=== PATIENT | female | born 1945 | race African-American/Black ===

== ENCOUNTER 2019-12-03 09:19 | Outpatient (REF) | payer MEDICARE, MEDICAID, SELFPAY ==
--- NOTE | 2019-12-03 | US_ITS ---
EXAMINATION: US THYROID CLINICAL INFORMATION: Goiter. COMPARISON: Ultrasound soft tissue head/neck thyroid dated 11/28/2018 and 11/20/2017. TECHNIQUE: Linear transducer cummings-scale and color Doppler examination with attention to the region of the thyroid. FINDINGS: SIZE: Measurements of the thyroid lobes and nodules are given in sagittal, anteroposterior and transverse dimensions respectively. Right Thyroid Lobe: 4.3 x 1.6 x 1.1 cm, volume 3.9 mL. Previously 4.2 x 1.6 x 1.3 cm, volume 4.4 mL. Parenchyma: The gland echotexture is heterogeneous. Thyroid vascularity is normal. Left Thyroid Lobe: 3.9 x 1.1 x 0.8 cm, volume 1.7 mL. Previously 4.2 x 1.7 x 0.9 cm, volume 3.3 mL. Parenchyma: The gland echotexture is heterogeneous. Thyroid vascularity is normal. Isthmus: 0.3 cm in maximum AP dimension. Previously 0.4 cm. RIGHT THYROID LOBE: There are 3 nodules seen. 1. Location: Superior. Size: 1.6 x 0.8 x 0.9 cm. Previous: 1.7 x 0.8 x 1.0 cm. Nodule characteristics: Hypoechoic and heterogeneous, smooth margin, calcification and no intranodular flow. 2. Location: Middle. Size: 0.3 x 0.3 x 0.3 cm. Previous: Not seen on the previous study. Nodule characteristics: Hypoechoic and cystic, smooth margin, no calcification and no intranodular flow. 3. Location: Inferior. Size: 0.2 x 0.2 x 0.2 cm. Previous: Not seen on the previous study. Nodule characteristics: Hypoechoic and cystic, smooth margin, no calcification and no intranodular flow. ISTHMUS: No nodules. LEFT THYROID LOBE: There are 3 nodules seen. 1. Location: Middle. Size: 0.6 x 0.3 x 0.6 cm. Previous: 0.6 x 0.3 x 0.5 cm. Nodule characteristics: Hypoechoic, smooth margin, no calcification and positive intranodular flow. 2. Location: Superior. Size: 0.2 x 0.2 x 0.2 cm. Previous: Not seen on the previous study. Nodule characteristics: Hypoechoic and cystic, smooth margin, no calcification and no intranodular flow. 3. Location: Superior. Size: 0.9 x 0.4 x 0.6 cm. Previous: 1.1 x 0.6 x 0.9 cm. Nodule characteristics: Hypoechoic, smooth margin, no calcification and positive intranodular flow. NODES: No lymphadenopathy is seen in the tissue surrounding the thyroid gland. IMPRESSION: Slightly small heterogeneous thyroid gland. Several newly appreciated small cystic nodules. Otherwise bilateral thyroid nodules are stable.
== END 2019-12-03 09:20 | disposition home or self-care (01) ==
LOC: HO.HMGCX 09:19
PROVIDERS: PCP Internal Medicine; Visit Provider Internal Medicine Endocrinology, Diabetes & Metabolism
DX: E04.2 Nontoxic multinodular goiter (principal)
CPT/HCPCS: 76536

== ENCOUNTER 2019-12-06 07:49 | Outpatient (REF) | payer MEDICARE, MEDICAID, SELFPAY ==
[2019-12-06 13:02] LABS: Free T4 (Free Thyroxine) 1.09 ng/dL (0.71-1.85); Thyroid Stimulating Hormone 0.72 mIU/mL (0.32-4.0)
== END 2019-12-06 07:50 | disposition home or self-care (01) ==
LOC: HO.LAB 07:49
PROVIDERS: PCP Internal Medicine; Referring Provider Internal Medicine; Visit Provider Internal Medicine Endocrinology, Diabetes & Metabolism
DX: E03.9 Hypothyroidism, unspecified (principal); E04.2 Nontoxic multinodular goiter; E66.9 Obesity, unspecified; Z68.34 Body mass index [BMI] 34.0-34.9, adult
CPT/HCPCS: 84439; 84443; 99214

== ENCOUNTER 2020-02-24 06:07 | Outpatient (REF) | payer MEDICARE, MEDICAID, SELFPAY ==
[2020-02-24 07:21] LABS: MANUAL DIFF FLAG NO
[2020-02-24 07:25] LABS: Basophils Absolute Auto 0.1 X10*3/uL (0.0-0.2); Basophils Percent Auto 0.8 % (0-2); Eosinophils Absolute Auto 0.1 X10*3/uL (0.0-0.4); Eosinophils Percent Auto 1.5 % (0-4); Hemoglobin 15.1 g/dl (12.0-16.0); Imm Gran Abs Auto 0.02 X10*3/uL (0.00-0.03); Imm Gran Pct Auto 0.2 % (0.0-0.4); Lymphocytes Absolute Auto 4.3 X10*3/uL (1.2-4.9); Lymphocytes Percent Auto 49.9 % (20-40); Mean Corpuscular HGB Conc 32.8 g/dl (31.0-35.0); Mean Corpuscular Hemoglobin 28.8 pg (27.0-33.0); Mean Corpuscular Volume 87.6 fL (80-98); Mean Platelet Volume 10.8 fL (9.4-12.3); Monocytes Absolute Auto 0.7 X10*3/uL (0.1-1.2); Monocytes Percent Auto 7.9 % (2-11); Neutrophils Absolute Auto 3.5 X10*3/uL (2.0-8.3); Neutrophils Percent Auto 39.7 % (45-73); Platelet Count 285 X10*3/uL (160-400); Red Blood Count 5.25 X10*6/uL (4.20-5.50); Red Cell Distribution Width 12.9 % (11.0-16.0); White Blood Count 8.7 X10*3/uL (4.8-10.8)
[2020-02-24 07:45] LABS: Anion Gap 15 (12-20); Blood Urea Nitrogen 20 mg/dL (9-16); Calcium 9.3 mg/dL (8.4-10.2); Carbon Dioxide 27 mmol/L (22-29); Chloride 103 mmol/L (96-108); Cholesterol 134 mg/dL; Estimated Glomerular Filt Rate 41; HDL Cholesterol 42 mg/dL; Iron 120 mcg/dL (30-160); LDL Cholesterol Calculated 68 mg/dl; Percent Iron Saturation 38 % (15-50); Potassium 3.6 mmol/l (3.3-5.1); Sodium 141 mmol/L (135-145); Total Iron Binding Capacity 318 mcg/dL (228-428); Triglycerides 124 mg/dL; Unsaturated Iron Binding 198 ug/dL; Uric Acid 5.5 mg/dL (2.4-5.7)
[2020-02-24 07:49] LABS: Creatinine Urine 193.13 mg/dL; Protein/Creatinine Ratio, Ur 0.16 (<0.2); Total Protein Urine Random 31 mg/dL (<12)
[2020-02-24 07:53] LABS: Estimated Average Glucose 105 mg/dL; Hemoglobin A1c % 5.3 %
[2020-02-24 08:05] LABS: Free T4 (Free Thyroxine) 1.05 ng/dL (0.71-1.85); Thyroid Stimulating Hormone 1.73 uIU/mL (0.32-4.0)
[2020-02-24 08:07] LABS: Ferritin 84 ng/mL (10-250); Vitamin D 25-OH Total 44.1 ng/mL (>30)
[2020-02-25 20:22] LABS: Calcium (PTHI) 9.6 mg/dL (8.6-10.4); PTHI 38 pg/mL (14-64)
== END 2020-02-24 06:08 | disposition home or self-care (01) ==
LOC: HO.LAB 06:07
PROVIDERS: Internal Medicine Endocrinology, Diabetes & Metabolism; PCP Internal Medicine; Visit Provider Physician Assistant
DX: N18.31 Chronic kidney disease, stage 3a (principal)
CPT/HCPCS: 36415; 80051; 80061; 82306; 82310; 82565; 82728; 83036; 83540; 83970; 84156; 84439; 84443; 84520; 84550; 85025

== ENCOUNTER 2020-05-14 18:12 | Emergency (ER) | payer MEDICARE, MEDICAID, SELFPAY ==
--- NOTE | ~2020-05-14 | XR_ITS ---
EXAMINATION: XR CHEST CLINICAL INFORMATION: Chest pain COMPARISON: None TECHNIQUE: Frontal view of the chest was obtained. FINDINGS: The heart and pulmonary vessels appear normal. No infiltrates, effusions or lung masses seen. Marked degenerative changes present in the left shoulder. Degenerative changes noted in the spine as well. XR/XR chest 1V IMPRESSION: No acute intrathoracic disease
[2020-05-14 18:25] VITALS: BP 158/77; BP 170/86; PULSE 105; PULSE 90; RESP 16; TEMP 37; O2SAT 100; O2SAT 99; BMI 32.0
--- NOTE | 2020-05-14 19:02 | ECG_ITS ---
Test Reason : HTN Blood Pressure : / mmHG Vent. Rate : 103 BPM Atrial Rate : 103 BPM P-R Int : 176 ms QRS Dur : 080 ms QT Int : 380 ms P-R-T Axes : 055 021 031 degrees QTc Int : 497 ms Sinus tachycardia with Premature supraventricular complexes Nonspecific ST abnormality Abnormal ECG No previous ECGs available Referred By: Amy Danielle Electronically Signed By:YONI ALCANTARA MD
--- NOTE | 2020-05-14 19:02 | ED.CHESTPAIN ---
HPI - Chest Pain General Chief Complaint: Anxiety Stated Complaint: anxiety Source: patient Mode of arrival: ambulatory Limitations: language barrier History of Present Illness HPI narrative: 74-year-old [place]an-speaking female with past medical history of hypertension, hypothyroidism, osteoarthritis, GERD, and anxiety presents with anxiety over an elevated blood pressure. She reports having an episode of right-sided chest pain prior to the episode of elevated blood pressure and anxiety. She takes blood pressure medication every morning, take blood pressure readings several times a day. She does not report any chest pain or pressure at this time, denies palpitations, headache, dizziness, changes in vision, abdominal pain, abdominal distention, dysuria, hematuria, nausea, vomiting, diarrhea, constipation, melena, hematochezia, edema, loss of balance or changes in vision. Timing of current episode: episodic Prior episodes: Yes Onset: during rest Pain location: right chest Pain radiation: none Severity: mild Pain scale (0-10): 2 Quality: dull Relieving factors: rest Exacerbating factors: nothing Treatment prior to arrival: none Risk Factors Coronary artery disease risk factors: hyperlipidemia and hypertension Thoracic aortic dissection risk factors: none Related Data Home Medications Medication Instructions Recorded Confirmed amlodipine 5 mg tablet 5 mg PO DAILY 12/06/19 12/06/19 ibandronate 150 mg tablet 150 mg PO .monthly tab 12/06/19 12/06/19 metoprolol succinate 100 mg 100 mg PO DAILY 12/06/19 12/06/19 tablet,extended release 24 hr oxazepam 10 mg capsule 10 mg PO BID 12/06/19 12/06/19 ranitidine HCl 150 mg tablet 150 mg PO BID tab 12/06/19 12/06/19 simvastatin 20 mg tablet 20 mg PO DAILY 12/06/19 12/06/19 sucralfate 100 mg/mL oral 10 ml PO QID 12/06/19 12/06/19 suspension Previous Rx's Medication Instructions Recorded levothyroxine 50 mcg tablet 50 mcg PO DAILY 90 Days #90 tab 12/06/19 Allergies Allergy/AdvReac Type Severity Reaction Status Date / Time No Known Allergies Allergy Verified 05/14/20 19:02 Review of Systems Review of Systems: Constitutional: No Fever, No Chills ENT/Mouth: No Ear Pain, No Nasal Congestion, No sore throat Eyes: No Eye Pain, No Swelling, No Redness Cardiovascular: Resolved Chest Pain, No SOB Respiratory: No Cough, No Sputum, No Dyspnea Gastrointestinal: No Nausea, No Vomiting, No Diarrhea, No Hematochezia, No Melena Genitourinary: No Dysuria, No Urinary Frequency, No Hematuria Musculoskeletal: No Myalgias Skin: No Skin Lesions, No rash Neuro: No Weakness, No Numbness, No Paresthesias, No Dizziness, No Headache Psych: positive Anxiety, no Depression, no SI/HI Heme/Lymph: No Lymphadenopathy Endocrine: No Polyuria, No Polydipsia Yes all other systems are reviewed and are negative [facility] Past Medical History Attestation statement: The following information was validated with the patient. Source: old records reviewed Medical History GERD (gastroesophageal reflux disease) Hypertension Hypothyroidism Non-toxic multinodular goiter Obesity (BMI 30-39.9) Osteoarthritis Osteoporosis Surgical History Hx laparoscopic cholecystectomy Hx of eye surgery Hx of hysterectomy Social History Social History Advance Directives: No Advance Directives Information Provided: Yes Physical Exam Vital Signs: Vital Signs: Last Vital Signs Temp 98.6 F 05/14/20 18:25 Pulse 92 05/14/20 22:20 Resp 18 05/14/20 22:20 BP 137/73 05/14/20 22:20 Pulse Ox 98 05/14/20 22:20 Body Mass Index 32.0 Appearance: Alert. Oriented X3. No acute distress. Eyes: Pupils equal, round and reactive to light. ENT: Pharynx normal. Neck: Normal inspection. Neck supple. CVS: Normal heart rate and rhythm. Pulses normal. Respiratory: No respiratory distress. Breath sounds normal. Abdomen: Soft and nontender. Skin: Skin warm and dry. Normal skin color. Normal skin turgor. Extremities: No lower extremity edema. Neuro: No motor deficit. No sensory deficit. Course Course Course Narrative: 74-year-old [place]an-speaking female with past medical history of hypertension, hypothyroidism, osteoarthritis, GERD, and anxiety presents with anxiety over an elevated blood pressure. She reports having an episode of right-sided chest pain prior to the episode of elevated blood pressure and anxiety. Based on patient's symptoms we will rule out ACS, order CBC, Chem 7 and urinalysis. White count 13.7, H&H 15.0/44.5, BUN 24, Sodium 133, urinalysis is negative, chest x-ray negative, EKG sinus tachycardia no ST elevation or depression no indication of ischemia. lab values highly suspicious for dehydration. Highly unlikely that this is ACS. Will resuscitate with 1 L of fluid. No indication of infection at this time Discussion with family regarding lab values, and negative workup. Plan of care is to discharge home. marketing and outreach coordinator utilized for all correspondence. Google translate utilized for discharge instructions. MDM - Chest Pain Differential Diagnosis Differential diagnosis: Likely atypical chest pain, st elevation myocardial infarction and chest pain Differential diagnosis: Anxiety Medical Records Data Attestation: I reviewed the patient's medical records. Lab Data Attestation: I reviewed the patient's lab results. Result diagrams: 05/14/20 19:27 05/14/20 19:27 Labs: Lab Results 05/14/20 05/14/20 05/14/20 Range/Units 19:20 19:27 19:27 WBC 13.7 H (4.8-10.8) X10*3/uL RBC 5.11 (4.20-5.50) X10*6/uL Hgb 15.0 (12.0-16.0) g/dl Hct 44.5 (37-47) % MCV 87.1 (80-98) fL MCH 29.4 (27.0-33.0) pg MCHC 33.7 (31.0-35.0) g/dl RDW 12.8 (11.0-16.0) % Plt Count 290 (160-400) X10*3/uL MPV 10.0 (9.4-12.3) fL Immature Gran % (Auto) 0.3 (0.0-0.4) % Neut % (Auto) 63.9 (45-73) % Lymph % (Auto) 25.0 (20-40) % Galax % (Auto) 9.5 (2-11) % Eos % (Auto) 0.9 (0-4) % Baso % (Auto) 0.4 (0-2) % Lymph # (Auto) 3.4 (1.2-4.9) X10*3/uL [place]ax # (Auto) 1.3 H (0.1-1.2) X10*3/uL Eos # (Auto) 0.1 (0.0-0.4) X10*3/uL Baso # (Auto) 0.1 (0.0-0.2) X10*3/uL Abs Immat Gran (auto) 0.04 H (0.00-0.03) X10*3/uL Absolute Neuts (auto) 8.8 H (2.0-8.3) X10*3/uL Absolute Nucleated RBC 0.000 (0.0-0.012) X10*3/uL Nucleated RBC % (auto) 0.0 (0.0-0.2) /100WBC PT 12.3 (10.8-13.0) SEC INR 1.0 (0.9-1.1) APTT 32.7 (24.1-38.0) SEC Sodium (135-145) mmol/L Potassium (3.3-5.1) mmol/L Chloride (96-108) mmol/L Carbon Dioxide (22-29) mmol/L Anion Gap (12-20) BUN (9-16) mg/dL Creatinine (0.5-1.4) mg/dL Estim Creat Clear Calc Estimated GFR POC Glucose 126 H (60-115) mg/dL Random Glucose (60-115) mg/dL Calcium (8.4-10.2) mg/dL Magnesium (1.6-2.6) mg/dL Total Bilirubin (0.0-1.0) mg/dL Direct Bilirubin (0.0-0.5) mg/dL AST (5-31) U/L ALT (0-31) U/L Alkaline Phosphatase (39-117) U/L Troponin I High Sens (<3.5-17.0) ng/L Total Protein (6.5-8.0) g/dL Albumin (3.5-5.0) g/dL Lipase (8-78) U/L Urine Color Urine Appearance Urine pH (5.0-8.0) Ur Specific Hamilton (1.005-1.025) Urine Protein (NEG-TRACE) MG/DL Urine Glucose (UA) (NEG) MG/DL Urine Ketones (NEG) MG/DL Urine Blood (NEG) Urine Nitrite (NEG) Ur Leukocyte Esterase (NEG) Urine RBC (0) /HPF Urine WBC (0-4) /HPF Ur Squamous Epith Cells /LPF Urine Bacteria /LPF 05/14/20 05/14/20 05/14/20 Range/Units 19:27 19:27 19:27 WBC (4.8-10.8) X10*3/uL RBC (4.20-5.50) X10*6/uL Hgb (12.0-16.0) g/dl Hct (37-47) % MCV (80-98) fL MCH (27.0-33.0) pg MCHC (31.0-35.0) g/dl RDW (11.0-16.0) % Plt Count (160-400) X10*3/uL MPV (9.4-12.3) fL Immature Gran % (Auto) (0.0-0.4) % Neut % (Auto) (45-73) % Lymph % (Auto) (20-40) % Galax % (Auto) (2-11) % Eos % (Auto) (0-4) % Baso % (Auto) (0-2) % Lymph # (Auto) (1.2-4.9) X10*3/uL [place]ax # (Auto) (0.1-1.2) X10*3/uL Eos # (Auto) (0.0-0.4) X10*3/uL Baso # (Auto) (0.0-0.2) X10*3/uL Abs Immat Gran (auto) (0.00-0.03) X10*3/uL Absolute Neuts (auto) (2.0-8.3) X10*3/uL Absolute Nucleated RBC (0.0-0.012) X10*3/uL Nucleated RBC % (auto) (0.0-0.2) /100WBC PT (10.8-13.0) SEC INR (0.9-1.1) APTT (24.1-38.0) SEC Sodium 133 L (135-145) mmol/L Potassium 3.6 (3.3-5.1) mmol/L Chloride 96 (96-108) mmol/L Carbon Dioxide 26 (22-29) mmol/L Anion Gap 15 (12-20) BUN 24 H (9-16) mg/dL Creatinine 1.17 (0.5-1.4) mg/dL Estim Creat Clear Calc 37.0 Estimated GFR 45 POC Glucose (60-115) mg/dL Random Glucose 131 H (60-115) mg/dL Calcium 9.5 (8.4-10.2) mg/dL Magnesium 2.1 (1.6-2.6) mg/dL Total Bilirubin 0.5 (0.0-1.0) mg/dL Direct Bilirubin 0.2 (0.0-0.5) mg/dL AST 30 (5-31) U/L ALT 47 H (0-31) U/L Alkaline Phosphatase 72 (39-117) U/L Troponin I High Sens < 3.5 (<3.5-17.0) ng/L Total Protein 7.9 (6.5-8.0) g/dL Albumin 4.7 (3.5-5.0) g/dL Lipase 61 (8-78) U/L Urine Color STRAW Urine Appearance CLEAR Urine pH 7.0 (5.0-8.0) Ur Specific Hamilton 1.015 (1.005-1.025) Urine Protein NEG (NEG-TRACE) MG/DL Urine Glucose (UA) NEG (NEG) MG/DL Urine Ketones NEG (NEG) MG/DL Urine Blood TRACE (NEG) Urine Nitrite NEG (NEG) Ur Leukocyte Esterase NEG (NEG) Urine RBC 1-4 (0) /HPF Urine WBC 1-4 (0-4) /HPF Ur Squamous Epith Cells 1+ /LPF Urine Bacteria NONE /LPF Imaging Data Chest x-ray: Attestation: I personally reviewed and interpreted this imaging study as follows: Radiologist's impression: EXAMINATION: XR CHEST CLINICAL INFORMATION: Chest pain COMPARISON: None TECHNIQUE: Frontal view of the chest was obtained. FINDINGS: The heart and pulmonary vessels appear normal. No infiltrates, effusions or lung masses seen. Marked degenerative changes present in the left shoulder. Degenerative changes noted in the spine as well. XR/XR chest 1V IMPRESSION: No acute intrathoracic disease ECG Data ECG #1: Attestation: I personally reviewed and interpreted this ECG as follows: ECG interpretation date: 05/14/20 ECG interpretation time: 19:21 Interpretation: Vent. rate 103 BPM MD interval 176 ms QRS duration 80 ms QT/QTc 380/497 ms P-R-T axes 55 21 31 Sinus tachycardia with Premature supraventricular complexes Nonspecific ST abnormality Abnormal ECG No previous ECGs available Discharge Plan Discharge Clinical Impression: Acute anxiety, Acute dehydration Patient Disposition: Home, Self-Care Instructions: Dehydration (ED), Anxiety (ED) Additional Instructions: You were evaluated for anxiety. We did a full cardiac workup, your exam was negative. Your lab values indicated dehydration. We gave you 1 L of fluid. Please drink plenty of fluids when you get home. Continue follow-up with primary care physician this week. Thank you for choosing this emergency department for evaluation. Please follow-up with primary care physician as needed. Return to the emergency department for any new, concerning, or worsening symptoms. Prescriptions: No Action oxazepam 10 mg capsule 10 mg PO BID RF: 0 ranitidine HCl 150 mg tablet 150 mg PO BID RF: 0 ibandronate 150 mg tablet 150 mg PO .monthly RF: 0 metoprolol succinate 100 mg tablet extended release 24 hr 100 mg PO DAILY RF: 0 sucralfate [Carafate] 100 mg/mL suspension 10 ml PO QID RF: 0 simvastatin 20 mg tablet 20 mg PO DAILY RF: 0 amlodipine 5 mg tablet 5 mg PO DAILY RF: 0 levothyroxine 50 mcg tablet 50 mcg PO DAILY 90 Days Qty: 90 RF: 2 Interventions: ED Discharge Assessment Last Done: 05/14/20 22:41 Discharge Date/Time: 05/14/20 22:42
[2020-05-14 19:32] LABS: Glucose, Whole Blood 126 mg/dL (60-115)
--- NOTE | 2020-05-14 19:32 | PC.NURSE ---
EKG, POC, labs and urine obtained and sent. Pt resting comfortably in bed, denies pain/discomfort, awaiting test results.
[2020-05-14 19:33] LABS: MANUAL DIFF FLAG NO
[2020-05-14 19:34] LABS: Basophils Absolute Auto 0.1 X10*3/uL (0.0-0.2); Basophils Percent Auto 0.4 % (0-2); Eosinophils Absolute Auto 0.1 X10*3/uL (0.0-0.4); Eosinophils Percent Auto 0.9 % (0-4); Hematocrit 44.5 % (37-47); Imm Gran Abs Auto 0.04 X10*3/uL (0.00-0.03); Imm Gran Pct Auto 0.3 % (0.0-0.4); Lymphocytes Absolute Auto 3.4 X10*3/uL (1.2-4.9); Mean Corpuscular HGB Conc 33.7 g/dl (31.0-35.0); Mean Corpuscular Hemoglobin 29.4 pg (27.0-33.0); Mean Corpuscular Volume 87.1 fL (80-98); Monocytes Absolute Auto 1.3 X10*3/uL (0.1-1.2); Monocytes Percent Auto 9.5 % (2-11); Neutrophils Absolute Auto 8.8 X10*3/uL (2.0-8.3); Neutrophils Percent Auto 63.9 % (45-73); Platelet Count 290 X10*3/uL (160-400); Red Blood Count 5.11 X10*6/uL (4.20-5.50); Red Cell Distribution Width 12.8 % (11.0-16.0); White Blood Count 13.7 X10*3/uL (4.8-10.8)
[2020-05-14 19:48] LABS: Prothrombin Time 12.3 SEC (10.8-13.0)
[2020-05-14 19:51] LABS: Glucose Urine UA NEG (NEG); Leukocyte Esterase Urine NEG (NEG); Nitrite Urine NEG (NEG); Partial Thromboplastin Time 32.7 SEC (24.1-38.0); Specific Gravity - Urine 1.015 (1.005-1.025); Urine Blood TRACE (NEG); Urine Ketones NEG (NEG); Urine Protein NEG (NEG-TRACE)
[2020-05-14 19:54] LABS: Appearance Urine CLEAR; Color Urine STRAW
[2020-05-14 19:57] LABS: Alanine Aminotransferase 47 U/L (0-31); Albumin Level 4.7 g/dL (3.5-5.0); Alkaline Phosphatase 72 U/L (39-117); Anion Gap 15 (12-20); Aspartate Amino Transferase 30 U/L (5-31); Bilirubin Direct 0.2 mg/dL (0.0-0.5); Bilirubin Total 0.5 mg/dL (0.0-1.0); Blood Urea Nitrogen 24 mg/dL (9-16); Calcium 9.5 mg/dL (8.4-10.2); Carbon Dioxide 26 mmol/L (22-29); Chloride 96 mmol/L (96-108); Estimated Glomerular Filt Rate 45; Glucose Random 131 mg/dL (60-115); Lipase 61 U/L (8-78); Magnesium 2.1 mg/dL (1.6-2.6); Potassium 3.6 mmol/L (3.3-5.1); Sodium 133 mmol/L (135-145); Total Protein 7.9 g/dL (6.5-8.0)
[2020-05-14 20:01] LABS: Squamous Epithelial Cell Urine 1+ /LPF
[2020-05-14 20:04] LABS: Troponin-I High Sensitivity < 3.5 ng/L (<3.5-17.0)
[2020-05-14] MEDS: 0.9 % Sodium Chloride 1,000 ML 999 ML IVCONT (20:39)
--- NOTE | 2020-05-14 20:39 | PC.NURSE ---
IV established, IVF infusing. Pt on the phone with family, continues denying pain/discomfort. Continue to monitor.
[2020-05-14 22:20] VITALS: BP 137/73; PULSE 92; RESP 18; O2SAT 98
== END 2020-05-14 22:42 | disposition home or self-care (01) ==
PROVIDERS: Nurse Practitioner Family; Emergency Provider Internal Medicine
DX: F41.9 Anxiety disorder, unspecified (principal); E86.0 Dehydration; I10 Essential (primary) hypertension
CPT/HCPCS: 36415; 71045; 80048; 80076; 81001; 82947; 83690; 83735; 84484; 85025; 85610; 85730; 93005; 96360; 99283; 99284

== ENCOUNTER 2020-05-18 10:48 | Outpatient (REF) | payer MEDICARE, MEDICAID, SELFPAY | END 2020-05-18 10:49 | disposition home or self-care (01) | LOC: HO.HOSX 10:48 | PROVIDERS: Visit Provider Orthopaedic Surgery | DX: Z13.89 Encounter for screening for other disorder (principal) ==

== ENCOUNTER 2020-05-19 11:38 | Outpatient (REF) | payer MEDICARE, MEDICAID, SELFPAY ==
--- NOTE | ~2020-05-19 | XR_ITS ---
EXAMINATION: XR SHOULDER, RIGHT CLINICAL INFORMATION: Pain right shoulder. COMPARISON: None TECHNIQUE: AP external rotation, Grashey, scapular Y, and axillary views of the right shoulder. FINDINGS: There is reduction of glenohumeral and AC joint space. No fracture, dislocation or subluxation seen. The soft tissues are normal. XR/XR shoulder RT min 2V IMPRESSION: Mild early degenerative changes of the right shoulder joint. No acute fracture or dislocation seen.
== END 2020-05-19 11:39 | disposition home or self-care (01) ==
LOC: HO.HMGCX 11:38
PROVIDERS: PCP Internal Medicine; Visit Provider Orthopaedic Surgery
DX: Z13.89 Encounter for screening for other disorder (principal)
CPT/HCPCS: 20610; 73030; 99202

== ENCOUNTER 2020-05-19 13:35 | Outpatient (REF) | payer MEDICARE, MEDICAID, SELFPAY ==
--- NOTE | ~2020-05-19 | XR_ITS ---
EXAMINATION: XR SHOULDER, RIGHT CLINICAL INFORMATION: M25.519 - Pain in unspecified shoulder COMPARISON: None TECHNIQUE: Three views of the right shoulder. FINDINGS: Mild acromioclavicular and glenohumeral osteoarthritis. No fractures or malalignment. Bone mineralization is normal. Small anterior subacromial spur. Imaged portion of the hemithorax is unremarkable. There is a small 4 mm calcification at the right coracoid process, likely calcific tendinitis. XR/XR shoulder RT min 2V IMPRESSION: Mild glenohumeral and acromioclavicular osteoarthritis. Small 4 mm focus of calcific tendinitis at the coracoid process, likely at the origin of the coracobrachialis or short head of the biceps.
== END 2020-05-19 13:36 | disposition home or self-care (01) ==
LOC: HO.HOSX 13:35
PROVIDERS: Visit Provider Orthopaedic Surgery
DX: M25.511 Pain in right shoulder (principal)
CPT/HCPCS: 20610; 73030; 99202; J1040

== ENCOUNTER 2020-08-14 06:17 | Outpatient (REF) | payer MEDICARE, MEDICAID, SELFPAY ==
[2020-08-14 07:47] LABS: MANUAL DIFF FLAG NO
[2020-08-14 07:53] LABS: Basophils Absolute Auto 0.1 X10*3/uL (0.0-0.2); Basophils Percent Auto 0.6 % (0-2); Eosinophils Absolute Auto 0.2 X10*3/uL (0.0-0.4); Eosinophils Percent Auto 1.9 % (0-4); Hematocrit 44.1 % (37-47); Hemoglobin 14.7 g/dl (12.0-16.0); Imm Gran Abs Auto 0.02 X10*3/uL (0.00-0.03); Imm Gran Pct Auto 0.2 % (0.0-0.4); Lymphocytes Absolute Auto 3.9 X10*3/uL (1.2-4.9); Lymphocytes Percent Auto 43.2 % (20-40); Mean Corpuscular HGB Conc 33.3 g/dl (31.0-35.0); Mean Corpuscular Hemoglobin 28.9 pg (27.0-33.0); Mean Corpuscular Volume 86.8 fL (80-98); Mean Platelet Volume 10.7 fL (9.4-12.3); Monocytes Absolute Auto 0.8 X10*3/uL (0.1-1.2); Monocytes Percent Auto 9.4 % (2-11); Neutrophils Percent Auto 44.7 % (45-73); Platelet Count 270 X10*3/uL (160-400); Red Blood Count 5.08 X10*6/uL (4.20-5.50); Red Cell Distribution Width 13.3 % (11.0-16.0)
[2020-08-14 08:04] LABS: Estimated Average Glucose 108 mg/dL; Hemoglobin A1c % 5.4 %
[2020-08-14 08:20] LABS: Alanine Aminotransferase 28 U/L (0-31); Albumin Level 4.6 g/dL (3.5-5.0); Alkaline Phosphatase 66 U/L (39-117); Anion Gap 15 (12-20); Aspartate Amino Transferase 22 U/L (5-31); Bilirubin Total 0.4 mg/dL (0.0-1.0); Blood Urea Nitrogen 16 mg/dL (9-16); Calcium 9.4 mg/dL (8.4-10.2); Carbon Dioxide 28 mmol/L (22-29); Chloride 102 mmol/L (96-108); Cholesterol 129 mg/dL; Estimated Glomerular Filt Rate 44; Glucose Random 102 mg/dL (60-115); HDL Cholesterol 43 mg/dL; LDL Cholesterol Calculated 70 mg/dl; Potassium 4.1 mmol/L (3.3-5.1); Sodium 141 mmol/L (135-145); Total Protein 7.6 g/dL (6.5-8.0); Triglycerides 84 mg/dL
[2020-08-14 08:29] LABS: Thyroid Stimulating Hormone 1.08 uIU/mL (0.32-4.0)
== END 2020-08-14 06:18 | disposition home or self-care (01) ==
LOC: HO.LAB 06:17
PROVIDERS: PCP Internal Medicine; Visit Provider Internal Medicine
DX: I10 Essential (primary) hypertension (principal)
CPT/HCPCS: 36415; 80053; 80061; 83036; 84443; 85025

== ENCOUNTER 2021-05-24 09:38 | Outpatient (REF) | payer MEDICARE, MEDICAID, SELFPAY ==
[2021-05-24 12:17] LABS: Free T4 (Free Thyroxine) 1.15 ng/dL (0.71-1.85); Thyroid Stimulating Hormone 0.54 uIU/mL (0.32-4.0)
== END 2021-05-24 09:39 | disposition home or self-care (01) ==
LOC: HO.LAB 09:38
PROVIDERS: PCP Internal Medicine; Visit Provider Internal Medicine Endocrinology, Diabetes & Metabolism
DX: E04.2 Nontoxic multinodular goiter (principal); E03.9 Hypothyroidism, unspecified
CPT/HCPCS: 36415; 84439; 84443; 99212

== ENCOUNTER 2021-07-13 11:15 | Outpatient (REF) | payer MEDICARE, MEDICAID, SELFPAY ==
--- NOTE | ~2021-07-13 | US_ITS ---
EXAMINATION: US THYROID CLINICAL INFORMATION: Nontoxic multinodular goiter. COMPARISON: Ultrasound soft tissue head/neck thyroid dated 12/03/2019 and 11/28/2018. TECHNIQUE: Linear transducer grayscale and color Doppler examination with attention to the region of the thyroid. FINDINGS: SIZE: Measurements of the thyroid lobes and nodules are given in sagittal, anteroposterior and transverse dimensions respectively. Right Thyroid Lobe: 3.9 x 1.3 x 1.3 cm, volume 3.5 mL. Previously 4.3 x 1.6 x 1.1 cm, volume 3.9 mL. Parenchyma: The gland echotexture is heterogeneous. Thyroid vascularity is normal. Left Thyroid Lobe: 3.3 x 0.9 x 1.1 cm, volume 1.7 mL. Previously 3.9 x 1.1 x 0.8 cm, volume 1.7 mL. Parenchyma: The gland echotexture is heterogeneous. Thyroid vascularity is normal. Isthmus: 0.4 cm in maximum AP dimension. Previously 0.3 cm. Estimated total number of nodules greater than or equal to 1 cm: 1. [employer] nodules are described as follows: 1. Location: Right superior. Size: 1.7 x 0.7 x 0.9 cm, volume 0.53 mL. Previously: 1.6 x 0.8 x 0.9 cm, volume 0.60 mL. Nodule characteristics: Composition: Solid (2). Echogenicity: Isoechoic (1). Shape: Not taller than wide (0). Margins: Ill-defined (0). Echogenic Foci: Macrocalcifications (1). ACR TI-RADS total points: 4 ACR TI-RADS category: 4 Significant change in size (>/= 20% in 2 dimensions and minimal increase of 2 mm or 50% or greater increase in volume): Change in features: Change in ACR TI-RADS risk category: 2. Location: Left superior. Size: 0.9 x 0.4 x 0.5 cm, volume 0.09 mL. Previously: 0.8 x 0.4 x 0.6 cm, volume 0.1 mL. Nodule characteristics: Composition: Solid (2). Echogenicity: Hypoechoic (2). Shape: Not taller than wide (0). Margins: Smooth (0). Echogenic Foci: None (0). ACR TI-RADS total points: 4 ACR TI-RADS category: 4 Significant change in size (>/= 20% in 2 dimensions and minimal increase of 2 mm or 50% or greater increase in volume): Change in features: Change in ACR TI-RADS risk category: 3. Location: Left inferior. Size: 0.8 x 0.4 x 0.6 cm, volume 0.1 mL. Previously: 0.6 x 0.3 x 0.6 cm, volume 0.06 mL. Nodule characteristics: Composition: Mixed cystic and solid (1). Echogenicity: Very hypoechoic (3). Shape: Not taller than wide (0). Margins: Smooth (0). Echogenic Foci: None (0). ACR TI-RADS total points: 4 ACR TI-RADS category: 4 Significant change in size (>/= 20% in 2 dimensions and minimal increase of 2 mm or 50% or greater increase in volume): Change in features: Change in ACR TI-RADS risk category: 4. Location: Left inferior. Size: 0.4 x 0.3 x 0.3 cm, volume 0.02 mL. Previously: 0.2 x 0.2 x 0.2 cm, volume 0.004 mL. Nodule characteristics: Composition: Cystic(0). ACR TI-RADS total points: 0 ACR TI-RADS category: 1 Significant change in size (>/= 20% in 2 dimensions and minimal increase of 2 mm or 50% or greater increase in volume): Change in features: Change in ACR TI-RADS risk category: NODES: There is a right level 3 lymph node. This is normal in size in ultrasound morphology and demonstrates normal hilar flow.. This measures 1 x 0.6 x 0.9 cm.. US/US thyroid IMPRESSION: Small heterogeneous thyroid gland. Stable bilateral thyroid nodules. ACR TI-RADS RECOMMENDATION REFERENCE: Ultrasound-guided fine-needle aspiration, followup ultrasound, no further follow up. * TR1 (0 point) and TR 2 (2 points): No FNA or follow up * TR3 (3 points): FNA if more than or equal to 2.5 cm in maximum dimension, followup ultrasound in 1, 3 and 5 years if 1.5 to 2.4 cm in maximum dimension. * TR4 (4-6 points): FNA if more than or equal to 1.5 cm in maximum dimension, followup ultrasound in 1, 2, 3 and 5 years if 1 to 1.4 cm in maximum dimension. * TR5 (more than or equal to 7 points): FNA if more than or equal to 1 cm in maximum dimension, followup ultrasound every year for 5 years if 0.5 to 0.9 cm in maximum dimension. * TR3, TR4 or TR5 nodules that are below the size threshold for follow up receive no follow up.
== END 2021-07-13 11:16 | disposition home or self-care (01) ==
LOC: HO.HMGCX 11:15
PROVIDERS: PCP Internal Medicine; Visit Provider Internal Medicine Endocrinology, Diabetes & Metabolism
DX: E04.2 Nontoxic multinodular goiter (principal); E03.9 Hypothyroidism, unspecified
CPT/HCPCS: 76536

== ENCOUNTER 2021-08-18 11:00 | Outpatient (RCR) | payer MEDICARE, MEDICAID, SELFPAY | END 2021-09-30 08:18 | disposition home or self-care (01) | LOC: HO.PT 11:00 | PROVIDERS: PCP Internal Medicine; Visit Provider Internal Medicine | DX: H81.12 Benign paroxysmal vertigo, left ear (principal) | CPT/HCPCS: 95992; 97161 ==

== ENCOUNTER 2021-11-08 06:00 | Outpatient (REF) | payer MEDICARE, MEDICAID, SELFPAY ==
[2021-11-08 06:16] LABS: MANUAL DIFF FLAG NO
[2021-11-08 07:07] LABS: Basophils Absolute Auto 0.1 X10*3/uL (0.0-0.2); Basophils Percent Auto 0.9 % (0-2); Eosinophils Absolute Auto 0.2 X10*3/uL (0.0-0.4); Eosinophils Percent Auto 2.3 % (0-4); Hematocrit 43.6 % (37.0-47.0); Hemoglobin 14.5 g/dl (12.0-16.0); Imm Gran Abs Auto 0.03 X10*3/uL (0.00-0.03); Imm Gran Pct Auto 0.4 % (0.0-0.4); Lymphocytes Absolute Auto 3.6 X10*3/uL (1.2-4.9); Lymphocytes Percent Auto 46.8 % (20-40); Mean Corpuscular HGB Conc 33.3 g/dl (31.0-35.0); Mean Corpuscular Volume 87.2 fL (80.0-98.0); Mean Platelet Volume 10.2 fL (9.4-12.3); Monocytes Absolute Auto 0.7 X10*3/uL (0.1-1.2); Monocytes Percent Auto 9.5 % (2-11); Neutrophils Absolute Auto 3.1 x10*3/uL (2.0-8.3); Neutrophils Percent Auto 40.1 % (45-73); Platelet Count 246 X10*3/uL (160-400); Red Cell Distribution Width 13.4 % (11.0-16.0); White Blood Count 7.8 X10*3/uL (4.8-10.8)
[2021-11-08 07:19] LABS: Iron 133 mcg/dL (30-160); Percent Iron Saturation 40 % (15-50); Total Iron Binding Capacity 333 mcg/dL (228-428); Unsaturated Iron Binding 200 ug/dL; Uric Acid 4.5 mg/dL (2.4-5.7)
[2021-11-08 07:42] LABS: Ferritin 30 ng/mL (10-250); Vitamin D 25-OH Total 84.9 ng/mL (>30)
[2021-11-08 08:12] LABS: Creatinine Urine 98.26 mg/dL; Protein/Creatinine Ratio, Ur 0.08 (<0.2); Total Protein Urine Random 8 mg/dL (<12)
[2021-11-08 09:40] LABS: Anion Gap 17 (12-20); Blood Urea Nitrogen 13 mg/dL (9-16); Calcium 9.2 mg/dL (8.4-10.2); Carbon Dioxide 28 mmol/L (22-29); Chloride 101 mmol/L (96-108); Estimated Glomerular Filt Rate 49; Potassium 3.6 mmol/L (3.3-5.1); Sodium 142 mmol/L (135-145)
[2021-11-10 13:33] LABS: Calcium (PTHI) 9.3 mg/dL (8.6-10.4); PTHI 43 pg/mL (16-77)
== END 2021-11-08 06:01 | disposition home or self-care (01) ==
LOC: HO.LAB 06:00
PROVIDERS: PCP Internal Medicine; Visit Provider Physician Assistant
DX: N18.31 Chronic kidney disease, stage 3a (principal)
CPT/HCPCS: 36415; 80051; 82306; 82310; 82565; 82728; 83540; 83970; 84156; 84520; 84550; 85025

== ENCOUNTER 2022-10-25 09:16 | Outpatient (REF) | payer MEDICARE, MEDICAID, SELFPAY ==
[2022-10-25 15:01] LABS: Estimated Average Glucose 103 mg/dL; Hemoglobin A1c % 5.2 % (<6.0)
[2022-10-25 16:08] LABS: Alanine Aminotransferase 28 U/L (0-31); Albumin Level 4.6 g/dL (3.5-5.0); Alkaline Phosphatase 55 U/L (39-117); Anion Gap 13 (12-20); Aspartate Amino Transferase 26 U/L (5-31); Bilirubin Direct 0.2 mg/dL (0.0-0.5); Bilirubin Total 0.6 mg/dL (0.0-1.0); Blood Urea Nitrogen 12 mg/dL (9-16); Calcium 10.1 mg/dL (8.4-10.2); Carbon Dioxide 27 mmol/L (22-29); Chloride 102 mmol/L (96-108); Cholesterol 119 mg/dL (<200); Estimated Glomerular Filt Rate 53; Glucose Fasting 90 mg/dL (60-99); HDL Cholesterol 41 mg/dL (>40); LDL Cholesterol Calculated 61 mg/dL (<100); Potassium 3.4 mmol/L (3.3-5.1); Sodium 139 mmol/L (135-145); Total Protein 7.7 g/dL (6.5-8.0); Triglycerides 86 mg/dL (<150)
[2022-10-26 08:07] LABS: ~HepC Num1 0.08 S/CO (0.00-0.79); ~Hepatitis C Antibody Nonreactive (Nonreactive)
== END 2022-10-25 09:17 | disposition home or self-care (01) ==
LOC: HO.CHCLDS 09:16
PROVIDERS: Visit Provider Internal Medicine
DX: E03.8 Other specified hypothyroidism (principal); M85.851 Other specified disorders of bone density and structure, right thigh; M85.852 Other specified disorders of bone density and structure, left thigh; I10 Essential (primary) hypertension
CPT/HCPCS: 36415; 80048; 80061; 80076; 82306; 83036; 86803

== ENCOUNTER 2022-11-24 10:36 | Outpatient (REF) | payer MEDICARE, MEDICAID, SELFPAY ==
--- NOTE | ~2022-11-24 | MM_ITS ---
EXAMINATION: MM SCREENING DIGITAL BREAST TOMOSYNTHESIS, BILATERAL CLINICAL INFORMATION: Screening. Asymptomatic. COMPARISON: Mammography: There are no prior mammograms available for comparison. TECHNIQUE: Digital breast tomosynthesis is performed in both the craniocaudal and mediolateral oblique views along with computer-aided detection (CAD). Synthesized 2D images are generated from the tomosynthesis. FINDINGS: There are scattered areas of fibroglandular density (ACR BI-RADS breast composition Category b). There are no significant masses, abnormal calcifications, or other abnormalities. MM/MM tomosynthesis screening BI IMPRESSION: No mammographic evidence of malignancy. ASSESSMENT: BI-RADS BI-RADS 1 - Negative RECOMMENDATION: Routine annual mammography screening. 1 year F/U This examination should not preclude the clinical evaluation of a suspicious palpable abnormality. This patient's information was entered into a reminder system with a target due date for their next mammogram.
== END 2022-11-24 10:37 | disposition home or self-care (01) ==
LOC: HO.MAMMO 10:36
PROVIDERS: Visit Provider Internal Medicine
DX: Z12.31 Encounter for screening mammogram for malignant neoplasm of breast (principal)
CPT/HCPCS: 77063; 77067

== ENCOUNTER → 2022-11-24 10:45 | Outpatient (BNV) | payer MEDICARE, MEDICAID, SELFPAY | PROVIDERS: Visit Provider Radiology Diagnostic Radiology | DX: Z12.31 Encounter for screening mammogram for malignant neoplasm of breast (principal) | CPT/HCPCS: 77063; 77067 ==

== ENCOUNTER 2023-02-03 08:35 | Outpatient (REF) | payer MEDICARE, MEDICAID, SELFPAY ==
--- NOTE | ~2023-02-03 | MM_ITS ---
EXAMINATION: BONE DENSITOMETRY CLINICAL INDICATION: Osteopenia. COMPARISON: Baseline BD dated 08/02/2018. TECHNIQUE: Using a [employer] DXA System (software version: 13.1) manufactured by [employer], dual-energy x-ray absorptiometry was performed of the lumbar spine and left hip. The images are of good technical quality. Summary results are attached. FINDINGS: LEFT FEMUR, NECK: Current: BMD 0.739 g/cm2, Z-score -0.1, T-score -2.1, osteopenia. Baseline: BMD 0.700 g/cm2. LEFT FEMUR, TOTAL: Current: BMD 0.903 g/cm2, Z-score 1.0, T-score -0.8, normal, 4.3% increase from baseline (<5% change is not significant). Baseline: BMD 0.866 g/cm2. AP SPINE L1-L2 (excluding L3 and L4): The data of L1-L4 has been changed to exclude the L3 and L4 vertebral bodies, because degenerative sclerosis at these levels may cause overestimation of lumbar spine density. Current: BMD 0.911 g/cm2, Z-score -0.3, T-score -2.1, osteopenia, 5.4% increase from baseline (<5% change is not significant). Baseline: BMD 0.864 g/cm2. IDENTIFIED RISK FACTORS: Menopause, renal, hysterectomy, bilateral oophorectomy. HISTORY OF FRACTURE: None listed. MEDICATIONS: Multivitamin, bisphosphonate. MM/XR DEXA axial skeleton IMPRESSION: 1. DIAGNOSIS: Osteopenia based on the lowest T-score value of -2.1 in the femur neck and lumbar spine applying World Health Organization criteria. 2. 10-YEAR FRACTURE RISK PREDICTION, FRAX: Not performed in this patient on estrogen or bone building treatments. 3. Treatment Recommendations: NOF guidelines recommend consideration for treatment in postmenopausal women and men age 50 and older presenting with the following: -A hip or vertebral (clinical or morphometric) fracture. -T-score less than or equal to -2.5 at the femoral neck or spine after appropriate evaluation to exclude secondary causes. -Low bone mass at the hip or spine and a 10-year fracture probability by FRAX of greater than or equal to 3% for hip fracture or greater than or equal to 20% for major osteoporotic fracture based on the [place] adapted WHO algorithm. 4. Other Recommendations: All treatment decisions require clinical judgment and consideration of individual patient factors, including patient preferences, comorbidities, previous drug use, risk factors not captured in the FRAX model (e.g. frailty, falls, vitamin D deficiency, increased bone turnover, interval significant decline in bone density) and possible under or overestimation of fracture risk by FRAX. Additional medical evaluation for secondary cause of low bone mineral density may be appropriate. FUTURE SCAN RECOMMENDATION: People with diagnosed cases of osteoporosis or at high risk for fracture should have regular bone mineral density tests. For patients eligible for Medicare, routine testing is allowed once every 2 years. The testing frequency can be increased to one year for patients who have rapidly progressing disease, those who are receiving or discontinuing medical therapy to restore bone mass, or have additional risk factors.
== END 2023-02-03 08:36 | disposition home or self-care (01) ==
LOC: HO.MAMMO 08:35
PROVIDERS: PCP Internal Medicine; Visit Provider Internal Medicine
DX: Z13.820 Encounter for screening for osteoporosis (principal); Z78.0 Asymptomatic menopausal state; M85.851 Other specified disorders of bone density and structure, right thigh; M85.852 Other specified disorders of bone density and structure, left thigh
CPT/HCPCS: 77080

== ENCOUNTER 2023-02-10 08:10 | Outpatient (REF) | payer MEDICARE, MEDICAID, SELFPAY ==
[2023-02-10 15:23] LABS: TSH reflex Free T4 0.77 uIU/mL (0.32-4.0)
== END 2023-02-10 08:11 | disposition home or self-care (01) ==
LOC: HO.CHCLDS 08:10
PROVIDERS: Visit Provider Internal Medicine
DX: E03.8 Other specified hypothyroidism (principal)
CPT/HCPCS: 36415; 84443

== ENCOUNTER 2023-03-07 07:41 | Outpatient (AMB) | payer MEDICARE, MEDICAID, SELFPAY ==
--- NOTE | 2023-03-07 08:16 | A.OFFVIS_ITS ---
Intake Vital Signs 3 03/07/23 08:20 Height 4 ft 11 in Weight 137 lb BMI 27.7 BP 167/79 H Blood Pressure Location Lt brachial Position Sitting Pulse 75 Intake Visit Reasons: gastritis Intake Note: Patient new consult for Gastritis. Patient cc: Gastritis with burning sensation, and denies any other GI issues. Traffic Signal Repairer Required: No Accompanied by: Daughter Allergies No Known Allergies Allergy (Verified 03/07/23 08:15) HPI gastritis 2 HPI0 Details 77-year-old female here for initial eval uation of ?gastritis. ? she is referred by Bell Barboza of [facility]. PMX Hypertension Hypothyroid High cholesterol Chronic kidney disease stage 3 Osteoporosis Anxiety disorder History of gastritis Chronic right shoulder pain GERD * SURGICAL HISTORY Cholecystectomy Hysterectomy * ALLERGIES: NKDA * [employer] LABS: Laboratory Tests 10/25/22 10/25/22 02/10/23 09:23 09:23 08:09 Estimated GFR 53 Total Bilirubin 0.6 Direct Bilirubin 0.2 AST 26 ALT 28 Alkaline Phosphata se 55 TSH 0.77 2019 visit when patient was seen by [facility] last note is as follows: 72 y/o female here for a follow up, last seen by MYSELF, last note: ?1. Erosive gastritis ?Start Carafate Tablet, 1 GM, 2 tablets, qhs okay to grind and dissolve, Orally, once a day, 30 day(s), 60 Tablet, Refills 3 ?Notes: We may be facing bile salt reflux and diarrhea, will make this dx if she responds well to the carafate. May also need to consider Creon depending on response. ?2. Chronic gastritis with bleeding, unspecified gastritis type ?Notes: May be an element of bile acid irritation. ?3. GERD with esophagitis ?Notes: Continue omeprazole qam and ranitidine qpm, if she has breakthrough HB at night take extra ranitidine rather than omeprazole r/t the long onset of action of PPI and likelihood of faster relief with H2. ?Her [place] language is Palauan and we are utilizing a telephone interpretation service #[phone]. ?She is doing VERY well, her diarrhea and burning as well as GERD and nocturnal brash have resolved. She is extremely happy with this ?Erosive gastritis ? Notes: Continue carafate and omep razole as she has had an excellent response EGD 03/12/18 Findings: Larynx: Normal Esophagus: GE junction at 35 cms. Minimal focal esophagitis at GE junction and no Rivera s. Stomach: Moderate diffuse gastric erythema with scattered erosions. Biopsies were obtained. Grade 2 flap valve on retroflexed examination of the cardia. Duodenum: Normal bulb and descending duodenum with normal villous pattern Intervention: Biopsies as noted above Impression and Post Procedure Diagnosis: Endoscopy Findings: LARYNX: Normal ESOPHAGUS: Minimal focal esophagitis at GE junction STOMACH: Diffuse gastritis with scattered erosions DUODENUM: Normal Plan: Await pathology results Continue present medications (Esomeprazole at 20 mg PO once daily) Patient has an appointment on 03/26/18 in the GI [facility] with Maggie Sumner NP SIG: JARAD MARROQUIN MD Electronically Signed 03/12/18 190 Biopsy showed mild chronic inactive gastritis and no H pylori. TODAY'S VISIT Palauan #dtr translates per pt request They tell me she is still taking the carafate 4 times a day. She also continues on the generic nexium. She has been having acid brash that wakes her up in the middle of the night, this is worse when she eats acidic foods. This is not every night but occurs about 2 times a week. She was recently discontinued from her Boniva osteoporosis medication be cause her bone density had improved. I am uncertain whether this medication drives reflux the same way alendronate does. I have concerned that she is taking the Carafate 4 times a day as it tends to block the absorption of other medications including her cardiac medications and her sleep medication. Were going to change this to 20 mL twice a day just before lunch and just before supper to try to prevent this. It may also be blocking the effectiveness of her Nexium. She has pain for the Nexium [id number] because it worked better than omeprazole. However I do not believe she has ever tried any of the other medications in this class that may be covered by her insurance and may be stronger. Will try moving her to pantoprazole and see if we can find something that works better and does not cost her so much money. We discussed diet changes for GERD and she says she knows what to avoid. I did encourage her to put risers under the head of the bed to prevent aspiration. She denies any other changes in her health status or new medical conditions, there are no new medications, there is no weight loss or gain, there is no nausea vomiting dysphagia or trouble with her bowels at this time. She just did a Cologuard test with her primary care provider 3 weeks ago. They have not yet heard whether this was positive her negative and I asked them to let me know when they know. I do not believe she has ever had a colonoscopy that I know of on record. Return office visit in 3 weeks to evaluate her response. [facility] Medical History GERD (gastroesophageal reflux disease) Hypertension Hypothyroidism Non-toxic multinodular goiter Obesity (BMI 30-39.9) Osteoarthritis Osteoporosis Surgical History Hx of hysterectomy Hx laparoscopic cholecystectomy Hx of eye surgery Family History Family/Other Hypothyroidism Father Prostate cancer Mother Diabetes History of kidney problems Heart disease Social History Alcohol intake: current Alcohol intake frequency: does not drink Patient Tobacco Use Status: Never used Tobacco Review of Systems Const Denies fatigue, Denies fever(s), Denies night sweats, Denies poor appetite and Denies weight loss ENT Reports Normal hearing present, Denies dental pain, Denies dysphagia, Denies hearing loss, Denies mouth pain, Denies odynophagia, Denies throat swelling, Denies tongue swelling and Reports other (Dentition adequate) Card Reports no additional complaints Resp Reports no additional complaints GI Details: Acid brash with aspiration and choking twice a week at night Denies abdominal pain, Denies melena, Denies bloating, Denies hematochezia, Denies constipation, Denies GI cramping, Denies dysphagia, Denies excessive flatus, Denies early satiety, Reports heartburn, Reports diarrhea, Denies nausea, Denies odynophagia, Denies vomiting and Denies hematemesis Skin/Breast Denies pruritus, Denies lesions, Denies rash and Denies jaundice Neuro Reports Normal hearing present and Denies Abnormal speech present Endo Denies fatigue Aller/Immun Denies throat swelling and Denies tongue swelling Physical Exam Vital Signs: Last Vital Signs Pulse 75 03/07/23 08:20 BP 167/79 H 03/07/23 08:20 BMI result Body Mass Index 27.7 Const General: cooperative, no acute distress, well developed and well groomed Nutritional Appearance: average body habitus and well nourished Orientation/consciousness: oriented to person, oriented to place and oriented to time Limitations: language barrier HEENT Head: Yes normocephalic and Yes atraumatic Eyes General: appearance normal, both eyes and all related structures Pupils: Equal, round and reactive pupils present Neck Neck: Yes normal visual inspection and Yes no lymphadenopathy Thyroid: Thyroid normal Resp Effort & Inspection: normal respiratory effort and able to speak in complete sentences Auscultation: clear to auscultation bilaterally Cardio Rate: regular rate Rhythm: regular rhythm Heart sounds: Normal, physiologic split S2 sound present Peripheral pulses: radial pulses present and posterior tibial pulses present GI Inspection: No distended and No Abdominal panniculus present Palpation (GI): Soft to palpation, nontender, no guarding, not rigid and No hepatosplenomegaly present Percussion: Yes normal to percussion Auscultation: normal bowel sounds Rectal Exam - Female: deferred Abdomen image: 2 1. surgical scar Skin General skin exam: no rashes or lesions noted, turgor normal, skin not dry, no jaundice, No spider nevi and no striae Rashes: no rashes Nails: normal Neuro General: oriented to person, oriented to place and oriented to time Cranial nerves: Yes Equal, round and reactive pupils present and Yes Normal hearing present Speech: No Abnormal speech present Extrem General: Yes normal to inspection, No clubbing, No cyanosis and No edema Psych Appearance: grossly normal and well kempt Mental Status: mental status grossly normal Speech and movement: Normal speech and movement present Affect: normal affect Attitude: cooperative Thought process: Normal thought process present and not confabulating Thought content: Normal thought content present Insight: Limited insight present (Psych) Judgement: Limited judgement present (Psych) Assessment & Plan Assessment & Plan (1) Post-cholecystectomy syndrome: Code(s): K91.5 - Postcholecystectomy syndrome (2) Erosive gastritis: Comment: Remote history, 2018 EGD showed in active focal gastritis only. Code(s): K29.60 - Other gastritis without bleeding Plan Palauan #dtr translates per pt request They tell me she is still taking the carafate 4 times a day. She also continues on the generic nexium. She has been having acid brash that wakes her up in the middle of the night, this is worse when she eats acidic foods. This is not every night but occurs about 2 times a week. She was recently discontinued from her Boniva osteoporosis medication be cause her bone density had improved. I am uncertain whether this medication drives reflux the same way alendronate does. I have concerned that she is taking the Carafate 4 times a day as it tends to block the absorption of other medications including her cardiac medications and her sleep medication. Were going to change this to 20 mL twice a day just before lunch and just before supper to try to prevent this. It may also be blocking the effectiveness of her Nexium. She has pain for the Nexium [id number] because it worked better than omeprazole. However I do not believe she has ever tried any of the other medications in this class that may be covered by her insurance and may be stronger. Will try moving her to pantoprazole and see if we can find something that works better and does not cost her so much money. We discussed diet changes for GERD and she says she knows what to avoid. I did encourage her to put risers under the head of the bed to prevent aspiration. She denies any other changes in her health status or new medical conditions, there are no new medications, there is no weight loss or gain, there is no nausea vomiting dysphagia or trouble with her bowels at this time. She just did a Cologuard test with her primary care provider 3 weeks ago. They have not yet heard whether this was positive her negative and I asked them to let me know when they know. I do not believe she has ever had a colonoscopy that I know of on record. Return office visit in 3 weeks to evaluate her response. Medications: New 2 pantoprazole (Protonix) 40 mg PO DAILY 30 days 30 tabs 6RF K91.5 - Postcholecystectomy syndrome Changed 2 From sucralfate (Carafate) swish in mouth and swallow; use after food/drink 10 mL PO QID To sucralfate (Carafate) swish in mouth and swallow; use after food/drink 20 mL PO .qnoon and qac supper 1,000 mL 6RF Patient Instructions: Kelsey Villareal Realice los siguientes cambios en courtney medicamentos: 1. Receto pantoprazol en lugar de nexium porque es m?s mariam y est? cubierto por graham seguro. 2. Cambie la dosis de carafato a 20 ml antes del almuerzo y jatinder antes de la publications distribution clerk para evitar interferir con courtney otros medicamentos (bloquea otros medicamentos que pueda introducir en el est?chaka al mismo tiempo). Considere colocar elevadores debajo de la cabecera de graham cama para evitar la aspiraci?n de la regurgitaci?n estomacal. Quiero verte en 3 semanas para kayla c?mo te va. Coding Level of Care Code New Pt Level 3 (34000) Diagnoses Post-cholecystectomy syndrome K91.5 Erosive gastritis K29.60
[2023-03-07 08:20] VITALS: BP 167/79; PULSE 75; BMI 27.7
== END 2023-03-07 08:52 | disposition home or self-care (01) ==
PROVIDERS: PCP Internal Medicine; Visit Provider Nurse Practitioner
DX: K91.5 Postcholecystectomy syndrome (principal); K29.60 Other gastritis without bleeding
CPT/HCPCS: 99203

== ENCOUNTER → 2023-03-07 07:41 | Outpatient (BNVA) | payer MEDICARE, MEDICAID, SELFPAY | PROVIDERS: Visit Provider Nurse Practitioner | DX: K91.5 Postcholecystectomy syndrome (principal); K29.60 Other gastritis without bleeding | CPT/HCPCS: 99202 ==

== ENCOUNTER 2023-04-18 08:54 | Outpatient (AMB) | payer MEDICARE, MEDICAID, SELFPAY ==
--- NOTE | 2023-04-18 08:56 | A.OFFVIS_ITS ---
Intake Vital Signs 04/18/23 09:05 Height 4 ft 11 in Weight 145 lb 15.136 oz BMI 29.5 BP 181/86 H Blood Pressure Location Rt brachial Position Sitting Pulse 77 Intake Visit Reasons: 3 week follow up Intake Note: Kelsey returns to in office 3 weeks follow up of GERD. CC: Patient started on Pantoprazole and Sucralfate to decreased to 10 ml BID on 03/07/23. Patient states that she was not able to pickling grader medications because pharmacy stated they were having some trouble . Fare Register Repairer Required: Yes Fare Register Repairer Name: daughter Accompanied by: Daughter Allergies No Known Allergies Allergy (Verified 04/18/23 09:08) HPI 3 week follow up HPI Details Assessment & Plan (1) Post-cholecystectomy syndrome: Code(s): K91.5 - Postcholecystectomy syndrome (2) Erosive gastritis: Comment: Remote history, 2017 EGD showed in active focal gastritis only. Code(s): K29.60 - Other gastritis without bleeding Plan Ethiopian #dtr translates per pt request They tell me she is still taking the carafate 4 times a day. She also continues on the generic nexium. She has been having acid brash that wakes her up in the middle of the night, this is worse when she eats acidic foods. This is not every night but occurs about 2 times a week. She was recently discontinued from her Boniva osteoporosis medication be cause her bone density had improved. I am uncertain whether this medication drives reflux the same way alendronate does. I have concerned that she is taking the Carafate 4 times a day as it tends to block the absorption of other medications including her cardiac medications and her sleep medication. Were going to change this to 20 mL twice a day just before lunch and just before supper to try to prevent this. It may also be blocking the effectiveness of her Nexium. She has pain for the Nexium [id number] because it worked better than omeprazole. However I do not believe she has ever tried any of the other medications in this class that may be covered by her insurance and may be stronger. Will try moving her to pantoprazole and see if we can find something that works better and does not cost her so much money. We discussed diet changes for GERD and she says she knows what to avoid. I did encourage her to put risers under the head of the bed to prevent aspiration. She denies any other changes in her health status or new medical conditions, there are no new medications, there is no weight loss or gain, there is no nausea vomiting dysphagia or trouble with her bowels at this time. She just did a Cologuard test with her primary care provider 3 weeks ago. They have not yet heard whether this was positive her negative and I asked them to let me know when they know. I do not believe she has ever had a colonoscopy that I know of on record. Return office visit in 3 weeks to evaluate her response. Medications: New pantoprazole (Prot lenny) 40 mg PO DAILY 30 days 30 tabs 6RF K91.5 - Postcholec ystectomy syndrome Changed From sucralfate (Carafa te) swish in mo uth and swallow; u se after food/drin k 10 mL PO QID To sucralfate (Carafa te) swish in mo uth and swallow; u se after food/drin k 20 mL PO .qnoon a nd qac supper 1,00 0 mL 6RF Patient Instructions: Kelsey Villareal Realice los siguientes cambios en courtney medicamentos: 1. Receto pantoprazol en lugar de nexium porque es m?s mariam y est? cubierto por graham seguro. 2. Cambie la dosis de carafato a 20 ml antes del almuerzo y jatinder antes de la varun para evitar interferir con courtney otros medicamentos (bloquea otros medicamentos que pueda introducir en el est?chaka al mismo tiempo). Considere colocar elevadores debajo de la cabecera de graham cama para evitar la aspiraci?n de la regurgitaci?n estomacal. Quiero verte en 3 semanas para kayla c?mo te va. TODAY'S VISIT Ethiopian #dtr translates per pt request Changing the timing of the Carafate to keep it isolated from her other medications has greatly improved her GERD in her acid brash. She also is happy because she received the pantoprazole which is covered by her insurance so she does not have to buy [id number] Nexium. She feels that it is working quite well for her. She also has post cholecystectomy syndrome her diarrhea is well controlled by the Carafate which also addresses her chronic erosive gastritis. They discovered that the Cologuard test was negative which is good. Return office visit in 3 months or sooner if the symptoms return. [facility] Medical History Osteoarthritis Hypertension GERD (gastroesophageal reflux disease) Osteoporosis Obesity (BMI 30-39.9) Non-toxic multinodular goiter Hypothyroidism Surgical History Hx of hysterectomy Hx laparoscopic cholecystectomy Hx of eye surgery Family History Family/Other Hypothyroidism Father Prostate cancer Mother Diabetes History of kidney problems Heart disease Social History Alcohol intake: current Alcohol intake frequency: does not drink Patient Tobacco Use Status: Never used Tobacco Review of Systems Const Denies fatigue, Denies fever(s), Denies night sweats, Denies poor appetite and Denies weight loss ENT Reports Normal hearing present, Denies dental pain, Denies dysphagia, Denies hearing loss, Denies mouth pain, Denies odynophagia, Denies throat swelling, Denies tongue swelling and Reports other (Dentition adequate) Card Reports no additional complaints Resp Reports no additional complaints GI Details: Denies abdominal pain, Denies melena, Denies bloating, Denies hematochezia, Denies constipation, Denies GI cramping, Denies dysphagia, Denies excessive flatus, Denies early satiety, Reports dyspepsia, Reports heartburn, Reports diarrhea, Denies nausea, Denies odynophagia, Denies vomiting and Denies hematemesis Skin/Breast Denies pruritus, Denies lesions, Denies rash and Denies jaundice Neuro Reports Normal hearing present and Denies Abnormal speech present Endo Denies fatigue Aller/Immun Denies throat swelling and Denies tongue swelling Physical Exam Vital Signs: Last Vital Signs Pulse 77 04/18/23 09:05 BP 181/86 H 04/18/23 09:05 BMI result Body Mass Index 29.5 Const General: cooperative, no acute distress, well developed and well groomed Nutritional Appearance: well nourished and overweight Orientation/consciousness: oriented to person, oriented to place and oriented to time Limitations: language barrier HEENT Head: Yes normocephalic and Yes atraumatic Eyes General: appearance normal, both eyes and all related structures Pupils: Equal, round and reactive pupils present Neck Neck: Yes normal visual inspection and Yes no lymphadenopathy Thyroid: Thyroid normal Resp Effort & Inspection: normal respiratory effort and able to speak in complete sentences Auscultation: clear to auscultation bilaterally Cardio Rate: regular rate Rhythm: regular rhythm Heart sounds: Normal, physiologic split S2 sound present Peripheral pulses: radial pulses present and posterior tibial pulses present GI Inspection: No distended, No Abdominal panniculus present and Yes obesity Palpation (GI): Soft to palpation, nontender, no guarding, not rigid and No hepatosplenomegaly present Percussion: Yes normal to percussion Auscultation: normal bowel sounds Rectal Exam - Female: deferred Skin General skin exam: no rashes or lesions noted, turgor normal, skin not dry, no jaundice, No spider nevi and no striae Rashes: no rashes Nails: normal Neuro General: oriented to person, oriented to place and oriented to time Cranial nerves: Yes Equal, round and reactive pupils present and Yes Normal hearing present Speech: No Abnormal speech present Extrem General: Yes normal to inspection, No clubbing, No cyanosis and No edema Psych Appearance: grossly normal and well kempt Mental Status: mental status grossly normal Speech and movement: Normal speech and movement present Affect: normal affect Attitude: cooperative Thought process: Normal thought process present and not confabulating Thought content: Normal thought content present Insight: Limited insight present (Psych) Judgement: Limited judgement present (Psych) Assessment & Plan Assessment & Plan (1) Post-cholecystectomy syndrome: Code(s): K91.5 - Postcholecystectomy syndrome (2) Erosive gastritis: Comment: Remote history, 2018 EGD showed in active focal gastritis only. Code(s): K29.60 - Other gastritis without bleeding (3) GERD (gastroesophageal reflux disease): Code(s): K21.9 - Gastro-esophageal reflux disease without esophagitis (4) Colon cancer screening: Comment: 2022 had a negative Cologuard through the PCP Code(s): Z12.11 - Encounter for screening for malignant neoplasm of colon Plan Ethiopian #dtr translates per pt request Changing the timing of the Carafate to keep it isolated from her other medications has greatly improved her GERD in her acid brash. She also is happy because she received the pantoprazole which is covered by her insurance so she does not have to buy [id number] Nexium. She feels that it is working quite well for her. She also has post cholecystectomy syndrome her diarrhea is well controlled by the Carafate which also addresses her chronic erosive gastritis. They discovered that the Cologuard test was negative which is good. Return office visit in 3 months or sooner if the symptoms return. Coding Level of Care Code Est Pt Level 3 (60768) Diagnoses Post-cholecystectomy syndrome K91.5 Erosive gastritis K29.60 GERD (gastroesophageal reflux disease) K21.9 Colon cancer screening Z12.11
[2023-04-18 09:05] VITALS: BP 181/86; PULSE 77; BMI 29.5
== END 2023-04-18 09:31 | disposition home or self-care (01) ==
PROVIDERS: PCP Internal Medicine; Visit Provider Nurse Practitioner
DX: K91.5 Postcholecystectomy syndrome (principal); K29.60 Other gastritis without bleeding; K21.9 Gastro-esophageal reflux disease without esophagitis; Z12.11 Encounter for screening for malignant neoplasm of colon
CPT/HCPCS: 99213

== ENCOUNTER → 2023-04-18 08:54 | Outpatient (BNVA) | payer MEDICARE, MEDICAID, SELFPAY | PROVIDERS: PCP Internal Medicine; Visit Provider Nurse Practitioner | DX: Z12.11 Encounter for screening for malignant neoplasm of colon (principal); K91.5 Postcholecystectomy syndrome; K21.9 Gastro-esophageal reflux disease without esophagitis; K29.60 Other gastritis without bleeding | CPT/HCPCS: 99212 ==

== ENCOUNTER 2023-07-18 07:37 | Outpatient (AMB) | payer MEDICARE, MEDICAID, SELFPAY ==
--- NOTE | 2023-07-18 08:19 | A.OFFVIS_ITS ---
Vital Signs 07/18/23 08:30 Height 4 ft 11 in Weight 142 lb 13.753 oz BMI 28.9 BP 154/81 H Blood Pressure Location Rt brachial Position Sitting Pulse 74 Intake Visit Reasons: Follow up 3 months Intake Note: Patient in office today in 3 months follow up of GERD. CC: Patient reports doing well today and denies having any new GI concerns. Internal Audit Director Required: No Internal Audit Director Name: daughter Accompanied by: Daughter Allergies No Known Allergies Allergy (Verified 04/18/23 09:08) HPI HPI Follow up 3 months: Details: Assessment & Plan (1) Post-cholecystectomy syndrome: Code(s): K91.5 - Postcholecystectomy syndrome (2) Erosive gastritis: Comment: Remote history, 2017 EGD showed in active focal gastritis only. Code(s): K29.60 - Other gastritis without bleeding (3) GERD (gastroesophageal reflux disease): Code(s): K21.9 - Gastro-esophageal reflux disease without esophagitis (4) Colon cancer screening: Comment: 2022 had a negative Cologuard through the PCP Code(s): Z12.11 - Encounter for screening for malignant neoplasm of colon Plan [place] #dtr translates per pt request Changing the timing of the Carafate to keep it isolated from her other medications has greatly improved her GERD in her acid brash. She also is happy because she received the pantoprazole which is covered by her insurance so she does not have to buy [id number] Nexium. She feels that it is working quite well for her. She also has post cholecystectomy syndrome her diarrhea is well controlled by the Carafate which also addresses her chronic erosive gastritis. They discovered that the Cologuard test was negative which is good. Return office visit in 3 months or sooner if the symptoms return. TODAY'S VISIT [place] #dtr interprets per pt request sHE CONTINUES TO do well dariana since we changed the carafate dosing to qac lunch and qac supper. No noc acid brash. She also continues on her pantoprazole 40 mg once a day with good control. ROV 6 mos. PFS Medical History Osteoarthritis Hypertension GERD (gastroesophageal reflux disease) Osteoporosis Obesity (BMI 30-39.9) Non-toxic multinodular goiter Hypothyroidism Surgical History Hx of hysterectomy Hx laparoscopic cholecystectomy Hx of eye surgery Family History Family/Other Hypothyroidism Father Prostate cancer Mother Diabetes History of kidney problems Heart disease Social History Alcohol intake: current Alcohol intake frequency: does not drink Patient Tobacco Use Status: Never used Tobacco Review of Systems Const Denies fatigue, Denies fever(s), Denies night sweats, Denies poor appetite and Denies weight loss ENT Reports Normal hearing present, Denies dental pain, Denies dysphagia, Denies hearing loss, Denies mouth pain, Denies odynophagia, Denies throat swelling, Denies tongue swelling and Reports other (Dentition adequate) Card Reports no additional complaints Resp Reports no additional complaints GI Details: Denies abdominal pain, Denies melena, Denies bloating, Denies hematochezia, Denies constipation, Denies GI cramping, Denies dysphagia, Denies excessive flatus, Denies early satiety, Reports heartburn, Reports diarrhea, Denies nausea, Denies odynophagia, Denies vomiting and Denies hematemesis Skin/Breast Denies pruritus, Denies lesions, Denies rash and Denies jaundice Neuro Reports Normal hearing present and Denies Abnormal speech present Endo Denies fatigue Aller/Immun Denies throat swelling and Denies tongue swelling Physical Exam Vital Signs: Last Vital Signs Pulse 74 07/18/23 08:30 BP 154/81 H 07/18/23 08:30 BMI result Body Mass Index 28.9 Const General: cooperative, no acute distress, well developed and well groomed Nutritional Appearance: well nourished and overweight Orientation/consciousness: oriented to person, oriented to place and oriented to time Limitations: language barrier HEENT Head: Yes normocephalic and Yes atraumatic Eyes General: appearance normal, both eyes and all related structures Pupils: Equal, round and reactive pupils present Neck Neck: Yes normal visual inspection and Yes no lymphadenopathy Thyroid: Thyroid normal Resp Effort & Inspection: normal respiratory effort and able to speak in complete sentences Auscultation: clear to auscultation bilaterally Cardio Rate: regular rate Rhythm: regular rhythm Heart sounds: Normal, physiologic split S2 sound present Peripheral pulses: radial pulses present and posterior tibial pulses present GI Inspection: No distended and No Abdominal panniculus present Palpation (GI): Soft to palpation, nontender, no guarding, not rigid and No hepatosplenomegaly present Percussion: Yes normal to percussion Auscultation: normal bowel sounds Rectal Exam - Female: deferred Skin General skin exam: no rashes or lesions noted, turgor normal, skin not dry, no jaundice, No spider nevi and no striae Rashes: no rashes Nails: normal Neuro General: oriented to person, oriented to place and oriented to time Cranial nerves: Yes Equal, round and reactive pupils present and Yes Normal hearing present Speech: No Abnormal speech present Extrem General: Yes normal to inspection, No clubbing, No cyanosis and No edema Psych Appearance: grossly normal and well kempt Mental Status: mental status grossly normal Speech and movement: Normal speech and movement present Affect: normal affect Attitude: cooperative Thought process: Normal thought process present and not confabulating Thought content: Normal thought content present Insight: Limited insight present (Psych) Judgement: Limited judgement present (Psych) Assessment & Plan Assessment & Plan (1) Post-cholecystectomy syndrome: Code(s): K91.5 - Postcholecystectomy syndrome Category: Medical (2) Erosive gastritis: Comment: Remote history, 2018 EGD showed in active focal gastritis only. Code(s): K29.60 - Other gastritis without bleeding Category: Medical (3) GERD (gastroesophageal reflux disease): Code(s): K21.9 - Gastro-esophageal reflux disease without esophagitis Category: Medical Plan [place] #dtr interprets per pt request sHE CONTINUES TO do well dariana since we changed the carafate dosing to qac lunch and qac supper. No noc acid brash. She also continues on her pantoprazole 40 mg once a day with good control. ROV 6 mos. Medications: New sucralfate PLEASE DO NOT CHANGE INSTRUCTIONS IN COMPUTER 1 g PO .qaclunch&qacsupper 60 tabs 6RF K29.60 - Other gastritis without bleeding, K91.5 - Postcholecystectomy syndrome Refilled pantoprazole (Protonix) 40 mg PO DAILY 30 tabs 6RF 30 days K91.5 - Postcholecystectomy syndrome Coding Level of Care Code Est Pt Level 3 (27948) Diagnoses Post-cholecystectomy syndrome K91.5 Erosive gastritis K29.60 GERD (gastroesophageal reflux disease) K21.9
[2023-07-18 08:30] VITALS: BP 154/81; PULSE 74; BMI 28.9
== END 2023-07-18 08:47 | disposition home or self-care (01) ==
PROVIDERS: PCP Internal Medicine; Visit Provider Nurse Practitioner
DX: K91.5 Postcholecystectomy syndrome (principal); K29.60 Other gastritis without bleeding; K21.9 Gastro-esophageal reflux disease without esophagitis
CPT/HCPCS: 99213

== ENCOUNTER → 2023-07-18 07:37 | Outpatient (BNVA) | payer MEDICARE, MEDICAID, SELFPAY | PROVIDERS: PCP Internal Medicine; Visit Provider Nurse Practitioner | DX: K91.5 Postcholecystectomy syndrome (principal); K29.60 Other gastritis without bleeding; K21.9 Gastro-esophageal reflux disease without esophagitis | CPT/HCPCS: 99212 ==

== ENCOUNTER 2023-09-29 06:00 | Outpatient (REF) | payer MEDICARE, MEDICAID, SELFPAY ==
[2023-09-29 07:42] LABS: Anion Gap 13 (12-20); Blood Urea Nitrogen 14 mg/dL (9-16); Carbon Dioxide 29 mmol/L (22-29); Chloride 101 mmol/L (96-108); Estimated Glomerular Filt Rate 52; Glucose Random 93 mg/dL (60-115); Potassium 3.7 mmol/L (3.3-5.1); Sodium 139 mmol/L (135-145)
== END 2023-09-29 06:01 | disposition home or self-care (01) ==
LOC: HO.LAB 06:00
PROVIDERS: PCP Internal Medicine; Visit Provider Internal Medicine Nephrology
DX: N18.31 Chronic kidney disease, stage 3a (principal)
CPT/HCPCS: 36415; 80048

== ENCOUNTER 2023-11-30 09:48 | Outpatient (REF) | payer MEDICARE, MEDICAID, SELFPAY ==
[2023-11-30 14:07] LABS: MANUAL DIFF FLAG NO
[2023-11-30 14:20] LABS: Basophils Absolute Auto 0.1 X10*3/uL (0.0-0.2); Basophils Percent Auto 0.7 % (0-2); Eosinophils Absolute Auto 0.1 X10*3/uL (0.0-0.4); Eosinophils Percent Auto 1.1 % (0-4); Hematocrit 45.6 % (37.0-47.0); Hemoglobin 15.3 g/dl (12.0-16.0); Imm Gran Abs Auto 0.02 X10*3/uL (0.00-0.03); Imm Gran Pct Auto 0.3 % (0.0-0.4); Lymphocytes Percent Auto 41.4 % (20-40); Mean Corpuscular HGB Conc 33.6 g/dl (31.0-35.0); Mean Corpuscular Hemoglobin 30.2 pg (27.0-33.0); Mean Corpuscular Volume 90.1 fL (80.0-98.0); Mean Platelet Volume 11.4 fL (9.4-12.3); Monocytes Absolute Auto 0.7 X10*3/uL (0.1-1.2); Monocytes Percent Auto 9.8 % (2-11); Neutrophils Absolute Auto 3.4 x10*3/uL (2.0-8.3); Neutrophils Percent Auto 46.7 % (45-73); Platelet Count 284 X10*3/uL (160-400); Red Blood Count 5.06 X10*6/uL (4.20-5.50); Red Cell Distribution Width 13.2 % (11.0-16.0); White Blood Count 7.2 X10*3/uL (4.8-10.8)
[2023-11-30 14:42] LABS: Alanine Aminotransferase 29 U/L (0-31); Albumin Level 4.5 g/dL (3.5-5.0); Alkaline Phosphatase 68 U/L (39-117); Anion Gap 12 (12-20); Aspartate Amino Transferase 28 U/L (5-31); Bilirubin Total 0.5 mg/dL (0.0-1.0); Blood Urea Nitrogen 10 mg/dL (9-16); Calcium 10.1 mg/dL (8.4-10.2); Carbon Dioxide 29 mmol/L (22-29); Chloride 102 mmol/L (96-108); Cholesterol 208 mg/dL (<200); Estimated Glomerular Filt Rate 57; Glucose Random 97 mg/dL (60-115); HDL Cholesterol 52 mg/dL (>40); LDL Cholesterol Calculated 133 mg/dL (<100); Potassium 4.1 mmol/L (3.3-5.1); Sodium 139 mmol/L (135-145); Total Protein 8.1 g/dL (6.5-8.0); Triglycerides 119 mg/dL (<150)
[2023-11-30 14:49] LABS: TSH reflex Free T4 1.16 uIU/mL (0.32-4.0)
== END 2023-11-30 09:49 | disposition home or self-care (01) ==
LOC: HO.CHCLDS 09:48
PROVIDERS: Visit Provider Internal Medicine
DX: I10 Essential (primary) hypertension (principal)
CPT/HCPCS: 36415; 80053; 80061; 84443; 85025

== ENCOUNTER 2023-12-04 11:23 | Outpatient (REF) | payer MEDICARE, MEDICAID, SELFPAY ==
--- NOTE | ~2023-12-04 | MM_ITS ---
EXAMINATION: MM SCREENING DIGITAL BREAST TOMOSYNTHESIS, BILATERAL CLINICAL INFORMATION: Screening. Asymptomatic. COMPARISON: Mammography: Comparison is made with available priors TECHNIQUE: Digital breast mammography with tomosynthesis is performed in both the craniocaudal and mediolateral oblique views along with computer-aided detection (CAD). FINDINGS: There are scattered areas of fibroglandular density (ACR BI-RADS breast composition Category b). Right: Prominent right axillary lymph nodes with adjacent tissue stranding. There are no significant masses, abnormal calcifications, or other abnormalities. Left: No suspicious masses calcifications or other abnormalities. MM/MM tomosynthesis screening BI IMPRESSION: Additional imaging is recommended ASSESSMENT: BI-RADS BI-RADS 0 - Incomplete: Needs additional Imaging. RECOMMENDATION: Additional views of the right axilla with ultrasound Radiology department staff will contact the patient for additional imaging. Additional Imaging required This examination should not preclude the clinical evaluation of a suspicious palpable abnormality. This patient's information was entered into a reminder system with a target due date for their next mammogram. Electronically signed by: Zoe Lew DO 12/15/2023 09:51 AM EDT
== END 2023-12-04 11:24 | disposition home or self-care (01) ==
LOC: HO.MAMMO 11:23
PROVIDERS: PCP Internal Medicine; Visit Provider Internal Medicine
DX: Z12.31 Encounter for screening mammogram for malignant neoplasm of breast (principal)
CPT/HCPCS: 77063; 77067

== ENCOUNTER → 2023-12-04 11:45 | Outpatient (BNV) | payer MEDICARE, MEDICAID, SELFPAY | PROVIDERS: PCP Internal Medicine; Visit Provider Internal Medicine | DX: Z12.31 Encounter for screening mammogram for malignant neoplasm of breast (principal) | CPT/HCPCS: 77063; 77067 ==

== ENCOUNTER 2023-12-12 14:33 | Outpatient (AMB) | payer MEDICARE, MEDICAID, SELFPAY ==
--- NOTE | 2023-12-12 14:57 | MHC.OFFVIS ---
Vital Signs 12/12/23 15:00 Height 4 ft 11 in Weight 145 lb 6 oz BMI 29.4 BP 182/89 H Blood Pressure Location Lt brachial Position Sitting Pulse 80 Intake Visit Reasons: lipoma arm Intake Note: Patient is seen in office for evaluation of a lipoma of the left arm. Pt c/o: onset couple months ago, increase in size, painful at times, denies redness, discharge or any other concerns ref [facility] Vice President Process Name: Yumi GRISSOM Accompanied by: Daughter Allergies No Known Allergies Allergy (Verified 12/12/23 14:58) Medication List - Last Reconciled 12/12/23 by Dread Taylor MD amlodipine 5 mg PO DAILY dorzolamide-timolol 22.3-6.8 mg/mL 1 drp ophthalmic (eye) BID hydrochlorothiazide 12.5 mg PO DAILY latanoprost 0.005% 1 drp ophthalmic (eye) QPM levothyroxine 50 mcg PO DAILY 90 days losartan 100 mg PO DAILY metoprolol succinate ER 50 mg PO DAILY oxazepam 10 mg PO BID pantoprazole (Protonix) 40 mg PO DAILY 30 days potassium chloride ER 20 mEq PO DAILY simvastatin 20 mg PO DAILY sucralfate 1 g PO .qaclunch&qacsupper HPI Comments Details: 77-year-old female patient presenting with a soft tissue mass of the left upper arm. This has been present for several years and has gradually increased in size. She now reports some discomfort associated with the lesion. She denies a history of trauma to the upper arm or injection in the site. She is requesting excision of this soft tissue mass. [facility] Medical History Osteoarthritis Hypertension GERD (gastroesophageal reflux disease) Osteoporosis Obesity (BMI 30-39.9) Non-toxic multinodular goiter Hypothyroidism Surgical History Hx of hysterectomy Hx laparoscopic cholecystectomy Hx of eye surgery Family History Family/Other Hypothyroidism Father Prostate cancer Mother Diabetes History of kidney problems Heart disease Social History Alcohol intake: current Alcohol intake frequency: does not drink Patient Tobacco Use Status: Never used Tobacco Review of Systems Const All systems reviewed & are unremarkable except as noted in HPI and below Denies chills, Denies fever(s), Denies headache(s), Denies poor appetite and Denies weakness ENT Denies headache(s) Card Denies chest pain, Denies irregular heart rhythm, Denies palpitations and Denies dyspnea Resp Denies cough, Denies excessive phlegm production and Denies dyspnea GI Denies abdominal pain, Denies bloating, Denies change in bowel habits, Denies constipation, Denies heartburn, Denies diarrhea, Denies nausea and Denies vomiting Denies urinary frequency Musc Denies back pain, Denies muscle weakness and Denies numbness Skin/Breast Denies changing lesions and Denies unusual bruising Neuro Denies headache(s), Denies numbness, Denies paresthesias and Denies weakness Psych Denies anxiety and Denies depression Endo Denies palpitations Joe/Lymph Denies lymphadenopathy Physical Exam Vital Signs: Last Vital Signs Pulse 80 12/12/23 15:00 BP 182/89 H 12/12/23 15:00 BMI result Body Mass Index 29.4 Const General: cooperative and no acute distress Nutritional Appearance: well nourished Orientation/consciousness: patient oriented x3 Limitations: no limitations HEENT Head: Yes normocephalic and Yes atraumatic Ears: hearing grossly normal bilaterally Resp Effort & Inspection: normal respiratory effort, no audible wheezes, no cough and no respiratory distress Cardio Jugular venous distension: no JVD GI Inspection: Yes normal to inspection Skin Other: Warm, dry, no rash Neuro General: patient oriented x3 Extrem General: Yes no clubbing, cyanosis or edema Shoulder/upper arm images: 1. 4 cm soft tissue mass mobile within the subcutaneous tissue most consistent with a lipoma. No overlying skin changes are appreciated. Assessment & Plan Assessment & Plan (1) Lipoma of arm: Code(s): D17.20 - Benign lipomatous neoplasm of skin and subcutaneous tissue of unspecified limb Category: Medical Qualifiers: Laterality: left Qualified Code(s): D17.22 - Benign lipomatous neoplasm of skin and subcutaneous tissue of left arm Plan 77-year-old female patient presenting with a palpable lipoma of the left upper arm which is increasing in size and causing discomfort. Patient has requested excision of this lipoma and after discussion of the procedure, risks and alternatives, she consents to the procedure. Coding Level of Care Code New Pt Level 4 (92664) Diagnoses Lipoma of left upper extremity D17.22 Laterality: left
[2023-12-12 15:00] VITALS: BP 182/89; PULSE 80; BMI 29.4
== END 2023-12-12 15:08 | disposition home or self-care (01) ==
PROVIDERS: PCP Internal Medicine; Visit Provider Surgery
DX: D17.22 Benign lipomatous neoplasm of skin and subcutaneous tissue of left arm (principal)
CPT/HCPCS: 99204

== ENCOUNTER → 2023-12-12 14:33 | Outpatient (BNVA) | payer MEDICARE, MEDICAID, SELFPAY | PROVIDERS: PCP Internal Medicine; Visit Provider Surgery | DX: D17.22 Benign lipomatous neoplasm of skin and subcutaneous tissue of left arm (principal) | CPT/HCPCS: 99202 ==

== ENCOUNTER 2023-12-20 09:08 | Outpatient (REF) | payer MEDICARE, MEDICAID, SELFPAY ==
--- NOTE | ~2023-12-20 | US_ITS ---
EXAMINATION: US DIAGNOSTIC ULTRASOUND BREAST, right axilla CLINICAL INFORMATION: Call back from screening for enlarged right axillary lymph node.. Patient had a recent right arm vaccination within the past month. COMPARISON: Comparison is made with relevant prior imaging. TECHNIQUE: Ultrasound of the breast is performed with real-time cummings scale imaging and color Doppler. FINDINGS: Targeted color Doppler ultrasound thickening in the right axilla demonstrates multiple normal-appearing axillary lymph nodes. There is no sonographic abnormality. Results are discussed with the patient at time of visit. US/US breast RT limited mamm only IMPRESSION: Normal right axillary lymph nodes. ASSESSMENT: BI-RADS 1: Negative RECOMMENDATION: Routine annual mammography screening. This patient's information was entered into a reminder system with a target due date for their next mammogram. Electronically signed by: Zoe Lew DO 12/20/2023 01:18 PM EDT
== END 2023-12-20 09:09 | disposition home or self-care (01) ==
LOC: HO.MAMMO 09:08
PROVIDERS: PCP Internal Medicine; Visit Provider Internal Medicine
DX: N63.31 Unspecified lump in axillary tail of the right breast (principal)
CPT/HCPCS: 76642

== ENCOUNTER → 2023-12-20 10:00 | Outpatient (BNV) | payer MEDICARE, MEDICAID, SELFPAY | PROVIDERS: PCP Internal Medicine; Visit Provider Internal Medicine | DX: N63.31 Unspecified lump in axillary tail of the right breast (principal) | CPT/HCPCS: 76642 ==

== ENCOUNTER 2024-01-02 13:45 | Outpatient (REF) | payer MEDICARE, MEDICAID, SELFPAY ==
[2024-01-02 14:08] VITALS: BP 176/86; PULSE 88; RESP 18; TEMP 35.9; BMI 28.3
--- NOTE | 2024-01-02 15:02 | P.OP_ITS ---
Operative Note Operative Note Date of Service: 01/02/24 Narrative: Preoperative diagnosis: Lipoma left upper extremity Postoperative diagnosis: Same Procedure: Excision lipoma left upper extremity Surgeon: Dread Taylor MD Leadership Program Internship: None Anesthesia: Lidocaine 1% with epinephrine Indications for procedure: 78-year-old female with a 3 cm lipoma of the left upper extremity Operative findings: 3 cm lipoma left upper extremity Specimen: Lipoma left upper extremity Estimated blood loss: 5 mL Complications: None Procedure details: Patient was brought to the minor surgery suite and placed in a supine position. The site of surgery was confirmed by the patient in the left upper extremity. After assuring informed consent, the skin was prepped with Betadine and draped in a sterile fashion. Local was infiltrated in a longitudinal fashion. Incision was then made with a 15 blade carried out through subcutaneous tissue up to the lipoma. Sharp dissection was then used to dissect the lipoma from the surrounding subcutaneous tissue. Specimen was passed off the table and sent to pathology for further examination. Light pressure was held to maintain hemostasis. Dermis was then reapproximated using interrupted 3-0 Polysorb sutures. Skin was closed using interrupted 4-0 nylon sutures. Sterile dressings consisting of 2 x 2 gauze and Tegaderm were then applied. The patient tolerated the procedure well. She was discharged to home in stable condition.
== END 2024-01-02 13:46 | disposition home or self-care (01) ==
LOC: HO.MS 13:45
PROVIDERS: PCP Internal Medicine; Visit Provider Surgery
PROC: (CPT 11403; principal; 2024-01-02 14:30)
DX: D17.22 Benign lipomatous neoplasm of skin and subcutaneous tissue of left arm (principal)
CPT/HCPCS: 11403; 88304; J0665; J2004

== ENCOUNTER → 2024-01-02 13:45 | Outpatient (BNV) | payer MEDICARE, MEDICAID, SELFPAY | PROVIDERS: PCP Internal Medicine; Visit Provider Surgery | DX: D17.22 Benign lipomatous neoplasm of skin and subcutaneous tissue of left arm (principal) | CPT/HCPCS: 24071 ==

== ENCOUNTER 2024-01-12 11:42 | Outpatient (AMB) | payer MEDICARE, MEDICAID, SELFPAY ==
--- NOTE | 2024-01-12 11:46 | A.OFFVIS_ITS ---
Vital Signs 01/12/24 11:55 Height 4 ft 11 in Weight 143 lb BMI 28.9 BP 166/90 H Blood Pressure Location Lt brachial Position Sitting Pulse 75 Intake Visit Reasons: S/P exc. lipoma Lt. upper extremity Intake Note: Patient is seen in office for post op assessment post exc lipoma of the left upper extremety. Pt c/o: no concerns, suture removed at visit Cloud Solutions Architect Required: Yes Cloud Solutions Architect Language: Undercar Specialist Services: Cloud Solutions Architect Present Cloud Solutions Architect Name: Yumi GRISSOM Information Interpreted: non-clinical & clinical Accompanied by: Family/Other Allergies No Known Allergies Allergy (Verified 01/12/24 11:55) Medication List - Last Reconciled 01/12/24 by Dread Taylor MD amlodipine 5 mg PO DAILY dorzolamide-timolol 22.3-6.8 mg/mL 1 drp ophthalmic (eye) BID hydrochlorothiazide 12.5 mg PO DAILY latanoprost 0.005% 1 drp ophthalmic (eye) QPM levothyroxine 50 mcg PO DAILY 90 days losartan 100 mg PO DAILY metoprolol succinate ER 50 mg PO DAILY oxazepam 10 mg PO BID pantoprazole (Protonix) 40 mg PO DAILY 30 days potassium chloride ER 20 mEq PO DAILY simvastatin 20 mg PO DAILY sucralfate 1 g PO .qaclunch&qacsupper HPI Comments Details: 78-year-old female patient status post excision of a large lipoma of the left upper extremity 1 week ago. She returns today for wound check and suture removal. Pathology confirmed a lipoma. [facility] Medical History Osteoarthritis Hypertension GERD (gastroesophageal reflux disease) Osteoporosis Obesity (BMI 30-39.9) Non-toxic multinodular goiter Hypothyroidism Surgical History S/P excision of lipoma (01/02/24) Hx of hysterectomy Hx laparoscopic cholecystectomy Hx of eye surgery Family History Family/Other Hypothyroidism Father Prostate cancer Mother Diabetes History of kidney problems Heart disease Social History Alcohol intake: current Alcohol intake frequency: does not drink Patient Tobacco Use Status: Never used Tobacco Physical Exam Vital Signs: Last Vital Signs Pulse 75 01/12/24 11:55 BP 166/90 H 01/12/24 11:55 BMI result Body Mass Index 28.9 Const General: no acute distress Nutritional Appearance: well nourished Orientation/consciousness: patient oriented x3 Neuro General: patient oriented x3 Extrem Other: Left upper arm incision is clean, dry, and intact without redness or discharge. Sutures remained in-situ. Sutures removed and Steri-Strips applied. Assessment & Plan Assessment & Plan (1) Lipoma of arm: Code(s): D17.20 - Benign lipomatous neoplasm of skin and subcutaneous tissue of unspecified limb Category: Medical Qualifiers: Laterality: left Qualified Code(s): D17.22 - Benign lipomatous neoplasm of skin and subcutaneous tissue of left arm Plan Patient returns 1 week following excision of a lipoma of the left upper arm. She tolerated the procedure well the wounds are healing nicely. Sutures removed and the wounds found to be well healed. She should follow up as needed. Coding Level of Care Code Global (45711) Diagnoses Lipoma of left upper extremity D17.22 Laterality: left
[2024-01-12 11:55] VITALS: BP 166/90; PULSE 75; BMI 28.9
== END 2024-01-12 11:55 | disposition home or self-care (01) ==
PROVIDERS: PCP Internal Medicine; Visit Provider Surgery
DX: D17.22 Benign lipomatous neoplasm of skin and subcutaneous tissue of left arm (principal)
CPT/HCPCS: 99024

== ENCOUNTER → 2024-01-12 11:42 | Outpatient (BNVA) | payer MEDICARE, MEDICAID, SELFPAY | PROVIDERS: PCP Internal Medicine; Visit Provider Surgery | DX: Z48.817 Encounter for surgical aftercare following surgery on the skin and subcutaneous tissue (principal); Z98.890 Other specified postprocedural states | CPT/HCPCS: 99212 ==

== ENCOUNTER 2024-05-09 09:28 | Outpatient (REF) | payer MEDICARE, MEDICAID, SELFPAY ==
--- OUTSIDE RECORDS SUMMARY | 2024-05-09 11:09 | XMS_ITS | Encounter Summary ---
Author Organization [employer] Address [address] [place] [address] Care Team Providers Care Manager Of Exhibitions And Collections Name Role Phone Liz Barboza MD Primary Care Provider [phone] Encounter Details Date Type Department Care Team ([facility] Contact Info) Description 02/04/2024 Orders Only [facility] PEDS [address], [place] [phone] Liz Barboza MD [address] [place] [address] Anxiety disorder, unspecified; Anxiety Social History Tobacco Use Types Packs/Day Years Used Date Smoking Tobacco: Never Passive Smoke Exposure: Never Smokeless Tobacco: Never Alcohol Use Standard Drinks/Week Comments Never 0 (1 standard drink = 0.6 oz pur e alcohol) Depression Answer Date Recorded Patient Health Questionnaire-9 Score 0 10/24/2022 Housing Stability Answer Date Recorded What is your housing situation today? Not on alysa e 12/12/[address] you li ve. Do you have problems with any of the following? None of the above 12/12/2022 Food Insecurity Answer Date Recorded Within the past 12 months, y ou worried that your food would run out before you got money to buy more: Never True 12/12/2022 Within the past 12 months,th e food you bought just didn't last and you didn't have enough money to get more: Never True Transportation Answer Date Recorded In the past 12 months, has l ack of transportation kept you from medical appts, meetings, work or from getting things needed for daily living? No 12/12/2022 Utilities Answer Date Recorded In the past 12 months, has t he electric, gas, oil or water company threatened to shut off services in your home? No 12/12/2022 Depression Answer Date Recorded Patient Health Questionnaire-2 Score 0 10/24/2022 Comments Unknown Sex and Gender Information Value Date Recorded Sex Assigned at Female 12/27/2021 10:34 AM EDT Legal Sex Female 10:34 AM EDT Gender Identity Female 12/27/2021 10:34 AM EDT Sexual Orientation Straight 12/27/2021 10 :34 AM EDT documented as of this encounter Plan of Treatment Upcoming Encounters Date Type Department Care Team ([facility] Contact Info) Description 07/01/2024 2:30 PM EDT Telemedicine [facility] [address] [place] [address] Leeanna Solis RN [address] [place] [address] documented as of this encounter Visit Diagnoses Diagnosis Anxiety disorder, unspecified Anxiety Anxiety state, unspecified documented in this encounter Additional Health Concerns Assessment Noted Time PHQ-9 Depression Total Score: 0 10/25/19 23 9:41 AM EDT documented as of this encounter Care Teams Manager Of Exhibitions And Collections Relationship Specialty Start Date End Date Liz Barboza MD [address] [place] [address] PCP - General Internal Medicine 10/05/17 documented as of this encounter
--- OUTSIDE RECORDS SUMMARY | 2024-05-09 11:09 | XMS_ITS | Encounter Summary ---
Author Organization [employer] Address [address] [place] [address] [address], [place] [address] Care Team Providers Care Car Repairer Helper Name Role Phone Liz Barboza MD Primary Care Provider [phone]- [phone] Encounter Details Date Type Department Care Team ([facility] Contact Info) Description 01/28/2022 Telephone [facility] PEDS [address] [place] [address] Liz Barboza MD [address] [place] [address] Social History Tobacco Use Types Packs/Day Years Used Date Smoking Tobacco: Never Assessed Comments Unknown Sex and Gender Information Value Date Recorded Sex Assigned at Female 12/27/2021 10:34 AM EDT Legal Sex Female 10:34 AM EDT Gender Identity Female 12/27/2021 10:34 AM EDT Sexual Orientation Straight 12/27/2021 10 :34 AM EDT documented as of this encounter Plan of Treatment Upcoming Encounters Date Type Department Care Team ([facility] Contact Info) Description 07/01/2024 2:30 PM EDT Telemedicine [facility] MED & PEDS [address] [place] [address] Leeanna Solis RN [address] [place] [address] documented as of this encounter Visit Diagnoses Not on filedocumented in this encounter Care Teams Car Repairer Helper Relationship Specialty Start Date End Date Liz Barboza MD [address] [place] [address] PCP - General Internal Medicine 10/05/17 documented as of this encounter
--- OUTSIDE RECORDS SUMMARY | 2024-05-09 11:09 | XMS_ITS | Encounter Summary ---
Author Organization [employer] Address [address] [facility] 7 [place] [address] Care Team Providers Care Diabetologist Name Role Phone Liz Barboza MD Primary Care Provider [phone] Reason for Visit * Reason Comments controlled substance treatment Encounter Details Date Type Department Care Team ([facility] st Contact Info) Description 04/22/2024 2:30 PM EST Telemedicine [facility] MED & PEDS [address] [place] [address] Leeanna Solis, MIRNA [address] [place] [address] Anxiety Social History Tobacco Use Types Packs/Day [...] AM EDT documented as of this encounter Progress Notes * Leeanna Solis RN - 04/22/2024 2:30 PM EST S: FOUR ROLL CALENDER OPERATOR Televisit. Spoke with Patient and patient's daughter, who was interpreting. Patient is prescribed Oxazepam 10mg bid PRN. Patient states has been taking medications as prescribed. Reports no adverse reactions. Took 1 pill this morning. Denies smoking, ETOH or illicit drugs use. Last PCP f/u was on 01/31/24. No questions/ concerns at this time. O: AMBULANCE DISPATCHER checked on 04/22/23. Pill count performed over the phone, patient's daughter states patient has 55 pills remaining, 53 expected. Medications are not being overused. A: Benzodiazepine use r/t anxiety. P: Patient to cont. with current medication regimen as needed and take medication only as directed.f/u for next FOUR ROLL CALENDER OPERATOR NV scheduled for 07/01/24 @2:30pm. F/u with PCP 05/09/24. f/u sooner PRN. Patient verbalized understanding and agreed to plan. documented in this encounter Plan of Treatment Upcoming Encounters Date Type Department Care Team (Late st Contact Info) Description 07/01/2024 2:30 PM EDT Telemedicine [facility] MED & PEDS [address] [place] [address] Leeanna Solis RN 505 [facility] [place] [place] [address] documented as of this encounter Visit Diagnoses Diagnosis Anxiety Anxiety state, unspecified documented in this encounter Additional Health Concerns Assessment Noted Time PHQ-9 Depression Total Score: 0 10/25/19 23 9:41 AM EDT documented as of this encounter Care Teams Diabetologist Relationship Specialty Start Date End Date Liz Barboza MD [address] [place] [id number] PCP - General Internal Medicine 10/05/17 documented as of this encounter
--- OUTSIDE RECORDS SUMMARY | 2024-05-09 11:09 | XMS_ITS | Encounter Summary ---
Author Organization [employer] Address 75 [facility] 7t [place] [address] Care Team Providers Care Drier Unloader Name Role Phone Liz Barboza MD Primary Care Provider [phone] Encounter Details Date Type Department Care Team (Latest Contact Info) Description 05/02/2024 Travel Social History Tobacco Use Types Packs/Day Years [...] Info) Description 07/01/2024 2:30 PM EDT Telemedicine [facility] MED & PEDS [address] [place] [address] Leeanna Solis, MIRNA [address] [place] [address] documented as of this encounter Visit Diagnoses Not on filedocumented in this encounter Additional Health Concerns Assessment Noted Time PHQ-9 Depression Total Score: 0 10/25/19 23 9:41 AM EDT documented as of this encounter Care Teams Drier Unloader Relationship Specialty Start Date End Date Liz Barboza MD [address] [place] [address] PCP - General Internal Medicine 10/05/17 documented as of this encounter
--- OUTSIDE RECORDS SUMMARY | 2024-05-09 11:09 | XMS_ITS | Encounter Summary ---
Author Organization [facility] Address [address] [place] [address] Phone Care Team Providers Care X Ray Physician Name Role Phone Liz Barboza MD Primary Care Provider [phone] Reason for Visit * Reason Onset Date Comments Med Refill 08/04/2022 Encounter Details Date Type Department Care Team (Late st Contact Info) Description 08/04/2022 Refill [facility] [address] [place] [phone] Sajan Mandel MD [address] [place] [address] [place] [address] Social History Tobacco Use Types Packs/Day Years Used Date Smoking Tobacco: Never Smokeless Tobacco: Never Comments Unknown Sex and Gender Information Value Date Recorded Sex Assigned at Female 01/06/2022 9:03 AM EST Legal Sex Female 4:33 PM EST Gender Identity Female 01/06/2022 9:03 AM EST Sexual Orientation Not on file documented as of this encounter Plan of Treatment Upcoming Encounters Date Type Department Care Team (Late Contact Info) Description 05/15/2024 9:50 AM EDT Office Visit [facility], [address] [place] [phone] Sajan Mandel MD [address] [place] [address] [place] [phone] documented as of this encounter Visit Diagnoses Not on filedocumented in this encounter Care Teams X Ray Physician Relationship Specialty Start Date End Date Liz Barboza MD PCP - General 01/01/19 documented as of this encounter
--- OUTSIDE RECORDS SUMMARY | 2024-05-09 11:09 | XMS_ITS | Encounter Summary ---
Author Organization [employer] Address 75 [facility] 7 [place] [address] Care Team Providers Care Icing Maker Name Role Phone Liz Barboza MD Primary Care Provider [phone] Reason for Visit * Reason Comments Hypertension Encounter Details Date Type Department Care Team ([facility] st Contact Info) Description 05/09/2024 9:15 AM EDT Office Visit [facility] MED & PEDS [address] [place], [place] [phone] Liz Barboza MD [address] [place] [address] Primary hypertension (Primary Dx); Other specified hypothyroidism; Generalized anxiety disorder; Dietary counseling; Exercise counseling; Overweight; Hypercholesterolemia Social History Tobacco Use Types Packs/Day Years Used Date Smoking Tobacco: Never Passive Smoke Exposure: Never Smokeless Tobacco: Never Alcohol Use Standard Drinks/Week Comments Never 0 (1 standard drink = 0.6 oz pur e alcohol) Depression Answer Date Recorded Patient Health Questionnaire-9 Score 3 05/09/2024 Patient Health Questionnaire-9 Score 3 05/09/2024 Last PHQ-9: Questionnaire Data Not on file 0 05/09/2024 Housing Stability Answer Date Recorded What is your housing situation today? I have mariama kahn 05/09/[address] you li ve. Do you have problems with any of the following? None of the above 05/09/2024 Food Insecurity Answer Date Recorded Within the past 12 months, y ou worried that your food would run out before you got money to buy more: Never True 05/09/2024 Within the past 12 months,th e food you bought just didn't last and you didn't have enough money to get more: Never True Transportation Answer Date Recorded In the past 12 months, has l ack of transportation kept you from medical appts, meetings, work or from getting things needed for daily living? No 05/09/2024 Utilities Answer Date Recorded In the past 12 months, has t he electric, gas, oil or water company threatened to shut off services in your home? No 05/09/2024 Depression Answer Date Recorded Patient Health Questionnaire-2 Score 1 05/09/2024 Internet Access Answer Date Recorded Internet Access Q1 Yes 05/09/2024 Internet Access Q2 Not on file 05/09/2024 Comments Unknown Sex and Gender Information Value Date Recorded Sex Assigned at Female 12/27/2021 10:34 AM EDT Legal Sex Female 10:34 AM EDT Gender Identity Female 12/27/2021 10:34 AM EDT Sexual Orientation Straight 12/27/2021 10 :34 AM EDT documented as of this encounter Last Filed Vital Signs Vital Sign Reading Time Taken Comments Blood Pressure 155/81 05/09/2024 8:59 AM EDT Pulse 74 05/09/2024 8:59 AM EDT Temperature 36.6 ??C (97.9 ??F) 05/09/2024 8:59 AM ED T Respiratory Rate 20 05/09/2024 8:59 AM EDT Oxygen Saturation 98% 05/09/2024 8:59 AM EDT Inhaled Oxygen Concentration - - Weight 64 kg (141 lb) 05/09/2024 8:59 AM EDT Height 149 cm (4' 10.66 ) 05/09/2024 8:59 AM EDT Body Mass Index 28.81 05/09/2024 8:59 AM EDT documented in this encounter Progress Notes * Liz Barboza MD - 05/09/2024 9:15 AM EDT Subjective Patient ID: Kelsey Lan is a 78 y.o. female who presents for Hypertension. Hypertension This is a chronic problem. The problem is controlled. Pertinent negatives include no anxiety, blurred vision, chest pain, headaches, malaise/fatigue, neck pain, orthopnea, palpitations, peripheral edema, PND, shortness of breath or sweats. Patient is here for follow-up. She denies any acute events since her last office visit. She has been checking her blood pressure at home which is at goal. No headache or blurry vision. She is compliant to her medication. Patient Active Problem List Diagnosis Anxiety disorder Chronic gastritis Hypertensive disorder Hypothyroidism Osteoporosis Stage 3 chronic kidney disease (CMS/HCC) Essential (primary) hypertension Stage 3a chronic kidney disease ([facility]/HCC) Hypercholesterolemia Current Outpatient Medications on File Prior to Visit Medication Sig Dispense Refill acetaminophen (Tylenol 8 Hour) 650 MG ER tablet TAKE ONE TABLET BY MOUTH EVERY 8 HOURS NEEDED FOR MILD PAIN. DO NOT BREAK, CRUSH, DISSOLVE OR CHEW. 120 tablet 1 amLODIPine (Norvasc) 5 MG tablet TAKE ONE TABLET BY MOUTH EVERY DAY 90 tablet 3 Blood Pressure kit To check the BP 3 times a week. 1 kit 0 famotidine (Pepcid) 20 MG tablet Take 1 tablet by mouth at bedtime. furosemide (Lasix) 20 MG tablet take 1 Tablet by oral route every other day hydroCHLOROthiazide (HYDRODiuril) 12.5 MG tablet Take 1 tablet by mouth. daily hydroCHLOROthiazide (Microzide) 12.5 MG capsule TAKE ONE CAPSULE BY MOUTH EVERY DAY 90 capsule 3 levothyroxine (Synthroid, Levoxyl) 50 MCG tablet TAKE ONE TABLET EVERY DAY 90 tablet 3 lidocaine (Lidoderm) 5 % patch Apply 1 patch topically Once per day. Remove & discard patch within 12 hours or as directed by MD. 30 patch 0 lidocaine-prilocaine (Emla) 2.5-2.5 % cream Apply topically. As needed LORazepam (Ativan) 1 MG tablet Take 1 tablet (1 mg) by mouth every 12 (twelve) hours if needed for anxiety for up to 28 days. Dose exchange from oxazepam 10mg to lorazepam 1mg done due to medciation back order 56 tablet 0 losartan (Cozaar) 100 MG tablet TAKE ONE TABLET BY MOUTH EVERY DAY 90 tablet 3 metoprolol succinate XL (Toprol XL) 100 MG 24 hr tablet Take 1 tablet (100 mg) by mouth Once per day. Do not crush or chew. 30 tablet 11 Misc. Devices (Wrist Brace) misc Medium. To wear at bedtime oxazepam (Serax) 10 MG capsule Take 1 capsule (10 mg) by mouth 2 times daily. 60 capsule 0 oxazepam (Serax) 10 MG capsule Take 1 capsule (10 mg) by mouth 2 times daily. Do not start before April 19, 2024. 60 capsule 0 simvastatin (Zocor) 20 MG tablet TAKE ONE TABLET BY MOUTH EVERY DAY 90 tablet 3 simvastatin (Zocor) 40 MG tablet Take 1 tablet (40 mg) by mouth at bedtime. 30 tablet 11 No current facility-administered medications on file prior to visit. No Known Allergies Review of Systems Constitutional: Negative for activity change, appetite change, chills, diaphoresis and malaise/fatigue. HENT: Negative for dental problem, drooling, ear discharge, ear pain and hearing loss. Eyes: Negative for blurred vision, pain, discharge and itching. Respiratory: Negative for cough, choking, chest tightness and shortness of breath. Cardiovascular: Negative for chest pain, palpitations, orthopnea, leg swelling and PND. Gastrointestinal: Negative for blood in stool and diarrhea. Genitourinary: Negative for difficulty urinating, dyspareunia, dysuria, enuresis, flank pain, frequency and genital sores. Musculoskeletal: Negative for arthralgias, gait problem, joint swelling and neck pain. Skin: Negative for pallor. Neurological: Negative for dizziness, seizures, speech difficulty, light- headedness, numbness and headaches. Psychiatric/Behavioral: Negative for behavioral problems, confusion and decreased concentration. Objective BP (!) 155/81 (BP Location: Right arm, Patient Position: Sitting, BP Cuff Size: Adult) Pulse 74 Temp 97.9 ??F (36.6 ??C) (Oral) Resp 20 Ht 4' 10.66 (1.49 m) Wt 141 lb (64 kg) SpO2 98% BMI 28.81 kg/m?? Physical Exam Constitutional: General: She is not in acute distress. Appearance: Normal appearance. She is not ill-appearing, toxic-appearing or diaphoretic. Cardiovascular: Rate and Rhythm: Normal rate. Heart sounds: No murmur heard. No friction rub. No gallop. Pulmonary: Effort: Pulmonary effort is normal. No respiratory distress. Breath sounds: No stridor. No wheezing or rhonchi. Neurological: General: No focal deficit present. Mental Status: She is alert. Psychiatric: Mood and Affect: Mood normal. Assessment/Plan Diagnoses and all orders for this visit: Primary hypertension Comments: Patient with whitecoat hypertension No change will be made to the current medication DASH diet. Continue checking the blood pressure at home Other specified hypothyroidism Comments: Last TSH was at goal Repeat TSH today. Patient will be contacted with results. Orders: - TSH W/Reflex to FT4; Future Generalized anxiety disorder Comments: Stable No change. Dietary counseling Exercise counseling Overweight Dietary Recommendations: Fruits, vegetables, whole grains, protein foods, and fat-free or low-fat dairy products are healthychoices. Eat different types of protein foods in your diet. This can include seafood, lean meats, poultry, beans, peas, lentils, nuts, seeds, soy products, and eggs. Limit foods and beverages higher in added sugars, saturated fat, and sodium. Exercise Recommendations: At least 150 minutes of moderate-intensity physical activity per week, or an equivalent combinationof moderate- and vigorous-intensity activity Hypercholesterolemia Comments: Simvastatin dose was increased to 40 mg about 3 months ago Repeat lipid panel today. Patient will be contacted with results. Orders: - Lipid Panel, Standard; Future documented in this encounter Plan of Treatment Upcoming Encounters Date Type Department Care Team (Late st Contact Info) Description 07/01/2024 2:30 PM EDT Telemedicine [facility] MED & PEDS [address] [place] [address] Leeanna Solis RN [address] [place] [address] Scheduled Orders Name Type Priority Associated Diagnoses Orde r Schedule TSH W/Reflex to FT4 Lab Routine Other specified hypothyroidism Expected: 05/09/2024 (Approximate), Expires: 05/09/2025 Lipid Panel, Standard Lab Routine Hypercholesterolemia Expected: 05/09/2024 (Approximate), Expires: 05/09/2025 documented as of this encounter Visit Diagnoses Diagnosis Primary hypertension- Primary Unspecified essential hypertension Other specified hypothyroidism Generalized anxiety disorder Dietary counseling Dietary surveillance and counseling Exercise counseling Overweight Hypercholesterolemia Pure hypercholesterolemia documented in this encounter Additional Health Concerns Assessment Noted Time PHQ-9 Depression Total Score: 3 05/10/19 25 9:59 AM EDT documented as of this encounter Care Teams Icing Maker Relationship Specialty Start Date End Date Liz Barboza MD [address] [place] [id number] PCP - General Internal Medicine 10/05/17 documented as of this encounter
--- OUTSIDE RECORDS SUMMARY | 2024-05-09 11:09 | XMS_ITS | Encounter Summary ---
Author Organization [employer] Address [address] [facility] 7 [place] [address] Care Team Providers Care Financial Institution Vice President Name Role Phone Liz Barboza MD Primary Care Provider [phone]- [phone] Reason for Visit * Reason Onset Date Comments Med Refill 04/15/2024 Encounter Details Date Type Department Care Team ([facility] st Contact Info) Description 04/15/2024 Refill [facility] MED & PEDS [address] [place] [address] Liz Barboza MD [address] [place] [address] Anxiety disorder, unspecified; Anxiety Social History Tobacco [...] Upcoming Encounters Date Type Department Care Team ([facility] st Contact Info) Description 07/01/2024 2:30 PM EDT Telemedicine [facility] MED & PEDS [address] [place] [address] Leeanna Solis RN [address] [place] [address] documented as of this encounter Visit Diagnoses Diagnosis Anxiety disorder, unspecified Anxiety Anxiety state, unspecified documented in this encounter Additional Health Concerns Assessment Noted Time PHQ-9 Depression Total Score: 0 10/25/19 23 9:41 AM EDT documented as of this encounter Care Teams Financial Institution Vice President Relationship Specialty Start Date End Date Liz Barboza MD [address] [place] [address] PCP - General Internal Medicine 10/05/17 documented as of this encounter
--- OUTSIDE RECORDS SUMMARY | 2024-05-09 11:09 | XMS_ITS | Encounter Summary ---
Author Organization [facility] Address [address] [place] [address] Phone Care Team Providers Care Cut Off Saw Operator Metal Name Role Phone Liz Babroza MD Primary Care Provider [phone] [phone] Encounter Details Date Type Department Care Team (Late st Contact Info) Description 09/29/2023 Documentation Only [facility] [address] [place] [address] Saira [facility], [place] [address] [place] [phone] Social History Tobacco Use Types Packs/Day Years [...] Care Team (Late st Contact Info) Description 05/15/2024 9:50 AM EDT Office Visit [facility] [address] [place] [address] Sajan Mandel MD [address] [facility] [place] [phone] documented as of this encounter Visit Diagnoses Not on filedocumented in this encounter Care Teams Cut Off Saw Operator Metal Relationship Specialty Start Date End Date Liz Barboza MD PCP - General 01/01/19 documented as of this encounter
--- OUTSIDE RECORDS SUMMARY | 2024-05-09 11:09 | XMS_ITS | Encounter Summary ---
Author Organization [employer] Address 75 [facility] 7 [place] [address] Care Team Providers Care Coffee Taster Name Role Phone Liz Barboza MD Primary Care Provider [phone]- [phone] Reason for Visit * Reason Comments Med Refill Encounter Details Date Type Department Care Team ([facility] st Contact Info) Description 04/23/2024 Refill [facility] MED & PEDS [address] [place], [place] [phone] Liz Barboza MD [address] [place] [address] Primary osteoarthritis of other site Social History Tobacco Use Types Packs/Day Years [...] Upcoming Encounters Date Type Department Care Team ([facility] st Contact Info) Description 07/01/2024 2:30 PM EDT Telemedicine [facility] MED & PEDS [address] [place] [address] Leeanna Solis, MIRNA [address] [place] [address] documented as of this encounter Visit Diagnoses Diagnosis Primary osteoarthritis of other site documented in this encounter Additional Health Concerns Assessment Noted Time PHQ-9 Depression Total Score: 0 10/25/19 23 9:41 AM EDT documented as of this encounter Care Teams Coffee Taster Relationship Specialty Start Date End Date Liz Barboza MD [address] [place] [address] PCP - General Internal Medicine 10/05/17 documented as of this encounter
--- OUTSIDE RECORDS SUMMARY | 2024-05-09 11:09 | XMS_ITS | Encounter Summary ---
Author Organization [employer] Address 75 [facility] 7 [place] [address] Care Team Providers Care Rail Transportation Tabeler Name Role Phone Liz Barboza MD Primary Care Provider [phone]- [phone] Reason for Visit * Reason Comments Med Refill Encounter Details Date Type Department Care Team ([facility] st Contact Info) Description 01/12/2024 Refill [facility] MED & PEDS [address] [place], [place] [phone] Liz Barboza MD [address] [place] [address] Anxiety disorder, unspecified Social History Tobacco Use Types Packs/Day Years [...] Upcoming Encounters Date Type Department Care Team ([facility] st Contact Info) Description 07/01/2024 2:30 PM EDT Telemedicine [facility] MED & PEDS [address] [place] [address] Leeanna Solis, MIRNA [address] [place] [address] documented as of this encounter Visit Diagnoses Diagnosis Anxiety disorder, unspecified documented in this encounter Additional Health Concerns Assessment Noted Time PHQ-9 Depression Total Score: 0 10/25/19 23 9:41 AM EDT documented as of this encounter Care Teams Rail Transportation Tabeler Relationship Specialty Start Date End Date Liz Barboza MD [address] [place] [address] PCP - General Internal Medicine 10/05/17 documented as of this encounter
--- OUTSIDE RECORDS SUMMARY | 2024-05-09 11:09 | XMS_ITS | Encounter Summary ---
Author Organization [employer] Address [address] [facility] [address], [place] [address] Care Team Providers Care Microeconomics Professor Name Role Phone Liz Barboza MD Primary Care Provider [phone]- [phone] Encounter Details Date Type Department Care Team (Late st Contact Info) Description 01/24/2022 Abstract [facility] MEDICINE [address] [place], [place] [phone] ProviderGene MD Social History Tobacco Use Types Packs/Day Years [...] Info) Description 07/01/2024 2:30 PM EDT Telemedicine [facility] MED & PEDS [address] [place] [address] Leeanna Solis, RN [address] [place] [address] documented as of this encounter Visit Diagnoses Not on filedocumented in this encounter Care Teams Microeconomics Professor Relationship Specialty Start Date End Date Liz Barboza MD [address] [place] [address] PCP - General Internal Medicine 10/05/17 documented as of this encounter
--- OUTSIDE RECORDS SUMMARY | 2024-05-09 11:09 | XMS_ITS | Clinical Summary ---
Author Organization [employer] Address [address] [facility] 7 [place] [address] Care Team Providers Care Broadcast Correspondent Name Role Phone Liz Barboza MD Primary Care Provider [phone] Allergies No known active allergies Medications famotidine (Pepcid) 20 MG tablet Take 1 tablet by mouth at bedtime. 019 Active furosemide (Lasix) 20 MG tablet take 1 Tablet by oral route every other day 019 Active hydroCHLOROthiazi de (HYDRODiuril) 12.5 MG tablet Take 1 tablet by mouth. daily 022 Active lidocaine-priloca ine (Emla) 2.5-2.5 % cream Apply topically. As needed 021 Active Misc. Devices (Wrist Brace) misc Medium. To wear at bedtime Active Blood Pressure kitIndications:Pr imary hypertension To check the BP 3 times a week. 1 kit 023 Active simvastatin (Zocor) 20 MG tablet TAKE ONE TABLET BY MOUTH EVERY DAY 90 tablet 3 024 Active losartan (Cozaar) 100 MG tablet TAKE ONE TABLET BY MOUTH EVERY DAY 90 tablet 3 024 Active hydroCHLOROthiazi de (Microzide) 12.5 MG capsuleIndication s:Essential (primary) hypertension TAKE ONE CAPSULE BY MOUTH EVERY DAY 90 capsule 3 024 Active levothyroxine (Synthroid, Levoxyl) 50 MCG tablet TAKE ONE TABLET EVERY DAY 90 tablet 3 024 Active amLODIPine (Norvasc) 5 MG tabletIndications :Essential (primary) hypertension TAKE ONE TABLET BY MOUTH EVERY DAY 90 tablet 3 Active metoprolol succinate XL (Toprol XL) 100 MG 24 hr tabletIndications :Primary hypertension Take 1 tablet (100 mg) by mouth Once per day. Do not crush or chew. 30 tablet 11 024 2024 Active lidocaine (Lidoderm) 5 % patchIndications: Neck pain Apply 1 patch topically Once per day. Remove & discard patch within 12 hours or as directed by MD. 30 patch Active simvastatin (Zocor) 40 MG tabletIndications :Hypercholesterol emia Take 1 tablet (40 mg) by mouth at bedtime. 30 tablet 11 024 2024 Active oxazepam (Serax) 10 MG capsuleIndication s:Anxiety disorder, unspecified Take 1 capsule (10 mg) by mouth 2 times daily. 60 capsule Active LORazepam (Ativan) 1 MG tablet Take 1 tablet (1 mg) by mouth every 12 (twelve) hours if needed for anxiety for up to 28 days. Dose exchange from oxazepam 10mg to lorazepam 1mg done due to medciation back order 56 tablet Active oxazepam (Serax) 10 MG capsuleIndication s:Anxiety disorder, unspecified,Anxie ty Take 1 capsule (10 mg) by mouth 2 times daily. Do not start before April 19, 2024. 60 capsule 025 Active acetaminophen (Tylenol 8 Hour) 650 MG ER tabletIndications :Primary osteoarthritis of other site TAKE ONE TABLET BY MOUTH EVERY 8 HOURS NEEDED FOR MILD PAIN. DO NOT BREAK, CRUSH, DISSOLVE OR CHEW. 120 tablet 1 025 Active sucralfate (Carafate) 1 g tablet Take 1 tablet (1 g) by mouth before breakfast, before lunch, before evening meal, and at bedtime. 120 tablet 11 024 2024 acetaminophen (Tylenol 8 Hour) 650 MG ER tabletIndications :Primary osteoarthritis of other site TAKE ONE TABLET BY MOUTH EVERY 8 HOURS NEEDED FOR MILD PAIN. DO NOT BREAK, CRUSH, DISSOLVE OR CHEW. 120 tablet 1 024 2024 Discontinued oxazepam (Serax) 10 MG capsuleIndication s:Anxiety disorder, unspecified,Anxie ty Take 1 capsule (10 mg) by mouth 2 times daily. 60 capsule 025 2024 Discontinued(R eorder (will not trigger notification to Pharmacy)) Active Problems Problem Noted Date Diagnosed Date Hypercholesterolemia 01/31/2024 Anxiety disorder 01/13/2022 Hypertensive disorder 01/13/2022 Hypothyroidism 01/13/2022 Osteoporosis 01/13/2022 Essential (primary) hypertension 02/05/2019 Stage 3a chronic kidney disease 02/05/2019 Overview (11/30/2023): Update for Diagnosis Load Stage 3 chronic kidney disease 10/15/2018 Chronic gastritis 10/05/2017 Encounters Date Type Department Care Team Description 05/09/2024 9:15 AM EDT Office Visit [facility] [address] [place] [address] Liz Barboza MD Primary hypertension (Primary Dx); Other specified hypothyroidism; Generalized anxiety disorder; Dietary counseling; Exercise counseling; Overweight; Hypercholesterolemia 05/09/2024 Travel 05/02/2024 Travel 04/23/2024 Refill [facility] [address] [place] [address] Liz Barboza MD Primary osteoarthritis of other site 04/22/2024 2:30 PM EST Telemedicine [facility] [address] [place] [address] Leeanna Solis RN Anxiety 04/22/2024 Travel 04/15/2024 Refill [facility] [address] [place] [address] Liz Barboza MD Anxiety disorder, unspecified; Anxiety 04/15/2024 Travel 03/17/2024 Refill [facility] [address] [place] [address] Liz Barboza MD Anxiety disorder, unspecified; Anxiety 02/12/2024 2:00 PM EST Telemedicine [facility] [address] [place] [address] Leeanna Solis, MIRNA Anxiety 02/12/2024 Travel from Last 3 Months Immunizations Name Administration Dates Next Due Influenza High-dose Quadrivalent Preservative Fr ee 12/06/2022,11/10/2021 Influenza Quadrivalent Adjuvanted 12/24/2020,07/2019 Influenza injectable quadriv alent IIV4 with preservative 01/11/2018 Influenza injectable quadrivalent preservative f ree 12/25/2018 Influenza, High Dose Seasonal, Preservative Free 11/17/2023 Pfizer Covid-19 Vaccine 12+ 11/30/2023 Pneumococcal Conjugate PCV 20 11/09/2021 Pneumococcal Polysaccharide PPSV23 01/21/2014 Tdap 01/11/2018 Zoster, Recombinant 10/05/2021,08/03/2021 Social History Tobacco Use Types Packs/Day Years Used Date Smoking Tobacco: Never Passive Smoke Exposure: Never Smokeless Tobacco: Never Tobacco Cessation:Counseling Given: Not Answered Alcohol Use Standard Drinks/Week Comments Never 0 [...] Orientation Straight 12/27/2021 10 :34 AM EDT Last Filed Vital Signs Vital Sign Reading [...] Mass Index 28.81 05/09/2024 8:59 AM EDT Plan of Treatment Upcoming Encounters Date Type Department Care Team (Late st Contact Info) Description 07/01/2024 2:30 PM EDT Telemedicine [facility] [address] [place] [address] Leeanna Solis, RN [address] [place] [address] Health Maintenance Due Date Last Done Comments Dental Prophylaxis 1945 RSV Patients and Patients Aged 60 years or older (1 - 1-dose 75+ series) 2021 Dental Oral Exam 09/21/2022 03/23/2022 Dental X-Ray: Bitewings 03/24/2023 03/23/2022 Dental X-Ray: Full Mouth 03/24/2025 03/23/2022 Alcohol/Substance Use Screening 05/09/2025 05/09/2024 Depression Screening 05/09/2025 05/09/2024, 05/10/19 SDOH Screening 05/09/2025 05/09/2024 Tobacco Screening 05/09/2025 05/09/2024 DTaP/Tdap/Td Vaccines (2 - Td or Tdap) 01/12/2028 01/11/2018 Lipid Panel 11/29/2028 11/30/2023, 09/28, 06/04/2021 Zoster Vaccines Completed 10/05/2021, 08/03/2021 Pneumococcal Vaccine: 50+ Years Completed 11/09/2021, 01/21/2014 Hepatitis C Screening Completed 10/25/2022 Colorectal Cancer Screening Discontinued FIT DNA/Cologuard Discontinued 02/17/2023 Influenza Vaccine Completed 11/17/2023, , 11/10/2021, Additional history exists COVID-19 Vaccine Completed 11/30/2023, 02/2022, 01/15/2021, Additional history exists CT Colonography Discontinued Colonoscopy Discontinued FIT Discontinued FOBT Discontinued HIB Vaccines Aged Out No longer eligi ble based on patient's age to complete this topic HPV Vaccines Aged Out No longer eligi ble based on patient's age to complete this topic Hepatitis A Vaccines Aged Out No long er eligible based on patient's age to complete this topic Hepatitis B Vaccines Aged Out No long er eligible based on patient's age to complete this topic IPV Vaccines Aged Out No longer eligi ble based on patient's age to complete this topic Meningococcal Vaccine Aged Out No stas lalo eligible based on patient's age to complete this topic RSV under 20 months Aged Out No longe r eligible based on patient's age to complete this topic Rotavirus Vaccines Aged Out No longer eligible based on patient's age to complete this topic Sigmoidoscopy Discontinued Procedures Procedure Name Priority Date/Time Associated Diagnosis Comments LIPID PANEL, STANDARD Routine 11/30/2023 9:49 AM EDT Primary hypertension LAB COLOGUARD?? COLON CANCER SCREEN Routine 02/17/2023 9:15 AM EST Other specified hypothyroidism Screening for colon cancer HEPATITIS C ANTIBODY REFLEX Routine 10/25/2022 9:23 AM EDT INTRAORAL - COMPLETE SERIES OF RADIOGRAPHIC IMAGES Routine 03/23/2022 8:05 AM EST COMPREHENSIVE ORAL EVALUATION - NEW OR ESTABLISHED PATIENT Routine 03/23/2022 8:05 AM EST from Last 3 Months or Most Recently Relevant to Health Maintenance Results * (ABNORMAL) Lipid Panel, Standard (11/30/2023 9:49 AM EDT) Triglycerides 119 <150 mg/dL [facility] Comment:Desirable Triglyceri de: less than 150 mg/dLBorderline High Triglyceride 150-199 mg/dLHigh Triglyceride: 200-499 mg/dLVery High Triglyceride: greater than or equal to 5OO mg/dL Cholesterol 208(H) <200 mg/dL [facility] Comment:Desirable Cholestero l: less than 200 mg/dLBorderline High Cholesterol: 200-239 mg/dLHigh Cholesterol: greater than 239 mg/dL LDL Cholesterol Calculated 133(H) <100 mg/dL [facility] Comment:Desirable LDL: less than 100 mg/dLNear Optimal/Above Optimal LDL: 110- 129 mg/dLBorderline High LDL: 130-159 mg/dLHigh LDL: 160-189 mg/dLVery High LDL: greater than or equal to 190 mg/dL HDL Cholesterol 52 >40 mg/dL [facility] Comment:Desirable HDL: great er than 40 mg/dL Note: This HDL assay may give artificially low results in patients with liver disease. Blood Venous blood specimen / Unknown 11/30/2023 9:49 AM EDT 11/30/2023 2:03 PM EDT Liz Barboza MD LAB BLOOD ORDERABLES Final Result [facility] [address] [place] [address] [phone] * Cologuard?? colon cancer screening (02/17/2023 9:15 AM EST) Cologuard Result Negative Negative 03/01/19 5:34 AM EST [facility] (CLIA #:[id number]) Comment: NEGATIVE TEST RESULT. A negative Cologuard result indicates a low likelihood that a colorectal cancer (CRC) or advanced adenoma (adenomatous polyps with more advanced pre-malignant features) ??is present. The chance that a person with a negative Cologuard test has a colorectal cancer is less than 1 in 1500 (negative predictive value >99.9%) or has an ??advanced adenoma is less than ??5.3% (negative predictive value 94.7%). These data are based on a prospective cross-sectional study of 10,000 individuals at average risk for colorectal cancer who were screened with both Cologuard and colonoscopy. (Ingrid Luu et al, N Engl J Med 2014;370(14):1286- 1297) The normal value (reference range) for this assay is negative. COLOGUARD RE-SCREENING RECOMMENDATION: Periodic colorectal cancer screening is an important part of preventive healthcare for asymptomatic individuals at average risk for colorectal cancer. ??Following a negative Cologuard result, the [place] [employer] and U.S. Multi-Society Task Force screening guidelines recommend a Cologuard re-screening interval of 3 years. References: [place] [employer] Guideline for Colorectal Cancer Screening: https://www.cancer.org/cancer/jqdam-aiqijm-txljkq/htbjjtlsx-qjivdbusp-kpislfs/ac s-rec ommendations.html.; Ralf DK, Kirsty CR, Princess ContrerasK, Colorectal Cancer Screening: Recommendations for Physicians and Patients from the U.S. Multi-Society Task Force on Colorectal Cancer Screening , Am J Gastroenterology 2017; 112:3240-7646. TEST DESCRIPTION: Composite algorithmic analysis of stool DNA-biomarkers with hemoglobin immunoassay. ?? Quantitative values of individual biomarkers are not reportable and are not associated with individual biomarker result reference ranges. Cologuard is intended for colorectal cancer screening of adults of either sex, 45 years or older, who are at average-risk for colorectal cancer (CRC). Cologuard has been approved for use by the U.S. FDA. The performance of Cologuard was established in a cross sectional study of average-risk adults aged 50-84. Cologuard performance in patients ages 45 to 49 years was estimated by sub-group analysis of near-age groups. Colonoscopies performed for a positive result may find as the most clinically significant lesion: colorectal cancer [4.0%], advanced adenoma (including sessile serrated polyps greater than or equal to 1cm diameter) [20%] or non- advanced adenoma [31%]; or no colorectal neoplasia [45%]. These estimates are derived from a prospective cross-sectional screening study of 10,000 individuals at average risk for colorectal cancer who were screened with both Cologuard and colonoscopy. (Ingrid Brenner al, N Engl J Med 2014;370(14):2324-2309.) Cologuard may produce a false negative or false positive result (no colorectal cancer or precancerous polyp present at colonoscopy follow up). A negative Cologuard test result does not guarantee the absence of CRC or advanced adenoma (pre-cancer). The current Cologuard screening interval is every 3 years. ([place] [employer] and U.S. Multi-Society Task Force). Cologuard performance data in a 10,000 patient pivotal study using colonoscopy as the reference method can be accessed at the following location: www.[employer]/results. Additional description of the Cologuard test process, warnings and precautions can be found at www.cologNeuroPhage Pharmaceuticalsrd.com. Stool specimen (specimen) 02/17/2023 9:15 AM EST 02/18/2023 4:15 PM EST us Liz Barboza MD LAB MOLECULAR DIAGNOSTICS O RDERABLES Final Result Performing Organization Address City/[facility]/ZIP Co de Phone Number [facility] (CLIA #:[id number]) [address] [place] [address], * Hepatitis C Antibody Reflex (10/25/2022 9:23 AM EDT) Hepatitis C Antibody Nonreactive Nonreactive [facility] Comment:Antibodies to HCV no t detected; does not exclude early acuteHCV infection. 10/25/2022 9:23 AM EDT 10/25/2022 2:32 PM EDT us Liz Barboza MD LAB BLOOD ORDERABLES Final Result Performing Organization Address City/[facility]/ZIP Co de Phone Number [facility] [address] [place] [phone] from Last 3 Months or Most Recently Relevant to Health Maintenance Insurance [place] [id number] [facility] STANDARD DENTAL-[facility] MEDICAID STAND ADULT [facility] C3 Care Teams Broadcast Correspondent Relationship Specialty Start Date End Date Liz Barboza MD [address] [place] [id number] PCP - General Internal Medicine 10/05/17
--- OUTSIDE RECORDS SUMMARY | 2024-05-09 11:09 | XMS_ITS | Clinical Summary ---
Author Organization [facility], Address [address] [place] [address] [place] [address] Phone Care Team Providers Care Freight Dispatcher Name Role Phone Liz Barboza MD Primary Care Provider [phone] Allergies No known active allergies Medications levothyroxine (SYNTHROID, LEVOTHROID) 50 MCG tablet 9 Active PROLENSA 0.07 % solution 9 Active ibandronate (BONIVA) 150 MG tablet take 1 tablet by mouth every month (same date) with a full glass of water and remain in upright positionat least 1 hour. 9 Active latanoprost (XALATAN) 0.005 % ophthalmic solution PLACE ONE DROP IN EACH EYE AT BEDTIME 9 Active losartan (COZAAR) 100 MG tablet TAKE ONE TABLET BY MOUTH EVERY DAY 9 Active hydroCHLOROthiaz toan (MICROZIDE) 12.5 MG capsule TAKE ONE CAPSULE BY MOUTH EVERY DAY 9 Active metoprolol succinate XL (TOPROL-XL) 100 MG 24 hr tablet TAKE ONE TABLET DAILY 9 Active oxazepam (SERAX) 10 MG capsule Take 10 mg by mouth twice a day 9 Active simvastatin (ZOCOR) 20 MG tablet Take 1 tablet by mouth 1 (one) time each day Active CARAFATE 1 GM/10ML suspension TAKE 10 ml's BY MOUTH FOUR TIMES DAILY ON AN EMPTY STOMACH ONE HOUR BEFORE MEALS AND AT BEDTIME 12/02/201 9 Active amLODIPine (NORVASC) 5 MG tablet Take 5 mg by mouth 1 (one) time each day 0 Active lidocaine-priloc herminia (EMLA) cream APPLY TO THE AFFECTED AREA(S) DAILY NEEDED 0 Active SM Arthritis Pain Reliever 650 MG 8 hr tablet Take 650 mg by mouth every 8 (eight) hours if needed 0 Active Dexter-3 1000 MG capsule Take 1,000 mg by mouth daily Active Elastic Bandages & Supports (Medical Compression Stockings) misc Use as directed per doctor. 1 each 0 Active dorzolamide-denis lol (COSOPT) 22.3-6.8 MG/ML ophthalmic solution PLACE ONE DROP IN THE LEFT EYE TWICE DAILY DIRECTED 3 Active potassium chloride (KLOR-CON M20) 20 MEQ CR tablet Take 1 tablet (20 mEq total) by mouth 1 (one) time each day 90 tablet 3 4 Active Active Problems Problem Noted Date Diagnosed Date Stage 3a chronic kidney disease 02/05/2019 Overview (03/02/2020): Update for Diagnosis Load Essential (primary) hypertension 02/05/2019 Hypothyroidism 02/05/2019 Immunizations Name Administration Dates Next Due Influenza Vaccine, Quadrivalent, Adjuvanted 07/2019 Family History Medical History Relation Comments Kidney disease Mother Relation Status Comments Mother Social History Tobacco Use Types Packs/Day Years Used Date Smoking Tobacco: Never Smokeless Tobacco: Never Comments Unknown Sex and Gender Information Value Date Recorded Sex Assigned at Female 01/06/2022 9:03 AM EST Legal Sex Female 4:33 PM EST Gender Identity Female 01/06/2022 9:03 AM EST Sexual Orientation Not on file Last Filed Vital Signs Vital Sign Reading Time Taken Comments Blood Pressure 136/84 11/01/2022 9:46 AM EDT Pulse 79 03/10/2022 1:09 PM EST Temperature - - Respiratory Rate - - Oxygen Saturation - - Inhaled Oxygen Concentration - - Weight 69.7 kg (153 lb 9.6 oz) 02/05/2019 8:49 A M EST Height 149.9 cm (4' 11 ) 02/05/2019 8:49 AM EST Body Mass Index 31.02 02/05/2019 8:49 AM EST Plan of Treatment Upcoming Encounters Date Type Department Care Team (Late st Contact Info) Description 05/15/2024 9:50 AM EDT [facility] [address] [place] [phone] Sajan Mandel MD [address] [facility] [place] [phone] Health Maintenance Due Date Last Done Comments Pneumococcal Vaccine: 65+ Years Completed 11/09/2021, 01/21/2014 Influenza Vaccine Completed 11/17/2023, , 12/03/2019, Additional history exists Hepatitis B Vaccine Aged Out No longe r eligible based on patient's age to complete this topic Insurance MEDICAID [place] MEDICARE Care Teams Freight Dispatcher Relationship Specialty Start Date End Date Liz Barboza MD PCP - General 01/01/19
--- OUTSIDE RECORDS SUMMARY | 2024-05-09 11:09 | XMS_ITS | Encounter Summary ---
Author Organization [employer] Address [address] [facility] 7t [place] [address] Care Team Providers Care Spanish Speaking Nanny Name Role Phone Liz Barboza MD Primary Care Provider [phone] Encounter Details Date Type Department Care Team (Latest Contact Info) Description 05/09/2024 Travel Social History Tobacco Use Types Packs/Day [...] 07/01/2024 2:30 PM EDT Telemedicine [facility] [address] [place] [address] Leeanna Solis, MIRNA [address] [place] [address] documented as of this encounter Visit Diagnoses Not on filedocumented in this encounter Additional Health Concerns Assessment Noted Time PHQ-9 Depression Total Score: 3 05/10/19 25 9:59 AM EDT documented as of this encounter Care Teams Spanish Speaking Nanny Relationship Specialty Start Date End Date Liz Barboza MD [address] [place] [address] PCP - General Internal Medicine 10/05/17 documented as of this encounter
--- OUTSIDE RECORDS SUMMARY | 2024-05-09 11:09 | XMS_ITS | Encounter Summary ---
Author Organization [employer] Address [address] [facility] 7t [place] [address] Care Team Providers Care Forming Machine Tender Name Role Phone Liz Barboza MD Primary Care Provider [phone] Encounter Details Date Type Department Care Team (Latest Contact Info) Description 04/22/2024 Travel Social History Tobacco Use Types Packs/Day [...] Info) Description 07/01/2024 2:30 PM EDT Telemedicine [facility] [address] [place] [address] Leeanna Solis, MIRNA [address] [place] [address] documented as of this encounter Visit Diagnoses Not on filedocumented in this encounter Additional Health Concerns Assessment Noted Time PHQ-9 Depression Total Score: 0 10/25/19 23 9:41 AM EDT documented as of this encounter Care Teams Forming Machine Tender Relationship Specialty Start Date End Date Liz Barboza MD [address] [place] [address] PCP - General Internal Medicine 10/05/17 documented as of this encounter
--- OUTSIDE RECORDS SUMMARY | 2024-05-09 11:10 | XMS_ITS | Encounter Summary ---
Author Organization [facility], Address [address] [place] [address] Phone Care Team Providers Care Superintendent Construction Name Role Phone Liz Barboza MD Primary Care Provider [phone] Encounter Details Date Type Department Care Team (Late Contact Info) Description 11/08/2021 Documentation Only [facility] [address] [place] [phone] Elvira Barron PA Social History Tobacco Use Types Packs/Day Years [...] Visit [facility] [address] [place] [phone] Sajan Mandel MD [address] [place] [address] [place] [phone] documented as of this encounter Visit Diagnoses Not on filedocumented in this encounter Care Teams Superintendent Construction Relationship Specialty Start Date End Date Liz Barboza MD PCP - General 01/01/19 documented as of this encounter
--- OUTSIDE RECORDS SUMMARY | 2024-05-09 11:10 | XMS_ITS | Encounter Summary ---
Author Organization [facility] Address [address] [place] [address] Phone Care Team Providers Care Press Operator Helper Name Role Phone Liz Barboza MD Primary Care Provider [phone] Reason for Visit * Reason Comments Med Refill Encounter Details Date Type Department Care Team (Late st Contact Info) Description 07/01/2021 Refill [facility] [address] [place] [phone] Sajan Mandel MD [address] [place] [address] [place] [address] Social History Tobacco Use Types [...] Office Visit [facility], [address] [place] [phone] Sajan Mandel MD [address] [place] [address] [place] [address] documented as of this encounter Visit Diagnoses Not on filedocumented in this encounter Care Teams Press Operator Helper Relationship Specialty Start Date End Date Liz Barboza MD PCP - General 01/01/19 documented as of this encounter
--- OUTSIDE RECORDS SUMMARY | 2024-05-09 11:10 | XMS_ITS | Encounter Summary ---
Author Organization [employer] Address [address] [facility] 7 [place] [address] Care Team Providers Care Director Of Automation Name Role Phone Liz Barboza MD Primary Care Provider [phone] Reason for Visit * Reason Comments Med Refill Encounter Details Date Type Department Care Team ([facility] st Contact Info) Description 01/11/2024 Refill [facility] [address] [place], [place] [phone] Liz Barboza MD [address] [place] [address] Anxiety disorder, unspecified Social History Tobacco Use [...] Upcoming Encounters Date Type Department Care Team ([facility] st Contact Info) Description 07/01/2024 2:30 PM EDT Telemedicine [facility] [address] [place] [address] Leeanna Solis, MIRNA [address] [place] [address] documented as of this encounter Visit Diagnoses Diagnosis Anxiety disorder, unspecified documented in this encounter Additional Health Concerns Assessment Noted Time PHQ-9 Depression Total Score: 0 10/25/19 23 9:41 AM EDT documented as of this encounter Care Teams Director Of Automation Relationship Specialty Start Date End Date Liz Barboza MD [address] [place] [address] PCP - General Internal Medicine 10/05/17 documented as of this encounter
--- OUTSIDE RECORDS SUMMARY | 2024-05-09 11:10 | XMS_ITS | Encounter Summary ---
Author Organization [facility], Address [address] [place] [address] Phone Care Team Providers Care Dependency Case Manager Name Role Phone Liz Barboza MD Primary Care Provider [phone] [phone] Encounter Details Date Type Department Care Team (Late Contact Info) Description 08/02/2021 Documentation Only [facility] [address] [place] [phone] Elvira Barron PA Social History Tobacco Use [...] Visit [facility] [address] [place] [phone] Sajan Mandel MD [address] [place] [address] [place] [phone] documented as of this encounter Visit Diagnoses Not on filedocumented in this encounter Care Teams Dependency Case Manager Relationship Specialty Start Date End Date Liz Barboza MD PCP - General 01/01/19 documented as of this encounter
--- OUTSIDE RECORDS SUMMARY | 2024-05-09 11:10 | XMS_ITS | Encounter Summary ---
Author Organization [facility], Address [address] [place] [address] Phone Care Team Providers Care Inspector Cold Working Name Role Phone Liz Barboza MD Primary Care Provider [phone] Encounter Details Date Type Department Care Team (Late Contact Info) Description 11/08/2021 Documentation Only [facility] [address] [place] [phone] Elvira Barron PA Social History Tobacco Use [...] Visit [facility] [address] [place] [phone] Sajan Mandel MD [address] [place] [address] Dr. [place] [phone] documented as of this encounter Visit Diagnoses Not on filedocumented in this encounter Care Teams Inspector Cold Working Relationship Specialty Start Date End Date Liz Barboza MD PCP - General 01/01/19 documented as of this encounter
--- OUTSIDE RECORDS SUMMARY | 2024-05-09 11:10 | XMS_ITS | Encounter Summary ---
Author Organization [employer] Address [address] [facility] [place] [address] Care Team Providers Care Hadoop Admin Name Role Phone Liz Barboza MD Primary Care Provider [phone]- [phone] Reason for Visit * Reason Comments Med Refill Encounter Details Date Type Department Care Team ([facility] Contact Info) Description 04/19/2022 Refill [facility] MED & PEDS [address] [place], [place] [phone] Liz Barboza MD [address] [place] [address] Anxiety disorder, unspecified Social History Tobacco Use Types Packs/Day Years Used Date Smoking Tobacco: Never Passive Smoke Exposure: Never Smokeless Tobacco: Never Alcohol Use Standard Drinks/Week Comments Never 0 (1 standard drink = 0.6 oz pur e alcohol) Comments Unknown Sex and Gender Information Value Date Recorded Sex Assigned at Female 12/27/2021 10:34 AM EDT Legal Sex Female 10:34 AM EDT Gender Identity Female 12/27/2021 10:34 AM EDT Sexual Orientation Straight 12/27/2021 10 :34 AM EDT COVID-19 Exposure Response Date Recorded In the last 10 days, have yo u been in contact with someone who was confirmed or suspected to have Coronavirus/COVID-19? No / Unsure 04/07/2022 2:01 PM EST documented as of this encounter Plan of Treatment Upcoming Encounters Date Type Department Care Team ([facility] Contact Info) Description 07/01/2024 2:30 PM EDT Telemedicine [facility] CHC MED & PEDS [address] [place] [address] Leeanna Solis, RN [address] [place], [place] [phone] documented as of this encounter Visit Diagnoses Diagnosis Anxiety disorder, unspecified documented in this encounter Care Teams Hadoop Admin Relationship Specialty Start Date End Date Liz Barboza MD [address] [place] [address] PCP - General Internal Medicine 10/05/17 documented as of this encounter
--- OUTSIDE RECORDS SUMMARY | 2024-05-09 11:10 | XMS_ITS | Encounter Summary ---
Author Organization [employer] Address 75 [facility] 7 [place] [address] Care Team Providers Care Senior Facilities Manager Name Role Phone Liz Barboza MD Primary Care Provider [phone]- [phone] Encounter Details Date Type Department Care Team ([facility] st Contact Info) Description 02/10/2023 Orders Only [facility] CHC MED & PEDS [address] [place], [place] [phone] Liz Barboza MD 505 [place] [address] Social History Tobacco Use Types Packs/Day Years [...] 07/01/2024 2:30 PM EDT Telemedicine [facility] MED & PEDS [address] [place] [address] Leeanna Solis, MIRNA 505 [place] [address] documented as of this encounter Visit Diagnoses Not on filedocumented in this encounter Additional Health Concerns Assessment Noted Time PHQ-9 Depression Total Score: 0 10/25/19 23 9:41 AM EDT documented as of this encounter Care Teams Senior Facilities Manager Relationship Specialty Start Date End Date Liz Barboza MD [address] [place] [address] PCP - General Internal Medicine 10/05/17 documented as of this encounter
--- OUTSIDE RECORDS SUMMARY | 2024-05-09 11:10 | XMS_ITS | Encounter Summary ---
Author Organization [facility] Address [address] [place] [address] Phone Care Team Providers Care Accounting Systems Analyst Name Role Phone Liz Barboza MD Primary Care Provider [phone] Reason for Visit * Reason Comments Med Refill Encounter Details Date Type Department Care Team (Late st Contact Info) Description 07/12/2021 Refill [facility] [address] [place] [phone] Sajan Mandel MD [address] [place] [address] [place] [address] Social History Tobacco Use Types [...] Office Visit [facility], [address] [place] [phone] Sajan Mandel MD [address] [place] [address] [place] [address] documented as of this encounter Visit Diagnoses Not on filedocumented in this encounter Care Teams Accounting Systems Analyst Relationship Specialty Start Date End Date Liz Barboza MD PCP - General 01/01/19 documented as of this encounter
--- OUTSIDE RECORDS SUMMARY | 2024-05-09 11:10 | XMS_ITS | Encounter Summary ---
Author Organization [employer] Address 75 [facility] 7 [place] [address] Care Team Providers Care Still Tender Name Role Phone Liz Barboza MD Primary Care Provider [phone] Reason for Visit * Reason Comments Med Refill Encounter Details Date Type Department Care Team ([facility] st Contact Info) Description 05/19/2023 Refill [facility] CHC MED & PEDS [address] [place], [place] [phone] Liz Barboza MD [address] [place] [address] Anxiety disorder, unspecified; Anxiety Social History Tobacco [...] Upcoming Encounters Date Type Department Care Team ([facility] st Contact Info) Description 07/01/2024 2:30 PM EDT Telemedicine [facility] MED & PEDS [address] [place] [address] Leeanna Solis, MIRNA 505 [place] [address] documented as of this encounter Visit Diagnoses Diagnosis Anxiety disorder, unspecified Anxiety Anxiety state, unspecified documented in this encounter Additional Health Concerns Assessment Noted Time PHQ-9 Depression Total Score: 0 10/25/19 23 9:41 AM EDT documented as of this encounter Care Teams Still Tender Relationship Specialty Start Date End Date Liz Barboza MD [address] [place] [address] PCP - General Internal Medicine 10/05/17 documented as of this encounter
--- OUTSIDE RECORDS SUMMARY | 2024-05-09 11:10 | XMS_ITS | Encounter Summary ---
Author Organization [facility] Address [address] [place] [address] Phone Care Team Providers Care Metal Furniture Polisher Name Role Phone Liz Barboza MD Primary Care Provider [phone] Reason for Visit * Reason Comments Med Refill Encounter Details Date Type Department Care Team (Late Contact Info) Description 12/19/2019 Refill [facility] [address] [place] [phone] Kai Thomas MD [address] [place] [address] [place] [address] Social History Tobacco Use Types [...] Office Visit [facility], [address] [place] [phone] Sajan Mandel MD [address] [place] [address] [place] [phone] documented as of this encounter Visit Diagnoses Not on filedocumented in this encounter Care Teams Metal Furniture Polisher Relationship Specialty Start Date End Date Liz Barboza MD PCP - General 01/01/19 documented as of this encounter
--- OUTSIDE RECORDS SUMMARY | 2024-05-09 11:10 | XMS_ITS | Encounter Summary ---
Author Organization [employer] Address 75 [facility] 7t [place] [address] Care Team Providers Care Boilers And Pressure Vessels Inspector Name Role Phone Liz Barboza MD Primary Care Provider [phone] Encounter Details Date Type Department Care Team (Latest Contact Info) Description 04/15/2024 Travel Social History Tobacco Use Types Packs/Day [...] Info) Description 07/01/2024 2:30 PM EDT Telemedicine [facility] MED & PEDS [address] [place] [address] Leeanna Solis, MIRNA 505 [place] [address] documented as of this encounter Visit Diagnoses Not on filedocumented in this encounter Additional Health Concerns Assessment Noted Time PHQ-9 Depression Total Score: 0 10/25/19 23 9:41 AM EDT documented as of this encounter Care Teams Boilers And Pressure Vessels Inspector Relationship Specialty Start Date End Date Liz Barboza MD 505 [place] [address] PCP - General Internal Medicine 10/05/17 documented as of this encounter
--- OUTSIDE RECORDS SUMMARY | 2024-05-09 11:10 | XMS_ITS | Encounter Summary ---
Author Organization [facility] Address [address] [place] [address] Phone Care Team Providers Care Senior Capital Markets Specialist Name Role Phone Liz Barboza MD Primary Care Provider [phone] Reason for Visit * Reason Comments Med Refill Encounter Details Date Type Department Care Team (Late st Contact Info) Description 07/05/2021 Refill [facility] [address] [place] [phone] Sajan Mandel MD [address] [place] [address] [place] [address] Social History Tobacco Use Types [...] And Transplant Services [facility], [address] [place] [phone] Sajan Mandel MD [address] [place] [address] [place] [address] documented as of this encounter Visit Diagnoses Not on filedocumented in this encounter Care Teams Senior Capital Markets Specialist Relationship Specialty Start Date End Date Liz Barboza MD PCP - General 01/01/19 documented as of this encounter
--- OUTSIDE RECORDS SUMMARY | 2024-05-09 11:10 | XMS_ITS | Encounter Summary ---
Author Organization [employer] Address 75 [facility] [place] [address] Care Team Providers Care Foundry Worker Name Role Phone Liz Barboza MD Primary Care Provider [phone] Reason for Visit * Reason Comments Med Refill Encounter Details Date Type Department Care Team ([facility] Contact Info) Description 08/01/2022 Refill [facility] MED & PEDS [address] [place] [address] Liz Barboza MD 505 [place] [address] Social History Tobacco Use Types Packs/Day Years [...] Upcoming Encounters Date Type Department Care Team ([facility] Contact Info) Description 07/01/2024 2:30 PM EDT Telemedicine [facility] MED & PEDS [address] [place] [address] Leeanna Solis RN 505 [place], [place] [phone] documented as of this encounter Visit Diagnoses Not on filedocumented in this encounter Care Teams Foundry Worker Relationship Specialty Start Date End Date Liz Barboza MD [address] [place] [address] PCP - General Internal Medicine 10/05/17 documented as of this encounter
--- OUTSIDE RECORDS SUMMARY | 2024-05-09 11:10 | XMS_ITS | Encounter Summary ---
Author Organization [employer] Address 75 [facility] 7 [place] [address] Care Team Providers Care Suit Maker Name Role Phone Liz Barboza MD Primary Care Provider [phone] Reason for Visit * Reason Onset Date Comments Med Refill 01/15/2023 Encounter Details Date Type Department Care Team ([facility] st Contact Info) Description 01/15/2023 Refill [facility] CHC MED & PEDS [address] [place] [address] Liz Barbzoa MD [address] [place] [address] Anxiety (Primary Dx); Primary osteoarthritis of other site; Unspecified chronic gastritis without bleeding; Anxiety disorder, unspecified Social History Tobacco Use [...] Upcoming Encounters Date Type Department Care Team ([facility] st Contact Info) Description 07/01/2024 2:30 PM EDT Telemedicine [facility] MED & PEDS [address] [place] [address] Leeanna Solis, MIRNA 505 [place] [address] documented as of this encounter Visit Diagnoses Diagnosis Anxiety- Primary Anxiety state, unspecified Primary osteoarthritis of other site Unspecified chronic gastritis without bleeding Anxiety disorder, unspecified documented in this encounter Additional Health Concerns Assessment Noted Time PHQ-9 Depression Total Score: 0 10/25/19 23 9:41 AM EDT documented as of this encounter Care Teams Suit Maker Relationship Specialty Start Date End Date Liz Barboza MD [address] [place] [address] PCP - General Internal Medicine 10/05/17 documented as of this encounter
--- OUTSIDE RECORDS SUMMARY | 2024-05-09 11:10 | XMS_ITS | Encounter Summary ---
Author Organization [employer] Address [address] [facility] 7 [place] [address] Care Team Providers Care Electronics Design Engineer Name Role Phone Liz Barboza MD Primary Care Provider [phone]- [phone] Encounter Details Date Type Department Care Team ([facility] st Contact Info) Description 04/14/2023 Orders Only [facility] CHC MED & PEDS [address] [place], [place] [phone] Liz Barboza MD [address] [place] [address] Social History Tobacco Use Types Packs/Day Years [...] 07/01/2024 2:30 PM EDT Telemedicine [facility] MED & PEDS [address] [place] [address] Leeanna Solis, MIRNA [address] [place] [address] documented as of this encounter Visit Diagnoses Not on filedocumented in this encounter Additional Health Concerns Assessment Noted Time PHQ-9 Depression Total Score: 0 10/25/19 23 9:41 AM EDT documented as of this encounter Care Teams Electronics Design Engineer Relationship Specialty Start Date End Date Liz Barboza MD [address] [place] [address] PCP - General Internal Medicine 10/05/17 documented as of this encounter
--- OUTSIDE RECORDS SUMMARY | 2024-05-09 11:10 | XMS_ITS | Encounter Summary ---
Author Organization [facility] Address [address] [place] [address] Phone Care Team Providers Care Mental Health Unit Lead Psychologist Name Role Phone Liz Barboza MD Primary Care Provider [phone] Reason for Visit * Reason Comments Med Refill Encounter Details Date Type Department Care Team (Late st Contact Info) Description 07/02/2021 Refill [facility] [address] [place] [phone] Sajan Mandel MD [address] [place] [address] [place] [address] Social History Tobacco Use Types [...] Office Visit [facility], [address] [place] [phone] Sajan Mandel MD [address] [place] [address] [place] [address] documented as of this encounter Visit Diagnoses Not on filedocumented in this encounter Care Teams Mental Health Unit Lead Psychologist Relationship Specialty Start Date End Date Liz Barboza MD PCP - General 01/01/19 documented as of this encounter
[2024-05-09 14:52] LABS: Cholesterol 132 mg/dL (<200); HDL Cholesterol 50 mg/dL (>40); LDL Cholesterol Calculated 65 mg/dL (<100); Triglycerides 89 mg/dL (<150)
[2024-05-09 15:15] LABS: TSH reflex Free T4 0.12 uIU/mL (0.32-4.0)
[2024-05-09 16:42] LABS: Free T4 (Free Thyroxine) 1.37 ng/dL (0.71-1.85)
== END 2024-05-09 09:29 | disposition home or self-care (01) ==
LOC: HO.CHCLDS 09:28
PROVIDERS: Visit Provider Internal Medicine
DX: E78.00 Pure hypercholesterolemia, unspecified (principal); E03.8 Other specified hypothyroidism
CPT/HCPCS: 36415; 80061; 84439; 84443

== ENCOUNTER 2024-06-13 10:54 | Outpatient (AMB) | payer MEDICARE, MEDICAID, SELFPAY ==
--- NOTE | 2024-06-13 10:56 | MHC.OFFVIS ---
Vital Signs 06/13/24 10:58 Height 4 ft 11 in Weight 140 lb 10.479 oz BMI 28.4 BP 182/99 H Blood Pressure Location Lt brachial Position Sitting Pulse 70 Intake Visit Reasons: Follow up GERD Intake Note: Kelsey presents in follow up of GERD. CC: Patient reports doing well and denies having any GI symptoms or concerns. Registered Nurse Required: Yes Registered Nurse Name: daughter Accompanied by: Family/Other Allergies No Known Allergies Allergy (Verified 01/12/24 11:55) HPI HPI Follow up GERD: Details: Assessment & Plan (1) Post-cholecystectomy syndrome: Code(s): K91.5 - Postcholecystectomy syndrome Category: Medical (2) Erosive gastritis: Comment: Remote history, 2018 EGD showed in active focal gastritis only. Code(s): K29.60 - Other gastritis without bleeding Category: Medical (3) GERD (gastroesophageal reflux disease): Code(s): K21.9 - Gastro-esophageal reflux disease without esophagitis Category: Medical Plan Algerian #dtr interprets per pt request sHE CONTINUES TO do well dariana since we changed the carafate dosing to qac lunch and qac supper. No noc acid brash. She also continues on her pantoprazole 40 mg once a day with good control. ROV 6 mos. Medications: New sucralfate PLEASE DO NOT CHANGE INSTRUCTIONS IN COMPUTER 1 g PO .qaclunch&qacsupper 60 tabs 6RF K29.60 - Other gastritis without bleeding, K91.5 - Postcholecystectomy syndrome Refilled pantoprazole (Protonix) 40 mg PO DAILY 30 tabs 6RF 30 . TODAY'S VISIT Algerian #dtr translates per pt request. She continues to do extremely well on her GI regimen of pantoprazole 40 mg daily and sucralfate. She is pleased with her GI regimen. She has no other new medical conditions to report. Return office visit in 6 months [facility] Medical History Osteoarthritis Hypertension GERD (gastroesophageal reflux disease) Osteoporosis Obesity (BMI 30-39.9) Non-toxic multinodular goiter Hypothyroidism Surgical History S/P excision of lipoma (01/02/24) Hx of hysterectomy Hx laparoscopic cholecystectomy Hx of eye surgery Family History Family/Other Hypothyroidism Father Prostate cancer Mother Diabetes History of kidney problems Heart disease Social History Alcohol intake: current Alcohol intake frequency: does not drink Patient Tobacco Use Status: Never used Tobacco Review of Systems Const Denies fatigue, Denies fever(s), Denies night sweats, Denies poor appetite and Denies weight loss Eyes Details: glasses Reports requires corrective lenses ENT Reports Normal hearing present, Denies dental pain, Denies dysphagia, Denies hearing loss, Denies mouth pain, Denies odynophagia, Denies throat swelling, Denies tongue swelling and Reports other (Dentition adequate) Card Reports no additional complaints Resp Reports no additional complaints GI Details: Denies abdominal pain, Denies melena, Denies bloating, Denies hematochezia, Denies constipation, Denies GI cramping, Denies dysphagia, Denies excessive flatus, Denies early satiety, Reports heartburn, Denies diarrhea, Reports loose stools, Denies nausea, Denies odynophagia, Denies vomiting and Denies hematemesis Skin/Breast Denies pruritus, Denies lesions, Denies rash and Denies jaundice Neuro Reports Normal hearing present and Denies Abnormal speech present Endo Denies fatigue Aller/Immun Denies throat swelling and Denies tongue swelling Physical Exam Vital Signs: Last Vital Signs Pulse 70 06/13/24 10:58 BP 182/99 H 06/13/24 10:58 BMI result Body Mass Index 28.4 Const General: cooperative, no acute distress, well developed and well groomed Nutritional Appearance: average body habitus and well nourished Orientation/consciousness: oriented to person, oriented to place and oriented to time Limitations: language barrier HEENT Head: Yes normocephalic and Yes atraumatic Eyes General: appearance normal, both eyes and all related structures Pupils: Equal, round and reactive pupils present Neck Neck: Yes normal visual inspection and Yes no lymphadenopathy Thyroid: Thyroid normal Resp Effort & Inspection: normal respiratory effort and able to speak in complete sentences Auscultation: clear to auscultation bilaterally Cardio Rate: regular rate Rhythm: regular rhythm Heart sounds: Normal, physiologic split S2 sound present Peripheral pulses: radial pulses present and posterior tibial pulses present GI Inspection: No distended, No Abdominal panniculus present and Yes obesity Palpation (GI): Soft to palpation, nontender, no guarding, not rigid and No hepatosplenomegaly present Percussion: Yes normal to percussion Auscultation: normal bowel sounds Rectal Exam - Female: deferred Skin General skin exam: no rashes or lesions noted, turgor normal, skin not dry, no jaundice, No spider nevi and no striae Rashes: no rashes Nails: normal Neuro General: oriented to person, oriented to place and oriented to time Cranial nerves: Yes Equal, round and reactive pupils present and Yes Normal hearing present Speech: No Abnormal speech present Extrem General: Yes normal to inspection, No clubbing, No cyanosis and No edema Psych Appearance: grossly normal and well kempt Mental Status: mental status grossly normal Speech and movement: Normal speech and movement present Affect: normal affect Attitude: cooperative Thought process: Normal thought process present and not confabulating Thought content: Normal thought content present Insight: Limited insight present (Psych) Judgement: Limited judgement present (Psych) Assessment & Plan Assessment & Plan (1) Post-cholecystectomy syndrome: Code(s): K91.5 - Postcholecystectomy syndrome Category: Medical (2) Erosive gastritis: Comment: Remote history, 2017 EGD showed in active focal gastritis only. Code(s): K29.60 - Other gastritis without bleeding Category: Medical (3) GERD (gastroesophageal reflux disease): Code(s): K21.9 - Gastro-esophageal reflux disease without esophagitis Category: Medical (4) Colon cancer screening: Comment: 2022 had a negative Cologuard through the PCP Code(s): Z12.11 - Encounter for screening for malignant neoplasm of colon Category: Medical Plan Algerian #dtr translates per pt request. She continues to do extremely well on her GI regimen of pantoprazole 40 mg daily and sucralfate. She is pleased with her GI regimen. She has no other new medical conditions to report. Return office visit in 6 months Medications: Refilled sucralfate 1 g PO BID 60 tabs 6RF K29.60 - Other gastritis without bleeding, K91.5 - Postcholecystectomy syndrome pantoprazole 40 mg PO DAILY 30 tabs 6RF K91.5 - Postcholecystectomy syndrome Coding Level of Care Code Est Pt Level 3 (39905) Diagnoses Post-cholecystectomy syndrome K91.5 Erosive gastritis K29.60 GERD (gastroesophageal reflux disease) K21.9 Colon cancer screening Z12.11
[2024-06-13 10:58] VITALS: BP 182/99; PULSE 70; BMI 28.4
--- OUTSIDE RECORDS SUMMARY | 2024-06-13 13:18 | XMS_ITS | Encounter Summary ---
Author Organization [employer] Address 75 [facility] 7 [place] [address] Care Team Providers Care Managing Supervisor Name Role Phone Liz Barboza MD Primary Care Provider +1- [phone] Reason for Visit * Reason Onset Date Comments Med Refill 01/15/2023 Encounter Details Date Type Department Care Team ([facility] st Contact Info) Description 01/15/2023 Refill [facility] MED & PEDS [address] [place] [address] Liz Barboza MD [address] [place] [address] Anxiety (Primary Dx); Primary osteoarthritis of other [...] Upcoming Encounters Date Type Department Care Team ([facility] st Contact Info) Description 07/01/2024 2:30 PM EDT Telemedicine [facility] MED & PEDS [address] [place] [address] Leeanna Solis, MIRNA 505 [place] [address] documented as of this encounter Visit Diagnoses Diagnosis Anxiety- Primary Anxiety state, unspecified Primary osteoarthritis of other site Unspecified chronic gastritis without bleeding Anxiety disorder, unspecified documented in this encounter Additional Health Concerns Assessment Noted Time PHQ-9 Depression Total Score: 0 10/25/19 23 9:41 AM EDT documented as of this encounter Care Teams Managing Supervisor Relationship Specialty Start Date End Date Liz Barboza MD [address] [place] [address] PCP - General Internal Medicine 10/05/17 documented as of this encounter
--- OUTSIDE RECORDS SUMMARY | 2024-06-13 13:18 | XMS_ITS | Encounter Summary ---
Author Organization [facility] Address [address] [place] [address] Phone Care Team Providers Care Cotton Opener Name Role Phone Liz Barboza MD Primary Care Provider +1 [phone] Encounter Details Date Type Department Care Team (Late st Contact Info) Description 09/29/2023 Documentation Only [facility] [address] [place] [address] Saira WattersSTEBBINS, [place] [address] [place] [phone] Social History Tobacco Use Types Packs/Day Years [...] Care Team (Late st Contact Info) Description 08/28/2024 10:40 AM EDT Office Visit [facility] [address] [place] [address] Sajan Mnadel MD [address] [facility] [place] [phone] documented as of this encounter Visit Diagnoses Not on filedocumented in this encounter Care Teams Cotton Opener Relationship Specialty Start Date End Date Liz Barboza MD PCP - General 01/01/19 documented as of this encounter
--- OUTSIDE RECORDS SUMMARY | 2024-06-13 13:18 | XMS_ITS | Clinical Summary ---
Author Organization [employer] Address 75 [facility] 7t [place] [address] Care Team Providers Care Painter Mirror Name Role Phone Liz Barboza MD Primary Care Provider Allergies No known active allergies Medications famotidine (Pepcid) 20 MG tablet Take 1 tablet by mouth at bedtime. 9 Active furosemide (Lasix) 20 MG tablet take 1 Tablet by oral route every other day 9 Active hydroCHLOROthiazid e (HYDRODiuril) 12.5 MG tablet Take 1 tablet by mouth. daily 2 Active lidocaine-prilocai ne (Emla) 2.5-2.5 % cream Apply topically. As needed 1 Active Misc. Devices (Wrist Brace) misc Medium. To wear at bedtime Active Blood Pressure kitIndications:Olivia akash hypertension To check the BP 3 times a week. 1 kit 3 Active simvastatin (Zocor) 20 MG tablet TAKE ONE TABLET BY MOUTH EVERY DAY 90 tablet 3 4 Active losartan (Cozaar) 100 MG tablet TAKE ONE TABLET BY MOUTH EVERY DAY 90 tablet 3 4 Active hydroCHLOROthiazid e (Microzide) 12.5 MG capsuleIndications :Essential (primary) hypertension TAKE ONE CAPSULE BY MOUTH EVERY DAY 90 capsule 3 4 Active amLODIPine (Norvasc) 5 MG tabletIndications: Essential (primary) hypertension TAKE ONE TABLET BY MOUTH EVERY DAY 90 tablet 3 4 Active metoprolol succinate XL (Toprol XL) 100 MG 24 hr tabletIndications: Primary hypertension Take 1 tablet (100 mg) by mouth Once per day. Do not crush or chew. 30 tablet 11 4 025 Active lidocaine (Lidoderm) 5 % patchIndications:N jane pain Apply 1 patch topically Once per day. Remove & discard patch within 12 hours or as directed by MD. 30 patch 4 Active simvastatin (Zocor) 40 MG tabletIndications: Hypercholesterolem ia Take 1 tablet (40 mg) by mouth at bedtime. 30 tablet 11 4 025 Active oxazepam (Serax) 10 MG capsuleIndications :Anxiety disorder, unspecified Take 1 capsule (10 mg) by mouth 2 times daily. 60 capsule 4 Active LORazepam (Ativan) 1 MG tablet Take 1 tablet (1 mg) by mouth every 12 (twelve) hours if needed for anxiety for up to 28 days. Dose exchange from oxazepam 10mg to lorazepam 1mg done due to medciation back order 56 tablet 4 Active acetaminophen (Tylenol 8 Hour) 650 MG ER tabletIndications: Primary osteoarthritis of other site TAKE ONE TABLET BY MOUTH EVERY 8 HOURS NEEDED FOR MILD PAIN. DO NOT BREAK, CRUSH, DISSOLVE OR CHEW. 120 tablet 1 5 Active levothyroxine (Synthroid) 25 MCG tabletIndications: Other specified hypothyroidism Take 1 tablet (25 mcg) by mouth before breakfast. 30 tablet 11 5 026 Active oxazepam (Serax) 10 MG capsuleIndications :Anxiety disorder, unspecified,Anxiet y Take 1 capsule (10 mg) by mouth 2 times daily. Do not start before May 21, 2024. 60 capsule 5 Active Active Problems Problem Noted Date Diagnosed Date Hypercholesterolemia 01/31/2024 Anxiety disorder 01/13/2022 Hypertensive disorder 01/13/2022 Hypothyroidism 01/13/2022 Osteoporosis 01/13/2022 Essential (primary) hypertension 02/05/2019 Stage 3a chronic kidney disease 02/05/2019 Overview (11/30/2023): Update for Diagnosis Load Stage 3 chronic kidney disease 10/15/2018 Chronic gastritis 10/05/2017 Encounters Date Type Department Care Team Description 05/13/2024 Refill [facility] CH[facility] MED & PEDS [address] [place] [address] Liz Barboza MD Anxiety disorder, unspecified; Anxiety 05/13/2024 Telephone [facility] MED & PEDS [address] [place] [address] Liz Barboza MD Results 05/10/2024 Telephone [facility] MEDICINE [address] [place] [address] Liz Barboza MD Results 05/10/2024 Orders Only [facility] [address] [place] [address] Liz Barboza MD Other specified hypothyroidism (Primary Dx) 05/10/2024 Population Health Risk Score [facility] () Department [address] [place] [phone] Provider, Population Health Generic 05/09/2024 9:15 AM EDT Office Visit [facility] MED [facility]S [address] [facility] [address] Liz Barboza MD Primary hypertension (Primary Dx); Other specified hypothyroidism; Generalized anxiety disorder; Dietary counseling; Exercise counseling; Overweight; Hypercholesterolemia 05/09/2024 Orders Only [facility] MED & PEDS [address] [facility] [place] [address] Liz Barboza MD 05/09/2024 Travel 05/02/2024 Travel 04/23/2024 Refill [facility] MED & PEDS [address] [place] [address] Liz Barboza MD Primary osteoarthritis of other site 04/22/2024 2:30 PM EST Telemedicine [facility] MED & PEDS [address] [place] [address] Leeanna Solis RN Anxiety 04/22/2024 Travel 04/15/2024 Refill [facility] MED [facility] [address] [place] [address] Liz Barboza MD Anxiety disorder, unspecified; Anxiety 04/15/2024 Travel 03/17/2024 Refill [facility] MED & PEDS [address] [place] [address] Liz Barboza MD Anxiety disorder, unspecified; Anxiety from Last 3 Months Immunizations Name Administration [...] Info) Description 07/01/2024 2:30 PM EDT Telemedicine [facility] MED & PEDS [address] [place] [address] Leeanna Solis, MIRNA [address] [place] [address] Health Maintenance Due Date Last Done Comments [...] Td or Tdap) 01/12/2028 01/11/2018 Lipid Panel 05/09/2029 05/09/2024, 10/04/2023, 10/25/2022, Additional history exists Zoster Vaccines Completed 10/05/2021, 08/03/2021 Pneumococcal Vaccine: [...] Procedure Name Priority Date/Time Associated Diagnosis Comments T4, FREE Routine 05/09/2024 9:30 AM EDT LIPID PANEL, STANDARD Routine 05/09/2024 9:30 AM EDT Hypercholesterolemia TSH W/REFLEX TO FT4 Routine 05/09/2024 9 :30 AM EDT Other specified hypothyroidism LAB COLOGUARD?? COLON CANCER SCREEN Routine 02/17/2023 [...] Relevant to Health Maintenance Results * (ABNORMAL) TSH W/Reflex to FT4 (05/09/2024 9:30 AM EDT) TSH reflex Free T4 0.12(L) 0.32 - 4.0 uIU/mL [facility] Blood Venous blood specimen / Unknown 05/09/2024 9:30 AM EDT 05/09/2024 2:13 PM EDT us Liz Barboza MD LAB BLOOD ORDERABLES Final Result Performing Organization Address [facility]/ZIP Co de Phone Number [facility] [address] [place] [phone] * T4, Free (05/09/2024 9:30 AM EDT) Free T4 (Free Thyroxine) 1.37 0.71 - 1.85 ng/dL [facility] 05/09/2024 9:30 AM EDT 05/09/2024 2:13 PM EDT us Liz Barboza MD LAB BLOOD ORDERABLES Final Result Performing Organization Address City/[facility]/ZIP Co de Phone Number [facility] [address] [place] [phone] * Lipid Panel, Standard (05/09/2024 9:30 AM EDT) Triglycerides 89 <150 mg/dL [facility] Comment:Slight Lipemia.Priscilla able Triglyceride: less than 150 mg/dLBorderline High Triglyceride 150-199 mg/dLHigh Triglyceride: 200-499 mg/dLVery High Triglyceride: greater than or equal to 5OO mg/dL Cholesterol 132 <200 mg/dL [facility] Comment:Desirable Cholestero l: less than 200 mg/dLBorderline High Cholesterol: 200-239 mg/dLHigh Cholesterol: greater than 239 mg/dL LDL Cholesterol Calculated 65 <100 mg/dL [facility] Comment:Desirable LDL: less than 100 mg/dLNear Optimal/Above Optimal LDL: 110- 129 mg/dLBorderline High LDL: 130-159 mg/dLHigh LDL: 160-189 mg/dLVery High LDL: greater than or equal to 190 mg/dL HDL Cholesterol 50 >40 mg/dL [facility] Comment:Desirable HDL: great er than 40 mg/dL Note: This HDL assay may give artificially low results in patients with liver disease. Blood Venous blood specimen / Unknown 05/09/2024 9:30 AM EDT 05/09/2024 2:13 PM EDT us Liz Barboza MD LAB BLOOD ORDERABLES Final Result [facility] [address] [place] [phone] * Cologuard?? colon cancer screening (02/17/2023 9:15 AM EST) Cologuard Result Negative Negative 03/01/19 24 5:34 AM EST [facility] (CLIA #:[id number]) Comment: NEGATIVE TEST RESULT. A negative Cologuard [...] screened with both Cologuard and colonoscopy. (Ingrid Andersen. martine al, N Engl J Med 2014;370(14):1286- 1297) The normal value (reference range) for this assay is negative. COLOGUARD RE-SCREENING RECOMMENDATION: Periodic colorectal cancer screening is an important part of preventive healthcare for asymptomatic individuals at average risk for colorectal cancer. ??Following a negative Cologuard result, the [place] [employer] Society and U.S. Multi-Society Task Force screening guidelines recommend a Cologuard re-screening interval of 3 years. References: [place] [employer] Guideline for Colorectal Cancer Screening: https://www.cancer.org/cancer/bzswc-zomnuc-zbrkis/qqmbmquim-ugfynjchl-ylwyeos/ac s-rec ommendations.html.; Ralf DK, Kirsty ARRINGTON, Princess ContrerasK, Colorectal Cancer Screening: Recommendations for Physicians and Patients from the U.S. Multi-Society Task Force on Colorectal Cancer Screening , Am J Gastroenterology 2017; 112:2582-1260. TEST DESCRIPTION: Composite algorithmic analysis of stool [...] screened with both Cologuard and colonoscopy. (Ingrid Andersen. martine al, N Engl J Med 2014;370(14):4849-3182.) Cologuard may produce a false negative or false positive result (no colorectal cancer or precancerous polyp present at colonoscopy follow up). A negative Cologuard test result does not guarantee the absence of CRC or advanced adenoma (pre-cancer). The current Cologuard screening interval is every 3 years. ([place] Cancer Society and U.S. Multi-Society Task Force). Cologuard performance data in a 10,000 patient pivotal study using colonoscopy as the reference method can be accessed at the following location: www.Quu.ImpactGames/results. Additional description of the Cologuard test process, warnings and precautions can be found at www.cologuard.com. Stool specimen (specimen) 02/17/2023 9:15 AM EST 02/18/2023 4:15 PM EST us Liz Barboza MD LAB MOLECULAR DIAGNOSTICS O RDERABLES Final Result Performing Organization Address City/[facility]/ZIP Co de Phone Number [facility] (CLIA #:[id number]) [address] [place] [address], * Hepatitis C Antibody Reflex (10/25/2022 9:23 AM EDT) Hepatitis C Antibody Nonreactive Nonreactive [facility] Comment:Antibodies to HCV no t detected; does not exclude early acuteHCV infection. 10/25/2022 9:23 AM EDT 10/25/2022 2:32 PM EDT us Liz Barboza MD LAB BLOOD ORDERABLES Final Result [facility] [address] [place] [phone] from Last 3 Months or Most Recently Relevant to Health Maintenance Insurance MEDICARE [facility] STANDARD DENTAL-[facility] MEDICAID STAND ADULT [facility] C3 Care Teams Painter Mirror Relationship Specialty Start Date End Date Liz Barboza MD [address] [place] [phone] PCP - General Internal Medicine 10/05/17
--- OUTSIDE RECORDS SUMMARY | 2024-06-13 13:18 | XMS_ITS | Encounter Summary ---
Author Organization [employer] Address [address] [facility] [address] [address] Care Team Providers Care Drop Forge Operator Name Role Phone Liz Barboza MD Primary Care Provider [phone]- [phone] Encounter Details Date Type Department Care Team (Late st Contact Info) Description 01/24/[address] [facility] MEDICINE [address] [place], [place] [phone] ProviderGene MD Social History Tobacco Use Types [...] Info) Description 07/01/2024 2:[address] [facility] MED & PEDS [address] [place] [address] Leeanna Solis, RN 505 [place] [address] documented as of this encounter Visit Diagnoses Not on filedocumented in this encounter Care Teams Drop Forge Operator Relationship Specialty Start Date End Date Liz Barboza MD 505 [place] [address] PCP - General Internal Medicine 10/05/17 documented as of this encounter
--- OUTSIDE RECORDS SUMMARY | 2024-06-13 13:18 | XMS_ITS | Encounter Summary ---
Author Organization [facility], Address [address] [place] [address] Phone Care Team Providers Care Laryngologist Name Role Phone Liz Barboza MD Primary Care Provider [phone] [phone] Encounter Details Date Type Department Care Team (Late Contact Info) Description 11/08/2021 Documentation Only [facility] [address] [place] [phone] Elvira Barron PA Social History Tobacco Use [...] Department Care Team (Late Contact Info) Description 08/28/2024 10:40 AM EDT Office Visit [facility] [address] [place] [phone] Sajan Mandel MD [address] [place] [address] [place] [phone] documented as of this encounter Visit Diagnoses Not on filedocumented in this encounter Care Teams Laryngologist Relationship Specialty Start Date End Date Liz Barboza MD PCP - General 01/01/19 documented as of this encounter
--- OUTSIDE RECORDS SUMMARY | 2024-06-13 13:18 | XMS_ITS | Encounter Summary ---
Author Organization [employer] Address 75 [facility] 7 [place] [address] Care Team Providers Care Equity Research Analyst Name Role Phone Liz Barboza MD Primary Care Provider +1- [phone] Reason for Visit * Reason Comments Med Refill Encounter Details Date Type Department Care Team ([facility] st Contact Info) Description 01/11/2024 Refill [facility] MED & PEDS [address] [place], [place] [phone] Liz Barboza MD [address] [place] [address] Anxiety disorder, unspecified Social History Tobacco Use [...] Upcoming Encounters Date Type Department Care Team ([facility] st Contact Info) Description 07/01/2024 2:30 PM EDT Telemedicine [facility] MED & PEDS [address] [place] [address] Leeanna Solis, MIRNA [address] [place] [address] documented as of this encounter Visit Diagnoses Diagnosis Anxiety disorder, unspecified documented in this encounter Additional Health Concerns Assessment Noted Time PHQ-9 Depression Total Score: 0 10/25/19 23 9:41 AM EDT documented as of this encounter Care Teams Equity Research Analyst Relationship Specialty Start Date End Date Liz Barboza MD [address] [place] [address] PCP - General Internal Medicine 10/05/17 documented as of this encounter
--- OUTSIDE RECORDS SUMMARY | 2024-06-13 13:18 | XMS_ITS | Encounter Summary ---
Author Organization [facility], Address [address] [place] [address] Phone Care Team Providers Care Marketing Strategist Name Role Phone Liz Barboza MD Primary Care Provider +1 [phone] Encounter Details Date Type Department Care Team (Late Contact Info) Description 08/02/2021 Documentation Only [facility] [address] [place] [phone] Elvira Barron PA Social History Tobacco Use [...] Visit [facility] [address] [place] [phone] Sajan Mandel MD [address] [place] [address] [place] [phone] documented as of this encounter Visit Diagnoses Not on filedocumented in this encounter Care Teams Marketing Strategist Relationship Specialty Start Date End Date Liz Barboza MD PCP - General 01/01/19 documented as of this encounter
--- OUTSIDE RECORDS SUMMARY | 2024-06-13 13:18 | XMS_ITS | Encounter Summary ---
Author Organization [employer] Address 75 [facility] 7 [place] [address] Care Team Providers Care Tailor Women'S Garment Alteration Name Role Phone Liz Barboza MD Primary Care Provider +1- [phone] Encounter Details Date Type Department Care Team ([facility] st Contact Info) Description 04/14/2023 Orders Only [facility] CH[facility] MED & PEDS [address] [place], [place] [phone] Liz Barboza MD [address] [place] [address] Social History Tobacco Use Types Packs/Day Years [...] 07/01/2024 2:30 PM EDT Telemedicine [facility] MED & PEDS [address] [place] [address] Leeanna Solis, MIRNA [address] [place] [address] documented as of this encounter Visit Diagnoses Not on filedocumented in this encounter Additional Health Concerns Assessment Noted Time PHQ-9 Depression Total Score: 0 10/25/19 23 9:41 AM EDT documented as of this encounter Care Teams Tailor Women'S Garment Alteration Relationship Specialty Start Date End Date Liz Barboza MD [address] [place] [address] PCP - General Internal Medicine 10/05/17 documented as of this encounter
--- OUTSIDE RECORDS SUMMARY | 2024-06-13 13:18 | XMS_ITS | Encounter Summary ---
Author Organization [facility] Address [address] [place] [address] Phone Care Team Providers Care Vp Marketing Services And Skin Name Role Phone Liz Barboza MD Primary Care Provider +1 [phone] Reason for Visit * Reason Comments Med Refill Encounter Details Date Type Department Care Team (Late st Contact Info) Description 07/01/2021 Refill [facility] [address] [place] [phone] Sajan Mandel MD [address] [place] [address] [place] [address] Social History Tobacco Use Types [...] Office Visit [facility], [address] [place] [phone] Sajan Mandel MD [address] [place] [address] [place] [address] documented as of this encounter Visit Diagnoses Not on filedocumented in this encounter Care Teams Vp Marketing Services And Skin Relationship Specialty Start Date End Date Liz Barboza MD PCP - General 01/01/19 documented as of this encounter
--- OUTSIDE RECORDS SUMMARY | 2024-06-13 13:18 | XMS_ITS | Encounter Summary ---
Author Organization [facility] Address [address] [place] [address] Phone Care Team Providers Care Continuous Improvement Lead Name Role Phone Liz Barboza MD Primary Care Provider [phone] [phone] Reason for Visit * Reason Comments Med Refill Encounter Details Date Type Department Care Team (Late st Contact Info) Description 07/02/2021 Refill [facility] [address] [place] [phone] Sajan Mandel MD [address] [place] [address] [place] [address] Social History Tobacco Use Types [...] Office Visit [facility], [address] [place] [phone] Sajan Mandel MD [address] [place] [address] [place] [address] documented as of this encounter Visit Diagnoses Not on filedocumented in this encounter Care Teams Continuous Improvement Lead Relationship Specialty Start Date End Date Liz Barboza MD PCP - General 01/01/19 documented as of this encounter
--- OUTSIDE RECORDS SUMMARY | 2024-06-13 13:18 | XMS_ITS | Encounter Summary ---
Author Organization [employer] Address 75 [facility] [address] [place] [address] Care Team Providers Care Frame Expander Name Role Phone Liz Barboza MD Primary Care Provider [phone]- [phone] Reason for Visit * Reason Comments Med Refill Encounter Details Date Type Department Care Team ([facility] Contact Info) Description 04/19/2022 Refill [facility] MED & PEDS [address] [place], [place] [phone] Liz Barboza MD [address] [place] [address] Anxiety disorder, unspecified Social History Tobacco Use [...] Upcoming Encounters Date Type Department Care Team ([facility] Contact Info) Description 07/01/2024 2:30 PM EDT Telemedicine [facility] MED & PEDS [address] [place] [address] Leeanna Solis, RN [address] [place], [place] [phone] documented as of this encounter Visit Diagnoses Diagnosis Anxiety disorder, unspecified documented in this encounter Care Teams Frame Expander Relationship Specialty Start Date End Date Liz Barboza MD [address] [place] [address] PCP - General Internal Medicine 10/05/17 documented as of this encounter
--- OUTSIDE RECORDS SUMMARY | 2024-06-13 13:18 | XMS_ITS | Encounter Summary ---
Author Organization [facility] Address [address] [place] [address] Phone Care Team Providers Care Emergency Vehicle Dispatcher Name Role Phone Liz Barboza MD Primary Care Provider +1 [phone] Reason for Visit * Reason Comments Med Refill Encounter Details Date Type Department Care Team (Late st Contact Info) Description 07/12/2021 Refill [facility] [address] [place] [phone] Sajan Mandel MD [address] [place] [address] [place] [address] Social History Tobacco Use Types [...] Office Visit [facility], [address] [place] [phone] Sajan Mandel MD [address] [place] [address] [place] [address] documented as of this encounter Visit Diagnoses Not on filedocumented in this encounter Care Teams Emergency Vehicle Dispatcher Relationship Specialty Start Date End Date Liz Barboza MD PCP - General 01/01/19 documented as of this encounter
--- OUTSIDE RECORDS SUMMARY | 2024-06-13 13:18 | XMS_ITS | Encounter Summary ---
Author Organization [employer] Address 75 [facility] 7 [place] [address] Care Team Providers Care Parking Station Attendant Name Role Phone Liz Barboza MD Primary Care Provider +1- [phone] Encounter Details Date Type Department Care Team ([facility] st Contact Info) Description 05/10/2024 Orders Only [facility] [address] [place] [address] Liz Barboza MD [address] [place], [place] [phone] Other specified hypothyroidism (Primary Dx) Social History Tobacco Use Types Packs/Day Years [...] your housing situation today? I have mariama sing 05/09/[address] you li [...] Upcoming Encounters Date Type Department Care Team ([facility] st Contact Info) Description 07/01/2024 2:30 PM EDT Telemedicine [facility] & [facility] [address] [place] [address] Leeanna Solis, MIRNA 505 [place] [address] documented as of this encounter Visit Diagnoses Diagnosis Other specified hypothyroidism- Primary documented in this encounter Additional Health Concerns Assessment Noted Time PHQ-9 Depression Total Score: 3 05/10/19 25 9:59 AM EDT documented as of this encounter Care Teams Parking Station Attendant Relationship Specialty Start Date End Date Liz Barboza MD [address] [place] [address] PCP - General Internal Medicine 10/05/17 documented as of this encounter
--- OUTSIDE RECORDS SUMMARY | 2024-06-13 13:18 | XMS_ITS | Encounter Summary ---
Author Organization [facility], Address [address] [place] [address] Phone Care Team Providers Care General Repairer Name Role Phone Liz Barboza MD Primary Care Provider +1 [phone] Encounter Details Date Type Department Care Team (Late Contact Info) Description 11/08/2021 Documentation Only [facility] [address] [place] [phone] Elvira Barron PA Social History Tobacco Use [...] Visit [facility] [address] [place] [phone] Sajan Mandel MD [address] [place] [address] [place] [phone] documented as of this encounter Visit Diagnoses Not on filedocumented in this encounter Care Teams General Repairer Relationship Specialty Start Date End Date Liz Barboza MD PCP - General 01/01/19 documented as of this encounter
--- OUTSIDE RECORDS SUMMARY | 2024-06-13 13:18 | XMS_ITS | Encounter Summary ---
Author Organization [employer] Address 75 [facility] [address] [place] [address] Care Team Providers Care Donor Processor Name Role Phone Liz Barboza MD Primary Care Provider +1- [phone] Reason for Visit * Reason Comments Med Refill Encounter Details Date Type Department Care Team ([facility] Contact Info) Description 08/01/2022 Refill [facility] & [facility]EDS 505 [place] [address] Liz Barboza MD 505 [place] [address] Social History Tobacco Use Types Packs/Day Years [...] Upcoming Encounters Date Type Department Care Team ([facility] Contact Info) Description 07/01/2024 2:30 PM EDT Telemedicine [facility] MED [facility] [address] [place] [address] Leeanna Solis RN 505 [place], [place] [phone] documented as of this encounter Visit Diagnoses Not on filedocumented in this encounter Care Teams Donor Processor Relationship Specialty Start Date End Date Lzi Barboza MD [address] [place] [address] PCP - General Internal Medicine 10/05/17 documented as of this encounter
--- OUTSIDE RECORDS SUMMARY | 2024-06-13 13:18 | XMS_ITS | Encounter Summary ---
Author Organization [employer] Address 75 [facility] 7 [place] [address] Care Team Providers Care Private Chef Name Role Phone Liz Barboza MD Primary Care Provider +1- [phone] Encounter Details Date Type Department Care Team ([facility] st Contact Info) Description 02/10/2023 Orders Only [facility] MED & PEDS 505 [place], [place] [phone] Liz Barboza MD 505 [place] [address] Social History Tobacco Use Types Packs/Day Years [...] 2:30 PM EDT Telemedicine [facility] MED & PEDS 505 [place] [address] Leeanna Solis, MIRNA 505 [place] [address] documented as of this encounter Visit Diagnoses Not on filedocumented in this encounter Additional Health Concerns Assessment Noted Time PHQ-9 Depression Total Score: 0 10/25/19 23 9:41 AM EDT documented as of this encounter Care Teams Private Chef Relationship Specialty Start Date End Date Liz Barboza MD 505 [place] [address] PCP - General Internal Medicine 10/05/17 documented as of this encounter
--- OUTSIDE RECORDS SUMMARY | 2024-06-13 13:18 | XMS_ITS | Encounter Summary ---
Author Organization [employer] Address [address] [place] [address] [place] [address] Care Team Providers Care Last Model Department Supervisor Name Role Phone Liz Barboza MD Primary Care Provider +1- [phone] Encounter Details Date Type Department Care Team ([facility] Contact Info) Description 01/28/2022 Telephone [facility] MED & PEDS [address] [place] [address] Liz Barboza MD [address] [place] [address] Social History Tobacco Use Types Packs/Day Years [...] Upcoming Encounters Date Type Department Care Team ([facility] Contact Info) Description 07/01/2024 2:30 PM EDT Telemedicine [facility] MED & PEDS 505 [place] [address] Leeanna Solis RN 505 [place] [address] documented as of this encounter Visit Diagnoses Not on filedocumented in this encounter Care Teams Last Model Department Supervisor Relationship Specialty Start Date End Date Liz Barboza MD [address] [place] [address] PCP - General Internal Medicine 10/05/17 documented as of this encounter
--- OUTSIDE RECORDS SUMMARY | 2024-06-13 13:18 | XMS_ITS | Encounter Summary ---
Author Organization [employer] Address 75 [facility] 7 [place] [address] Care Team Providers Care Upper Cutter Out Name Role Phone Liz Barboza MD Primary Care Provider +1- [phone] Reason for Visit * Reason Comments Med Refill Encounter Details Date Type Department Care Team ([facility] st Contact Info) Description 01/12/2024 Refill [facility] MED & PEDS [address] [place], [place] [phone] Liz Barboza MD 505 [place] [address] Anxiety disorder, unspecified Social History Tobacco Use [...] Upcoming Encounters Date Type Department Care Team ([facility] st Contact Info) Description 07/01/2024 2:30 PM EDT Telemedicine [facility] MED & PEDS [address] [place] [address] Leeanna Solis, MIRNA 505 [place] [address] documented as of this encounter Visit Diagnoses Diagnosis Anxiety disorder, unspecified documented in this encounter Additional Health Concerns Assessment Noted Time PHQ-9 Depression Total Score: 0 10/25/19 23 9:41 AM EDT documented as of this encounter Care Teams Upper Cutter Out Relationship Specialty Start Date End Date Liz Barboza MD [address] [place] [address] PCP - General Internal Medicine 10/05/17 documented as of this encounter
--- OUTSIDE RECORDS SUMMARY | 2024-06-13 13:18 | XMS_ITS | Encounter Summary ---
Author Organization [facility], Address [address] [place] [address] Phone Care Team Providers Care Clinical Faculty Name Role Phone Liz Barboza MD Primary Care Provider +1 [phone] Reason for Visit * Reason Onset Date Comments Med Refill 08/04/2022 Encounter Details Date Type Department Care Team (Late st Contact Info) Description 08/04/2022 Refill [facility] [address] [place] [phone] Sajan Mandel MD [address] [place] [address] [place] [phone] Social History Tobacco Use Types Packs/Day Years [...] Care [facility] Trans[facility], [address] [place] [address] Sajan Mandel MD [address] [place] [address] [place] [phone] documented as of this encounter Visit Diagnoses Not on filedocumented in this encounter Care Teams Clinical Faculty Relationship Specialty Start Date End Date Liz Barboza MD PCP - General 01/01/19 documented as of this encounter
--- OUTSIDE RECORDS SUMMARY | 2024-06-13 13:18 | XMS_ITS | Encounter Summary ---
Author Organization [employer] Address 75 [facility] 7 [place] [address] Care Team Providers Care Bruise Trimmer Name Role Phone Liz Barboza MD Primary Care Provider +1- [phone] Reason for Visit * Reason Comments Med Refill Encounter Details Date Type Department Care Team ([facility] st Contact Info) Description 05/19/2023 Refill [facility] MED & PEDS [address] [place], [place] [phone] Liz Barboza MD 505 [place] [address] Anxiety disorder, unspecified; Anxiety Social History Tobacco [...] Upcoming Encounters Date Type Department Care Team ([facility] st Contact Info) Description 07/01/2024 2:30 PM EDT Telemedicine [facility] MED & PEDS [address] [place] [address] Leeanna Solis, MIRNA 505 [place] [address] documented as of this encounter Visit Diagnoses Diagnosis Anxiety disorder, unspecified Anxiety Anxiety state, unspecified documented in this encounter Additional Health Concerns Assessment Noted Time PHQ-9 Depression Total Score: 0 10/25/19 23 9:41 AM EDT documented as of this encounter Care Teams Bruise Trimmer Relationship Specialty Start Date End Date Liz Barboza MD [address] [place] [address] PCP - General Internal Medicine 10/05/17 documented as of this encounter
--- OUTSIDE RECORDS SUMMARY | 2024-06-13 13:18 | XMS_ITS | Encounter Summary ---
Author Organization [facility] Address [address] [place] [address] Phone Care Team Providers Care Manual Equipment Mechanic Name Role Phone Liz Barboza MD Primary Care Provider +1 [phone] Reason for Visit * Reason Comments Med Refill Encounter Details Date Type Department Care Team (Late st Contact Info) Description 07/05/2021 Refill [facility] [address] [place] [phone] Sajan Mandel MD [address] [place] [address] [place] [address] Social History Tobacco Use Types [...] Office Visit [facility], [address] [place] [phone] Sajan Mandel MD [address] [place] [address] [place] [address] documented as of this encounter Visit Diagnoses Not on filedocumented in this encounter Care Teams Manual Equipment Mechanic Relationship Specialty Start Date End Date Liz Barboza MD PCP - General 01/01/19 documented as of this encounter
--- OUTSIDE RECORDS SUMMARY | 2024-06-13 13:18 | XMS_ITS | Clinical Summary ---
Author Organization [facility] [place], Address [address] [place] [address] [place] [address] Phone Care Team Providers Care Foreign Exchange Position Clerk Name Role Phone Liz Barboza MD Primary Care Provider +1- [phone] Allergies No known active allergies Medications levothyroxine [...] ONE HOUR BEFORE MEALS AND AT BEDTIME 9 Active amLODIPine (NORVASC) 5 MG tablet Take 5 mg by mouth 1 (one) time each day 0 Active lidocaine-priloc herminia (EMLA) cream APPLY TO THE AFFECTED AREA(S) DAILY NEEDED 0 Active SM Arthritis Pain Reliever 650 MG 8 hr tablet Take 650 mg by mouth every 8 (eight) hours if needed 0 Active [place]-3 1000 MG capsule Take 1,000 mg by [...] Load Essential (primary) hypertension 02/05/2019 Hypothyroidism 02/05/2019 Encounters Date Type Department Care Team Description 05/15/2024 9:50 AM EDT Office Visit [facility] [address] [place] [address] Sajan Mandel MD Stage 3a chronic kidney disease (HCC) (Primary Dx) from Last 3 Months Immunizations Immunization Administration Dates Next Due Influenza Vaccine, Quadrivalent, [...] Visit [facility] [place], [address] [facility] [address] [place] [phone] Sajan Mandel MD [address] [facility] [place] [phone] Health Maintenance Due Date Last Done Comments Pneumococcal Vaccine: 50+ Years Completed 11/09/2021, 01/21/2014 Pneumococcal Vaccine: Peds (0 to 5 Years) and At-Risk Patients (6 to 49 Years) Discontinued 11/09/2021, 01/21/2014 Influenza Vaccine Completed 11/17/2023, , 12/03/2019, Additional history exists Hepatitis B Vaccine Aged Out No longe r eligible based on patient's age to complete this [place] [id number] Care Teams Foreign Exchange Position Clerk Relationship Specialty Start Date End Date Liz Barboza MD PCP - General 01/01/19
--- OUTSIDE RECORDS SUMMARY | 2024-06-13 13:18 | XMS_ITS | Encounter Summary ---
Author Organization [employer] Address 75 [facility] 7 [place] [address] Care Team Providers Care Endless Track Vehicle Mechanic Name Role Phone Liz Barboza MD Primary Care Provider +1- [phone] Encounter Details Date Type Department Care Team ([facility] st Contact Info) Description 02/04/2024 Orders Only [facility] MED & PEDS 505 [place], [place] [phone] Liz Barboza MD 505 [place] [address] Anxiety disorder, unspecified; Anxiety Social History Tobacco [...] Upcoming Encounters Date Type Department Care Team ([facility] st Contact Info) Description 07/01/2024 2:30 PM EDT Telemedicine [facility] MED & PEDS 505 [place] [address] Leeanna Solis RN 505 [place] [address] documented as of this encounter Visit Diagnoses Diagnosis Anxiety disorder, unspecified Anxiety Anxiety state, unspecified documented in this encounter Additional Health Concerns Assessment Noted Time PHQ-9 Depression Total Score: 0 10/25/19 23 9:41 AM EDT documented as of this encounter Care Teams Endless Track Vehicle Mechanic Relationship Specialty Start Date End Date Liz Barboza MD [address] [place] [address] PCP - General Internal Medicine 10/05/17 documented as of this encounter
--- OUTSIDE RECORDS SUMMARY | 2024-06-13 13:18 | XMS_ITS | Encounter Summary ---
Author Organization [facility], Address [address] [place] [address] Phone Care Team Providers Care Butcher'S Assistant Name Role Phone Liz Barboza MD Primary Care Provider +1 [phone] Reason for Visit * Reason Comments Med Refill Encounter Details Date Type Department Care Team (Late Contact Info) Description 12/19/2019 Refill [facility] [address] [place] [phone] Kai Thomas MD Social History Tobacco Use Types Packs/Day [...] Visit [facility] [place], [address] [place] [phone] Sajan Mandel MD [address] [facility] [place] [phone] documented as of this encounter Visit Diagnoses Not on filedocumented in this encounter Care Teams Butcher'S Assistant Relationship Specialty Start Date End Date Liz Barboza MD PCP - General 01/01/19 documented as of this encounter
== END 2024-06-13 11:15 | disposition home or self-care (01) ==
PROVIDERS: PCP Internal Medicine; Visit Provider Nurse Practitioner
DX: K21.9 Gastro-esophageal reflux disease without esophagitis (principal); K91.5 Postcholecystectomy syndrome; K29.60 Other gastritis without bleeding
CPT/HCPCS: 99213

== ENCOUNTER → 2024-06-13 10:54 | Outpatient (BNVA) | payer MEDICARE, MEDICAID, SELFPAY | PROVIDERS: PCP Internal Medicine; Visit Provider Nurse Practitioner | DX: Z12.11 Encounter for screening for malignant neoplasm of colon (principal); K91.5 Postcholecystectomy syndrome; K29.60 Other gastritis without bleeding; K21.9 Gastro-esophageal reflux disease without esophagitis | CPT/HCPCS: 99212 ==

== ENCOUNTER 2024-10-16 09:28 | Outpatient (REF) | payer MEDICARE, MEDICAID, SELFPAY ==
--- OUTSIDE RECORDS SUMMARY | 2024-10-16 10:13 | XMS_ITS | Clinical Summary ---
Author Organization [facility] [place], Address [address] [place] [address] [place] [address] Phone Care Team Providers Care Secondary History Teacher Name Role Phone Liz Barboza MD Primary Care Provider +1- [phone] Allergies No known active allergies Medications levothyroxine [...] 8 (eight) hours if needed 0 Active [place]-3 1000 MG capsule Take 1,000 mg by [...] Encounters Date Type Department Care Team Description 08/28/2024 10:40 AM EDT Office Visit [facility] [address] [place] [address] Sajan Mandel MD Stage 3a chronic kidney [...] Care Team (Late st Contact Info) Description 12/31/2024 1:40 PM EST Office Visit [facility] [place], [address] [place] [phone] Sajan Mandel MD [address] [facility] [place] [phone] Health Maintenance Due Date Last Done Comments Influenza Vaccine (#1) 2024 4, 12/24/2020, 12/03/2019, Additional history exists Pneumococcal Vaccine: 50+ Years Completed 11/09/2021, 01/21/2014 Pneumococcal Vaccine: Peds (0 to 5 Years) and At-Risk Patients (6 to 49 Years) Discontinued 11/09/2021, 01/21/2014 Hepatitis B Vaccine Aged Out No longe r eligible based on patient's age to complete this topic Insurance Medicaid [place] Medicare Care Teams Secondary History Teacher Relationship Specialty Start Date End Date Liz Barboza MD PCP - General 01/01/19
--- OUTSIDE RECORDS SUMMARY | 2024-10-16 10:13 | XMS_ITS | Encounter Summary ---
Author Organization [employer] Address 75 [facility] [address] [place] [address] Care Team Providers Care Infantry Assaultman Name Role Phone Liz Barboza MD Primary Care Provider +1 [phone] Reason for Visit * Reason Onset Date Comments Med Refill 10/02/2024 Encounter Details Date Type Department Care Team ([facility] st Contact Info) Description 10/02/2024 Refill [facility] MED & PEDS [address] [place] [address] Liz Barboza MD 505 [place] [address] Social History Tobacco Use Types Packs/Day Years [...] Care Team (Late st Contact Info) Description 11/20/2024 2:45 PM EDT Clinical Support [facility] MED & PEDS [address] [place] [address] Leeanna Solis, MIRNA 505 [place] [address] documented as of this encounter Visit Diagnoses Not on filedocumented in this encounter Additional Health Concerns Assessment Noted Time PHQ-9 Depression Total Score: 3 05/10/19 25 9:59 AM EDT documented as of this encounter Care Teams Infantry Assaultman Relationship Specialty Start Date End Date Liz Barboza MD [address] [place] [address] PCP - General Internal Medicine 10/05/17 documented as of this encounter
[2024-10-16 15:16] LABS: Alanine Aminotransferase 12 U/L (0-31); Albumin Level 4.7 g/dL (3.5-5.0); Alkaline Phosphatase 68 U/L (39-117); Anion Gap 13 (12-20); Aspartate Amino Transferase 30 U/L (5-31); Blood Urea Nitrogen 16 mg/dL (9-16); Calcium 9.2 mg/dL (8.4-10.2); Carbon Dioxide 26 mmol/L (22-29); Chloride 100 mmol/L (96-108); Estimated Glomerular Filt Rate 52; Potassium 3.1 mmol/L (3.3-5.1); Sodium 136 mmol/L (135-145); Total Protein 8.0 g/dL (6.5-8.0)
== END 2024-10-16 09:29 | disposition home or self-care (01) ==
LOC: HO.CHCLDS 09:28
PROVIDERS: Visit Provider Internal Medicine
DX: I10 Essential (primary) hypertension (principal); E03.8 Other specified hypothyroidism
CPT/HCPCS: 36415; 80053; 84443

== ENCOUNTER 2024-10-22 08:54 | Outpatient (REF) | payer MEDICARE, MEDICAID, SELFPAY ==
--- OUTSIDE RECORDS SUMMARY | 2024-10-22 09:20 | XMS_ITS | Encounter Summary ---
Author Organization [employer] Address 75 [facility] 7 [place] [address] Care Team Providers Care Director Sterile Processing Name Role Phone Liz Barboza MD Primary Care Provider +1 [phone] Reason for Visit * Reason Onset Date Comments Results 10/17/2024 Encounter Details Date Type Department Care Team (Latest Contact Info) Description 10/17/2024 Results Follow-Up [facility] MED & PEDS [address] [place] [address] Demetria Heredia RN Comprehensive Metabolic Panel, TSH W/Reflex to FT4 Social History Tobacco Use Types Packs/Day Years [...] AM EDT documented as of this encounter Miscellaneous Notes * Telephone Encounter - Demetria Heredia RN - 10/17/2024 9:44 AM EDT 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 Reviewed lab results. Pt reports that she is already taking Potassium 20 mEq BID from paper steamer office. Author reviewed potassium rich foods and advised will inform provider is already on a potassium supplement. Pt verbalized understanding and agreement with plan. * Telephone Encounter - Valdo Campos - 10/17/2024 9:34 AM EDT Tc from pt requesting a call back regarding prior message. Contact pt at [phone] (panamanian) * Telephone Encounter - Demetria Heredia RN - 10/17/2024 9:18 AM EDT TC to pt to review labs and recommend high potassium foods of spinach, bananas, orange juice, and watermelon. No answer. VM left instructing to return call to office. Second attempt TC. No answer. Vm already left instructing to return call to office. * Telephone Encounter - Demetria Heredia RN - 10/17/2024 9:18 AM EDT ----- Message from Liz Barboza MD sent at 10/16/2024 5:23 PM EDT ----- Please call Mrs. Lan to inform her that her potassium is a low. Please educate her on a potassium rich diet for the next week. She is also to start the potassium supplement that was prescribed. The low potassium could be due to hydrochlorothiazide, one of the blood pressure medication. I would repeat her potassium level next week to assess if her potassium has normalized when she increases potassium in her diet. Her kidney function is otherwise stable and her TSH has normalized. No intervention needed in that regard. ----- Message ----- From: Interface, Lab Results In Sent: 10/16/2024 3:16 PM EDT To: Liz Barboza MD documented in this encounter Plan of Treatment Upcoming Encounters Date Type Department Care Team (Late st Contact Info) Description 11/20/2024 2:45 PM EDT Clinical Support [facility] MED & PEDS [address] [place] [address] Leeanna Solis, RN 505 [place] [address] documented as of this encounter Visit Diagnoses Not on filedocumented in this encounter Additional Health Concerns Assessment Noted Time PHQ-9 Depression Total Score: 3 05/10/19 25 9:59 AM EDT documented as of this encounter Care Teams Director Sterile Processing Relationship Specialty Start Date End Date Liz Barboza MD [address] [place] [address] PCP - General Internal Medicine 10/05/17 documented as of this encounter
--- OUTSIDE RECORDS SUMMARY | 2024-10-22 09:20 | XMS_ITS | Encounter Summary ---
Author Organization [employer] Address 75 [facility] 7 [place] [address] Care Team Providers Care Shoe Patternmaker Name Role Phone Liz Barboza MD Primary Care Provider +1 [phone] Encounter Details Date Type Department Care Team ([facility] st Contact Info) Description 10/16/2024 Orders Only [facility] MED & PEDS [address] [place], [place] [phone] Liz Barboza MD [address] [place] [address] Hypokalemia (Primary Dx) Social History Tobacco Use Types [...] Upcoming Encounters Date Type Department Care Team ([facility] st Contact Info) Description 11/20/2024 2:45 PM EDT Clinical Support [facility] MED & PEDS [address] [place] [address] Leeanna Solis RN 505 [place] [address] Scheduled Orders Name Type Priority Associated Diagnoses Orde r Schedule Basic Metabolic Panel Lab Routine Hypokalemia Expected: 10/17/2024 (Approximate), Expires: 10/17/2025 documented as of this encounter Visit Diagnoses Diagnosis Hypokalemia- Primary Hypopotassemia documented in this encounter Additional Health Concerns Assessment Noted Time PHQ-9 Depression Total Score: 3 05/10/19 25 9:59 AM EDT documented as of this encounter Care Teams Shoe Patternmaker Relationship Specialty Start Date End Date Liz Barboza MD [address] [place] [address] PCP - General Internal Medicine 10/05/17 documented as of this encounter
--- OUTSIDE RECORDS SUMMARY | 2024-10-22 09:20 | XMS_ITS | Clinical Summary ---
Author Organization [facility], Address [address] [place] [address] [place] [address] Phone Care Team Providers Care Supervisor Keymodule Assembly Name Role Phone Liz Barboza MD Primary Care Provider [phone]- [phone] Allergies No known active allergies Medications levothyroxine [...] 8 (eight) hours if needed 0 Active Dinwiddie-3 1000 MG capsule Take 1,000 mg by [...] Visit [facility] [address] [address] Sajan Mandel MD Stage 3a chronic kidney [...] Visit [facility], [address] [place] [phone] Sajan Mandel MD [address] [place] [phone] Health Maintenance Due Date Last Done Comments Influenza Vaccine (#1) 2024 4, 12/24/2020, 12/03/2019, Additional history exists Pneumococcal Vaccine: 50+ Years Completed 11/09/2021, 01/21/2014 Pneumococcal Vaccine: Peds (0 to 5 Years) and At-Risk Patients (6 to 49 Years) Discontinued 11/09/2021, 01/21/2014 Hepatitis B Vaccine Aged Out No longe r eligible based on patient's age to complete this topic Insurance [place] Medicare Member Subscriber Plan / Payer (Ef fective 2008-Present) Name:Kelsey Villareal Member ID:[id number] Relation to Subscriber:Self Name:Kelsey Villareal Subscriber ID:[id number] Payer ID:Not on file Group ID:Not on file Type:Not on file Address: [address] [address] Care Teams Supervisor Keymodule Assembly Relationship Specialty Start Date End Date Liz Barboza MD PCP - General 01/01/19
--- OUTSIDE RECORDS SUMMARY | 2024-10-22 09:20 | XMS_ITS | Clinical Summary ---
Author Organization [employer] Address [address] [facility] 7 [place] [address] Care Team Providers Care Combat Systems Operator Name Role Phone Liz Barobza MD Primary Care Provider [phone] Allergies No known active allergies Medications famotidine (Pepcid) 20 MG tablet Take 1 tablet by mouth at bedtime. 019 Active lidocaine-priloca ine (Emla) 2.5-2.5 % cream Apply topically. As needed 021 Active Misc. Devices (Wrist Brace) misc Medium. To wear at bedtime Active Blood Pressure kitIndications:Pr imary hypertension To check the BP 3 times a week. 1 kit 023 Active simvastatin (Zocor) 20 MG tablet TAKE ONE TABLET BY MOUTH EVERY DAY 90 tablet 3 024 Active metoprolol succinate XL (Toprol XL) 100 MG 24 hr tabletIndications :Primary hypertension Take 1 tablet (100 mg) by mouth Once per day. Do not crush or chew. 30 tablet 11 024 2024 Active simvastatin (Zocor) 40 MG tabletIndications :Hypercholesterol emia Take 1 tablet (40 mg) by mouth at bedtime. 30 tablet 11 024 2024 Active oxazepam (Serax) 10 MG capsuleIndication s:Anxiety disorder, unspecified Take 1 capsule (10 mg) by mouth 2 times daily. 60 capsule 024 Active acetaminophen (Tylenol 8 Hour) 650 MG ER tabletIndications :Primary osteoarthritis of other site TAKE ONE TABLET BY MOUTH EVERY 8 HOURS NEEDED FOR MILD PAIN. DO NOT BREAK, CRUSH, DISSOLVE OR CHEW. 120 tablet 1 Active levothyroxine (Synthroid) 25 MCG tabletIndications :Other specified hypothyroidism Take 1 tablet (25 mcg) by mouth before breakfast. 30 tablet 11 025 2025 Active lidocaine (Lidoderm) 5 % patchIndications: Neck pain Apply 1 patch topically Once per day. Remove & discard patch within 12 hours or as directed by MD. 30 patch 025 Active oxazepam (Serax) 10 MG capsuleIndication s:Anxiety disorder, unspecified,Anxie ty Take 1 capsule (10 mg) by mouth 2 times daily. 60 capsule 025 Active diazePAM (Valium) 5 MG tabletIndications :Generalized anxiety disorder Take 1 tablet (5 mg) by mouth at bedtime. 30 tablet 025 Active LORazepam (Ativan) 1 MG tablet TAKE ONE TABLET BY MOUTH EVERY TWELVE HOURS NEEDED FOR ANXIETY (REPLACES OXAZEPAM DUE TO BACKORDER) 56 tablet 025 Active amLODIPine (Norvasc) 5 MG tabletIndications :Essential (primary) hypertension TAKE ONE TABLET BY MOUTH EVERY DAY 90 tablet 3 025 Active hydroCHLOROthiazi de (Microzide) 12.5 MG capsuleIndication s:Essential (primary) hypertension TAKE ONE CAPSULE BY MOUTH EVERY DAY 90 capsule 3 025 Active losartan (Cozaar) 100 MG tablet TAKE ONE TABLET BY MOUTH EVERY DAY 90 tablet 3 025 Active potassium chloride CR (Klor-Con M20) 20 MEQ ER tabletIndications :Hypokalemia Take 1 tablet (20 mEq) by mouth Once per day. Do not crush or chew. 10 tablet 025 2025 Active furosemide (Lasix) 20 MG tablet take 1 Tablet by oral route every other day 019 2024 Discontinued(T herapy completed) hydroCHLOROthiazi de (HYDRODiuril) 12.5 MG tablet Take 1 tablet by mouth. daily 022 2024 Discontinued losartan (Cozaar) 100 MG tablet TAKE ONE TABLET BY MOUTH EVERY DAY 90 tablet 3 024 2024 Discontinued hydroCHLOROthiazi de (Microzide) 12.5 MG capsuleIndication s:Essential (primary) hypertension TAKE ONE CAPSULE BY MOUTH EVERY DAY 90 capsule 3 024 2024 Discontinued amLODIPine (Norvasc) 5 MG tabletIndications :Essential (primary) hypertension TAKE ONE TABLET BY MOUTH EVERY DAY 90 tablet 3 024 2024 Discontinued LORazepam (Ativan) 1 MG tablet Take 1 tablet (1 mg) by mouth every 12 (twelve) hours if needed for anxiety for up to 28 days. Dose exchange from oxazepam 10mg to lorazepam 1mg done due to medciation back order 56 tablet 025 2024 Discontinued Active Problems Problem Noted Date Diagnosed Date Long-term current use of opiate analgesic 2024 Hypercholesterolemia 01/31/2024 Anxiety disorder 01/13/2022 Hypertensive disorder 01/13/2022 Hypothyroidism 01/13/2022 Osteoporosis 01/13/2022 Essential (primary) hypertension 02/05/2019 Stage 3a chronic kidney disease 02/05/2019 Overview (11/30/2023): Update for Diagnosis Load Stage 3 chronic kidney disease 10/15/2018 Chronic gastritis 10/05/2017 Encounters Date Type Department Care Team Description 10/17/2024 Results Follow-Up [facility] [address] [place] [address] Demetria Heredia RN Comprehensive Metabolic Panel, TSH W/Reflex to FT4 10/16/2024 9:00 AM EDT Office Visit [facility] [address] [place] [address] Liz Barboza MD Primary hypertension (Primary Dx); Other specified hypothyroidism; Stage 3a chronic kidney disease (CMS/HCC); Pulsatile tinnitus, right ear 10/16/2024 Orders Only [facility] [address] [place] [address] Liz Barboza MD Hypokalemia (Primary Dx) 10/16/2024 Travel 10/15/2024 Telephone [facility] [address] [place] [address] Liz Barboza MD Chart Prep 10/11/2024 Refill [facility] [address] [place] [address] Liz Barboza MD Essential (primary) hypertension 10/09/2024 Travel 10/02/2024 Refill [facility] [address] [place] [address] Liz Barboza MD 10/02/2024 Refill [facility] [address] [place] [address] Liz Barboza MD 09/12/2024 Telephone [facility] [address] [place] [phone] Liz Barboza MD 09/09/2024 2:00 PM EDT Telemedicine [facility] [address] [place] [address] Leeanna Solis RN Long-term current use of opiate analgesic 09/09/2024 Travel 08/06/2024 Refill [facility] [address] [place] [address] Pantera Hector MD from Last 3 Months Immunizations Immunization Administration Dates Next Due Influenza High-dose Quadrivalent [...] Sign Reading Time Taken Comments Blood Pressure 158/82 10/16/2024 8:50 AM EDT Pulse 60 10/16/2024 8:50 AM EDT Temperature 36.4 C (97.6 F) 10/16/2024 8:50 AM EDT Respiratory Rate 18 10/16/2024 8:50 AM EDT Oxygen Saturation 99% 10/16/2024 8:50 AM EDT Inhaled Oxygen Concentration - - Weight 63.6 kg (140 lb 3.2 oz) 10/16/2024 8:50 A M EDT Height 149.9 cm (4' 11 ) 10/16/2024 8:50 AM EDT Body Mass Index 28.32 10/16/2024 8:50 AM EDT Plan of Treatment Upcoming Encounters Date Type Department Care Team (Late st Contact Info) Description 11/20/2024 2:45 PM EDT Clinical Support [facility] [address] [place] [address] Leeanna Solis, RN [address] [place] [address] Health Maintenance Due Date Last Done Comments Dental Prophylaxis 1945 RSV Patients and Patients Aged 60 years or older (1 - 1-dose 75+ series) 2021 Dental Oral Exam 09/21/2022 03/23/2022 Dental X-Ray: Bitewings 03/24/2023 03/23/2022 COVID-19 Vaccine ( season) 2024 11/30/2023, 12/28/2022, 01/15/2021, Additional history exists Influenza Vaccine (#1) 2024 , 12/06/2022, 11/10/2021, Additional history exists Dental X-Ray: Full Mouth 03/24/2025 03/23/2022 Alcohol/Substance Use Screening 05/09/2025 05/09/2024 Depression Screening 05/09/2025 05/09/2024, 05/10/19 SDOH Screening 05/09/2025 05/09/2024 Tobacco Screening 10/16/2025 10/16/2024 DTaP/Tdap/Td Vaccines (2 - Td or Tdap) 01/12/2028 01/11/2018 Lipid Panel 05/09/2029 05/09/2024, 1004/2023, 10/25/2022, Additional history exists Zoster Vaccines Completed 10/05/2021, 08/03/2021 Pneumococcal Vaccine: 50+ Years Completed 11/09/2021, 01/21/2014 Hepatitis C Screening Completed 10/25/2022 Colorectal Cancer Screening Discontinued FIT DNA/Cologuard Discontinued 02/17/2023 CT Colonography Discontinued Colonoscopy Discontinued FIT Discontinued [...] patient's age to complete this topic Meningococcal B Vaccine Aged Out No l onger eligible based on patient's age to complete [...] Procedure Name Priority Date/Time Associated Diagnosis Comments TSH W/REFLEX TO FT4 Routine 10/16/2024 9 :30 AM EDT Primary hypertension Other specified hypothyroidism COMPREHENSIVE METABOLIC PANEL Routine 10/16/2024 9:30 AM EDT Primary hypertension Other specified hypothyroidism LIPID PANEL, STANDARD Routine 05/09/2024 9:30 AM EDT Hypercholesterolemia LAB COLOGUARD COLON CANCER SCREEN Routine 02/17/2023 9:15 AM EST Other specified hypothyroidism Screening for colon cancer HEPATITIS C ANTIBODY REFLEX Routine 10/25/2022 9:23 AM EDT INTRAORAL - COMPLETE SERIES OF RADIOGRAPHIC IMAGES Routine 03/23/2022 8:05 AM EST COMPREHENSIVE ORAL EVALUATION - NEW OR ESTABLISHED PATIENT Routine 03/23/2022 8:05 AM EST from Last 3 Months or Most Recently Relevant to Health Maintenance Results * TSH W/Reflex to FT4 (10/16/2024 9:30 AM EDT) TSH reflex Free T4 1.55 0.32 - 4.0 uIU/mL [facility] Blood Venous blood specimen / Unknown 10/16/2024 9:30 AM EDT 10/16/2024 2:34 PM EDT us Liz Barboza MD LAB BLOOD ORDERABLES Final Result [facility] [address] [place] [address] [phone] * (ABNORMAL) Comprehensive Metabolic Panel (10/16/2024 9:30 AM EDT) Sodium 136 135 - 145 mmol/L [facility] Potassium 3.1(L) 3.3 - 5.1 mmol/L [facility] Chloride 100 96 - 108 mmol/L [facility] Carbon Dioxide 26 22 - 29 mmol/L [facility] Anion Gap 13 12 - 20 [facility] Urea Nitrogen (BUN) 16 9 - 16 mg/dL [facility] Creatinine, Serum 1.03 0.5 - 1.4 mg/dL [facility] Estimated Glomerular Filt Rate 52 [facility] Comment:Chronic Kidney Disea se: Estimated GFR < 60 mL/min/1.85x6Pdlqwf Kidney Disease: Estimated GFR < 15 mL/min/1.73m2 Glucose 104 60 - 115 mg/dL [facility] Calcium 9.2 8.4 - 10.2 mg/dL [facility] Bilirubin, Total 0.6 0.0 - 1.0 mg/dL [facility] Aspartate Amino Transferase 30 5 - 31 U/L [facility] Alanine Aminotransferase 12 0 - 31 U/L [facility] Total Protein 8.0 6.5 - 8.0 g/dL [facility] Albumin Level 4.7 3.5 - 5.0 g/dL [facility] Alkaline Phosphatase 68 39 - 117 U/L [facility] Blood Venous blood specimen / Unknown 10/16/2024 9:30 AM EDT 10/16/2024 2:34 PM EDT us Liz Barboza MD LAB BLOOD ORDERABLES Final Result Performing Organization Address [facility] Co de Phone Number [facility] [address] [place] [address] [phone] * Lipid Panel, Standard (05/09/2024 9:30 AM EDT) Triglycerides 89 <150 mg/dL [facility] Comment:Slight Lipemia.Priscilla able Triglyceride: less than 150 mg/dLBorderline High Triglyceride 150-199 mg/dLHigh Triglyceride: 200-499 mg/dLVery High Triglyceride: greater than or equal to 5OO mg/dL Cholesterol 132 <200 mg/dL [facility] Comment:Desirable Cholestero l: less than 200 mg/dLBorderline High Cholesterol: 200-239 mg/dLHigh Cholesterol: greater than 239 mg/dL LDL Cholesterol Calculated 65 <100 mg/dL [facility] Comment:Desirable LDL: less than 100 mg/dLNear Optimal/Above Optimal LDL: 110- 129 mg/dLBorderline High LDL: 130-159 mg/dLHigh LDL: 160-189 mg/dLVery High LDL: greater than or equal to 190 mg/dL HDL Cholesterol 50 >40 mg/dL [facility] Comment:Desirable HDL: great er than 40 mg/dL Note: This HDL assay may give artificially low results in patients with liver disease. Blood Venous blood specimen / Unknown 05/09/2024 9:30 AM EDT 05/09/2024 2:13 PM EDT Liz Barboza MD LAB BLOOD ORDERABLES Final Result Performing Organization Address [facility] Co de Phone Number [facility] [address] [place] [address] [phone] * Cologuard?? colon cancer screening (02/17/2023 9:15 AM EST) Cologuard Result Negative Negative 03/01/19 5:34 AM EST [facility] (CLIA #:[id number]) Comment: NEGATIVE TEST RESULT. A negative Cologuard result indicates a low likelihood that a colorectal cancer (CRC) or advanced adenoma (adenomatous polyps with more advanced pre-malignant features) is present. The chance that a person with a negative Cologuard test has a colorectal cancer is less than 1 in 1500 (negative predictive value >99.9%) or has an advanced adenoma is less than 5.3% (negative predictive value 94.7%). These data are based on a prospective cross-sectional study of 10,000 individuals at average risk for colorectal cancer who were screened with both Cologuard and colonoscopy. (Ingrid Brenner al, N Engl J Med 2014;370(14):8004-4821) The normal value (reference range) for this assay is negative. COLOGUARD RE-SCREENING RECOMMENDATION: Periodic colorectal cancer screening is an important part of preventive healthcare for asymptomatic individuals at average risk for colorectal cancer. Following a negative Cologuard result, the [place] [employer] and U.S. Multi-Society Task Force screening guidelines recommend a Cologuard re-screening interval of 3 years. References: [place] [employer] Guideline for Colorectal Cancer Screening: https://www.cancer.org/cancer/kmhug-mreofv-iuxuqe/whwukffba-snthbusas-octuosa/ac s-rec ommendations.html.; Ralf DK, Kirsty CR, Princess ContrerasK, Colorectal Cancer Screening: Recommendations for Physicians and Patients from the U.S. Multi-Society Task Force on Colorectal Cancer Screening , Am J Gastroenterology 2017; 112:9239-1558. TEST DESCRIPTION: Composite algorithmic analysis of stool DNA-biomarkers with hemoglobin immunoassay. Quantitative values of individual biomarkers are not [...] (Ingrid Brenner al, N Engl J Med 2014;370(14):3660-8850.) Cologuard may produce a false negative or false positive result (no colorectal cancer or precancerous polyp present at colonoscopy follow up). A negative Cologuard test result does not guarantee the absence of CRC or advanced adenoma (pre-cancer). The current Cologuard screening interval is every 3 years. ([place] [employer] and U.S. Multi-Society Task Force). Cologuard performance data in a 10,000 patient pivotal study using colonoscopy as the reference method can be accessed at the following location: www.Snapeee/results. Additional description of the Cologuard test process, warnings and precautions can be found at www.cologVonvo.comrd.com. Stool specimen (specimen) 02/17/2023 9:15 AM EST 02/18/2023 4:15 PM EST us Liz Barboza MD LAB MOLECULAR DIAGNOSTICS O RDERABLES Final Result Performing Organization Address City/[facility]/ZIP Co de Phone Number [facility] (CLIA #:[id number]) [address] [place] [address], * Hepatitis C Antibody Reflex (10/25/2022 9:23 AM EDT) Hepatitis C Antibody Nonreactive Nonreactive [facility] Comment:Antibodies to HCV no t detected; does not exclude early acuteHCV infection. 10/25/2022 9:23 AM EDT 10/25/2022 2:32 PM EDT us Liz Barboza MD LAB BLOOD ORDERABLES Final Result Performing Organization Address City/[facility]/ZIP Co de Phone Number [facility] [address] [place] [phone] from Last 3 Months or Most Recently Relevant to Health Maintenance Insurance MEDICARE [facility] STANDARD [facility] MEDICAID STAND [facility]ULT [facility] C3 Care Teams Combat Systems Operator Relationship Specialty Start Date End Date Liz Barboza MD [address] [place] [phone] PCP - General Internal Medicine 10/05/17
--- OUTSIDE RECORDS SUMMARY | 2024-10-22 09:20 | XMS_ITS | Encounter Summary ---
Author Organization [employer] Address [address] [facility] [address] [place] [address] Care Team Providers Care Sprayer Hand Name Role Phone Liz Barboza MD Primary Care Provider [phone] Reason for Visit * Reason Onset Date Comments Med Refill 10/02/2024 Encounter Details Date Type Department Care Team ([facility] st Contact Info) Description 10/02/2024 Refill [facility] [address] [place] [address] Liz Barboza MD [address] [place] [address] Social History Tobacco Use Types Packs/Day Years [...] Description 11/20/2024 2:45 PM EDT Clinical Support [facility] [address] [place] [address] Leeanna Solis, MIRNA [address] [place] [address] documented as of this encounter Visit Diagnoses Not on filedocumented in this encounter Additional Health Concerns Assessment Noted Time PHQ-9 Depression Total Score: 3 05/10/19 25 9:59 AM EDT documented as of this encounter Care Teams Sprayer Hand Relationship Specialty Start Date End Date Liz Barboza MD [address] [place] [address] PCP - General Internal Medicine 10/05/17 documented as of this encounter
--- OUTSIDE RECORDS SUMMARY | 2024-10-22 09:20 | XMS_ITS | Encounter Summary ---
Author Organization [employer] Address [address] [facility] 7 [place] [address] Care Team Providers Care Agronomy Research Manager Name Role Phone Liz Barboza MD Primary Care Provider [phone] Encounter Details Date Type Department Care Team ([facility] st Contact Info) Description 07/03/2024 Orders Only [facility] [address] [place], [place] [phone] Liz Barboza MD [address] [place] [address] Generalized anxiety disorder (Primary Dx) Social History Tobacco Use Types [...] Upcoming Encounters Date Type Department Care Team ([facility] st Contact Info) Description 11/20/2024 2:45 PM EDT Clinical Support [facility] [address] [place] [address] Leeanna Solis, MIRNA [address] [place] [address] documented as of this encounter Visit Diagnoses Diagnosis Generalized anxiety disorder- Primary documented in this encounter Additional Health Concerns Assessment Noted Time PHQ-9 Depression Total Score: 3 05/10/19 25 9:59 AM EDT documented as of this encounter Care Teams Agronomy Research Manager Relationship Specialty Start Date End Date Liz Barboza MD [address] [place] [address] PCP - General Internal Medicine 10/05/17 documented as of this encounter
--- OUTSIDE RECORDS SUMMARY | 2024-10-22 09:20 | XMS_ITS | Encounter Summary ---
Author Organization [employer] Address [address] [facility] 7 [place] [address] Care Team Providers Care Product Technician Name Role Phone Liz Barboza MD Primary Care Provider [phone] [phone] Reason for Visit * Reason Comments Med Refill Encounter Details Date Type Department Care Team ([facility] st Contact Info) Description 01/12/2024 Refill [facility] [address] [place], [place] [phone] Liz Barboza MD [address] [place] [address] Anxiety disorder, unspecified Social History Tobacco Use [...] Description 11/20/2024 2:45 PM EDT Clinical Support [facility] [address] [place] [address] Leeanna Solis, MIRNA [address] [place] [address] documented as of this encounter Visit Diagnoses Diagnosis Anxiety disorder, unspecified documented in this encounter Additional Health Concerns Assessment Noted Time PHQ-9 Depression Total Score: 0 10/25/19 23 9:41 AM EDT documented as of this encounter Care Teams Product Technician Relationship Specialty Start Date End Date Liz Barboza MD [address] [place] [address] PCP - General Internal Medicine 10/05/17 documented as of this encounter
--- OUTSIDE RECORDS SUMMARY | 2024-10-22 09:20 | XMS_ITS | Encounter Summary ---
Author Organization [facility], Address [address] [place] [address] Phone Care Team Providers Care Commercial Real Estate Lender Name Role Phone Liz Barboza MD Primary Care Provider [phone]- [phone] Reason for Visit * Reason Onset Date Comments Med Refill 08/04/2022 Encounter Details Date Type Department Care Team (Late st Contact Info) Description 08/04/2022 Refill [facility] [address] [place] [phone] Sajan Mandel MD [address] [place] [address] [place] [phone] Social History Tobacco Use Types Packs/Day Years [...] Department Care Team (Late Contact Info) Description 12/31/2024 1:40 PM EST Office Visit [facility], [address] [place] [phone] Sajan Mandel MD [address] [facility] [address] [place] [phone] documented as of this encounter Visit Diagnoses Not on filedocumented in this encounter Care Teams Commercial Real Estate Lender Relationship Specialty Start Date End Date Liz Barboza MD PCP - General 01/01/19 documented as of this encounter
--- OUTSIDE RECORDS SUMMARY | 2024-10-22 09:20 | XMS_ITS | Encounter Summary ---
Author Organization [facility], Address [address] [place] [address] Phone Care Team Providers Care Last Trimmer Name Role Phone Liz Barboza MD Primary Care Provider [phone]- [phone] Encounter Details Date Type Department Care Team (Late st Contact Info) Description 09/29/2023 Documentation Only [facility] [address] [place] [phone] [place] [address] [place] [phone] Social History Tobacco Use Types Packs/Day Years [...] Visit [facility] [address] [place] [phone] Sajan Mandel MD [address] [facility] [place] [phone] documented as of this encounter Visit Diagnoses Not on filedocumented in this encounter Care Teams Last Trimmer Relationship Specialty Start Date End Date Liz Barboza MD PCP - General 01/01/19 documented as of this encounter
--- OUTSIDE RECORDS SUMMARY | 2024-10-22 09:20 | XMS_ITS | Encounter Summary ---
Author Organization [employer] Address [address] [facility] 7 [place] [address] Care Team Providers Care Waiter Waitress Name Role Phone Liz Barboza MD Primary Care Provider +1 [phone] Encounter Details Date Type Department Care Team ([facility] st Contact Info) Description 02/04/2024 Orders Only [facility] CHC MED & PEDS [address] [place], [place] [phone] Liz Barboza MD 505 [place] [address] Anxiety disorder, unspecified; Anxiety Social History Tobacco [...] Upcoming Encounters Date Type Department Care Team ([facility] st Contact Info) Description 11/20/2024 2:45 PM EDT Clinical Support [facility] CHC MED & PEDS 505 [place] [address] Leeanna Solis RN 505 [place] [address] documented as of this encounter Visit Diagnoses Diagnosis Anxiety disorder, unspecified Anxiety Anxiety state, unspecified documented in this encounter Additional Health Concerns Assessment Noted Time PHQ-9 Depression Total Score: 0 10/25/19 23 9:41 AM EDT documented as of this encounter Care Teams Waiter Waitress Relationship Specialty Start Date End Date Liz Barboza MD 505 [place] [address] PCP - General Internal Medicine 10/05/17 documented as of this encounter
--- OUTSIDE RECORDS SUMMARY | 2024-10-22 09:20 | XMS_ITS | Encounter Summary ---
Author Organization [employer] Address [address] [place] [address] [address] [address] Care Team Providers Care Animal Shelter Clerk Name Role Phone Liz Barboza MD Primary Care Provider +1- [phone] Encounter Details Date Type Department Care Team (Late st Contact Info) Description 01/24/2022 Abstract [facility] MEDICINE [address] [place] [address] ProviderGene MD Social History Tobacco Use Types [...] Department Care Team (Late Contact Info) Description 11/20/2024 2:45 PM EDT Clinical Support [facility] CHC MED & PEDS 505 [place] [address] Leeanna Solis, RN 505 [place] [address] documented as of this encounter Visit Diagnoses Not on filedocumented in this encounter Care Teams Animal Shelter Clerk Relationship Specialty Start Date End Date Liz Barboza MD 505 [place] [address] PCP - General Internal Medicine 10/05/17 documented as of this encounter
--- OUTSIDE RECORDS SUMMARY | 2024-10-22 09:20 | XMS_ITS | Encounter Summary ---
Author Organization [employer] Address [address] [place] [address] Care Team Providers Care Machine Feeder Floorperson Name Role Phone Liz Barboza MD Primary Care Provider +1- [phone] Encounter Details Date Type Department Care Team ([facility] Contact Info) Description 01/28/2022 Telephone [facility] MED & PEDS [address] [place] [address] Liz Barboza MD 505 [place] [address] Social History Tobacco Use Types Packs/Day Years [...] [facility] [address] [place] [address] Leeanna Solis, MIRNA 505 [place], [place] [phone] documented as of this encounter Visit Diagnoses Not on filedocumented in this encounter Care Teams Machine Feeder Floorperson Relationship Specialty Start Date End Date Liz Barboza MD [address] [place] [address] PCP - General Internal Medicine 10/05/17 documented as of this encounter
--- OUTSIDE RECORDS SUMMARY | 2024-10-22 09:21 | XMS_ITS | Encounter Summary ---
Author Organization [facility], Address [address] [place] [address] Phone Care Team Providers Care Automatic Mold Sander Name Role Phone Liz Barboza MD Primary Care Provider +1 [phone] Encounter Details Date Type Department Care Team (Late Contact Info) Description 11/08/2021 Documentation Only [facility] [address] [place] [phone] Elvira Barron PA Social History Tobacco Use [...] Upcoming Encounters Date Type Department Care Team ([facility] Contact Info) Description 12/31/2024 1:40 PM EST Office Visit [facility] [address] [place] [phone] Sajan Mandel MD [address] [place] [address] [place] [phone] documented as of this encounter Visit Diagnoses Not on filedocumented in this encounter Care Teams Automatic Mold Sander Relationship Specialty Start Date End Date Liz Barboza MD PCP - General 01/01/19 documented as of this encounter
--- OUTSIDE RECORDS SUMMARY | 2024-10-22 09:21 | XMS_ITS | Encounter Summary ---
Author Organization [facility] Address [address] [place] [address] Phone Care Team Providers Care Childbirth And Infant Care Teacher Name Role Phone Liz Barboza MD Primary Care Provider +1- [phone] Reason for Visit * Reason Comments Med Refill Encounter Details Date Type Department Care Team (Late st Contact Info) Description 07/12/2021 Refill [facility] [place] [address] [place] [phone] Sajan Mandel MD [address] [place] [address] [place] [address] Social History Tobacco Use Types [...] Office Visit [facility] [place], [address] [place] [phone] Sajan Mandel MD [address] [place] [address] [place] [phone] documented as of this encounter Visit Diagnoses Not on filedocumented in this encounter Care Teams Childbirth And Infant Care Teacher Relationship Specialty Start Date End Date Liz Barboza MD PCP - General 01/01/19 documented as of this encounter
--- OUTSIDE RECORDS SUMMARY | 2024-10-22 09:21 | XMS_ITS | Encounter Summary ---
Author Organization [employer] Address 75 [facility] 7 [place] [address] Care Team Providers Care Natural History Collections Curator Name Role Phone Liz Barboza MD Primary Care Provider +1 [phone] Reason for Visit * Reason Comments Med Refill Encounter Details Date Type Department Care Team ([facility] st Contact Info) Description 01/11/2024 Refill [facility] CHC MED & PEDS 505 [place], [place] [phone] Liz Barboza MD 505 [place] [address] Anxiety disorder, unspecified Social History Tobacco Use [...] Description 11/20/2024 2:45 PM EDT Clinical Support [facility] MED & PEDS 505 [place] [address] Leeanna Solis, MIRNA 505 [place] [address] documented as of this encounter Visit Diagnoses Diagnosis Anxiety disorder, unspecified documented in this encounter Additional Health Concerns Assessment Noted Time PHQ-9 Depression Total Score: 0 10/25/19 23 9:41 AM EDT documented as of this encounter Care Teams Natural History Collections Curator Relationship Specialty Start Date End Date Liz Barboza MD 505 [place] [address] PCP - General Internal Medicine 10/05/17 documented as of this encounter
--- OUTSIDE RECORDS SUMMARY | 2024-10-22 09:21 | XMS_ITS | Encounter Summary ---
Author Organization [facility], Address [address] [place] [address] Phone Care Team Providers Care Process Safety Management Engineer Name Role Phone Liz Barboza MD Primary Care Provider [phone] [phone] Encounter Details Date Type Department Care Team (Late Contact Info) Description 11/08/2021 Documentation Only [facility] [address] [place] [phone] Elvira Barron PA Social History Tobacco Use [...] Upcoming Encounters Date Type Department Care Team ([facility] Contact Info) Description 12/31/2024 1:40 PM EST Office Visit [facility] [address] [place] [phone] Sajan Mandel MD [address] [place] [address] [place] [phone] documented as of this encounter Visit Diagnoses Not on filedocumented in this encounter Care Teams Process Safety Management Engineer Relationship Specialty Start Date End Date Liz Barboza MD PCP - General 01/01/19 documented as of this encounter
--- OUTSIDE RECORDS SUMMARY | 2024-10-22 09:21 | XMS_ITS | Encounter Summary ---
Author Organization [employer] Address [address] [facility] 7 [place] [address] Care Team Providers Care Ore Grader Name Role Phone Liz Barboza MD Primary Care Provider +1 [phone] Encounter Details Date Type Department Care Team (Late st Contact Info) Description 05/10/2024 Orders Only [facility] MEDICINE [address] [place] [address] Liz Barboza MD 505 [place] [address] Other specified hypothyroidism (Primary Dx) Social History [...] your housing situation today? I have mariama criss 05/09/[address] you li [...] Upcoming Encounters Date Type Department Care Team ([facility] st Contact Info) Description 11/20/2024 2:45 PM EDT Clinical Support [facility] CHC MED & PEDS 505 [place] [address] Leeanna Solis, MIRNA 505 [place] [address] documented as of this encounter Visit Diagnoses Diagnosis Other specified hypothyroidism- Primary documented in this encounter Additional Health Concerns Assessment Noted Time PHQ-9 Depression Total Score: 3 05/10/19 25 9:59 AM EDT documented as of this encounter Care Teams Ore Grader Relationship Specialty Start Date End Date Liz Barboza MD 505 [place] [address] PCP - General Internal Medicine 10/05/17 documented as of this encounter
--- OUTSIDE RECORDS SUMMARY | 2024-10-22 09:21 | XMS_ITS | Encounter Summary ---
Author Organization [facility] Address [address] [place] [address] Phone Care Team Providers Care City Editor Name Role Phone Liz Barboza MD Primary Care Provider [phone]- [phone] Reason for Visit * Reason Comments Med Refill Encounter Details Date Type Department Care Team (Late st Contact Info) Description 07/01/2021 Refill [facility] [address] [place] [phone] Sajan Mandel MD [address] [place] [address] [place] [address] Social History Tobacco Use Types [...] Office Visit [facility], [address] [place] [phone] Sajan Mandel MD [address] [place] [address] [place] [phone] documented as of this encounter Visit Diagnoses Not on filedocumented in this encounter Care Teams City Editor Relationship Specialty Start Date End Date Liz Barboza MD PCP - General 01/01/19 documented as of this encounter
--- OUTSIDE RECORDS SUMMARY | 2024-10-22 09:21 | XMS_ITS | Encounter Summary ---
Author Organization [employer] Address 75 [facility] [place] [address] Care Team Providers Care Strip Cutter Name Role Phone Liz Barboza MD Primary Care Provider +1- [phone] Reason for Visit * Reason Onset Date Comments Med Refill 01/15/2023 Encounter Details Date Type Department Care Team ([facility] st Contact Info) Description 01/15/2023 Refill [facility] CHC MED & PEDS [address] [place] [address] Liz Barboza MD 505 [place] [address] Anxiety (Primary Dx); Primary osteoarthritis of other [...] is your housing situation today? 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
--- OUTSIDE RECORDS SUMMARY | 2024-10-22 09:21 | XMS_ITS | Encounter Summary ---
Author Organization [employer] Address [address] [place] [address] Care Team Providers Care Desk Editor Name Role Phone Liz Barboza MD Primary Care Provider +1 [phone] Reason for Visit * Reason Comments Med Refill Encounter Details Date Type Department Care Team ([facility] Contact Info) Description 08/01/2022 Refill [facility] MED & PEDS 505 [place] [address] Liz Barboza MD 505 [place] [address] Social History Tobacco Use Types Packs/Day Years [...] Upcoming Encounters Date Type Department Care Team ([facility] Contact Info) Description 11/20/2024 2:45 PM EDT Clinical Support [facility] MED & PEDS [address] [place] [address] Leeanna Solis RN 505 [place], [place] [phone] documented as of this encounter Visit Diagnoses Not on filedocumented in this encounter Care Teams Desk Editor Relationship Specialty Start Date End Date Liz Barboza MD [address] [place] [address] PCP - General Internal Medicine 10/05/17 documented as of this encounter
--- OUTSIDE RECORDS SUMMARY | 2024-10-22 09:21 | XMS_ITS | Encounter Summary ---
Author Organization [employer] Address 75 [facility] [address] [place] [address] Care Team Providers Care Integrity Consultant Name Role Phone Liz Barboza MD Primary Care Provider +1 [phone] Reason for Visit * Reason Comments Med Refill Encounter Details Date Type Department Care Team ([facility] st Contact Info) Description 05/19/2023 Refill [facility] CHC MED & PEDS [address] [place], [place] [phone] Liz Barboza MD 505 [place] [address] Anxiety disorder, unspecified; Anxiety Social History Tobacco [...] Description 11/20/2024 2:45 PM EDT Clinical Support [facility] MED & PEDS [address] [place] [address] Leeanna Solis RN 505 [place] [address] documented as of this encounter Visit Diagnoses Diagnosis Anxiety disorder, unspecified Anxiety Anxiety state, unspecified documented in this encounter Additional Health Concerns Assessment Noted Time PHQ-9 Depression Total Score: 0 10/25/19 23 9:41 AM EDT documented as of this encounter Care Teams Integrity Consultant Relationship Specialty Start Date End Date Liz Barboza MD [address] [place] [address] PCP - General Internal Medicine 10/05/17 documented as of this encounter
--- OUTSIDE RECORDS SUMMARY | 2024-10-22 09:21 | XMS_ITS | Encounter Summary ---
Author Organization [facility], Address [address] [place] [address] Phone Care Team Providers Care Produce Clerk Name Role Phone Liz Barboza MD Primary Care Provider +1 [phone] Encounter Details Date Type Department Care Team (Late Contact Info) Description 08/02/2021 Documentation Only [facility] [address] [place] [place] [phone] Elvira Barron PA Social History Tobacco Use [...] Department Care Team ([facility] Contact Info) Description 12/31/2024 1:40 PM EST Office Visit [facility] [address] [place] [phone] Sajan Mandel MD [address] [place] [address] [place] [phone] documented as of this encounter Visit Diagnoses Not on filedocumented in this encounter Care Teams Produce Clerk Relationship Specialty Start Date End Date Liz Barboza MD PCP - General 01/01/19 documented as of this encounter
--- OUTSIDE RECORDS SUMMARY | 2024-10-22 09:21 | XMS_ITS | Encounter Summary ---
Author Organization [employer] Address 75 [facility] 7 [place] [address] Care Team Providers Care Photograph Mounter Name Role Phone Liz Barboza MD Primary Care Provider +1 [phone] Encounter Details Date Type Department Care Team ([facility] st Contact Info) Description 04/14/2023 Orders Only [facility] CHC MED & PEDS [address] [place], [place] [phone] Liz Barboza MD 505 [place] [address] Social History Tobacco Use Types Packs/Day Years [...] Description 11/20/2024 2:45 PM EDT Clinical Support [facility] CHC MED & PEDS [address] [place] [address] Leeanna Solis, RN 505 [place] [address] documented as of this encounter Visit Diagnoses Not on filedocumented in this encounter Additional Health Concerns Assessment Noted Time PHQ-9 Depression Total Score: 0 10/25/19 23 9:41 AM EDT documented as of this encounter Care Teams Photograph Mounter Relationship Specialty Start Date End Date Liz Barboza MD 505 [place] [address] PCP - General Internal Medicine 10/05/17 documented as of this encounter
--- OUTSIDE RECORDS SUMMARY | 2024-10-22 09:21 | XMS_ITS | Encounter Summary ---
Author Organization [employer] Address [address] [facility] 7 [place] [address] Care Team Providers Care Print Traffic Manager Name Role Phone Liz Barboza MD Primary Care Provider +1 [phone] Encounter Details Date Type Department Care Team ([facility] st Contact Info) Description 02/10/[address] [facility] CHC MED & PEDS [address] [place], [place] [phone] Liz Barboza MD 505 [place] [address] Social History Tobacco Use Types Packs/Day Years [...] Description 11/20/2024 2:45 PM EDT Clinical Support [facility] CHC MED & PEDS [address] [place] [address] Leeanna Solis, RN 505 [place] [address] documented as of this encounter Visit Diagnoses Not on filedocumented in this encounter Additional Health Concerns Assessment Noted Time PHQ-9 Depression Total Score: 0 10/25/19 23 9:41 AM EDT documented as of this encounter Care Teams Print Traffic Manager Relationship Specialty Start Date End Date Liz Barboza MD [address] [place] [address] PCP - General Internal Medicine 10/05/17 documented as of this encounter
--- OUTSIDE RECORDS SUMMARY | 2024-10-22 09:21 | XMS_ITS | Encounter Summary ---
Author Organization [employer] Address [address] [place] [address] Care Team Providers Care Tab Builder Name Role Phone Liz Barboza MD Primary Care Provider +1- [phone] Reason for Visit * Reason Comments Med Refill Encounter Details Date Type Department Care Team ([facility] Contact Info) Description 04/19/2022 Refill [facility] MED & PEDS [address] [place], [place] [phone] Liz Barboza MD 505 [place] [address] Anxiety disorder, unspecified Social History Tobacco Use [...] Upcoming Encounters Date Type Department Care Team ([facility] Contact Info) Description 11/20/2024 2:45 PM EDT Clinical Support [facility] MED & PEDS [address] [place] [address] Leeanna Solis, MIRNA 505 [place], [place] [phone] documented as of this encounter Visit Diagnoses Diagnosis Anxiety disorder, unspecified documented in this encounter Care Teams Tab Builder Relationship Specialty Start Date End Date Liz Barboza MD 505 [place] [address] PCP - General Internal Medicine 10/05/17 documented as of this encounter
--- OUTSIDE RECORDS SUMMARY | 2024-10-22 09:21 | XMS_ITS | Encounter Summary ---
Author Organization [facility] Address [address] [place] [address] Phone Care Team Providers Care College Intern Name Role Phone Liz Barboza MD Primary Care Provider +1- [phone] Reason for Visit * Reason Comments Med Refill Encounter Details Date Type Department Care Team (Late st Contact Info) Description 07/05/2021 Refill [facility] [address] [place] [phone] Sajan Mandel MD [address] [place] [address] [place] [address] Social History Tobacco Use Types [...] Office Visit [facility], [address] [place] [address] Sajan Mnadel MD [address] [place] [address] [place] [address] documented as of this encounter Visit Diagnoses Not on filedocumented in this encounter Care Teams College Intern Relationship Specialty Start Date End Date Liz Barboza MD PCP - General 01/01/19 documented as of this encounter
--- OUTSIDE RECORDS SUMMARY | 2024-10-22 09:21 | XMS_ITS | Encounter Summary ---
Author Organization [facility], Address [address] [place] [address] Phone Care Team Providers Care Supervisor Paste Mixing Name Role Phone Liz Barboza MD Primary Care Provider +1 [phone] Reason for Visit * Reason Comments Med Refill Encounter Details Date Type Department Care Team (Late st Contact Info) Description 12/19/2019 Refill [facility] [address] [place] [phone] Kai Thomas MD Social History Tobacco Use [...] Visit [facility] [place] [facility] [place], [address] [facility] [address] Sajan Mandel MD [address] [facility] [place] [address] documented as of this encounter Visit Diagnoses Not on filedocumented in this encounter Care Teams Supervisor Paste Mixing Relationship Specialty Start Date End Date Liz Barboza MD PCP - General 01/01/19 documented as of this encounter
--- OUTSIDE RECORDS SUMMARY | 2024-10-22 09:21 | XMS_ITS | Encounter Summary ---
Author Organization [facility] Address [address] [place] [address] Phone Care Team Providers Care Sample Case Porter Name Role Phone Liz Barboza MD Primary Care Provider +1- [phone] Reason for Visit * Reason Comments Med Refill Encounter Details Date Type Department Care Team (Late st Contact Info) Description 07/02/2021 Refill [facility] [address] [place] [address] Sajan Mandel MD [address] [place] [address] [place] [address] Social History Tobacco Use Types [...] Office Visit [facility], [address] [place] [address] Sajan Mandel MD [address] [place] [address] [place] [address] documented as of this encounter Visit Diagnoses Not on filedocumented in this encounter Care Teams Sample Case Porter Relationship Specialty Start Date End Date Liz Barboza MD PCP - General 01/01/19 documented as of this encounter
[2024-10-22 14:58] LABS: Anion Gap 12 (12-20); Blood Urea Nitrogen 18 mg/dL (9-16); Calcium 9.6 mg/dL (8.4-10.2); Carbon Dioxide 27 mmol/L (22-29); Chloride 103 mmol/L (96-108); Estimated Glomerular Filt Rate 49; Potassium 3.6 mmol/L (3.3-5.1); Sodium 138 mmol/L (135-145)
== END 2024-10-22 08:55 | disposition home or self-care (01) ==
LOC: HO.CHCLDS 08:54
PROVIDERS: Visit Provider Internal Medicine
DX: E87.6 Hypokalemia (principal)
CPT/HCPCS: 36415; 80048

== ENCOUNTER 2024-10-30 10:31 | Outpatient (REF) | payer MEDICARE, MEDICAID, SELFPAY ==
--- NOTE | ~2024-10-30 | MR_ITS ---
EXAMINATION: MR BRAIN WITHOUT CONTRAST CLINICAL INFORMATION: Tinnitus, right-sided. COMPARISON: None available. TECHNIQUE: MRI of the brain was obtained using routine sequences without contrast. Axial and coronal 2-D 3-D space sequences through the internal auditory canals FINDINGS: No restricted diffusion. No acute intracranial hemorrhage, mass effect, midline shift, hydrocephalus or herniation. Morton-white matter differentiation is normal. Bilateral multifocal patchy and punctate subcortical deep white matter hyperintense T2 FLAIR signal involving centrum semiovale and bower radiata. No signal abnormality or gross masses in the cochlear and vestibular components of the 8th cranial nerves at either side. No gross masses in the cerebellar pontine angle cisterns. The anterior inferior cerebral arteries are type I bilaterally. Normal position of the internal jugular bulbs. Sellar/suprasellar region is normal. Craniocervical junction demonstrates normal position of the cerebellar tonsils. Hyperintense T2 FLAIR signal in the right mastoid air cells. Flow-void signal within the main cerebral vessels is normal. 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 MR/MR head/brain wo con IMPRESSION: No acute stroke/nonhemorrhagic ischemia. White matter disease likely related to small vessel occlusive disease. No signal abnormality in the 8th cranial nerves. Electronically signed by: Umesh Riddle MD 10/30/2024 12:13 PM EDT
--- OUTSIDE RECORDS SUMMARY | 2024-10-30 12:22 | XMS_ITS | Encounter Summary ---
Author Organization [employer] Address [address] [place] [address] [address], [place] [address] Care Team Providers Care Air Press Operator Name Role Phone Liz Barboza MD Primary Care Provider [phone]- [phone] Encounter Details Date Type Department Care Team (Late Contact Info) Description 01/28/2022 Telephone [facility] MED & PEDS [address] [place] [address] Liz Barboza MD [address] [place] [address] Social History Tobacco Use Types Packs/Day Years [...] Department Care Team (Late Contact Info) Description 11/01/2024 2:45 PM EDT Office Visit [facility] PEDS [address] [place] [address] Liz Barboza MD [address] [place] [address] 11/20/2024 2:45 PM EDT Clinical Support [facility] MED & PEDS [address] [place] [address] Leeanna Solis, MIRNA [address] [place] [address] documented as of this encounter Visit Diagnoses Not on filedocumented in this encounter Care Teams Air Press Operator Relationship Specialty Start Date End Date Liz Barboza MD [address] [place] [address] PCP - General Internal Medicine 10/05/17 documented as of this encounter
--- OUTSIDE RECORDS SUMMARY | 2024-10-30 12:22 | XMS_ITS | Encounter Summary ---
Author Organization [employer] Address [address] [place] [address] Care Team Providers Care Government Services Professional Name Role Phone Liz Barboza MD Primary Care Provider [phone]- [phone] Reason for Visit * Reason Comments Med Refill Encounter Details Date Type Department Care Team ([facility] Contact Info) Description 04/19/2022 Refill [facility] MED & PEDS [address] [place], [place] [phone] Liz Barboza MD [address] [place] [address] Anxiety disorder, unspecified Social History Tobacco Use [...] Upcoming Encounters Date Type Department Care Team ([facility] Contact Info) Description 11/01/2024 2:45 PM EDT Office Visit [facility] MED & PEDS [address] [place] [address] Liz Barboza MD [address] [place] [address] 11/20/2024 2:45 PM EDT Clinical Support [facility] MED & PEDS [address] [place] [address] Leeanna Solis RN [address] [place] [address] documented as of this encounter Visit Diagnoses Diagnosis Anxiety disorder, unspecified documented in this encounter Care Teams Government Services Professional Relationship Specialty Start Date End Date Liz Barboza MD [address] [place] [address] PCP - General Internal Medicine 10/05/17 documented as of this encounter
--- OUTSIDE RECORDS SUMMARY | 2024-10-30 12:22 | XMS_ITS | Encounter Summary ---
Author Organization [facility], Address [address] [place] [address] Phone Care Team Providers Care Maintenance Scheduler Name Role Phone Liz Barboza MD Primary Care Provider [phone]- [phone] Reason for Visit * Reason Onset Date Comments Med Refill 08/04/2022 Encounter Details Date Type Department Care Team (Late st Contact Info) Description 08/04/2022 [facility]ill [facility] [address] [place] [phone] Sajan Mandel MD [address] [place] [address] [place] [phone] Social History Tobacco Use Types Packs/Day Years [...] Visit [facility], [address] [place] [phone] Sajan Mandel MD [address] [place] [phone] documented as of this encounter Visit Diagnoses Not on filedocumented in this encounter Care Teams Maintenance Scheduler Relationship Specialty Start Date End Date Liz Barboza MD PCP - General 01/01/19 documented as of this encounter
--- OUTSIDE RECORDS SUMMARY | 2024-10-30 12:22 | XMS_ITS | Encounter Summary ---
Author Organization [employer] Address [address] [place] [address] Care Team Providers Care Greige Goods Examiner Name Role Phone Liz Barboza MD Primary Care Provider [phone] Reason for Visit * Reason Comments Med Refill Encounter Details Date Type Department Care Team ([facility] Contact Info) Description 08/01/2022 Refill [facility] MED & PEDS [address] [place] [address] Liz Barboza MD [address] [place] [address] Social History Tobacco Use Types Packs/Day Years [...] Upcoming Encounters Date Type Department Care Team ([facility] Contact Info) Description 11/01/2024 2:45 PM EDT Office Visit [facility] MED & PEDS [address] [place] [address] Liz Barboza MD [address] [place], [place] [phone] 11/20/2024 2:45 PM EDT Clinical Support [facility] MED & PEDS [address] [place] [address] Leeanna Solis RN [address] [place] [address] documented as of this encounter Visit Diagnoses Not on filedocumented in this encounter Care Teams Greige Goods Examiner Relationship Specialty Start Date End Date Liz Barboza MD [address] [place] [address] PCP - General Internal Medicine 10/05/17 documented as of this encounter
--- OUTSIDE RECORDS SUMMARY | 2024-10-30 12:22 | XMS_ITS | Encounter Summary ---
Author Organization [facility] Address [address] [place] [address] Phone Care Team Providers Care Tree Tapping Laborer Name Role Phone Liz Barboza MD Primary Care Provider [phone]- [phone] Reason for Visit * Reason Comments Med Refill Encounter Details Date Type Department Care Team (Late st Contact Info) Description 07/05/2021 Refill [facility] [address] [place] [phone] Sajan Mandel MD [address] [place] [address] [place] [address] Social History Tobacco Use Types [...] Office Visit [facility], [address] [place] [phone] Sajan Mandel MD [address] [place] [address] [place] [phone] documented as of this encounter Visit Diagnoses Not on filedocumented in this encounter Care Teams Tree Tapping Laborer Relationship Specialty Start Date End Date Liz Barboza MD PCP - General 01/01/19 documented as of this encounter
--- OUTSIDE RECORDS SUMMARY | 2024-10-30 12:22 | XMS_ITS | Clinical Summary ---
Author Organization [facility], Address [address] [place] [address] [place] [address] Phone Care Team Providers Care Package Clerk Name Role Phone Liz Barboza MD Primary Care Provider [phone]- [phone] Allergies No known active allergies Medications levothyroxine [...] 8 (eight) hours if needed 0 Active [place]-3 1000 MG capsule Take 1,000 mg by [...] Visit [facility] [address] [place] [address] Sajan Mandel MD Stage 3a chronic kidney [...] Visit [facility], [address] [place] [phone] Sajan Mandel MD [address] [place] [phone] Health Maintenance Due Date Last Done Comments Influenza Vaccine (#1) 2024 4, 12/24/2020, 12/03/2019, Additional history exists Pneumococcal Vaccine: 50+ Years Completed 11/09/2021, 01/21/2014 Pneumococcal Vaccine: Peds (0 to 5 Years) and At-Risk Patients (6 to 49 Years) Discontinued 11/09/2021, 01/21/2014 Hepatitis B Vaccine Aged Out No longe r eligible based on patient's age to complete this topic Insurance Medicaid [place] Medicare Care Teams Package Clerk Relationship Specialty Start Date End Date Liz Barboza MD PCP - General 01/01/19
--- OUTSIDE RECORDS SUMMARY | 2024-10-30 12:22 | XMS_ITS | Encounter Summary ---
Author Organization [employer] Address [address] [place] [address] Care Team Providers Care Wool Dyer Name Role Phone Liz Barboza MD Primary Care Provider [phone]- [phone] Encounter Details Date Type Department Care Team (Late st Contact Info) Description 01/24/[address] [facility] MEDICINE [address] [place], [place] [phone] ProviderGene MD Social History Tobacco Use Types [...] Description 11/01/2024 2:45 PM EDT Office Visit [facility] MED & PEDS [address] [place] [address] Liz Barboza MD [address] [place] [address] 11/20/2024 2:45 PM EDT Clinical Support [facility] MED & PEDS [address] [place] [address] Leeanna Solis, MIRNA [address] [place] [address] documented as of this encounter Visit Diagnoses Not on filedocumented in this encounter Care Teams Wool Dyer Relationship Specialty Start Date End Date Liz Barboza MD [address] [place] [address] PCP - General Internal Medicine 10/05/17 documented as of this encounter
--- OUTSIDE RECORDS SUMMARY | 2024-10-30 12:22 | XMS_ITS | Encounter Summary ---
Author Organization [employer] Address [address] [facility] [address] [place] [address] Care Team Providers Care Spinning Operator Name Role Phone Liz Barboza MD Primary Care Provider [phone]- [phone] Reason for Visit * Reason Onset Date Comments Med Refill 01/15/2023 Encounter Details Date Type Department Care Team ([facility] st Contact Info) Description 01/15/2023 Refill [facility] MED & PEDS [address] [place] [address] Liz Barboza MD [address] [place] [address] Anxiety (Primary Dx); Primary osteoarthritis of other [...] Care Team (Late st Contact Info) Description 11/01/2024 2:45 PM EDT Office Visit [facility] MED & PEDS [address] [place] [address] Liz Barboza MD [address] [place] [address] 11/20/2024 2:45 PM EDT Clinical Support [facility] MED & PEDS [address] [place] [address] Leeanna Solis, MIRNA [address] [place] [address] documented as of this encounter Visit Diagnoses Diagnosis Anxiety- Primary Anxiety state, unspecified Primary osteoarthritis of other site Unspecified chronic gastritis without bleeding Anxiety disorder, unspecified documented in this encounter Additional Health Concerns Assessment Noted Time PHQ-9 Depression Total Score: 0 10/25/19 23 9:41 AM EDT documented as of this encounter Care Teams Spinning Operator Relationship Specialty Start Date End Date Liz Barboza MD [address] [place] [address] PCP - General Internal Medicine 10/05/17 documented as of this encounter
--- OUTSIDE RECORDS SUMMARY | 2024-10-30 12:22 | XMS_ITS | Encounter Summary ---
Author Organization [employer] Address [address] [facility] 7 [place] [address] Care Team Providers Care Grocery Stocker Name Role Phone Liz Barboza MD Primary Care Provider [phone] Encounter Details Date Type Department Care Team (Latest Contact Info) Description 10/29/2024 Travel Social History Tobacco Use Types Packs/Day [...] 11/01/2024 2:45 PM EDT Office Visit [facility] MED & PEDS [address] [place] [address] Liz Barboza MD [address] [place] [address] 11/20/2024 2:45 PM EDT Clinical Support [facility] MED & PEDS [address] [place] [address] Leeanna Solis, MIRNA [address] [place] [address] documented as of this encounter Visit Diagnoses Not on filedocumented in this encounter Additional Health Concerns Assessment Noted Time PHQ-9 Depression Total Score: 3 05/10/19 25 9:59 AM EDT documented as of this encounter Care Teams Grocery Stocker Relationship Specialty Start Date End Date Liz Barboza MD [address] [place] [address] PCP - General Internal Medicine 10/05/17 documented as of this encounter
--- OUTSIDE RECORDS SUMMARY | 2024-10-30 12:22 | XMS_ITS | Clinical Summary ---
Author Organization [employer] Address [address] [facility] 7 [place] [address] Care Team Providers Care Employment Consultant Name Role Phone Liz Barboza MD Primary Care Provider +1- [phone] Allergies No known active allergies Medications famotidine [...] Encounters Date Type Department Care Team Description 10/29/2024 Travel 10/29/2024 Telephone [facility] [address] [place] [address] [phone] Liz Barboza MD Pre-op Visit 10/22/2024 Results Follow-Up [facility] [address] [place], [place] [phone] Stephanie Hooper RN Basic Metabolic Panel 10/17/2024 Results Follow-Up [facility] [address] [place], [place] [phone] Demetria Heredia RN Comprehensive Metabolic Panel, TSH W/Reflex to FT4 10/16/2024 9:00 AM EDT Office Visit [facility] [address] [place], [place] [phone] Liz Barboza MD Primary hypertension (Primary Dx); Other specified hypothyroidism; Stage 3a chronic kidney disease (CMS/HCC); Pulsatile tinnitus, right ear 10/16/2024 Orders Only [facility] [address] [place] [address] Liz Barboza MD Hypokalemia (Primary Dx) 10/16/2024 Travel 10/15/2024 Telephone [facility] [address] [place] [address] Liz Barboza MD Chart Prep 10/11/2024 Refill [facility] [address] [place] [address] Liz Barboza MD Essential (primary) hypertension 10/09/2024 Travel 10/02/2024 Refill [facility] [address] [place] [address] Liz Barboza MD 10/02/2024 Refill [facility] [address] [place] [address] Liz Barboza MD 09/12/2024 Telephone [facility] [address] [place] [address] Liz Barboza MD 09/09/2024 2:00 PM EDT Telemedicine [facility] [address] [place] [address] Leeanna Solis RN Long-term current use of opiate analgesic 09/09/2024 Travel 08/06/2024 Refill [facility] [address] [place] [address] Pantera Hector MD from Last 3 Months [...] Description 11/01/2024 2:45 PM EDT Office Visit [facility] [address] [place] [address] Liz Barboza MD [address] [place] [address] 11/20/2024 2:45 PM EDT Clinical Support [facility] [address] [place] [address] Leeanna Solis RN [address] [place] [address] Health Maintenance Due Date Last Done Comments [...] Tdap) 01/12/2028 01/11/2018 Lipid Panel 05/09/2029 05/09/2024, 10/0 04/2023, 10/25/2022, Additional history exists Zoster Vaccines Completed [...] Procedure Name Priority Date/Time Associated Diagnosis Comments MR BRAIN WO CONTRAST Routine 10/30/2024 9:48 AM EDT BASIC METABOLIC PANEL Routine 10/22/2024 8:55 AM EDT Hypokalemia TSH W/REFLEX TO FT4 Routine 10/16/2024 9 [...] Recently Relevant to Health Maintenance Results * MR Brain w/o Contrast (10/30/2024 9:48 AM EDT) Anatomical Region Laterality Modality Brain Magnetic Resonan ce 10/30/2024 9:48 AM EDT Narrative 10/30/2024 12:16 PM EDT [place] [address] Magnetic Resonance Report Signed Patient: Kelsey Villareal MR#: [id number] : 1945 Acct:[id number] Age/Sex: 78 / F ADM Date: 10/30/24 Loc: HO.MRI Attending Dr: Liz Barboza MD Ordering Physician: Liz Barboza MD Date of Service: 10/30/24 Procedure(s): MR head/brain wo con Accession Number(s): [id number] cc: Liz Barboza MD Reason for Exam: Tinnitus of the right ear x more than a month. EXAMINATION: MR BRAIN WITHOUT CONTRAST CLINICAL INFORMATION: Tinnitus, right-sided. COMPARISON: None available. TECHNIQUE: MRI of the brain was obtained using routine sequences without contrast. Axial and coronal 2-D 3-D space sequences through the internal auditory canals FINDINGS: No restricted diffusion. No acute intracranial hemorrhage, mass effect, midline shift, hydrocephalus or herniation. Morton-white matter differentiation is normal. Bilateral multifocal patchy and punctate subcortical deep white matter hyperintense T2 FLAIR signal involving centrum semiovale and bower radiata. No signal abnormality or gross masses in the cochlear and vestibular components of the 8th cranial nerves at either side. No gross masses in the cerebellar pontine angle cisterns. The anterior inferior cerebral arteries are type I bilaterally. Normal position of the internal jugular bulbs. Sellar/suprasellar region is normal. Craniocervical junction demonstrates normal position of the cerebellar tonsils. Hyperintense T2 FLAIR signal in the right mastoid air cells. Flow-void signal within the main cerebral vessels is normal. Probable origin right MOLD MAINTENANCE TECHNICIAN. 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 MR/MR head/brain wo con IMPRESSION: No acute stroke/nonhemorrhagic ischemia. White matter disease likely related to small vessel occlusive disease. No signal abnormality in the 8th cranial nerves. Electronically signed by: Umesh Riddle MD 10/30/2024 12:13 PM EDT RP Dictated By: Umesh Garnica MD Signed By: <Electronically signed by Umesh Swan MD in [place]> 10/30/24 1213 DD/ 0948 TD/TT: 10/30/24 1120 Storage Center Manager: Procedure Note Donotuseinterpreter, Image - 10/30/2024 [place] [address] Magnetic Resonance Report Signed Patient: Kelsey Villareal#: [id number] : 1945cct:[id number] Age/Sex: 78 / FADM Date: 10/30/24 Loc: HO.MRI Attending Dr: Liz Barboza MD Ordering Physician: Liz Barboza MD Date of Service: 10/30/24 Procedure(s): MR head/brain wo con Accession Number(s): [id number] cc: Liz Barboza MD Reason for Exam: Tinnitus of the right ear x more than a month. EXAMINATION: MR BRAIN WITHOUT CONTRAST CLINICAL INFORMATION: Tinnitus, right-sided. COMPARISON: None available. TECHNIQUE: MRI of the brain was obtained using routine sequences without contrast. Axial and coronal 2-D 3-D space sequences through the internal auditory canals FINDINGS: No restricted diffusion. No acute intracranial hemorrhage, mass effect, midline shift, hydrocephalus or herniation. Morton-white matter differentiation is normal. Bilateral multifocal patchy and punctate subcortical deep white matter hyperintense T2 FLAIR signal involving centrum semiovale and bower radiata. No signal abnormality or gross masses in the cochlear and vestibular components of the 8th cranial nerves at either side. No gross masses in the cerebellar pontine angle cisterns. The anterior inferior cerebral arteries are type I bilaterally. Normal position of the internal jugular bulbs. Sellar/suprasellar region is normal. Craniocervical junction demonstrates normal position of the cerebellar tonsils. Hyperintense T2 FLAIR signal in the right mastoid air cells. Flow-void signal within the main cerebral vessels is normal. Probable origin right MOLD MAINTENANCE TECHNICIAN. 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 MR/MR head/brain wo con IMPRESSION: No acute stroke/nonhemorrhagic ischemia. White matter disease likely related to small vessel occlusive disease. No signal abnormality in the 8th cranial nerves. Electronically signed by: Umesh Riddle MD 10/30/2024 12:13 PM EDT RP Dictated By: Umesh Garnica MD Signed By: <Electronically signed by Umesh Swan MDin OV> 10/30/24 1213 DD/ 0948 TD/TT: 10/30/24 1120 Storage Center Manager: us Liz Barboza MD IM MRI PROCEDURES Final Re sult * (ABNORMAL) Basic Metabolic Panel (10/22/2024 8:55 AM EDT) Sodium 138 135 - 145 mmol/L [facility] Potassium 3.6 3.3 - 5.1 mmol/L [facility] Comment:Slight Hemolysis.Int erpret result with caution. Chloride 103 96 - 108 mmol/L [facility] Carbon Dioxide 27 22 - 29 mmol/L [facility] Anion Gap 12 12 - 20 [facility] Urea Nitrogen (BUN) 18(H) 9 - 16 mg/dL [facility] Creatinine, Serum 1.09 0.5 - 1.4 mg/dL [facility] Estimated Glomerular Filt Rate 49 [facility] Comment:Chronic Kidney Disea se: Estimated GFR < 60 mL/min/1.99j3Seuhyp Kidney Disease: Estimated GFR < 15 mL/min/1.73m2 Glucose 97 60 - 115 mg/dL [facility] Calcium 9.6 8.4 - 10.2 mg/dL [facility] Blood Venous blood specimen / Unknown 10/22/2024 8:55 AM EDT 10/22/2024 1:58 PM EDT us Liz Barboza MD LAB BLOOD ORDERABLES Final Result Performing Organization Address [facility]/ZIP Co de Phone Number [facility] [address] [place] [phone] * TSH W/Reflex to FT4 (10/16/2024 9:30 AM EDT) TSH reflex Free T4 1.55 0.32 - 4.0 uIU/mL [facility] Blood Venous blood specimen / Unknown 10/16/2024 9:30 AM EDT 10/16/2024 2:34 PM EDT us Liz Barboza MD LAB BLOOD ORDERABLES Final Result Performing Organization Address [facility]/ZIP Co de Phone Number [facility] [address] [place] [phone] * (ABNORMAL) Comprehensive Metabolic Panel (10/16/2024 9:30 AM EDT) Sodium 136 135 - 145 mmol/L [facility] Potassium 3.1(L) 3.3 - 5.1 mmol/L [facility] Chloride 100 96 - 108 mmol/L [facility] Carbon Dioxide 26 22 - 29 mmol/L [facility] Anion Gap 13 12 - 20 [facility] Urea Nitrogen (BUN) 16 9 - 16 mg/dL [facility] Creatinine, Serum 1.03 0.5 - 1.4 mg/dL [facility] Estimated Glomerular Filt Rate 52 [facility] Comment:Chronic Kidney Disea se: Estimated GFR < 60 mL/min/1.15v9Nluhag Kidney Disease: Estimated GFR < 15 mL/min/1.73m2 Glucose 104 60 - 115 mg/dL [facility] Calcium 9.2 8.4 - 10.2 mg/dL [facility] Bilirubin, Total 0.6 0.0 - 1.0 mg/dL [facility] Aspartate Amino Transferase 30 5 - 31 U/L [facility] Alanine Aminotransferase 12 0 - 31 U/L [facility] Total Protein 8.0 6.5 - 8.0 g/dL [facility] Albumin Level 4.7 3.5 - 5.0 g/dL [facility] Alkaline Phosphatase 68 39 - 117 U/L [facility] Blood Venous blood specimen / Unknown 10/16/2024 9:30 AM EDT 10/16/2024 2:34 PM EDT us Liz Barboza MD LAB BLOOD ORDERABLES Final Result [facility] [address] [place] [phone] * Lipid Panel, Standard (05/09/2024 9:30 AM EDT) Triglycerides 89 <150 mg/dL [facility] Comment:Slight Lipemia.Priscilla able Triglyceride: less than 150 mg/dLBorderline High Triglyceride 150-199 mg/dLHigh Triglyceride: 200-499 mg/dLVery High Triglyceride: greater than or equal to 5OO mg/dL Cholesterol 132 <200 mg/dL [facility] Comment:Desirable Cholestero l: less than 200 mg/dLBorderline High Cholesterol: 200-239 mg/dLHigh Cholesterol: greater than 239 mg/dL LDL Cholesterol Calculated 65 <100 mg/dL [facility] Comment:Desirable LDL: less than 100 mg/dLNear Optimal/Above Optimal LDL: 110- 129 mg/dLBorderline High LDL: 130-159 mg/dLHigh LDL: 160-189 mg/dLVery High LDL: greater than or equal to 190 mg/dL HDL Cholesterol 50 >40 mg/dL [facility] Comment:Desirable HDL: great er than 40 mg/dL Note: This HDL assay may give artificially low results in patients with liver disease. Blood Venous blood specimen / Unknown 05/09/2024 9:30 AM EDT 05/09/2024 2:13 PM EDT us Liz Barboza MD LAB BLOOD ORDERABLES Final Result [facility] [address] [place] [phone] * Cologuard?? colon cancer screening (02/17/2023 9:15 AM EST) Cologuard Result Negative Negative 03/01/19 5:34 AM EST [facility] (CLIA #:[id number]) Comment: NEGATIVE TEST RESULT. A negative Cologuard [...] (Ingrid Brenner al, N Engl J Med 2014;370(14):1980-8926) The normal value (reference range) for this assay is negative. COLOGUARD RE-SCREENING RECOMMENDATION: Periodic colorectal cancer screening is an important part of preventive healthcare for asymptomatic individuals at average risk for colorectal cancer. Following a negative Cologuard result, the [place] Cancer Society and U.S. Multi-Society Task Force screening guidelines recommend a Cologuard re-screening interval of 3 years. References: [place] [employer] Society Guideline for Colorectal Cancer Screening: https://www.cancer.org/cancer/uveum-uvedxn-qmcsln/cygtzdivu-dwqbjwdes-dlrxhhk/ac s-rec ommendations.html.; Ralf DOMÍNGUEZ, Kirsty ARRINGTON, Princess HOPE, Colorectal Cancer Screening: Recommendations for Physicians and Patients from the U.S. Multi-Society Task Force on Colorectal Cancer Screening , Am J Gastroenterology 2017; 112:6087-4424. TEST DESCRIPTION: Composite algorithmic analysis of stool [...] with both Cologuard and colonoscopy. (Ingrid Andersen. et al, N Engl J Med 2014;370(14):4468-0439.) Cologuard may produce a false negative or false positive result (no colorectal cancer or precancerous polyp present at colonoscopy follow up). A negative Cologuard test result does not guarantee the absence of CRC or advanced adenoma (pre-cancer). The current Cologuard screening interval is every 3 years. ([place] [employer] Society and U.S. Multi-Society Task Force). Cologuard performance data in a 10,000 patient pivotal study using colonoscopy as the reference method can be accessed at the following location: www.[employer]/results. Additional description of the Cologuard test process, warnings and precautions can be found at www.cologuard.com. Stool specimen (specimen) 02/17/2023 9:15 AM EST 02/18/2023 4:15 PM EST us Liz Barboza MD LAB MOLECULAR DIAGNOSTICS O RDERABLES Final Result [facility] (CLIA #:[id number]) [address] [place] [address], * Hepatitis C Antibody Reflex (10/25/2022 9:23 AM EDT) Hepatitis C Antibody Nonreactive Nonreactive [facility] Comment:Antibodies to HCV no t detected; does not exclude early acuteHCV infection. 10/25/2022 9:23 AM EDT 10/25/2022 2:32 PM EDT us Liz Barboza MD LAB BLOOD ORDERABLES Final Result Performing Organization Address City/[facility] Co de Phone Number [facility] [address] [place] [phone] from Last 3 Months or Most Recently Relevant to Health Maintenance Insurance [place] [address] [place] [phone] [facility] MEDICAID STAND [facility] C3 Care Teams Employment Consultant Relationship Specialty Start Date End Date Liz Barboza MD [address] [place] [phone] PCP - General Internal Medicine 10/05/17
--- OUTSIDE RECORDS SUMMARY | 2024-10-30 12:22 | XMS_ITS | Encounter Summary ---
Author Organization [facility] Address [address] [place] [address] Phone Care Team Providers Care Employment Clerk Name Role Phone Liz Barboza MD Primary Care Provider [phone]- [phone] Reason for Visit * Reason Comments Med Refill Encounter Details Date Type Department Care Team (Late st Contact Info) Description 07/12/2021 Refill [facility] [address] [place] [phone] Sajan Mandel MD [address] [place] [address] [place] [address] Social History Tobacco Use Types [...] Office Visit [facility], [address] [place] [phone] Sajan Mandel MD [address] [place] [address] [place] [phone] documented as of this encounter Visit Diagnoses Not on filedocumented in this encounter Care Teams Employment Clerk Relationship Specialty Start Date End Date Liz Barboza MD PCP - General 01/01/19 documented as of this encounter
--- OUTSIDE RECORDS SUMMARY | 2024-10-30 12:22 | XMS_ITS | Encounter Summary ---
Author Organization [employer] Address [address] [place] [address] Care Team Providers Care Juice Packaging Machines Setter Name Role Phone Liz Barboza MD Primary Care Provider [phone] Reason for Visit * Reason Onset Date Comments Pre-op Visit 10/29/2024 Encounter Details Date Type Department Care Team ([facility] st Contact Info) Description 10/29/2024 Telephone [facility] MED[facility] [address] [place] [address] Liz Barboza MD [address] [place] [address] Pre-op Visit Social History Tobacco Use Types Packs/Day Years [...] encounter Miscellaneous Notes * Telephone Encounter - Aj Jacobs - 10/29/2024 11:47 AM EDT Facility called in for pre-op . Agreed to 11/[address] Barboza Contacted pt to advise of visit . Pt agreed to date and time Date of Surgery: 11/26/24 Surgical procedure being done: Trabecule Ctomy Type of anesthesia: Block Lab needed: No EKG: Yes Surgeon's name: Dr Starr Facility name: [facility] Surgeon's office number: [phone] Surgeon's office fax number: [phone] Contact name (person you spoke with): blanche Send Message to Aj Jacobs documented in this encounter Plan of Treatment Upcoming Encounters Date Type Department Care Team ([facility] Contact Info) Description 11/01/2024 2:45 PM EDT Office Visit [facility] [address] [place], [place] [phone] Liz Barboza MD [address] [place], [place] [phone] 11/20/2024 2:45 PM EDT Clinical Support [facility] MED & PEDS [address] [place] [address] Leeanna Solis, MIRNA [address] [place], [place] [phone] documented as of this encounter Visit Diagnoses Not on filedocumented in this encounter Additional Health Concerns Assessment Noted Time PHQ-9 Depression Total Score: 3 05/10/19 25 9:59 AM EDT documented as of this encounter Care Teams Juice Packaging Machines Setter Relationship Specialty Start Date End Date Lzi Barboza MD [address] [place] [address] PCP - General Internal Medicine 10/05/17 documented as of this encounter
--- OUTSIDE RECORDS SUMMARY | 2024-10-30 12:22 | XMS_ITS | Encounter Summary ---
Author Organization [facility] Address [address] [place] [address] Phone Care Team Providers Care Ordnance Corps Officer Name Role Phone Liz Barboza MD Primary Care Provider [phone]- [phone] Reason for Visit * Reason Comments Med Refill Encounter Details Date Type Department Care Team (Late st Contact Info) Description 07/01/2021 Refill [facility] [address] [place] [phone] Sajan Mandel MD [address] [place] [address] [place] [address] Social History Tobacco Use Types [...] Care And Transplant Services [facility], [address] [place] [phone] Sajan Mandel MD [address] [place] [address] [place] [phone] documented as of this encounter Visit Diagnoses Not on filedocumented in this encounter Care Teams Ordnance Corps Officer Relationship Specialty Start Date End Date Liz Barboza MD PCP - General 01/01/19 documented as of this encounter
--- OUTSIDE RECORDS SUMMARY | 2024-10-30 12:22 | XMS_ITS | Encounter Summary ---
Author Organization [facility], Address [address] [place] [address] Phone Care Team Providers Care Bariatric Coordinator Name Role Phone Liz Barboza MD Primary Care Provider [phone] [phone] Encounter Details Date Type Department Care Team (Late Contact Info) Description 11/08/2021 Documentation Only [facility] [address] [place] [phone] Elvira Barron PA Social History Tobacco Use [...] Upcoming Encounters Date Type Department Care Team ([facility] Contact Info) Description 12/31/2024 1:40 PM EST Office Visit [facility] [address] [place] [phone] Sajan Mandel MD [address] [place] [address] [place] [phone] documented as of this encounter Visit Diagnoses Not on filedocumented in this encounter Care Teams Bariatric Coordinator Relationship Specialty Start Date End Date Liz Barboza MD PCP - General 01/01/19 documented as of this encounter
--- OUTSIDE RECORDS SUMMARY | 2024-10-30 12:22 | XMS_ITS | Encounter Summary ---
Author Organization [employer] Address [address] [facility] 7 [place] [address] Care Team Providers Care Hotel Maid Name Role Phone Liz Barboza MD Primary Care Provider [phone] Reason for Visit * Reason Comments Med Refill Encounter Details Date Type Department Care Team ([facility] st Contact Info) Description 01/12/2024 Refill [facility]EDS [address] [place], [place] [phone] Liz Barboza MD [address] [place] [address] Anxiety disorder, unspecified Social History Tobacco Use [...] 11/01/2024 2:45 PM EDT Office Visit [facility] [address] [place] [address] Liz Barboza MD [address] [place] [address] 11/20/2024 2:45 PM EDT Clinical Support [facility] [address] [place] [address] Leeanna Solis RN [address] [place] [address] documented as of this encounter Visit Diagnoses Diagnosis Anxiety disorder, unspecified documented in this encounter Additional Health Concerns Assessment Noted Time PHQ-9 Depression Total Score: 0 10/25/19 23 9:41 AM EDT documented as of this encounter Care Teams Hotel Maid Relationship Specialty Start Date End Date Liz Barboza MD [address] [place] [address] PCP - General Internal Medicine 10/05/17 documented as of this encounter
--- OUTSIDE RECORDS SUMMARY | 2024-10-30 12:22 | XMS_ITS | Encounter Summary ---
Author Organization [facility], Address [address] [place] [address] Phone Care Team Providers Care Telephone Exchange Operator Name Role Phone Liz Barboza MD Primary Care Provider [phone] [phone] Encounter Details Date Type Department Care Team (Late Contact Info) Description 11/08/2021 Documentation Only [facility] [address] [place] [phone] Elvira Barron PA Social History Tobacco Use [...] Department Care Team ([facility] Contact Info) Description 12/31/2024 1:40 PM EST Office Visit [facility] [address] [place] [phone] Sajan Mandel MD [address] [place] [address] [place] [phone] documented as of this encounter Visit Diagnoses Not on filedocumented in this encounter Care Teams Telephone Exchange Operator Relationship Specialty Start Date End Date Liz Barboza MD PCP - General 01/01/19 documented as of this encounter
--- OUTSIDE RECORDS SUMMARY | 2024-10-30 12:22 | XMS_ITS | Encounter Summary ---
Author Organization [facility], Address [address] [place] [address] Phone Care Team Providers Care Stock Wetter Name Role Phone Liz Barboza MD Primary Care Provider +1- [phone] Encounter Details Date Type Department Care Team (Late st Contact Info) Description 09/29/2023 Documentation Only [facility] [address] [place] [phone] [place] [address] [place] [phone] Social History Tobacco Use Types Packs/Day Years [...] Visit [facility] [address] [place] [phone] Sajan Mandel MD [address] [facility] [place] [phone] documented as of this encounter Visit Diagnoses Not on filedocumented in this encounter Care Teams Stock Wetter Relationship Specialty Start Date End Date Liz Barboza MD PCP - General 01/01/19 documented as of this encounter
--- OUTSIDE RECORDS SUMMARY | 2024-10-30 12:22 | XMS_ITS | Encounter Summary ---
Author Organization [facility], Address [address] [place] [address] Phone Care Team Providers Care Animal Care Specialist Name Role Phone Liz Barboza MD Primary Care Provider +1 [phone] Encounter Details Date Type Department Care Team (Late Contact Info) Description 08/02/2021 Documentation Only [facility] [address] [place] [phone] Elvira Barron PA Social History Tobacco Use [...] Upcoming Encounters Date Type Department Care Team ([facility] Contact Info) Description 12/31/2024 1:40 PM EST Office Visit [facility] [address] [place] [phone] Sajan Mandel MD [address] [place] [address] [place] [phone] documented as of this encounter Visit Diagnoses Not on filedocumented in this encounter Care Teams Animal Care Specialist Relationship Specialty Start Date End Date Liz Barboza MD PCP - General 01/01/19 documented as of this encounter
--- OUTSIDE RECORDS SUMMARY | 2024-10-30 12:22 | XMS_ITS | Encounter Summary ---
Author Organization [employer] Address 75 [facility] 7 [place] [address] Care Team Providers Care Box Toe Maker Name Role Phone Liz Barboza MD Primary Care Provider +1 [phone] Encounter Details Date Type Department Care Team ([facility] st Contact Info) Description 02/04/2024 Orders Only [facility] MED & PEDS [address] [place], [place] [phone] Liz Barboza MD [address] [place] [address] Anxiety disorder, unspecified; Anxiety Social History Tobacco [...] 2:45 PM EDT Office Visit [facility] MED & PEDS [address] [place] [address] Liz Barboza MD [address] [place] [address] 11/20/2024 2:45 PM EDT Clinical Support [facility] MED & PEDS [address] [place] [address] Leeanna Solis, MIRNA 505 [place] [address] documented as of this encounter Visit Diagnoses Diagnosis Anxiety disorder, unspecified Anxiety Anxiety state, unspecified documented in this encounter Additional Health Concerns Assessment Noted Time PHQ-9 Depression Total Score: 0 10/25/19 23 9:41 AM EDT documented as of this encounter Care Teams Box Toe Maker Relationship Specialty Start Date End Date Liz Barboza MD [address] [place] [address] PCP - General Internal Medicine 10/05/17 documented as of this encounter
--- OUTSIDE RECORDS SUMMARY | 2024-10-30 12:22 | XMS_ITS | Encounter Summary ---
Author Organization [employer] Address 75 [facility] 7 [place] [address] Care Team Providers Care Automotive Maintenance Technician Name Role Phone Liz Barboza MD Primary Care Provider [phone] [phone] Encounter Details Date Type Department Care Team ([facility] st Contact Info) Description 10/16/2024 Orders Only [facility] CH[facility] MED & PEDS [address] [place], [place] [phone] Liz Barboza MD 505 [place] [address] Hypokalemia (Primary Dx) Social History Tobacco Use [...] Upcoming Encounters Date Type Department Care Team ([facility] st Contact Info) Description 11/01/2024 2:45 PM EDT Office Visit [facility] MED & PEDS [address] [place] [address] Liz Barboza MD 505 [place] [address] 11/20/2024 2:45 PM EDT Clinical Support [facility] MED & PEDS [address] [place] [address] Leeanna Solis RN 505 [place] [address] documented as of this encounter Procedures Procedure Name Priority Date/Time Associated Diagnosis Comments BASIC METABOLIC PANEL Routine 10/22/2024 8:55 AM EDT Hypokalemia documented in this encounter Results * (ABNORMAL) Basic Metabolic Panel (10/22/2024 8:55 AM EDT) Sodium 138 135 - 145 mmol/L [facility] Potassium 3.6 3.3 - 5.1 mmol/L [facility] Comment:Slight Hemolysis.Int erpret result with caution. Chloride 103 96 - 108 mmol/L [facility] Carbon Dioxide 27 22 - 29 mmol/L [facility] Anion Gap 12 12 - 20 [facility] Urea Nitrogen (BUN) 18(H) 9 - 16 mg/dL [facility] Creatinine, Serum 1.09 0.5 - 1.4 mg/dL [facility] Estimated Glomerular Filt Rate 49 [facility] Comment:Chronic Kidney Disea se: Estimated GFR < 60 mL/min/1.22p3Bgfeoq Kidney Disease: Estimated GFR < 15 mL/min/1.73m2 Glucose 97 60 - 115 mg/dL [facility] Calcium 9.6 8.4 - 10.2 mg/dL [facility] Blood Venous blood specimen / Unknown 10/22/2024 8:55 AM EDT 10/22/2024 1:58 PM EDT Liz Barboza MD LAB BLOOD ORDERABLES Final Result [facility] [address] [place] [address] [phone] documented in this encounter Visit Diagnoses Diagnosis Hypokalemia- Primary Hypopotassemia documented in this encounter Additional Health Concerns Assessment Noted Time PHQ-9 Depression Total Score: 3 05/10/19 25 9:59 AM EDT documented as of this encounter Care Teams Automotive Maintenance Technician Relationship Specialty Start Date End Date Liz Barboza MD [address] [place] [address] PCP - General Internal Medicine 10/05/17 documented as of this encounter
--- OUTSIDE RECORDS SUMMARY | 2024-10-30 12:22 | XMS_ITS | Encounter Summary ---
Author Organization [employer] Address 75 [facility] 7 [place] [address] Care Team Providers Care Air Control/Anti Air Warfare Officer Name Role Phone Liz Barboza MD Primary Care Provider [phone] [phone] Encounter Details Date Type Department Care Team ([facility] st Contact Info) Description 07/03/2024 Orders Only [facility] CH[facility] MED & PEDS [address] [place], [place] [phone] Liz Barboza MD 505 [place] [address] Generalized anxiety disorder (Primary Dx) Social History [...] Description 11/01/2024 2:45 PM EDT Office Visit [facility] MED & PEDS [address] [place] [address] Liz Barboza MD 505 [place] [address] 11/20/2024 2:45 PM EDT Clinical Support [facility] MED & PEDS [address] [place] [address] Leeanna Solis, MIRNA 505 [place] [address] documented as of this encounter Visit Diagnoses Diagnosis Generalized anxiety disorder- Primary documented in this encounter Additional Health Concerns Assessment Noted Time PHQ-9 Depression Total Score: 3 05/10/19 25 9:59 AM EDT documented as of this encounter Care Teams Air Control/Anti Air Warfare Officer Relationship Specialty Start Date End Date Liz Barboza MD [address] [place] [address] PCP - General Internal Medicine 10/05/17 documented as of this encounter
--- OUTSIDE RECORDS SUMMARY | 2024-10-30 12:22 | XMS_ITS | Encounter Summary ---
Author Organization [employer] Address 75 [facility] [place] [address] Care Team Providers Care Assembler Brazer Name Role Phone Liz Barboza MD Primary Care Provider +1 [phone] Reason for Visit * Reason Onset Date Comments Med Refill 10/02/2024 Encounter Details Date Type Department Care Team ([facility] st Contact Info) Description 10/02/2024 Refill [facility] MED & PEDS [address] [place] [address] Liz Barboza MD 505 [place] [address] Social History Tobacco Use Types Packs/Day Years [...] Description 11/01/2024 2:45 PM EDT Office Visit [facility] MED & PEDS [address] [place] [address] Liz Barboza MD 505 [place] [address] 11/20/2024 2:45 PM EDT Clinical Support [facility] MED & PEDS 505 [place] [address] Leeanna Solis, MIRNA 505 [place] [address] documented as of this encounter Visit Diagnoses Not on filedocumented in this encounter Additional Health Concerns Assessment Noted Time PHQ-9 Depression Total Score: 3 05/10/19 25 9:59 AM EDT documented as of this encounter Care Teams Assembler Brazer Relationship Specialty Start Date End Date Liz Barboza MD 505 [place] [address] PCP - General Internal Medicine 10/05/17 documented as of this encounter
--- OUTSIDE RECORDS SUMMARY | 2024-10-30 12:23 | XMS_ITS | Encounter Summary ---
Author Organization [facility], Address [address] [place] [address] Phone Care Team Providers Care Mixing Machine Attendant Name Role Phone iLz Barboza MD Primary Care Provider +1- [phone] Reason for Visit * Reason Comments Med Refill Encounter Details Date Type Department Care Team (Late st Contact Info) Description 12/19/2019 Refill [facility] [address] [place] [phone] Kai Thomas MD Social History Tobacco Use [...] Visit [facility] [place], [address] [place] [phone] Sajan Mandel MD [address] [facility] [place] [phone] documented as of this encounter Visit Diagnoses Not on filedocumented in this encounter Care Teams Mixing Machine Attendant Relationship Specialty Start Date End Date Liz Barboza MD PCP - General 01/01/19 documented as of this encounter
--- OUTSIDE RECORDS SUMMARY | 2024-10-30 12:23 | XMS_ITS | Encounter Summary ---
Author Organization [employer] Address 75 [facility] [place] [address] Care Team Providers Care Admissions Manager Name Role Phone Liz Barboza MD Primary Care Provider [phone] Reason for Visit * Reason Comments Med Refill Encounter Details Date Type Department Care Team ([facility] st Contact Info) Description 05/19/2023 Refill [facility] MED & PEDS [address] [place], [place] [phone] Liz Barboza MD 505 [place] [address] Anxiety disorder, unspecified; Anxiety Social History Tobacco [...] Description 11/01/2024 2:45 PM EDT Office Visit [facility] MED & PEDS [address] [place] [address] Liz Barboza MD 505 [place] [address] 11/20/2024 2:45 PM EDT Clinical Support [facility] MED & PEDS [address] [place] [address] Leeanna Solis RN 505 [place] [address] documented as of this encounter Visit Diagnoses Diagnosis Anxiety disorder, unspecified Anxiety Anxiety state, unspecified documented in this encounter Additional Health Concerns Assessment Noted Time PHQ-9 Depression Total Score: 0 10/25/19 23 9:41 AM EDT documented as of this encounter Care Teams Admissions Manager Relationship Specialty Start Date End Date Liz Barboza MD [address] [place] [address] PCP - General Internal Medicine 10/05/17 documented as of this encounter
--- OUTSIDE RECORDS SUMMARY | 2024-10-30 12:23 | XMS_ITS | Encounter Summary ---
Author Organization [employer] Address 75 [facility] 7 [place] [address] Care Team Providers Care Tower Climber Name Role Phone Liz Barboza MD Primary Care Provider [phone] [phone] Encounter Details Date Type Department Care Team ([facility] st Contact Info) Description 02/10/2023 Orders Only [facility] CH[facility] MED & PEDS [address] [place], [place] [phone] Liz Barboza MD [address] [place] [address] Social History Tobacco Use Types Packs/Day Years [...] [facility] [address] [place] [address] Liz Barboza MD [address] [place] [address] 11/20/2024 2:45 PM EDT Clinical Support [facility] MED & PEDS [address] [place] [address] Leeanna Solis, MIRNA 505 [place] [address] documented as of this encounter Visit Diagnoses Not on filedocumented in this encounter Additional Health Concerns Assessment Noted Time PHQ-9 Depression Total Score: 0 10/25/19 23 9:41 AM EDT documented as of this encounter Care Teams Tower Climber Relationship Specialty Start Date End Date Liz Barboza MD [address] [place] [address] PCP - General Internal Medicine 10/05/17 documented as of this encounter
--- OUTSIDE RECORDS SUMMARY | 2024-10-30 12:23 | XMS_ITS | Encounter Summary ---
Author Organization [facility] Address [address] [place] [address] Phone Care Team Providers Care Direct Selling Counselor Name Role Phone Liz Barboza MD Primary Care Provider +1- [phone] Reason for Visit * Reason Comments Med Refill Encounter Details Date Type Department Care Team (Late st Contact Info) Description 07/02/2021 Refill [facility] [address] [place] [phone] Sajan Mandel MD [address] [place] [address] [place] [address] Social History Tobacco Use Types [...] [facility], [address] [place] [phone] Sajan Mandel MD [address] [place] [address] [place] [phone] documented as of this encounter Visit Diagnoses Not on filedocumented in this encounter Care Teams Direct Selling Counselor Relationship Specialty Start Date End Date Liz Barboza MD PCP - General 01/01/19 documented as of this encounter
--- OUTSIDE RECORDS SUMMARY | 2024-10-30 12:23 | XMS_ITS | Encounter Summary ---
Author Organization [employer] Address 75 [facility] 7 [place] [address] Care Team Providers Care Form Grader Name Role Phone Liz Barboza MD Primary Care Provider +1 [phone] Reason for Visit * Reason Comments Med Refill Encounter Details Date Type Department Care Team ([facility] st Contact Info) Description 01/11/2024 Refill [facility] MED & PEDS [address] [place], [place] [phone] Liz Barboza MD 505 [place] [address] Anxiety disorder, unspecified Social History Tobacco Use [...] [facility] [address] [place] [address] Liz Barboza MD 505 [place] [address] 11/20/2024 2:45 PM EDT Clinical Support [facility] MED & PEDS [address] [place] [address] Leeanna Solis RN 505 [place] [address] documented as of this encounter Visit Diagnoses Diagnosis Anxiety disorder, unspecified documented in this encounter Additional Health Concerns Assessment Noted Time PHQ-9 Depression Total Score: 0 10/25/19 23 9:41 AM EDT documented as of this encounter Care Teams Form Grader Relationship Specialty Start Date End Date Liz Barboza MD 505 [place] [address] PCP - General Internal Medicine 10/05/17 documented as of this encounter
--- OUTSIDE RECORDS SUMMARY | 2024-10-30 12:23 | XMS_ITS | Encounter Summary ---
Author Organization [employer] Address 75 [facility] 7 [place] [address] Care Team Providers Care Well Blower Name Role Phone Liz Barboza MD Primary Care Provider [phone] [phone] Encounter Details Date Type Department Care Team ([facility] st Contact Info) Description 04/14/2023 Orders Only [facility] MED & PEDS [address] [place], [place] [phone] Liz Barboza MD [address] [place] [address] Social History Tobacco Use Types Packs/Day Years [...] Description 11/01/2024 2:45 PM EDT Office Visit [facility] MED & PEDS [address] [place] [address] Liz Barboza MD [address] [place] [address] 11/20/2024 2:45 PM EDT Clinical Support [facility] MED & PEDS [address] [place] [address] Leeanna Solis, MIRNA 505 [place] [address] documented as of this encounter Visit Diagnoses Not on filedocumented in this encounter Additional Health Concerns Assessment Noted Time PHQ-9 Depression Total Score: 0 10/25/19 23 9:41 AM EDT documented as of this encounter Care Teams Well Blower Relationship Specialty Start Date End Date Liz Barboza MD [address] [place] [address] PCP - General Internal Medicine 10/05/17 documented as of this encounter
--- OUTSIDE RECORDS SUMMARY | 2024-10-30 12:23 | XMS_ITS | Encounter Summary ---
Author Organization [employer] Address 75 [facility] 7 [place] [address] Care Team Providers Care Site Auditor Name Role Phone Liz Barboza MD Primary Care Provider +1 [phone] Encounter Details Date Type Department Care Team (Late st Contact Info) Description 05/10/2024 Orders Only [facility] MEDICINE [address] [place] [address] Liz Barboza MD 505 [place] [address] Other specified hypothyroidism (Primary Dx) Social History [...] [facility] [address] [place] [address] Liz Barboza MD 505 [place] [address] 11/20/2024 2:45 PM EDT Clinical Support [facility] MED & PEDS [address] [place] [address] Leeanna Solis, MIRNA 505 [place] [address] documented as of this encounter Visit Diagnoses Diagnosis Other specified hypothyroidism- Primary documented in this encounter Additional Health Concerns Assessment Noted Time PHQ-9 Depression Total Score: 3 05/10/19 25 9:59 AM EDT documented as of this encounter Care Teams Site Auditor Relationship Specialty Start Date End Date Liz Barboza MD 505 [place] [address] PCP - General Internal Medicine 10/05/17 documented as of this encounter
== END 2024-10-30 10:32 | disposition home or self-care (01) ==
LOC: HO.MRI 10:31
PROVIDERS: PCP Internal Medicine; Visit Provider Internal Medicine
DX: H93.A1 Pulsatile tinnitus, right ear (principal)
CPT/HCPCS: 70551

== ENCOUNTER → 2024-10-30 10:31 | Outpatient (BNV) | payer MEDICARE, MEDICAID, SELFPAY | PROVIDERS: PCP Internal Medicine; Visit Provider Radiology Diagnostic Radiology | DX: H93.A1 Pulsatile tinnitus, right ear (principal) | CPT/HCPCS: 70551 ==

== ENCOUNTER 2024-12-10 08:25 | Outpatient (AMB) | payer MEDICARE, MEDICAID, SELFPAY ==
--- OUTSIDE RECORDS SUMMARY | 2024-12-10 08:43 | XMS_ITS | Encounter Summary ---
Author Organization [employer] Address [address] [place] [address] Care Team Providers Care Climatology Professor Name Role Phone Liz Barboza MD Primary Care Provider +1- [phone] Encounter Details Date Type Department Care Team (Late st Contact Info) Description 01/24/2022 Abstract [facility] MEDICINE [address] [place] [address] ProviderGene MD Social History Tobacco Use Types [...] Department Care Team (Late Contact Info) Description 02/10/2025 1:30 PM EST Telemedicine [facility] CHC MED & PEDS [address] [place] [address] Leeanna Solis, RN 505 [place] [address] documented as of this encounter Visit Diagnoses Not on filedocumented in this encounter Care Teams Climatology Professor Relationship Specialty Start Date End Date Liz Barboza MD 505 [place] [address] PCP - General Internal Medicine 10/05/17 documented as of this encounter
--- OUTSIDE RECORDS SUMMARY | 2024-12-10 08:43 | XMS_ITS | Encounter Summary ---
Author Organization [employer] Address 75 [facility] 7 [place] [address] Care Team Providers Care Telephone Installer Name Role Phone Liz Barboza MD Primary Care Provider +1 [phone] Encounter Details Date Type Department Care Team ([facility] st Contact Info) Description 07/03/2024 Orders Only [facility] MED & PEDS [address] [place], [place] [phone] Liz Barboza MD [address] [place] [address] Generalized anxiety disorder (Primary Dx) Social History [...] Encounters Date Type Department Care Team ([facility] Contact Info) Description 02/10/2025 1:30 PM EST Telemedicine [facility] MED & PEDS [address] [place] [address] Leeanna Solis, RN [address] [place] [address] documented as of this encounter Visit Diagnoses Diagnosis Generalized anxiety disorder- Primary documented in this encounter Additional Health Concerns Assessment Noted Time PHQ-9 Depression Total Score: 3 05/10/19 25 9:59 AM EDT documented as of this encounter Care Teams Telephone Installer Relationship Specialty Start Date End Date Liz Barboza MD [address] [place] [address] PCP - General Internal Medicine 10/05/17 documented as of this encounter
--- OUTSIDE RECORDS SUMMARY | 2024-12-10 08:43 | XMS_ITS | Encounter Summary ---
Author Organization [facility], Address [address] [place] [address] Phone Care Team Providers Care Tailor Men'S Ready To Wear Name Role Phone Liz Barbzoa MD Primary Care Provider +1- [phone] Reason for Visit * Reason Onset Date Comments Med Refill 08/04/2022 Encounter Details Date Type Department Care Team (Late st Contact Info) Description 08/04/2022 Refill [facility] [address] [place] [phone] Sajan Mandel MD [address] [place] [address] [place] [phone] Social History Tobacco Use Types Packs/Day Years [...] Office Visit [facility], [address] [facility] [place] [phone] Sajan Mandel MD [address] [facility] [place] [phone] documented as of this encounter Visit Diagnoses Not on filedocumented in this encounter Care Teams Tailor Men'S Ready To Wear Relationship Specialty Start Date End Date Liz Barboza MD PCP - General 01/01/19 documented as of this encounter
--- OUTSIDE RECORDS SUMMARY | 2024-12-10 08:43 | XMS_ITS | Encounter Summary ---
Author Organization [employer] Address [address] [facility] [place] [address] Care Team Providers Care Chemical Dependency Professional Name Role Phone Liz Barboza MD Primary Care Provider [phone] Reason for Visit * Reason Onset Date Comments Med Refill 10/02/2024 Encounter Details Date Type Department Care Team ([facility] st Contact Info) Description 10/02/2024 Refill [facility] [address] [place] [address] Liz Barboza MD [address] [place] [address] Social History Tobacco Use Types Packs/Day Years [...] Care Team (Late st Contact Info) Description 02/10/2025 1:30 PM EST Telemedicine [facility] [address] [place] [address] Leeanna Solis, MIRNA [address] [place] [address] documented as of this encounter Visit Diagnoses Not on filedocumented in this encounter Additional Health Concerns Assessment Noted Time PHQ-9 Depression Total Score: 3 05/10/19 25 9:59 AM EDT documented as of this encounter Care Teams Chemical Dependency Professional Relationship Specialty Start Date End Date Liz Barboza MD [address] [place] [address] PCP - General Internal Medicine 10/05/17 documented as of this encounter
--- OUTSIDE RECORDS SUMMARY | 2024-12-10 08:43 | XMS_ITS | Encounter Summary ---
Author Organization [employer] Address [address] [facility] 7 [place] [address] Care Team Providers Care Catechist Name Role Phone Liz Barboza MD Primary Care Provider [phone] Reason for Visit * Reason Comments Med Refill Encounter Details Date Type Department Care Team ([facility] st Contact Info) Description 01/12/2024 Refill [facility] [address] [place], [place] [phone] Liz Barboza MD [address] [place] [address] Anxiety disorder, unspecified Social History Tobacco Use [...] Upcoming Encounters Date Type Department Care Team ([facility] st Contact Info) Description 02/10/2025 1:30 PM EST Telemedicine [facility] [address] [place] [address] Leeanna Solis, MIRNA [address] [place] [address] documented as of this encounter Visit Diagnoses Diagnosis Anxiety disorder, unspecified documented in this encounter Additional Health Concerns Assessment Noted Time PHQ-9 Depression Total Score: 0 10/25/19 23 9:41 AM EDT documented as of this encounter Care Teams Catechist Relationship Specialty Start Date End Date Liz Barboza MD [address] [place] [address] PCP - General Internal Medicine 10/05/17 documented as of this encounter
--- OUTSIDE RECORDS SUMMARY | 2024-12-10 08:43 | XMS_ITS | Encounter Summary ---
Author Organization [facility], Address [address] [place] [address] Phone Care Team Providers Care Marine Fisheries Technician Name Role Phone Liz Barboza MD Primary Care Provider [phone]- [phone] Encounter Details Date Type Department Care Team (Late st Contact Info) Description 09/29/2023 Documentation Only [facility] [address] [place] [phone] [place] [address] [place] [phone] Social History Tobacco Use Types Packs/Day Years [...] Visit [facility] [address] [place] [phone] Sajan Mandel MD [address] [facility] [place] [phone] documented as of this encounter Visit Diagnoses Not on filedocumented in this encounter Care Teams Marine Fisheries Technician Relationship Specialty Start Date End Date Liz Barboza MD PCP - General 01/01/19 documented as of this encounter
--- OUTSIDE RECORDS SUMMARY | 2024-12-10 08:43 | XMS_ITS | Clinical Summary ---
Author Organization [employer] Address [address] [facility] 7 [place] [address] Care Team Providers Care Time Motion Analyst Name Role Phone Liz Barboza MD Primary Care Provider [phone]- [phone] Allergies No known active allergies Medications famotidine (Pepcid) 20 MG tablet Take 1 tablet by mouth at bedtime. 01/29/20 19 Active lidocaine-priloca ine (Emla) 2.5-2.5 % cream Apply topically. As needed 05/13/19 21 Active Misc. Devices (Wrist Brace) misc Medium. To wear at bedtime Active Blood Pressure kitIndications:Pr imary hypertension To check the BP 3 times a week. 1 kit 10/25/19 23 Active simvastatin (Zocor) 20 MG tablet TAKE ONE TABLET BY MOUTH EVERY DAY 90 tablet 3 10/24/19 24 Active metoprolol succinate XL (Toprol XL) 100 MG 24 hr tabletIndications :Primary hypertension Take 1 tablet (100 mg) by mouth Once per day. Do not crush or chew. 30 tablet 11 11/30/19 24 Active simvastatin (Zocor) 40 MG tabletIndications :Hypercholesterol emia Take 1 tablet (40 mg) by mouth at bedtime. 30 tablet 11 01/31/20 24 2024 Active oxazepam (Serax) 10 MG capsuleIndication s:Anxiety disorder, unspecified Take 1 capsule (10 mg) by mouth 2 times daily. 60 capsule 02/02/20 24 Active acetaminophen (Tylenol 8 Hour) 650 MG ER tabletIndications :Primary osteoarthritis of other site TAKE ONE TABLET BY MOUTH EVERY 8 HOURS NEEDED FOR MILD PAIN. DO NOT BREAK, CRUSH, DISSOLVE OR CHEW. 120 tablet 1 04/23/19 25 Active levothyroxine (Synthroid) 25 MCG tabletIndications :Other specified hypothyroidism Take 1 tablet (25 mcg) by mouth before breakfast. 30 tablet 11 05/11/19 25 2025 Active lidocaine (Lidoderm) 5 % patchIndications: Neck pain Apply 1 patch topically Once per day. Remove & discard patch within 12 hours or as directed by MD. 30 patch 06/19/19 25 Active oxazepam (Serax) 10 MG capsuleIndication s:Anxiety disorder, unspecified,Anxie ty Take 1 capsule (10 mg) by mouth 2 times daily. 60 capsule 07/02/19 25 Active diazePAM (Valium) 5 MG tabletIndications :Generalized anxiety disorder Take 1 tablet (5 mg) by mouth at bedtime. 30 tablet 07/06/19 25 Active amLODIPine (Norvasc) 5 MG tabletIndications :Essential (primary) hypertension TAKE ONE TABLET BY MOUTH EVERY DAY 90 tablet 3 10/12/19 25 Active hydroCHLOROthiazi de (Microzide) 12.5 MG capsuleIndication s:Essential (primary) hypertension TAKE ONE CAPSULE BY MOUTH EVERY DAY 90 capsule 3 10/12/19 25 Active losartan (Cozaar) 100 MG tablet TAKE ONE TABLET BY MOUTH EVERY DAY 90 tablet 3 10/12/19 25 Active potassium chloride CR (Klor-Con M20) 20 MEQ ER tabletIndications :Hypokalemia Take 1 tablet (20 mEq) by mouth Once per day. Do not crush or chew. 10 tablet 10/17/19 25 2025 Active LORazepam (Ativan) 1 MG tablet Take 1 tablet (1 mg) by mouth every 12 (twelve) hours if needed for anxiety. Do not start before November 22, 2024. 56 tablet 11/23/19 25 Active LORazepam (Ativan) 1 MG tablet TAKE ONE TABLET BY MOUTH EVERY TWELVE HOURS NEEDED FOR ANXIETY (REPLACES OXAZEPAM DUE TO BACKORDER) 56 tablet 10/04/19 25 2024 Discontinued(R eorder (will not trigger notification to Pharmacy)) Active Problems Problem Noted Date Diagnosed Date Long-term current use of opiate analgesic 2024 Hypercholesterolemia 01/31/2024 Anxiety disorder 01/13/2022 Hypertensive disorder 01/13/2022 Hypothyroidism 01/13/2022 Osteoporosis 01/13/2022 Essential (primary) hypertension 02/05/2019 Stage 3a chronic kidney disease ([facility]/HCC) 2018 Overview (11/30/2023): Update for Diagnosis Load Stage 3 chronic kidney disease (CMS/HCC) 019 Chronic gastritis 10/05/2017 Encounters Date Type Department Care Team Description 11/20/2024 2:45 PM EDT Clinical Support [facility] [address] [place] [address] Leeanna Solis RN Long-term current use of opiate analgesic (Primary Dx) 11/20/2024 Travel 11/20/2024 Refill [facility] [address] [place] [address] Liz Barboza MD 11/17/2024 Refill [facility] [address] [place] [address] Liz Barboza MD Hypercholesterolemia 11/13/2024 Travel 11/01/2024 2:45 PM EDT Office Visit [facility] [address] [place] [address] Liz Barboza MD Pre-op evaluation (Primary Dx) 11/01/2024 Travel 10/31/2024 Telephone [facility] [address] [place] [address] Liz Barboza MD chart prep 10/29/2024 Travel 10/29/2024 Telephone [facility] [address] [place] [phone] Liz Barboza MD Pre-op Visit 10/22/2024 Results Follow-Up [facility] [address] [place] [address] Stephanie Hooper RN Basic Metabolic Panel 10/17/2024 Results Follow-Up [facility] [address] [place] [address] Demetria Heredia RN Comprehensive Metabolic Panel, TSH W/Reflex to FT4, MR Brain w/o Contrast 10/16/2024 9:00 AM EDT Office Visit [facility] [address] [place] [address] Liz Barboza MD Primary hypertension (Primary Dx); Other specified hypothyroidism; Stage 3a chronic kidney disease (CMS/HCC); Pulsatile tinnitus, right ear 10/16/2024 Orders Only [facility] [address] [place] [address] Liz Barboza MD Hypokalemia (Primary Dx) 10/16/2024 Travel 10/15/2024 Telephone [facility] [address] [place] [address] Liz Barboza MD Chart Prep 10/11/2024 Refill [facility] [address] [place] [address] Liz Barboza MD Essential (primary) hypertension 10/09/2024 Travel 10/02/2024 Refill [facility] [address] [place] [address] Liz Barboza MD 10/02/2024 Refill [facility] [address] [place] [address] Liz Barboza MD 09/12/2024 Telephone [facility] [address] [place] [address] Liz Barboza MD 09/09/2024 2:00 PM EDT Telemedicine [facility] [address] [place] [address] Leeanna Solis RN Long-term current use of opiate analgesic 09/09/2024 Travel from Last 3 Months Immunizations Immunization Administration [...] Sign Reading Time Taken Comments Blood Pressure 145/83 11/01/2024 2:37 PM EDT Pulse 68 11/01/2024 2:37 PM EDT Temperature 36.8 C (98.2 F) 11/01/2024 2:37 PM EDT Respiratory Rate 20 11/01/2024 2:37 PM EDT Oxygen Saturation 97% 11/01/2024 2:37 PM EDT Inhaled Oxygen Concentration - - Weight 64 kg (141 lb) 11/01/2024 2:37 PM EDT Height 149.9 cm (4' 11 ) 11/01/2024 2:37 PM EDT Body Mass Index 28.48 11/01/2024 2:37 PM EDT Plan of Treatment Upcoming Encounters Date Type Department Care Team ([facility] st Contact Info) Description 02/10/2025 1:30 PM EST Telemedicine [facility] [address] [place] [address] Leeanna Solis, RN [address] [place] [address] Health Maintenance Due Date Last Done Comments Dental Prophylaxis 1945 RSV Patients and Patients Aged 60 years or older (1 - 1-dose 75+ series) 2021 Dental Oral Exam 09/21/2022 03/23/2022 Dental X-Ray: Bitewings 03/24/2023 03/23/2022 COVID-19 Vaccine ( season) 2024 11/30/2023, 12/28/2022, 01/15/2021, Additional history exists Dental X-Ray: Full Mouth 03/24/2025 03/23/2022 Alcohol/Substance Use Screening 05/09/2025 05/09/2024 Depression Screening 05/09/2025 05/09/2024, 05/10/19 SDOH Screening 05/09/2025 05/09/2024 Tobacco Screening 10/16/2025 10/16/2024 DTaP/Tdap/Td Vaccines (2 - Td or Tdap) 01/12/2028 01/11/2018 Lipid Panel 05/09/2029 05/09/2024, 04/2023, 10/25/2022, Additional history exists Zoster Vaccines Completed 10/05/2021, 08/03/2021 Pneumococcal Vaccine: 50+ Years Completed 11/09/2021, 01/21/2014 Hepatitis C Screening Completed 10/25/2022 Colorectal Cancer Screening Discontinued FIT DNA/Cologuard Discontinued 02/17/2023 FOBT Discontinued 02/17/2023 Influenza Vaccine Completed 11/02/2024, , 12/06/2022, Additional history exists CT Colonography Discontinued Colonoscopy Discontinued FIT Discontinued HIB Vaccines Aged Out No longer [...] Procedure Name Priority Date/Time Associated Diagnosis Comments POCT STEFANO-14 URINE DRUG SCREEN Routine 11/20/2024 2:59 PM EDT Long-term current use of opiate analgesic ECG 12-LEAD Routine 11/01/2024 4:32 PM EDT Pre-op evaluation MR BRAIN WO CONTRAST Routine 10/30/2024 9:48 [...] Relevant to Health Maintenance Results * (ABNORMAL) POCT STEFANO-14 Urine Drug Screen (11/20/2024 2:59 PM EDT) THC Negative Negative Cocaine Screen, Urine Negative Negative Opiate Screen, Urine Negative Negative Methamphetamine Screen Urine Negative Negative Amphetamine Screen, Urine Negative Negative Benzodiazepines Screen, Urine Positive(A) Negative Barbiturate Screen, Urine Negative Negative Methadone Screen, Urine Negative Negative Buprenophine Screen, Urine Negative Negative TCA, Urine Positive(A) Negative MDMA Urine Negative Negative ng/mL Oxycodone Screen, Urine Negative Negative Phencyclidine (PCP), Urine Negative Negative Propoxyphene, Urine Negative Negative Fentanyl, Urine Negative Negative Urine Urine specimen obtained by clean catch procedure / Unknown 11/20/2024 2:59 PM EDT Narrative Leeanna Solis RN - 11/20/2024 2:59 PM EDT . Internal Pass Control Lot# [id number] Exp: 12-27-25 us Liz Barboza MD POINT OF CARE TEST ENTER/ED IT ORDERABLES Edited Result - Final * ECG 12 lead (11/01/2024 4:32 PM EDT) Narrative Liz Barboza MD - 11/01/2024 4:32 PM EDT Heart rate 71 bpm. [place] 20 degrees. No sign of left atrial enlargement or large atrial enlargement. No sign of hypertrophy. No ST elevation or ST depression. Normal EKG. us Liz Barboza MD ECG ORDERABLES Final Resul t * MR Brain w/o Contrast (10/30/2024 9:48 AM EDT) Anatomical Region Laterality Modality Brain Magnetic Resonan ce 10/30/2024 9:48 AM EDT Narrative 10/30/2024 12:16 PM EDT [address] [address] Magnetic Resonance Report Signed Patient: Kelsey Villareal MR#: [id number] : 1945 Acct:[id number] Age/Sex: 78 / F ADM Date: 10/30/24 Loc: HO.MRI Attending Dr: Liz Barboza MD Ordering Physician: Liz Barboza MD Date of Service: 10/30/24 Procedure(s): MR head/brain wo con Accession Number(s): [id number] cc: Liz Barboza MD Reason for Exam: [...] cerebral vessels is normal. 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 There is increased AP diameter of the [...] 10/30/24 1213 DD/ 0948 TD/TT: 10/30/24 1120 Cloth Doubling Machine Operator: Procedure Note Donotuseinterpreter, Image - 10/30/2024 [place] [address] Magnetic Resonance Report Signed Patient: Allen Villareal#: [id number] : 1945cct:[id number] Age/Sex: 78 / FADM Date: 10/30/24 Loc: HO.MRI Attending Dr: Liz Barboza MD Ordering Physician: Liz Barboza MD Date of Service: 10/30/24 Procedure(s): MR head/brain wo con Accession Number(s): [id number] cc: Liz Barboza MD Reason for Exam: [...] cerebral vessels is normal. 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 There is increased AP diameter of the [...] 10/30/24 1213 DD/ 0948 TD/TT: 10/30/24 1120 Cloth Doubling Machine Operator: Liz Barboza MD IMG MRI PROCEDURES Final Re sult * (ABNORMAL) Basic Metabolic Panel (10/22/2024 8:55 AM EDT) Sodium 138 135 - 145 mmol/L [facility] Potassium 3.6 3.3 - 5.1 mmol/L [facility] Comment:Slight Hemolysis.Int erpret result with caution. Chloride 103 96 - 108 mmol/L [facility] Carbon Dioxide 27 22 - 29 mmol/L [facility] Anion Gap 12 12 - 20 [facility] Urea Nitrogen (BUN) 18(H) 9 - 16 mg/dL [facility] Creatinine, Serum 1.09 0.5 - 1.4 mg/dL [facility] Estimated Glomerular Filt Rate 49 [facility] Comment:Chronic Kidney Disea se: Estimated GFR < 60 mL/min/1.70h2Rwwuak Kidney Disease: Estimated GFR < 15 mL/min/1.73m2 Glucose 97 60 - 115 mg/dL [facility] Calcium 9.6 8.4 - 10.2 mg/dL [facility] Blood Venous blood specimen / Unknown 10/22/2024 8:55 AM EDT 10/22/2024 1:58 PM EDT Liz Barboza MD LAB BLOOD ORDERABLES Final Result Performing Organization Address [facility] de Phone Number [facility] [address] [place] [phone] * TSH W/Reflex to FT4 (10/16/2024 9:30 AM EDT) TSH reflex Free T4 1.55 0.32 - 4.0 uIU/mL [facility] Blood Venous blood specimen / Unknown 10/16/2024 9:30 AM EDT 10/16/2024 2:34 PM EDT Liz Barboza MD LAB BLOOD ORDERABLES Final Result Performing Organization Address [facility] Phone Number [facility] [address] [place] [phone] * (ABNORMAL) Comprehensive Metabolic Panel (10/16/2024 9:30 AM EDT) Pathologist [facility] Sodium 136 135 - 145 mmol/L [facility] Potassium 3.1(L) 3.3 - 5.1 mmol/L [facility] Chloride 100 96 - 108 mmol/L [facility] Carbon Dioxide 26 22 - 29 mmol/L [facility] Anion Gap 13 12 - 20 [facility] Urea Nitrogen (BUN) 16 9 - 16 mg/dL [facility] Creatinine, Serum 1.03 0.5 - 1.4 mg/dL [facility] Estimated Glomerular Filt Rate 52 [facility] Comment:Chronic Kidney Disea se: Estimated GFR < 60 mL/min/1.07w8Fcrosp Kidney Disease: Estimated GFR < 15 mL/min/1.73m2 Glucose 104 60 - 115 mg/dL [facility] Calcium 9.2 8.4 - 10.2 mg/dL [facility] Bilirubin, Total 0.6 0.0 - 1.0 mg/dL [facility] Aspartate Amino Transferase 30 5 - 31 U/L [facility] Alanine Aminotransferase 12 0 - 31 U/L [facility] Total Protein 8.0 6.5 - 8.0 g/dL [facility] Albumin Level 4.7 3.5 - 5.0 g/dL [facility] Alkaline Phosphatase 68 39 - 117 U/L [facility] Blood Venous blood specimen / Unknown 10/16/2024 9:30 AM EDT 10/16/2024 2:34 PM EDT us Liz Barboza MD LAB BLOOD ORDERABLES Final Result [facility] [address] [place] [phone] [phone] * Lipid Panel, Standard (05/09/2024 9:30 AM EDT) Triglycerides 89 <150 mg/dL [facility] Comment:Slight Lipemia.Priscilla able Triglyceride: less than 150 mg/dLBorderline High Triglyceride 150-199 mg/dLHigh Triglyceride: 200-499 mg/dLVery High Triglyceride: greater than or equal to 5OO mg/dL Cholesterol 132 <200 mg/dL [facility] Comment:Desirable Cholestero l: less than 200 mg/dLBorderline High Cholesterol: 200-239 mg/dLHigh Cholesterol: greater than 239 mg/dL LDL Cholesterol Calculated 65 <100 mg/dL [facility] Comment:Desirable LDL: less than 100 mg/dLNear Optimal/Above Optimal LDL: 110- 129 mg/dLBorderline High LDL: 130-159 mg/dLHigh LDL: 160-189 mg/dLVery High LDL: greater than or equal to 190 mg/dL HDL Cholesterol 50 >40 mg/dL [facility] Comment:Desirable HDL: great er than 40 mg/dL Note: This HDL assay may give artificially low results in patients with liver disease. Blood Venous blood specimen / Unknown 05/09/2024 9:30 AM EDT 05/09/2024 2:13 PM EDT Liz Barboza MD LAB BLOOD ORDERABLES Final Result [facility] [address] [place] [phone] [phone] * Cologuard?? colon cancer screening (02/17/2023 9:15 AM EST) Cologuard Result Negative Negative 03/01/19 5:34 AM EST [employer] (CLIA #:[id number]) Comment: NEGATIVE TEST RESULT. A negative Cologuard [...] were screened with both Cologuard and colonoscopy. (Imperantonia T. et al, N Engl J Med 2014;370(14):7100-2575) The normal value (reference range) for this assay is negative. COLOGUARD RE-SCREENING RECOMMENDATION: Periodic colorectal cancer screening is an important part of preventive healthcare for asymptomatic individuals at average risk for colorectal cancer. Following a negative Cologuard result, the [employer] [employer] Society and U.S. Multi-Society Task Force screening guidelines recommend a Cologuard re-screening interval of 3 years. References: [employer] [employer] Guideline for Colorectal Cancer Screening: https://www.cancer.org/cancer/qdxls-ufxomt-cbqycs/xmygqnqwh-ptzimqupj-lwqqtiw/ac s-rec ommendations.html.; Ralf DOMÍNGUEZ, Kirsty ARRINGTON, Princess HOPE, Colorectal Cancer Screening: Recommendations for Physicians and Patients from the U.S. Multi-Society Task Force on Colorectal Cancer Screening , Am J Gastroenterology 2017; 112:6912-7705. TEST DESCRIPTION: Composite algorithmic analysis of stool [...] Luu et al, N Engl J Med 2014;370(14):8340-8969.) Cologuard may produce a false negative or false positive result (no colorectal cancer or precancerous polyp present at colonoscopy follow up). A negative Cologuard test result does not guarantee the absence of CRC or advanced adenoma (pre-cancer). The current Cologuard screening interval is every 3 years. ([employer] [employer] Society and U.S. Multi-Society Task Force). Cologuard performance data in a 10,000 patient pivotal study using colonoscopy as the reference method can be accessed at the following location: www.[employer]/results. Additional description of the Cologuard test process, warnings and precautions can be found at www.[employer].com. Stool specimen (specimen) 02/17/2023 9:15 AM EST 02/18/2023 4:15 PM EST us Liz Barboza MD LAB MOLECULAR DIAGNOSTICS O RDERABLES Final Result [employer] (CLIA #:[id number]) [address] [place] [address], [place] [phone] * Hepatitis C Antibody Reflex (10/25/2022 9:23 AM EDT) Hepatitis C Antibody Nonreactive Nonreactive [facility] Comment:Antibodies to HCV no t detected; does not exclude early acuteHCV infection. 10/25/2022 9:23 AM EDT 10/25/2022 2:32 PM EDT us Liz Barboza MD LAB BLOOD ORDERABLES Final Result [facility] [address] [place] [phone] [phone] from Last 3 Months or Most Recently Relevant to Health Maintenance Insurance MEDICARE [facility] STANDARD DENTAL-[facility] MEDICAID STAND ADULT [facility] C3 Care Teams Time Motion Analyst Relationship Specialty Start Date End Date Liz Barboza MD [address] [place] [phone] PCP - General Internal Medicine 10/05/17
--- OUTSIDE RECORDS SUMMARY | 2024-12-10 08:43 | XMS_ITS | Encounter Summary ---
Author Organization [employer] Address [address] [place] [address] Care Team Providers Care Manager Business Name Role Phone Liz Barboza MD Primary Care Provider [phone] Encounter Details Date Type Department Care Team ([facility] Contact Info) Description 01/28/2022 Telephone [facility] [address] [place] [address] Liz Barboza MD [address] [place] [address] Social History Tobacco Use Types Packs/Day Years [...] Info) Description 02/10/2025 1:30 PM EST Telemedicine [facility] [address] [place], [place] [phone] Leeanna Solis RN [address] [place], [place] [phone] documented as of this encounter Visit Diagnoses Not on filedocumented in this encounter Care Teams Manager Business Relationship Specialty Start Date End Date Liz Barboza MD [address] [place] [address] PCP - General Internal Medicine 10/05/17 documented as of this encounter
--- OUTSIDE RECORDS SUMMARY | 2024-12-10 08:43 | XMS_ITS | Encounter Summary ---
Author Organization [employer] Address [address] [facility] 7 [place] [address] Care Team Providers Care Help Desk Analyst Name Role Phone Liz Barboza MD Primary Care Provider +1 [phone] Encounter Details Date Type Department Care Team ([facility] st Contact Info) Description 10/16/2024 Orders Only [facility] MED & PEDS [address] [place], [place] [phone] Liz Barboza MD 505 [place] [address] Hypokalemia (Primary Dx) Social History Tobacco Use [...] Upcoming Encounters Date Type Department Care Team ([facility] st Contact Info) Description 02/10/2025 1:30 PM EST Telemedicine [facility] MED & PEDS [address] [place] [address] Leeanna Solis, RN 505 [place] [address] documented as of this encounter Procedures Procedure Name Priority Date/Time Associated Diagnosis Comments BASIC METABOLIC PANEL Routine 10/22/2024 8:55 AM EDT Hypokalemia documented in this encounter Results * (ABNORMAL) Basic Metabolic Panel (10/22/2024 8:55 AM EDT) Sodium 138 135 - 145 mmol/L [facility] Potassium 3.6 3.3 - 5.1 mmol/L [facility] Comment:Slight Hemolysis.Int erpret result with caution. Chloride 103 96 - 108 mmol/L [facility] Carbon Dioxide 27 22 - 29 mmol/L [facility] Anion Gap 12 12 - 20 [facility] Urea Nitrogen (BUN) 18(H) 9 - 16 mg/dL [facility] Creatinine, Serum 1.09 0.5 - 1.4 mg/dL [facility] Estimated Glomerular Filt Rate 49 [facility] Comment:Chronic Kidney Disea se: Estimated GFR < 60 mL/min/1.47u0Linfla Kidney Disease: Estimated GFR < 15 mL/min/1.73m2 Glucose 97 60 - 115 mg/dL [facility] Calcium 9.6 8.4 - 10.2 mg/dL [facility] Blood Venous blood specimen / Unknown 10/22/2024 8:55 AM EDT 10/22/2024 1:58 PM EDT us Liz Barboza MD LAB BLOOD ORDERABLES Final Result [facility] [address] [place] [address] [phone] documented in this encounter Visit Diagnoses Diagnosis Hypokalemia- Primary Hypopotassemia documented in this encounter Additional Health Concerns Assessment Noted Time PHQ-9 Depression Total Score: 3 05/10/19 25 9:59 AM EDT documented as of this encounter Care Teams Help Desk Analyst Relationship Specialty Start Date End Date Liz Barboza MD [address] [place] [id number] PCP - General Internal Medicine 10/05/17 documented as of this encounter
--- OUTSIDE RECORDS SUMMARY | 2024-12-10 08:43 | XMS_ITS | Clinical Summary ---
Author Organization [facility], Address [address] [place] [address] [place] [address] Phone Care Team Providers Care Heat Treating Operator Name Role Phone Liz Braboza MD Primary Care Provider +1- [phone] Allergies No known active allergies Medications levothyroxine [...] 8 (eight) hours if needed 0 Active [place]-3 1000 MG capsule Take 1,000 mg by [...] Essential (primary) hypertension 02/05/2019 Hypothyroidism 02/05/2019 Immunizations Immunization Administration Dates Next Due Influenza [...] Visit [facility], [address] [place] [phone] Sajan Mandel MD [address] [facility] [place] [address] Health Maintenance Due Date Last Done Comments Influenza Vaccine (#1) 2024 4, 12/24/2020, 12/03/2019, Additional history exists Pneumococcal Vaccine: 50+ Years Completed 11/09/2021, 01/21/2014 Pneumococcal Vaccine: Peds (0 to 5 Years) and At-Risk Patients (6 to 49 Years) Discontinued 11/09/2021, 01/21/2014 Hepatitis B Vaccine Aged Out No longe r eligible based on patient's age to complete this topic Insurance Medicaid [place] Medicare Care Teams Heat Treating Operator Relationship Specialty Start Date End Date Liz Barboza MD PCP - General 01/01/19
--- OUTSIDE RECORDS SUMMARY | 2024-12-10 08:43 | XMS_ITS | Encounter Summary ---
Author Organization [employer] Address [address] [facility] [place] [address] Care Team Providers Care Clay Puddler Name Role Phone Liz Barboza MD Primary Care Provider +1 [phone] Reason for Visit * Reason Onset Date Comments Med Refill 11/17/2024 Encounter Details Date Type Department Care Team ([facility] st Contact Info) Description 11/17/2024 Refill [facility] MED & PEDS 505 [place] [address] Liz Barboza MD 505 [place] [address] Hypercholesterolemia Social History Tobacco Use Types Packs/Day [...] AM EDT documented as of this encounter Functional Status * Over the last 2 weeks, how often have you been bothered by any of the following problems? Question Answer Date of Assessment Author Feeling nervous, anxious, or on edge 2 11/20/2024 3:02 PM EDT Leeanna Solis RN Not being able to stop or co ntrol worrying 3 11/20/2024 3:02 PM EDT Leeanna Solis RN Worrying too much about diff erent things 2 11/20/2024 3:02 PM EDT Leeanna Solis RN Trouble relaxing 3 11/20/2024 3:02 PM EDT Leeanna Green RN Being so restless that it is hard to sit still 2 11/20/2024 3:02 PM EDT Leeanna Solis RN Becoming easily annoyed or irritable 0 11/20/2024 3:02 PM EDT Leeanna Solis RN Feeling afraid as if somethi ng awful might happen 0 11/20/2024 3:02 PM EDT Leeanna Solis RN PORTER-7 Total Score 12 11/20/2024 3:02 PM EDT Leeanna Solis RN documented as of this encounter Plan of Treatment Upcoming Encounters Date Type Department Care Team (Late st Contact Info) Description 02/10/2025 1:30 PM EST Telemedicine [facility] CHC MED & PEDS [address] [place] [address] Leeanna Solis, MIRNA 505 [place] [address] documented as of this encounter Visit Diagnoses Diagnosis Hypercholesterolemia Pure hypercholesterolemia documented in this encounter Additional Health Concerns Assessment Noted Time PHQ-9 Depression Total Score: 3 05/10/19 25 9:59 AM EDT documented as of this encounter Care Teams Clay Puddler Relationship Specialty Start Date End Date Liz Barboza MD 505 [place] [address] PCP - General Internal Medicine 10/05/17 documented as of this encounter
--- OUTSIDE RECORDS SUMMARY | 2024-12-10 08:44 | XMS_ITS | Encounter Summary ---
Author Organization [facility], Address [address] [place] [address] Phone Care Team Providers Care Record Label Intern Name Role Phone Liz Barboza MD Primary Care Provider +1 [phone] Encounter Details Date Type Department Care Team (Late Contact Info) Description 08/02/2021 Documentation Only [facility] [address] [place] [phone] Elvira Barron PA Social History Tobacco Use [...] Upcoming Encounters Date Type Department Care Team ([facility] Contact Info) Description 12/31/2024 1:40 PM EST Office Visit [facility] [address] [place] [phone] Sajan Mandel MD [address] [place] [address] [place] [phone] documented as of this encounter Visit Diagnoses Not on filedocumented in this encounter Care Teams Record Label Intern Relationship Specialty Start Date End Date Liz Barboza MD PCP - General 01/01/19 documented as of this encounter
--- OUTSIDE RECORDS SUMMARY | 2024-12-10 08:44 | XMS_ITS | Encounter Summary ---
Author Organization [employer] Address [address] [place] [address] Care Team Providers Care Private Advisor Name Role Phone Liz Barboza MD Primary Care Provider +1- [phone] Reason for Visit * Reason Comments Med Refill Encounter Details Date Type Department Care Team ([facility] Contact Info) Description 04/19/2022 Refill [facility] CHC MED & PEDS [address] [place], [place] [phone] Liz Barboza MD 505 [place] [address] Anxiety disorder, unspecified Social History Tobacco Use [...] Team ([facility] Contact Info) Description 02/10/2025 1:30 PM EST Telemedicine [facility] [address] [place] [address] Leeanna Solis, MIRNA 505 [place], [place] [phone] documented as of this encounter Visit Diagnoses Diagnosis Anxiety disorder, unspecified documented in this encounter Care Teams Private Advisor Relationship Specialty Start Date End Date Liz Barboza MD 505 [place] [address] PCP - General Internal Medicine 10/05/17 documented as of this encounter
--- OUTSIDE RECORDS SUMMARY | 2024-12-10 08:44 | XMS_ITS | Encounter Summary ---
Author Organization [facility] Address [address] [place] [address] Phone Care Team Providers Care Briar Shop Supervisor Name Role Phone Liz Barboza MD Primary Care Provider +1- [phone] Reason for Visit * Reason Comments Med Refill Encounter Details Date Type Department Care Team (Late st Contact Info) Description 07/02/2021 Refill [facility] [address] [place] [phone] Sajan Mandel MD [address] [place] [address] [place] [address] Social History Tobacco Use Types [...] Visit [facility], [address] [phone] Sajan Mandel MD [address] [place] [address] [place] [phone] documented as of this encounter Visit Diagnoses Not on filedocumented in this encounter Care Teams Briar Shop Supervisor Relationship Specialty Start Date End Date Liz Barboza MD PCP - General 01/01/19 documented as of this encounter
--- OUTSIDE RECORDS SUMMARY | 2024-12-10 08:44 | XMS_ITS | Encounter Summary ---
Author Organization [facility] Address [address] [place] [address] Phone Care Team Providers Care Cell Lead Name Role Phone Liz Barboza MD Primary Care Provider +1- [phone] Reason for Visit * Reason Comments Med Refill Encounter Details Date Type Department Care Team (Late st Contact Info) Description 07/01/2021 Refill [facility] [address] [place] [phone] Sajan Mandel MD [address] [place] [address] [place] [address] Social History Tobacco Use Types [...] And Transplant Services [facility] [place], [address] [place] [phone] Sajan Mandel MD [address] [place] [address] [place] [phone] documented as of this encounter Visit Diagnoses Not on filedocumented in this encounter Care Teams Cell Lead Relationship Specialty Start Date End Date Liz Barboza MD PCP - General 01/01/19 documented as of this encounter
--- OUTSIDE RECORDS SUMMARY | 2024-12-10 08:44 | XMS_ITS | Encounter Summary ---
Author Organization [facility] Address [address] [place] [address] Phone Care Team Providers Care Rn Wound Care Name Role Phone Liz Barboza MD Primary Care Provider +1- [phone] Reason for Visit * Reason Comments Med Refill Encounter Details Date Type Department Care Team (Late st Contact Info) Description 07/12/2021 Refill [facility] [address] [place] [phone] Sajan Mandel MD [address] [place] [address] [place] [address] Social History Tobacco Use Types [...] Office Visit [facility], [address] [place] [phone] Sajan Mandel MD [address] [place] [address] [place] [phone] documented as of this encounter Visit Diagnoses Not on filedocumented in this encounter Care Teams Rn Wound Care Relationship Specialty Start Date End Date Liz Barboza MD PCP - General 01/01/19 documented as of this encounter
--- OUTSIDE RECORDS SUMMARY | 2024-12-10 08:44 | XMS_ITS | Encounter Summary ---
Author Organization [employer] Address [address] [place] [address] Care Team Providers Care Carton Forming Machine Helper Name Role Phone Liz Barboza MD Primary Care Provider +1 [phone] Reason for Visit * Reason Comments Med Refill Encounter Details Date Type Department Care Team ([facility] Contact Info) Description 08/01/2022 Refill [facility] MED & PEDS [address] [place] [address] Liz Barboza MD 505 [place] [address] Social History Tobacco Use Types Packs/Day Years [...] Upcoming Encounters Date Type Department Care Team ([facility] Contact Info) Description 02/10/2025 1:30 PM EST Telemedicine [facility] MED & PEDS [address] [place] [address] Leeanna Solis RN 505 [place], [place] [phone] documented as of this encounter Visit Diagnoses Not on filedocumented in this encounter Care Teams Carton Forming Machine Helper Relationship Specialty Start Date End Date Liz Barboza MD [address] [place] [address] PCP - General Internal Medicine 10/05/17 documented as of this encounter
--- OUTSIDE RECORDS SUMMARY | 2024-12-10 08:44 | XMS_ITS | Encounter Summary ---
Author Organization [employer] Address [address] [facility] [place] [address] Care Team Providers Care Head Of Academic Technology Name Role Phone Liz Barboza MD Primary Care Provider +1- [phone] Reason for Visit * Reason Onset Date Comments Med Refill 01/15/2023 Encounter Details Date Type Department Care Team ([facility] st Contact Info) Description 01/15/2023 Refill [facility] CHC MED & PEDS [address] [place] [address] Liz Barboza MD 505 [place] [address] Anxiety (Primary Dx); Primary osteoarthritis of other [...] ([facility] st Contact Info) Description 02/10/2025 1:30 PM EST Telemedicine [facility] MED & PEDS [address] [place] [address] Leeanna Solis, MIRNA 505 [place] [address] documented as of this encounter Visit Diagnoses Diagnosis Anxiety- Primary Anxiety state, unspecified Primary osteoarthritis of other site Unspecified 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
--- OUTSIDE RECORDS SUMMARY | 2024-12-10 08:44 | XMS_ITS | Encounter Summary ---
Author Organization [facility], Address [address] [place] [address] Phone Care Team Providers Care Warehouse Distribution Associate Name Role Phone Liz Barboza MD Primary Care Provider +1 [phone] Encounter Details Date Type Department Care Team (Late Contact Info) Description 11/08/2021 Documentation Only [facility] [address] [place] [phone] Elvira Barron PA Social History Tobacco Use [...] Upcoming Encounters Date Type Department Care Team ([facility] Contact Info) Description 12/31/2024 1:40 PM EST Office Visit [facility] [address] [place] [phone] Sajan Mandel MD [address] [place] [address] [place] [phone] documented as of this encounter Visit Diagnoses Not on filedocumented in this encounter Care Teams Warehouse Distribution Associate Relationship Specialty Start Date End Date Liz Barboza MD PCP - General 01/01/19 documented as of this encounter
--- OUTSIDE RECORDS SUMMARY | 2024-12-10 08:44 | XMS_ITS | Encounter Summary ---
Author Organization [facility], Address [address] [place] [address] Phone Care Team Providers Care Gas Furnace Installer Name Role Phone Liz Barboza MD Primary Care Provider +1 [phone] Encounter Details Date Type Department Care Team (Late Contact Info) Description 11/08/2021 Documentation Only [facility] [address] [place] [phone] Elvira Barron PA Social History Tobacco Use [...] Upcoming Encounters Date Type Department Care Team ([facility] Contact Info) Description 12/31/2024 1:40 PM EST Office Visit [facility] [address] [place] [phone] Sajan Mandel MD [address] [place] [address] [place] [phone] documented as of this encounter Visit Diagnoses Not on filedocumented in this encounter Care Teams Gas Furnace Installer Relationship Specialty Start Date End Date Liz Barboza MD PCP - General 01/01/19 documented as of this encounter
--- OUTSIDE RECORDS SUMMARY | 2024-12-10 08:44 | XMS_ITS | Encounter Summary ---
Author Organization [employer] Address [address] [facility] 7 [place] [address] Care Team Providers Care Service Dog Trainer Name Role Phone Liz Barboza MD Primary Care Provider +1 [phone] Encounter Details Date Type Department Care Team ([facility] st Contact Info) Description 02/04/2024 Orders Only [facility] CHC MED & PEDS [address] [place], [place] [phone] Liz Barboza MD [address] [place] [address] Anxiety disorder, unspecified; Anxiety Social History Tobacco [...] Upcoming Encounters Date Type Department Care Team ([facility] st Contact Info) Description 02/10/2025 1:30 PM EST Telemedicine [facility] MED & PEDS 505 [place] [address] Leeanna Solis RN 505 [place] [address] documented as of this encounter Visit Diagnoses Diagnosis Anxiety disorder, unspecified Anxiety Anxiety state, unspecified documented in this encounter Additional Health Concerns Assessment Noted Time PHQ-9 Depression Total Score: 0 10/25/19 23 9:41 AM EDT documented as of this encounter Care Teams Service Dog Trainer Relationship Specialty Start Date End Date Liz Barboza MD 505 [place] [address] PCP - General Internal Medicine 10/05/17 documented as of this encounter
--- OUTSIDE RECORDS SUMMARY | 2024-12-10 08:44 | XMS_ITS | Encounter Summary ---
Author Organization [facility] Address [address] [place] [address] Phone Care Team Providers Care Principal Secretary Name Role Phone Liz Barboza MD Primary Care Provider +1- [phone] Reason for Visit * Reason Comments Med Refill Encounter Details Date Type Department Care Team (Late st Contact Info) Description 07/05/2021 Refill [facility] [address] [place] [phone] Sajan Mandel MD [address] [place] [address] [place] [address] Social History Tobacco Use Types [...] Office Visit [facility], [address] [place] [phone] Sajan Mandel MD [address] [place] [address] [place] [address] documented as of this encounter Visit Diagnoses Not on filedocumented in this encounter Care Teams Principal Secretary Relationship Specialty Start Date End Date Liz Barboza MD PCP - General 01/01/19 documented as of this encounter
--- OUTSIDE RECORDS SUMMARY | 2024-12-10 08:45 | XMS_ITS | Encounter Summary ---
Author Organization [employer] Address [address] [facility] [place] [address] Care Team Providers Care Press Tender Incendiary Grenade Name Role Phone Liz Barboza MD Primary Care Provider +1 [phone] Reason for Visit * Reason Comments Med Refill Encounter Details Date Type Department Care Team ([facility] st Contact Info) Description 05/19/2023 Refill [facility] CH[facility] MED & PEDS 505 [place], [place] [phone] Liz Barboza MD 505 [place] [address] Anxiety disorder, unspecified; Anxiety Social History Tobacco [...] 02/10/2025 1:30 PM EST Telemedicine [facility] MED & PEDS 505 [place] [address] Leeanna Solis RN 505 [place] [address] documented as of this encounter Visit Diagnoses Diagnosis Anxiety disorder, unspecified Anxiety Anxiety state, unspecified documented in this encounter Additional Health Concerns Assessment Noted Time PHQ-9 Depression Total Score: 0 10/25/19 23 9:41 AM EDT documented as of this encounter Care Teams Press Tender Incendiary Grenade Relationship Specialty Start Date End Date Liz Barboza MD [address] [place] [address] PCP - General Internal Medicine 10/05/17 documented as of this encounter
--- OUTSIDE RECORDS SUMMARY | 2024-12-10 08:45 | XMS_ITS | Encounter Summary ---
Author Organization [facility], Address [address] [place] [address] Phone Care Team Providers Care Supervisor Sintering Plant Name Role Phone Liz Barboza MD Primary Care Provider +1- [phone] Reason for Visit * Reason Comments Med Refill Encounter Details Date Type Department Care Team (Late st Contact Info) Description 12/19/2019 Refill [facility] [address] [place] [phone] Kai Thomas MD Social History Tobacco Use [...] Visit [facility] [place], [address] [place] [phone] Sajan Mandel MD [address] [facility] [place] [phone] documented as of this encounter Visit Diagnoses Not on filedocumented in this encounter Care Teams Supervisor Sintering Plant Relationship Specialty Start Date End Date Liz Barboza MD PCP - General 01/01/19 documented as of this encounter
--- OUTSIDE RECORDS SUMMARY | 2024-12-10 08:45 | XMS_ITS | Encounter Summary ---
Author Organization [employer] Address [address] [facility] 7 [place] [address] Care Team Providers Care Adjuster Arbitrator Name Role Phone Liz Barboza MD Primary Care Provider +1 [phone] Reason for Visit * Reason Comments Med Refill Encounter Details Date Type Department Care Team ([facility] st Contact Info) Description 01/11/2024 Refill [facility] CHC MED & PEDS 505 [place], [place] [phone] Liz Barboza MD 505 [place] [address] Anxiety disorder, unspecified Social History Tobacco Use [...] ([facility] st Contact Info) Description 02/10/2025 1:30 PM EST Telemedicine [facility] MED & PEDS 505 [place] [address] Leeanna Solis, MIRNA [address] [place] [address] documented as of this encounter Visit Diagnoses Diagnosis Anxiety disorder, unspecified documented in this encounter Additional Health Concerns Assessment Noted Time PHQ-9 Depression Total Score: 0 10/25/19 23 9:41 AM EDT documented as of this encounter Care Teams Adjuster Arbitrator Relationship Specialty Start Date End Date Lzi Barboza MD 505 [place] [address] PCP - General Internal Medicine 10/05/17 documented as of this encounter
--- OUTSIDE RECORDS SUMMARY | 2024-12-10 08:45 | XMS_ITS | Encounter Summary ---
Author Organization [employer] Address 75 [facility] 7 [place] [address] Care Team Providers Care Certified Addiction Counselor Name Role Phone Liz Barboza MD Primary Care Provider +1 [phone] Encounter Details Date Type Department Care Team (Late st Contact Info) Description 05/10/2024 Orders Only [facility] MEDICINE [address] [place] [address] Liz Barboza MD [address] [place] [address] Other specified hypothyroidism (Primary Dx) Social History [...] Info) Description 02/10/2025 1:30 PM EST Telemedicine [facility] MED & PEDS [address] [place] [address] Leeanna Solis, RN 505 [place] [address] documented as of this encounter Visit Diagnoses Diagnosis Other specified hypothyroidism- Primary documented in this encounter Additional Health Concerns Assessment Noted Time PHQ-9 Depression Total Score: 3 05/10/19 25 9:59 AM EDT documented as of this encounter Care Teams Certified Addiction Counselor Relationship Specialty Start Date End Date Liz Barboza MD [address] [place] [address] PCP - General Internal Medicine 10/05/17 documented as of this encounter
--- OUTSIDE RECORDS SUMMARY | 2024-12-10 08:45 | XMS_ITS | Encounter Summary ---
Author Organization [employer] Address 75 [facility] 7 [place] [address] Care Team Providers Care Blanket Folder Name Role Phone Liz Barboza MD Primary Care Provider +1 [phone] Encounter Details Date Type Department Care Team ([facility] st Contact Info) Description 02/10/2023 Orders Only [facility] MED & PEDS [address] [place], [place] [phone] Liz Barboza MD [address] [place] [address] Social History Tobacco Use Types Packs/Day Years [...] Info) Description 02/10/2025 1:30 PM EST Telemedicine [facility] MED & PEDS [address] [place] [address] Leeanna Solis, MIRNA 505 [place] [address] documented as of this encounter Visit Diagnoses Not on filedocumented in this encounter Additional Health Concerns Assessment Noted Time PHQ-9 Depression Total Score: 0 10/25/19 23 9:41 AM EDT documented as of this encounter Care Teams Blanket Folder Relationship Specialty Start Date End Date iLz Barboza MD [address] [place] [address] PCP - General Internal Medicine 10/05/17 documented as of this encounter
--- OUTSIDE RECORDS SUMMARY | 2024-12-10 08:45 | XMS_ITS | Encounter Summary ---
Author Organization [employer] Address 75 [facility] 7 [place] [address] Care Team Providers Care Ehs Teacher Name Role Phone Liz Barboza MD Primary Care Provider +1 [phone] Encounter Details Date Type Department Care Team ([facility] st Contact Info) Description 04/14/2023 Orders Only [facility] CH[facility] MED & PEDS [address] [place], [place] [phone] Liz Barboza MD [address] [place] [address] Social History Tobacco Use Types Packs/Day Years [...] Info) Description 02/10/2025 1:30 PM EST Telemedicine [facility] MED & PEDS [address] [place] [address] Leeanna Solis, MIRNA 505 [place] [address] documented as of this encounter Visit Diagnoses Not on filedocumented in this encounter Additional Health Concerns Assessment Noted Time PHQ-9 Depression Total Score: 0 10/25/19 23 9:41 AM EDT documented as of this encounter Care Teams Ehs Teacher Relationship Specialty Start Date End Date Liz Barboza MD [address] [place] [address] PCP - General Internal Medicine 10/05/17 documented as of this encounter
--- NOTE | 2024-12-10 09:14 | A.OFFVIS_ITS ---
Vital Signs 12/10/24 09:15 Height 4 ft 11 in Weight 140 lb 10.479 oz BMI 28.4 BP 141/76 H Blood Pressure Location Lt brachial Position Sitting Pulse 71 Intake Visit Reasons: 6 mo Gerd, erosive gastritis f/u Intake Note: Kelsey presents in office today in follow up of GERD. CC: Patient reports doing well. He states that she recently had a left eye sugery due to high eye pressure. Legal Assistant Required: Yes Legal Assistant Language: Director Of Collections Services: Legal Assistant Offered & Declined Legal Assistant Name: Daughter Leyla will interpret Accompanied by: Daughter Allergies No Known Allergies Allergy (Verified 12/10/24 09:19) HPI HPI 6 mo Gerd, erosive gastritis f/u: Details: Assessment & Plan (1) Post-cholecystectomy syndrome: Code(s): K91.5 - Postcholecystectomy syndrome Category: Medical (2) Erosive gastritis: Comment: Remote history, 2017 EGD showed in active focal gastritis only. Code(s): K29.60 - Other gastritis without bleeding Category: Medical (3) GERD (gastroesophageal reflux disease): Code(s): K21.9 - Gastro-esophageal reflux disease without esophagitis Category: Medical (4) Colon cancer screening: Comment: 2022 had a negative Cologuard through the PCP Code(s): Z12.11 - Encounter for screening for malignant neoplasm of colon Category: Medical Plan [place] #dtr translates per pt request. She continues to do extremely well on her GI regimen of pantoprazole 40 mg daily and sucralfate. She is pleased with her GI regimen. She has no other new medical conditions to report. Return office visit in 6 months Medications: Refilled sucralfate 1 g PO BID 60 tabs 6RF K29.60 - Other gastritis without bleeding, K91.5 - Postcholecystectomy syndrome pantoprazole 40 mg PO DAILY 30 tabs 6RF K91.5 - Postcholecystectomy syndrome TODAY'S VISIT [place] # daughter translates per patient request [facility] Medical History Osteoarthritis Hypertension GERD (gastroesophageal reflux disease) Osteoporosis Obesity (BMI 30-39.9) Non-toxic multinodular goiter Hypothyroidism Surgical History S/P excision of lipoma (01/02/24) Hx of hysterectomy Hx laparoscopic cholecystectomy Hx of eye surgery Family History Family/Other Hypothyroidism Father Prostate cancer Mother Diabetes History of kidney problems Heart disease Social History Alcohol intake: current Alcohol intake frequency: does not drink Patient Tobacco Use Status: Never used Tobacco Review of Systems Const Denies fatigue, Denies fever(s), Denies night sweats, Denies poor appetite and Denies weight loss Eyes Details: Glasses Reports requires corrective lenses ENT Reports Normal hearing present, Denies dental pain, Denies dysphagia, Denies hearing loss, Denies mouth pain, Denies odynophagia, Denies throat swelling, Denies tongue swelling and Reports other (Dentition adequate) Card Reports no additional complaints Resp Reports no additional complaints GI Details: Denies abdominal pain, Denies melena, Denies bloating, Denies hematochezia, Denies constipation, Denies GI cramping, Denies dysphagia, Denies excessive flatus, Denies early satiety, Reports heartburn, Denies diarrhea, Denies nausea, Denies odynophagia, Denies vomiting and Denies hematemesis Skin/Breast Denies pruritus, Denies lesions, Denies rash and Denies jaundice Neuro Reports Normal hearing present and Denies Abnormal speech present Endo Denies fatigue Aller/Immun Denies throat swelling and Denies tongue swelling Physical Exam Vital Signs: Last Vital Signs Pulse 71 12/10/24 09:15 BP 141/76 H 12/10/24 09:15 BMI result Body Mass Index 28.4 Const General: cooperative, no acute distress, well developed and well groomed Nutritional Appearance: well nourished and overweight Orientation/consciousness: oriented to person, oriented to place and oriented to time Limitations: language barrier HEENT Head: Yes normocephalic and Yes atraumatic Eyes General: appearance normal, both eyes and all related structures Pupils: Equal, round and reactive pupils present Neck Neck: Yes normal visual inspection and Yes no lymphadenopathy Thyroid: Thyroid normal Resp Effort & Inspection: normal respiratory effort and able to speak in complete sentences Auscultation: clear to auscultation bilaterally Cardio Rate: regular rate Rhythm: regular rhythm Heart sounds: Normal, physiologic split S2 sound present Peripheral pulses: radial pulses present and posterior tibial pulses present GI Inspection: No distended, No Abdominal panniculus present and Yes obesity Palpation (GI): Soft to palpation, nontender, no guarding, not rigid and No hepatosplenomegaly present Percussion: Yes normal to percussion Auscultation: normal bowel sounds Rectal Exam - Female: deferred Skin General skin exam: no rashes or lesions noted, turgor normal, skin not dry, no jaundice, No spider nevi and no striae Rashes: no rashes Nails: normal Neuro General: oriented to person, oriented to place and oriented to time Cranial nerves: Yes Equal, round and reactive pupils present and Yes Normal hearing present Speech: No Abnormal speech present Extrem General: Yes normal to inspection, No clubbing, No cyanosis and No edema Psych Appearance: grossly normal and well kempt Mental Status: mental status grossly normal Speech and movement: Normal speech and movement present Affect: normal affect Attitude: cooperative Thought process: Normal thought process present and not confabulating Thought content: Normal thought content present Insight: Fair insight present (Psych) Judgement: Fair judgement present (Psych) Assessment & Plan Assessment & Plan (1) GERD (gastroesophageal reflux disease): Code(s): K21.9 - Gastro-esophageal reflux disease without esophagitis Category: Medical (2) Post-cholecystectomy syndrome: Code(s): K91.5 - Postcholecystectomy syndrome Category: Medical (3) Erosive gastritis: Comment: Remote history, 2018 EGD showed in active focal gastritis only. Code(s): K29.60 - Other gastritis without bleeding Category: Medical Plan [place] # daughter translates per patient request She continues to do well with control of her diarrhea/erosive gastritis and her GERD on her pantoprazole and sucralfate. She remains satisfied with this regimen. Her last colonoscopy was in 2022 and required a 3 year follow-up so at her next visit we will discuss ordering a screening colonoscopy. Return office visit in 6 months Medications: Refilled pantoprazole 40 mg PO DAILY 30 tabs 6RF K91.5 - Postcholecystectomy syndrome sucralfate 1 g PO BID 60 tabs 6RF K29.60 - Other gastritis without bleeding, K91.5 - Postcholecystectomy syndrome Coding Level of Care Code Est Pt Level 3 (65907) Diagnoses GERD (gastroesophageal reflux disease) K21.9 Post-cholecystectomy syndrome K91.5 Erosive gastritis K29.60
[2024-12-10 09:15] VITALS: BP 141/76; PULSE 71; BMI 28.4
== END 2024-12-10 09:51 | disposition home or self-care (01) ==
LOC: HO.HGI 08:25
PROVIDERS: PCP Internal Medicine; Visit Provider Nurse Practitioner
DX: K21.9 Gastro-esophageal reflux disease without esophagitis (principal); K91.5 Postcholecystectomy syndrome; K29.60 Other gastritis without bleeding
CPT/HCPCS: 99213

== ENCOUNTER → 2024-12-10 08:25 | Outpatient (BNVA) | payer MEDICARE, MEDICAID, SELFPAY | PROVIDERS: PCP Internal Medicine; Visit Provider Nurse Practitioner | DX: K21.9 Gastro-esophageal reflux disease without esophagitis (principal); K91.5 Postcholecystectomy syndrome; K29.60 Other gastritis without bleeding | CPT/HCPCS: 99212 ==

== ENCOUNTER 2024-12-23 08:28 | Outpatient (REF) | payer MEDICARE, MEDICAID, SELFPAY ==
[2024-12-23 08:40] LABS: MANUAL DIFF FLAG NO
--- OUTSIDE RECORDS SUMMARY | 2024-12-23 08:46 | XMS_ITS | Encounter Summary ---
Author Organization [employer] Address 75 [facility] 7 [place] [address] Care Team Providers Care Club Car Attendant Name Role Phone Liz Barboza MD Primary Care Provider [phone] [phone] Encounter Details Date Type Department Care Team ([facility] st Contact Info) Description 04/14/2023 Orders Only [facility] CH[facility] MED & PEDS [address] [place], [place] [phone] Liz Barboza MD [address] [place] [address] Social History Tobacco Use Types Packs/Day Years [...] Info) Description 02/10/2025 1:30 PM EST Telemedicine [facility] MED & PEDS [address] [place] [address] Leeanna Solis, MIRNA [address] [place] [address] documented as of this encounter Visit Diagnoses Not on filedocumented in this encounter Additional Health Concerns Assessment Noted Time PHQ-9 Depression Total Score: 0 10/25/19 23 9:41 AM EDT documented as of this encounter Care Teams Club Car Attendant Relationship Specialty Start Date End Date Liz Barboza MD [address] [place] [address] PCP - General Internal Medicine 10/05/17 documented as of this encounter
--- OUTSIDE RECORDS SUMMARY | 2024-12-23 08:46 | XMS_ITS | Encounter Summary ---
Author Organization [employer] Address [address] [facility] [place] [address] Care Team Providers Care Clinical Cytopathologist Name Role Phone Liz Barboza MD Primary Care Provider [phone]- [phone] Reason for Visit * Reason Onset Date Comments Med Refill 01/15/2023 Encounter Details Date Type Department Care Team ([facility] st Contact Info) Description 01/15/2023 Refill [facility] CH[facility] MED & PEDS [address] [place] [address] Liz Barboza MD [address] [place] [address] Anxiety (Primary Dx); Primary osteoarthritis of other [...] Upcoming Encounters Date Type Department Care Team ([facility] st Contact Info) Description 02/10/2025 1:30 PM EST Telemedicine [facility] MED & PEDS [address] [place] [address] Leeanna Solis, MIRNA 505 [place] [address] documented as of this encounter Visit Diagnoses Diagnosis Anxiety- Primary Anxiety state, unspecified Primary osteoarthritis of other site Unspecified chronic gastritis without bleeding Anxiety disorder, unspecified documented in this encounter Additional Health Concerns Assessment Noted Time PHQ-9 Depression Total Score: 0 10/25/19 23 9:41 AM EDT documented as of this encounter Care Teams Clinical Cytopathologist Relationship Specialty Start Date End Date Liz Barboza MD [address] [place] [address] PCP - General Internal Medicine 10/05/17 documented as of this encounter
--- OUTSIDE RECORDS SUMMARY | 2024-12-23 08:46 | XMS_ITS | Encounter Summary ---
Author Organization [employer] Address 75 [facility] 7 [place] [address] Care Team Providers Care Exhaust And Muffler Repairer Name Role Phone Liz Barboza MD Primary Care Provider [phone] [phone] Encounter Details Date Type Department Care Team ([facility] st Contact Info) Description 10/16/2024 Orders Only [facility] CH[facility] MED & PEDS [address] [place], [place] [phone] Liz Barboza MD [address] [place] [address] Hypokalemia (Primary Dx) Social History Tobacco Use [...] Upcoming Encounters Date Type Department Care Team ([facility] st Contact Info) Description 02/10/2025 1:30 PM EST Telemedicine [facility] MED & PEDS [address] [place] [address] Leeanna Solis, RN [address] [place] [address] documented as of this encounter Procedures Procedure Name Priority Date/Time Associated Diagnosis Comments BASIC METABOLIC PANEL Routine 10/22/2024 8:55 AM EDT Hypokalemia documented in this encounter Results * (ABNORMAL) Basic Metabolic Panel (10/22/2024 8:55 AM EDT) Sodium 138 135 - 145 mmol/L [facility] Potassium 3.6 3.3 - 5.1 mmol/L [facility] Comment:Slight Hemolysis.Int erpret result with caution. Chloride 103 96 - 108 mmol/L [facility] Carbon Dioxide 27 22 - 29 mmol/L [facility] Anion Gap 12 12 - 20 [facility] Urea Nitrogen (BUN) 18(H) 9 - 16 mg/dL [facility] Creatinine, Serum 1.09 0.5 - 1.4 mg/dL [facility] Estimated Glomerular Filt Rate 49 [facility] Comment:Chronic Kidney Disea se: Estimated GFR < 60 mL/min/1.62c6Vnyrzo Kidney Disease: Estimated GFR < 15 mL/min/1.73m2 Glucose 97 60 - 115 mg/dL [facility] Calcium 9.6 8.4 - 10.2 mg/dL [facility] Blood Venous blood specimen / Unknown 10/22/2024 8:55 AM EDT 10/22/2024 1:58 PM EDT us Liz Barboza MD LAB BLOOD ORDERABLES Final Result [facility] [address] [place] [address] [phone] documented in this encounter Visit Diagnoses Diagnosis Hypokalemia- Primary Hypopotassemia documented in this encounter Additional Health Concerns Assessment Noted Time PHQ-9 Depression Total Score: 3 05/10/19 25 9:59 AM EDT documented as of this encounter Care Teams Exhaust And Muffler Repairer Relationship Specialty Start Date End Date Liz Barboza MD [address] [place] [address] PCP - General Internal Medicine 10/05/17 documented as of this encounter
--- OUTSIDE RECORDS SUMMARY | 2024-12-23 08:46 | XMS_ITS | Encounter Summary ---
Author Organization [employer] Address 75 [facility] 7 [place] [address] Care Team Providers Care Forestry Worker Name Role Phone Liz Barboza MD Primary Care Provider [phone] Encounter Details Date Type Department Care Team (Late st Contact Info) Description 05/10/2024 Orders Only [facility] MEDICINE [address] [place] [address] Liz Barboza MD [address] [place] [address] Other specified hypothyroidism (Primary Dx) Social History [...] Description 02/10/2025 1:30 PM EST Telemedicine [facility] MED & PEDS [address] [place] [address] Leeanna Solis, RN [address] [place] [address] documented as of this encounter Visit Diagnoses Diagnosis Other specified hypothyroidism- Primary documented in this encounter Additional Health Concerns Assessment Noted Time PHQ-9 Depression Total Score: 3 05/10/19 25 9:59 AM EDT documented as of this encounter Care Teams Forestry Worker Relationship Specialty Start Date End Date Liz Barboza MD [address] [place] [address] PCP - General Internal Medicine 10/05/17 documented as of this encounter
--- OUTSIDE RECORDS SUMMARY | 2024-12-23 08:46 | XMS_ITS | Encounter Summary ---
Author Organization [employer] Address [address] [place] [address] Care Team Providers Care Lead Machinist Name Role Phone Liz Barboza MD Primary Care Provider [phone]- [phone] Reason for Visit * Reason Comments Med Refill Encounter Details Date Type Department Care Team ([facility] Contact Info) Description 04/19/2022 Refill [facility] CHC MED & PEDS [address] [place], [place] [phone] Liz Barboza MD [address] [place] [address] Anxiety disorder, unspecified Social History Tobacco Use [...] Upcoming Encounters Date Type Department Care Team ([facility] Contact Info) Description 02/10/2025 1:30 PM EST Telemedicine [facility] MED & PEDS [address] [place] [address] Leeanna Solis, MIRNA [address] [place], [place] [phone] documented as of this encounter Visit Diagnoses Diagnosis Anxiety disorder, unspecified documented in this encounter Care Teams Lead Machinist Relationship Specialty Start Date End Date Liz Barboza MD [address] [place] [address] PCP - General Internal Medicine 10/05/17 documented as of this encounter
--- OUTSIDE RECORDS SUMMARY | 2024-12-23 08:46 | XMS_ITS | Encounter Summary ---
Author Organization [employer] Address 75 [facility] 7 [place] [address] Care Team Providers Care Boiling Off Winder Name Role Phone Liz Barboza MD Primary Care Provider +[phone] Reason for Visit * Reason Comments Med Refill Encounter Details Date Type Department Care Team ([facility] st Contact Info) Description 01/12/2024 Refill [facility] MED & PEDS [address] [place], [place] [phone] Liz Barboza MD [address] [place] [address] Anxiety disorder, unspecified Social History Tobacco Use [...] Upcoming Encounters Date Type Department Care Team ([facility] st Contact Info) Description 02/10/2025 1:30 PM EST Telemedicine [facility] MED & PEDS [address] [place] [address] Leeanna Solis, MIRNA [address] [place] [address] documented as of this encounter Visit Diagnoses Diagnosis Anxiety disorder, unspecified documented in this encounter Additional Health Concerns Assessment Noted Time PHQ-9 Depression Total Score: 0 10/25/19 23 9:41 AM EDT documented as of this encounter Care Teams Boiling Off Winder Relationship Specialty Start Date End Date Liz Barboza MD [address] [place] [address] PCP - General Internal Medicine 10/05/17 documented as of this encounter
--- OUTSIDE RECORDS SUMMARY | 2024-12-23 08:46 | XMS_ITS | Encounter Summary ---
Author Organization [employer] Address 75 [facility] 7 [place] [address] Care Team Providers Care Ship'S Master Name Role Phone Liz Barboza MD Primary Care Provider [phone] Encounter Details Date Type Department Care Team ([facility] st Contact Info) Description 07/03/2024 Orders Only [facility] CHC MED & PEDS [address] [place], [place] [phone] Liz Barboza MD [address] [place] [address] Generalized anxiety disorder (Primary Dx) Social History [...] Encounters Date Type Department Care Team ([facility] Contact Info) Description 02/10/2025 1:30 PM EST Telemedicine [facility] CHC MED & PEDS [address] [place] [address] Leeanna Solis, RN [address] [place] [address] documented as of this encounter Visit Diagnoses Diagnosis Generalized anxiety disorder- Primary documented in this encounter Additional Health Concerns Assessment Noted Time PHQ-9 Depression Total Score: 3 05/10/19 25 9:59 AM EDT documented as of this encounter Care Teams Ship'S Master Relationship Specialty Start Date End Date Liz Barboza MD [address] [place] [address] PCP - General Internal Medicine 10/05/17 documented as of this encounter
--- OUTSIDE RECORDS SUMMARY | 2024-12-23 08:46 | XMS_ITS | Encounter Summary ---
Author Organization [employer] Address [address] [place] [address] Care Team Providers Care Photographer Apprentice Name Role Phone Liz Barboza MD Primary Care Provider +[phone] Reason for Visit * Reason Comments Med Refill Encounter Details Date Type Department Care Team ([facility] Contact Info) Description 08/01/2022 Refill [facility] MED & PEDS [address] [place] [address] Liz Barboza MD [address] [place] [address] Social History Tobacco Use Types Packs/Day Years [...] Upcoming Encounters Date Type Department Care Team ([facility] Contact Info) Description 02/10/2025 1:30 PM EST Telemedicine [facility] MED & PEDS [address] [place] [address] Leeanna Solsi RN [address] [place], [place] [phone] documented as of this encounter Visit Diagnoses Not on filedocumented in this encounter Care Teams Photographer Apprentice Relationship Specialty Start Date End Date Liz Barboza MD [address] [place] [address] PCP - General Internal Medicine 10/05/17 documented as of this encounter
--- OUTSIDE RECORDS SUMMARY | 2024-12-23 08:46 | XMS_ITS | Encounter Summary ---
Author Organization [employer] Address [address] [place] [address] Care Team Providers Care Supervisor Sewer System Name Role Phone Liz Barboza MD Primary Care Provider [phone]- [phone] Encounter Details Date Type Department Care Team (Late st Contact Info) Description 01/24/2022 Abstract [facility] MEDICINE [address] [place] [address] ProviderGene MD Social History Tobacco Use Types [...] Info) Description 02/10/2025 1:30 PM EST Telemedicine [facility] CHC MED & PEDS [address] [place] [address] Leeanna Solis, RN [address] [place] [address] documented as of this encounter Visit Diagnoses Not on filedocumented in this encounter Care Teams Supervisor Sewer System Relationship Specialty Start Date End Date Liz Barboza MD [address] [place] [address] PCP - General Internal Medicine 10/05/17 documented as of this encounter
--- OUTSIDE RECORDS SUMMARY | 2024-12-23 08:46 | XMS_ITS | Encounter Summary ---
Author Organization [employer] Address [address] [facility] [place] [address] Care Team Providers Care Automotive Warranty Administrator Name Role Phone Liz Barboza MD Primary Care Provider +1 [phone] Reason for Visit * Reason Comments Med Refill Encounter Details Date Type Department Care Team ([facility] st Contact Info) Description 05/19/2023 Refill [facility] MED & PEDS [address] [place], [place] [phone] Liz Barboza MD 505 [place] [address] Anxiety disorder, unspecified; Anxiety Social History Tobacco [...] Info) Description 02/10/2025 1:30 PM EST Telemedicine [facility] MED & PEDS [address] [place] [address] Leeanna Solis RN 505 [place] [address] documented as of this encounter Visit Diagnoses Diagnosis Anxiety disorder, unspecified Anxiety Anxiety state, unspecified documented in this encounter Additional Health Concerns Assessment Noted Time PHQ-9 Depression Total Score: 0 10/25/19 23 9:41 AM EDT documented as of this encounter Care Teams Automotive Warranty Administrator Relationship Specialty Start Date End Date Liz Barboza MD [address] [place] [address] PCP - General Internal Medicine 10/05/17 documented as of this encounter
--- OUTSIDE RECORDS SUMMARY | 2024-12-23 08:46 | XMS_ITS | Encounter Summary ---
Author Organization [employer] Address 75 [facility] 7 [place] [address] Care Team Providers Care Foreclosure Specialist Name Role Phone Liz Barboza MD Primary Care Provider +[phone] Reason for Visit * Reason Comments Med Refill Encounter Details Date Type Department Care Team ([facility] st Contact Info) Description 01/11/2024 Refill [facility] CHC MED & PEDS [address] [place], [place] [phone] Liz Barboza MD 505 [place] [address] Anxiety disorder, unspecified Social History Tobacco Use [...] Upcoming Encounters Date Type Department Care Team ([facility] st Contact Info) Description 02/10/2025 1:30 PM EST Telemedicine [facility] MED & PEDS [address] [place] [address] Leeanna Solis, MIRNA 505 [place] [address] documented as of this encounter Visit Diagnoses Diagnosis Anxiety disorder, unspecified documented in this encounter Additional Health Concerns Assessment Noted Time PHQ-9 Depression Total Score: 0 10/25/19 23 9:41 AM EDT documented as of this encounter Care Teams Foreclosure Specialist Relationship Specialty Start Date End Date Liz Barboza MD 505 [place] [address] PCP - General Internal Medicine 10/05/17 documented as of this encounter
--- OUTSIDE RECORDS SUMMARY | 2024-12-23 08:46 | XMS_ITS | Encounter Summary ---
Author Organization [employer] Address [address] [place] [address] Care Team Providers Care Malt House Loader Name Role Phone Liz Barboza MD Primary Care Provider +[phone] Encounter Details Date Type Department Care Team ([facility] Contact Info) Description 01/28/[address] [facility] MED & PEDS [address] [place] [address] Liz Barboza MD [address] [place] [address] Social History Tobacco Use Types Packs/Day Years [...] [facility] [address] [place], [place] [phone] Leeanna Solis RN 505 [place], [place] [phone] documented as of this encounter Visit Diagnoses Not on filedocumented in this encounter Care Teams Malt House Loader Relationship Specialty Start Date End Date Liz Barboza MD 505 [place] [address] PCP - General Internal Medicine 10/05/17 documented as of this encounter
--- OUTSIDE RECORDS SUMMARY | 2024-12-23 08:46 | XMS_ITS | Encounter Summary ---
Author Organization [employer] Address 75 [facility] 7 [place] [address] Care Team Providers Care Gift Manager Name Role Phone Liz Barboza MD Primary Care Provider [phone] Encounter Details Date Type Department Care Team ([facility] st Contact Info) Description 02/10/2023 Orders Only [facility] CHC MED & PEDS 505 [place], [place] [phone] Liz Barboza MD 505 [place] [address] Social History Tobacco Use Types Packs/Day Years [...] Info) Description 02/10/2025 1:30 PM EST Telemedicine [facility] MED & PEDS 505 [place] [address] Leeanna Solis, MIRNA 505 [place] [address] documented as of this encounter Visit Diagnoses Not on filedocumented in this encounter Additional Health Concerns Assessment Noted Time PHQ-9 Depression Total Score: 0 10/25/19 23 9:41 AM EDT documented as of this encounter Care Teams Gift Manager Relationship Specialty Start Date End Date Liz Barboza MD 505 [place] [address] PCP - General Internal Medicine 10/05/17 documented as of this encounter
--- OUTSIDE RECORDS SUMMARY | 2024-12-23 08:46 | XMS_ITS | Encounter Summary ---
Author Organization [employer] Address 75 [facility] 7 [place] [address] Care Team Providers Care Web Development Instructor Name Role Phone Liz Barboza MD Primary Care Provider [phone] Encounter Details Date Type Department Care Team ([facility] st Contact Info) Description 02/04/2024 Orders Only [facility] CHC MED & PEDS [address] [place], [place] [phone] Liz Barboza MD [address] [place] [address] Anxiety disorder, unspecified; Anxiety Social History Tobacco [...] Upcoming Encounters Date Type Department Care Team ([facility] st Contact Info) Description 02/10/2025 1:30 PM EST Telemedicine [facility] MED & PEDS 505 [place] [address] Leeanna Solis RN 505 [place] [address] documented as of this encounter Visit Diagnoses Diagnosis Anxiety disorder, unspecified Anxiety Anxiety state, unspecified documented in this encounter Additional Health Concerns Assessment Noted Time PHQ-9 Depression Total Score: 0 10/25/19 23 9:41 AM EDT documented as of this encounter Care Teams Web Development Instructor Relationship Specialty Start Date End Date Liz Barboza MD [address] [place] [address] PCP - General Internal Medicine 10/05/17 documented as of this encounter
--- OUTSIDE RECORDS SUMMARY | 2024-12-23 08:46 | XMS_ITS | Encounter Summary ---
Author Organization [employer] Address 75 [facility] [place] [address] Care Team Providers Care Cook Apprentice Name Role Phone Liz Barboza MD Primary Care Provider [phone] Reason for Visit * Reason Comments Med Refill Encounter Details Date Type Department Care Team ([facility] Contact Info) Description 12/19/2024 Refill [facility] CHC MED & PEDS 505 [place], [place] [phone] iLz Barboza MD 505 [place] [address] Primary hypertension Social History Tobacco Use Types Packs/Day Years [...] Encounters Date Type Department Care Team ([facility] st Contact Info) Description 02/10/2025 1:30 PM EST Telemedicine [facility] MED & PEDS [address] [place] [address] Leeanna Solis, MIRNA 505 [place] [address] documented as of this encounter Visit Diagnoses Diagnosis Primary hypertension Unspecified essential hypertension documented in this encounter Additional Health Concerns Assessment Noted Time PHQ-9 Depression Total Score: 3 05/10/19 25 9:59 AM EDT documented as of this encounter Care Teams Cook Apprentice Relationship Specialty Start Date End Date Liz Barboza MD 505 [place] [address] PCP - General Internal Medicine 10/05/17 documented as of this encounter
--- OUTSIDE RECORDS SUMMARY | 2024-12-23 08:46 | XMS_ITS | Clinical Summary ---
Author Organization [employer] Address 75 [facility] 7 [place] [address] Care Team Providers Care Meat Packager Name Role Phone Liz Barboza MD Primary Care Provider [phone] Allergies No known active allergies Medications famotidine [...] DAY 90 tablet 3 10/24/19 24 Active simvastatin (Zocor) 40 MG tabletIndications :Hypercholesterol emia Take 1 tablet (40 mg) by mouth at bedtime. 30 tablet 11 01/31/20 24 025 Active oxazepam (Serax) 10 MG capsuleIndication [...] before breakfast. 30 tablet 11 05/11/19 25 026 Active lidocaine (Lidoderm) 5 % patchIndications: Neck [...] crush or chew. 10 tablet 10/17/19 25 026 Active LORazepam (Ativan) 1 MG tablet Take 1 tablet (1 mg) by mouth every 12 (twelve) hours if needed for anxiety. Do not start before November 22, 2024. 56 tablet 11/23/19 25 Active metoprolol succinate XL (Toprol-XL) 100 MG 24 hr tabletIndications :Primary hypertension TAKE ONE TABLET EVERY DAY DO NOT BREAK, CRUSH, DISSOLVE OR CHEW 90 tablet 3 12/21/19 25 Active metoprolol succinate XL (Toprol XL) 100 MG 24 hr tabletIndications :Primary hypertension Take 1 tablet (100 mg) by mouth Once per day. Do not crush or chew. 30 tablet 11 11/30/19 24 025 Discontinued Active Problems Problem Noted Date Diagnosed Date Long-term current use of opiate analgesic 2024 Hypercholesterolemia 01/31/2024 Anxiety disorder 01/13/2022 Hypertensive disorder 01/13/2022 Hypothyroidism 01/13/2022 Osteoporosis 01/13/2022 Essential (primary) hypertension 02/05/2019 Stage 3a chronic kidney disease ([facility]/HCC) 2018 Overview (11/30/2023): Update for Diagnosis Load Stage 3 chronic kidney disease (CMS/HCC) 019 Chronic gastritis 10/05/2017 Encounters Date Type Department Care Team Description 12/19/2024 Refill [facility] CHC MED & PEDS [address] [place] [address] Liz Barboza MD Primary hypertension 11/20/2024 2:45 PM EDT Clinical Support [facility] MED & PEDS [address] [place] [address] Leeanna Solis RN Long-term current use of opiate analgesic (Primary Dx) 11/20/2024 Travel 11/20/2024 Refill [facility] CH[facility] MED & PEDS [address] [place] [address] Liz Barboza MD 11/17/2024 Refill [facility] MED & PEDS [address] [place] [address] Liz Barboza MD Hypercholesterolemia 11/13/2024 Travel 11/01/2024 2:45 PM EDT Office Visit [facility] MED & PEDS [address] [place] [address] Liz Barboza MD Pre-op evaluation (Primary Dx) 11/01/2024 Travel 10/31/2024 Telephone [facility] MED & PEDS [address] [place] [address] Liz Barboza MD chart prep 10/29/2024 Travel 10/29/2024 Telephone [facility] MEDICINE [address] [place] [phone] Liz Barboza MD Pre-op Visit 10/22/2024 Results Follow-Up [facility] [address] [place], [place] [phone] Stephanie Hooper RN Basic Metabolic Panel 10/17/2024 Results Follow-Up [facility] MED & PEDS [address] [place] [address] Demetria Heredia RN Comprehensive Metabolic Panel, TSH W/Reflex to FT4, MR Brain w/o Contrast 10/16/2024 9:00 AM EDT Office Visit [facility] MED & PEDS [address] [place] [address] Liz Barboza MD Primary hypertension (Primary Dx); Other specified hypothyroidism; Stage 3a chronic kidney disease (CMS/HCC); Pulsatile tinnitus, right ear 10/16/2024 Orders Only [facility] MED & PEDS [address] [place] [address] Liz Barboza MD Hypokalemia (Primary Dx) 10/16/2024 Travel 10/15/2024 Telephone [facility] MED & PEDS [address] [place] [address] Liz Barboza MD Chart Prep 10/11/2024 Refill [facility] MED & PEDS [address] [place] [address] Liz Barboza MD Essential (primary) hypertension 10/09/2024 Travel 10/02/2024 Refill [facility] MED & PEDS [address] [place] [address] Liz Barboza MD 10/02/2024 Refill [facility] MED & PEDS [address] [place] [address] Liz Barboza MD from Last 3 Months Immunizations Immunization [...] is your housing situation today? I have mariamasonu kahn 05/09/[address] you [...] Info) Description 02/10/2025 1:30 PM EST Telemedicine [facility] MED & PEDS [address] [place] [address] Leeanna Solis, MIRNA [address] [place] [address] Health Maintenance Due Date Last Done Comments [...] PM EDT . Internal Pass Control Lot# [id number] Exp: 12-27-25 us Liz Barboza MD POINT OF CARE TEST ENTER/ED IT ORDERABLES Edited Result - Final * ECG 12 lead (11/01/2024 4:32 PM EDT) Narrative Liz Barboza MD - 11/01/2024 4:32 PM EDT Heart rate 71 bpm. [place] 20 degrees. No sign of left atrial enlargement or large atrial enlargement. No sign of hypertrophy. No ST elevation or ST depression. Normal EKG. us Liz Barboza MD ECG ORDERABLES Final Resul t * MR Brain w/o Contrast (10/30/2024 9:48 AM EDT) Anatomical Region Laterality Modality Brain Magnetic Resonan ce 10/30/2024 9:48 AM EDT Narrative 10/30/2024 12:16 PM EDT [address] [address] Magnetic Resonance Report Signed Patient: Kelsey Villareal MR#: [id number] : 1945 Acct:[id number] Age/Sex: 78 / F ADM Date: 10/30/24 Loc: HO.MRI Attending Dr: Liz Barboza MD Ordering Physician: Liz Barboza MD Date of Service: 10/30/24 Procedure(s): MR head/brain wo con Accession Number(s): [id number] cc: Liz Barboza MD Reason for Exam: [...] cerebral vessels is normal. Probable origin right ORTHOPAEDIC DOCTOR. There is increased AP diameter of the [...] 10/30/24 1213 DD/ 0948 TD/TT: 10/30/24 1120 Plant And Machinery Valuer: Procedure Note Donotuseinterpreter, Image - 10/30/2024 [place] [address] Magnetic Resonance Report Signed Patient: Kelsey Villareal#: [id number] : 1945cct:[id number] Age/Sex: 78 / FADM Date: 10/30/24 Loc: HO.MRI Attending Dr: Liz Barboza MD Ordering Physician: Liz Barboza MD Date of Service: 10/30/24 Procedure(s): MR head/brain wo con Accession Number(s): [id number] cc: Liz Barboza MD Reason for Exam: [...] cerebral vessels is normal. Probable origin right ORTHOPAEDIC DOCTOR. 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 MR/MR head/brain wo con IMPRESSION: No acute stroke/nonhemorrhagic ischemia. White matter disease likely related to small vessel occlusive disease. No signal abnormality in the 8th cranial nerves. Electronically signed by: Umesh Riddle MD 10/30/2024 12:13 PM EDT RP Dictated By: Umesh Garnica MD Signed By: <Electronically signed by Suma Lopez OV> 10/30/24 1213 DD/ 0948 TD/TT: 10/30/24 1120 Plant And Machinery Valuer: us Liz Barboza MD IMG MRI PROCEDURES Final Re sult * (ABNORMAL) Basic Metabolic Panel (10/22/2024 8:55 AM EDT) Sodium 138 135 - 145 mmol/L [facility] Potassium 3.6 3.3 - 5.1 mmol/L [facility] Comment:Slight Hemolysis.Int erpret result with caution. Chloride 103 96 - 108 mmol/L [facility] Carbon Dioxide 27 22 - 29 mmol/L [facility] Anion Gap 12 12 - 20 [facility] Urea Nitrogen (BUN) 18(H) 9 - 16 mg/dL [facility] Creatinine, Serum 1.09 0.5 - 1.4 mg/dL [facility] Estimated Glomerular Filt Rate 49 [facility] Comment:Chronic Kidney Disea se: Estimated GFR < 60 mL/min/[id number] Kidney Disease: Estimated GFR < 15 mL/min/1.73m2 Glucose 97 60 - 115 mg/dL [facility] Calcium 9.6 8.4 - 10.2 mg/dL [facility] Blood Venous blood specimen / Unknown 10/22/2024 8:55 AM EDT 10/22/2024 1:58 PM EDT us Liz Barboza MD LAB BLOOD ORDERABLES Final Result [facility] [address] [place] [address] [phone] * TSH W/Reflex to FT4 (10/16/2024 9:30 AM EDT) TSH reflex Free T4 1.55 0.32 - 4.0 uIU/mL [facility] Blood Venous blood specimen / Unknown 10/16/2024 9:30 AM EDT 10/16/2024 2:34 PM EDT us Liz Barboza MD LAB BLOOD ORDERABLES Final Result [facility] [address] [place] [address] [phone] * (ABNORMAL) Comprehensive Metabolic Panel (10/16/2024 9:30 AM EDT) Pathologist [facility] Sodium 136 135 - 145 mmol/L [facility] Potassium 3.1(L) 3.3 - 5.1 mmol/L [facility] Chloride 100 96 - 108 mmol/L [facility] Carbon Dioxide 26 22 - 29 mmol/L [facility] Anion Gap 13 12 - 20 [facility] Urea Nitrogen (BUN) 16 9 - 16 mg/dL [facility] Creatinine, Serum 1.03 0.5 - 1.4 mg/dL [facility] Estimated Glomerular Filt Rate 52 [facility] Comment:Chronic Kidney Disea se: Estimated GFR < 60 mL/min/1.73h7Yblwdc Kidney Disease: Estimated GFR < 15 mL/min/1.73m2 Glucose 104 60 - 115 mg/dL [facility] Calcium 9.2 8.4 - 10.2 mg/dL [facility] Bilirubin, Total 0.6 0.0 - 1.0 mg/dL [facility] Aspartate Amino Transferase 30 5 - 31 U/L [facility] Alanine Aminotransferase 12 0 - 31 U/L [facility] Total Protein 8.0 6.5 - 8.0 g/dL [facility] Albumin Level 4.7 3.5 - 5.0 g/dL [facility] Alkaline Phosphatase 68 39 - 117 U/L [facility] Blood Venous blood specimen / Unknown 10/16/2024 9:30 AM EDT 10/16/2024 2:34 PM EDT us Liz Barboza MD LAB BLOOD ORDERABLES Final Result Performing Organization Address [facility]/[employer] Phone Number [facility] [address] [place] [phone] * Lipid Panel, Standard (05/09/2024 9:30 AM EDT) Triglycerides 89 <150 mg/dL [facility] Comment:Slight Lipemia.Priscilla able Triglyceride: less than 150 mg/dLBorderline High Triglyceride 150-199 mg/dLHigh Triglyceride: 200-499 mg/dLVery High Triglyceride: greater than or equal to 5OO mg/dL Cholesterol 132 <200 mg/dL [facility] Comment:Desirable Cholestero l: less than 200 mg/dLBorderline High Cholesterol: 200-239 mg/dLHigh Cholesterol: greater than 239 mg/dL LDL Cholesterol Calculated 65 <100 mg/dL [facility] Comment:Desirable LDL: less than 100 mg/dLNear Optimal/Above Optimal LDL: 110- 129 mg/dLBorderline High LDL: 130-159 mg/dLHigh LDL: 160-189 mg/dLVery High LDL: greater than or equal to 190 mg/dL HDL Cholesterol 50 >40 mg/dL [facility] Comment:Desirable HDL: great er than 40 mg/dL Note: This HDL assay may give artificially low results in patients with liver disease. Blood Venous blood specimen / Unknown 05/09/2024 9:30 AM EDT 05/09/2024 2:13 PM EDT us Liz Barboza MD LAB BLOOD ORDERABLES Final Result Performing Organization Address [facility] Phone Number [facility] [address] [place] [address] [phone] * Cologuard?? colon cancer screening (02/17/2023 9:15 AM EST) Cologuard Result Negative Negative 03/01/19 5:34 AM EST [employer] (CLIA #:[id number]) Comment: NEGATIVE TEST RESULT. A negative Cologuard [...] Andersen. et al, N Engl J Med 2014;370(14):6082-6700) The normal value (reference range) for this assay is negative. COLOGUARD RE-SCREENING RECOMMENDATION: Periodic colorectal cancer screening is an important part of preventive healthcare for asymptomatic individuals at average risk for colorectal cancer. Following a negative Cologuard result, the [place] [employer] and U.S. Multi-Society Task Force screening guidelines recommend a Cologuard re-screening interval of 3 years. References: [place] [employer] Guideline for Colorectal Cancer Screening: https://www.cancer.org/cancer/lhdsq-aomhdx-gchgvr/owhvdqunx-ocllduzkz-afffcpi/ac s-rec ommendations.html.; Ralf DOMÍNGUEZ, Kirsty ARRINGTON, Princess ContrerasK, Colorectal Cancer Screening: Recommendations for Physicians and Patients from the U.S. Multi-Society Task Force on Colorectal Cancer Screening , Am J Gastroenterology 2017; 112:4459-7878. TEST DESCRIPTION: Composite algorithmic analysis of stool [...] Andersen. et al, N Engl J Med 2014;370(14):3617-5816.) Cologuard may produce a false negative or false positive result (no colorectal cancer or precancerous polyp present at colonoscopy follow up). A negative Cologuard test result does not guarantee the absence of CRC or advanced adenoma (pre-cancer). The current Cologuard screening interval is every 3 years. ([place] [employer] and U.S. Multi-Society Task Force). Cologuard performance data in a 10,000 patient pivotal study using colonoscopy as the reference method can be accessed at the following location: www.[employer]da[employer]/results. Additional description of the Cologuard test process, warnings and precautions can be found at www.MiniTimeogEquipboardrd.com. Stool specimen (specimen) 02/17/2023 9:15 AM EST 02/18/2023 4:15 PM EST us Liz Barboza MD LAB MOLECULAR DIAGNOSTICS O RDERABLES Final Result [employer] (CLIA #:[id number]) [address] [place] [address], * Hepatitis C Antibody Reflex (10/25/2022 9:23 AM EDT) Hepatitis C Antibody Nonreactive Nonreactive [facility] Comment:Antibodies to HCV no t detected; does not exclude early acuteHCV infection. 10/25/2022 9:23 AM EDT 10/25/2022 2:32 PM EDT Liz Barboza MD LAB BLOOD ORDERABLES Final Result [facility] [address] [place] [address] [phone] from Last 3 Months or Most Recently Relevant to Health Maintenance Insurance MEDICARE Member Subscriber Plan / Payer (Ef fective 2022-Present) Name:Kelsey Villareal Member ID:[id number] Relation to Subscriber:Self Name:Kelsey Villareal Subscriber ID:[id number] Payer ID:STATE Group ID:Not on file Type:Medicare Address: [facility] [address] [address] [facility] STAND ADULT [facility] C3 Care Teams Meat Packager Relationship Specialty Start Date End Date Liz Barboza MD [address] [place] [phone] PCP - General Internal Medicine 10/05/17
--- OUTSIDE RECORDS SUMMARY | 2024-12-23 08:46 | XMS_ITS | Encounter Summary ---
Author Organization [employer] Address [address] [facility] [address] [place] [place] [address] Care Team Providers Care Ramp Service Man Name Role Phone Liz Barboza MD Primary Care Provider [phone] Reason for Visit * Reason Onset Date Comments Med Refill 10/02/2024 Encounter Details Date Type Department Care Team ([facility] st Contact Info) Description 10/02/2024 Refill [facility] MED & PEDS [address] [place] [address] Liz Barboza MD [address] [place] [address] Social History Tobacco Use Types Packs/Day Years [...] Info) Description 02/10/2025 1:30 PM EST Telemedicine [facility] [address] [place] [address] Leeanna Solis, MIRNA [address] [place] [address] documented as of this encounter Visit Diagnoses Not on filedocumented in this encounter Additional Health Concerns Assessment Noted Time PHQ-9 Depression Total Score: 3 05/10/19 25 9:59 AM EDT documented as of this encounter Care Teams Ramp Service Man Relationship Specialty Start Date End Date Liz Barboza MD [address] [place] [address] PCP - General Internal Medicine 10/05/17 documented as of this encounter
--- OUTSIDE RECORDS SUMMARY | 2024-12-23 08:46 | XMS_ITS | Encounter Summary ---
Author Organization [employer] Address [address] [facility] [address] [address] Care Team Providers Care Gear Lapping Machine Operator Name Role Phone Liz Barboza MD Primary Care Provider [phone] [phone] Reason for Visit * Reason Onset Date Comments Med Refill 11/17/2024 Encounter Details Date Type Department Care Team ([facility] st Contact Info) Description 11/17/2024 Refill [facility] MED & PEDS [address] [place] [address] Liz Barboza MD 505 [place] [address] Hypercholesterolemia Social History Tobacco Use Types Packs/Day [...] Info) Description 02/10/2025 1:30 PM EST Telemedicine [facility] MED & PEDS [address] [place] [address] Leeanna Solis, MIRNA [address] [place] [address] documented as of this encounter Visit Diagnoses Diagnosis Hypercholesterolemia Pure hypercholesterolemia documented in this encounter Additional Health Concerns Assessment Noted Time PHQ-9 Depression Total Score: 3 05/10/19 25 9:59 AM EDT documented as of this encounter Care Teams Gear Lapping Machine Operator Relationship Specialty Start Date End Date Liz Barboza MD [address] [place] [address] PCP - General Internal Medicine 10/05/17 documented as of this encounter
[2024-12-23 08:52] LABS: Hematocrit 44.1 % (37.0-47.0); Hemoglobin 14.3 g/dl (12.0-16.0); Imm Gran Abs Auto 0.02 X10*3/uL (0.00-0.03); Imm Gran Pct Auto 0.3 % (0.0-0.4); Lymphocytes Absolute Auto 2.4 X10*3/uL (1.2-4.9); Mean Corpuscular HGB Conc 32.4 g/dl (31.0-35.0); Mean Corpuscular Hemoglobin 29.4 pg (27.0-33.0); Mean Corpuscular Volume 90.7 fL (80.0-98.0); NRBC Abs Auto 0.000 X10*3/uL (0.0-0.012); NRBC Pct Auto 0.0 /100WBC (0.0-0.2); Platelet Count 210 X10*3/uL (160-400); Red Blood Count 4.86 X10*6/uL (4.20-5.50); White Blood Count 7.0 X10*3/uL (4.8-10.8)
[2024-12-23 09:03] LABS: Appearance Urine Turbid; Glucose Urine UA Negative (Negative); PH 7.5 (5.0-9.0); Specific Gravity - Urine 1.015 (1.005-1.025); UMIC TRIGGER UA YES
[2024-12-23 09:15] LABS: Anion Gap 10 (12-20); Blood Urea Nitrogen 22 mg/dL (9-16); Calcium 9.3 mg/dL (8.4-10.2); Carbon Dioxide 28 mmol/L (22-29); Chloride 105 mmol/L (96-108); Estimated Glomerular Filt Rate 44; Potassium 3.1 mmol/L (3.3-5.1); Sodium 140 mmol/L (135-145)
[2024-12-23 09:34] LABS: Microalbum/Creatinine Ratio Ur 12.1 ug/mg cr (<30)
== END 2024-12-23 08:29 | disposition home or self-care (01) ==
LOC: HO.LAB 08:28
PROVIDERS: PCP Internal Medicine; Visit Provider Internal Medicine Nephrology
DX: N18.31 Chronic kidney disease, stage 3a (principal)
CPT/HCPCS: 36415; 80048; 81001; 82043; 82570; 85025

== ENCOUNTER 2025-01-17 16:05 | Outpatient (REF) | payer MEDICARE, MEDICAID, SELFPAY ==
--- NOTE | ~2025-01-17 | MM_ITS ---
EXAMINATION: MM SCREENING DIGITAL BREAST TOMOSYNTHESIS, BILATERAL CLINICAL INFORMATION: Screening. Asymptomatic. COMPARISON: Mammography: Comparison is made with available priors TECHNIQUE: Digital breast mammography with tomosynthesis is performed in both the craniocaudal and mediolateral oblique views along with computer-aided detection (CAD). FINDINGS: There are scattered areas of fibroglandular density. There are no significant masses, abnormal calcifications, or other abnormalities. MM/MM tomosynthesis screening BI IMPRESSION: No mammographic evidence of malignancy. ASSESSMENT: BI-RADS Category 1: Negative RECOMMENDATION: Routine annual mammography screening. 1 year F/U This examination should not preclude the clinical evaluation of a suspicious palpable abnormality. This patient's information was entered into a reminder system with a target due date for their next mammogram. Electronically signed by: Zoe Lew DO 01/21/2025 03:24 PM [facility]
--- OUTSIDE RECORDS SUMMARY | 2025-01-17 16:13 | XMS_ITS | Encounter Summary ---
Author Organization [facility], Address [address] [place] [address] Phone Care Team Providers Care Grey Washer Name Role Phone Liz Barboza MD Primary Care Provider [phone] Encounter Details Date Type Department Care Team (Late st Contact Info) Description 11/08/2021 Documentation Only [facility], [address] [place] [address] Elvira Barron PA Social History Tobacco Use Types Packs/Day Years Used Date Smoking Tobacco: Never Smokeless Tobacco: Never Comments Unknown Sex and Gender Information Value Date Recorded Sex Assigned at Female 01/06/2022 9:03 AM EST Legal Sex Female 4:33 PM EST Gender Identity Female 01/06/2022 9:03 AM EST Sexual Orientation Not on file documented as of this encounter Plan of Treatment Not on file documented as of this encounter Visit Diagnoses Not on filedocumented in this encounter Care Teams Grey Washer Relationship Specialty Start Date End Date Liz Barboza MD PCP - General 01/01/19 documented as of this encounter
--- OUTSIDE RECORDS SUMMARY | 2025-01-17 16:13 | XMS_ITS | Encounter Summary ---
Author Organization [facility], Address [address] [place] [address] Phone Care Team Providers Care Tailor Men'S Ready To Wear Name Role Phone Liz Barboza MD Primary Care Provider [phone]- [phone] Reason for Visit * Reason Onset Date Comments Med Refill 08/04/2022 Encounter Details Date Type Department Care Team (Late st Contact Info) Description 08/04/2022 Refill [facility] [address] [place] [phone] Sajan Mandel MD [address] [place] [phone] Social History Tobacco Use Types Packs/Day Years [...]
--- OUTSIDE RECORDS SUMMARY | 2025-01-17 16:13 | XMS_ITS | Encounter Summary ---
Author Organization [employer] Address [address] [place] [address] Care Team Providers Care Countersinker Balance Screw Hole Name Role Phone Liz Barboza MD Primary Care Provider [phone] Reason for Visit * Reason Comments Med Refill Encounter Details Date Type Department Care Team ([facility] Contact Info) Description 04/19/2022 Refill [facility] MED & PEDS [address] [place], [place] [phone] Liz Barboza MD 505 [place] [address] Anxiety disorder, unspecified Social History Tobacco Use [...] Upcoming Encounters Date Type Department Care Team ([facility] Contact Info) Description 02/10/2025 1:30 PM EST Telemedicine [facility] MED & [facility]EDS [address] [place] [address] Leeanna Solis, MIRNA [address] [place], [place] [phone] documented as of this encounter Visit Diagnoses Diagnosis Anxiety disorder, unspecified documented in this encounter Care Teams Countersinker Balance Screw Hole Relationship Specialty Start Date End Date Liz Barboza MD [address] [place] [address] PCP - General Internal Medicine 10/05/17 documented as of this encounter
--- OUTSIDE RECORDS SUMMARY | 2025-01-17 16:13 | XMS_ITS | Encounter Summary ---
Author Organization [employer] Address [address] [facility] [address] [place] [address] Care Team Providers Care Cook Restaurant Name Role Phone Liz Barboza MD Primary Care Provider [phone] Reason for Visit * Reason Onset Date Comments Med Refill 11/17/2024 Encounter Details Date Type Department Care Team ([facility] st Contact Info) Description 11/17/[address] [facility] MED & PEDS [address] [place] [address] Liz Barboza MD [address] [place] [address] Hypercholesterolemia Social History Tobacco Use Types Packs/Day [...] Info) Description 02/10/2025 1:30 PM EST Telemedicine [facility] MED & PEDS [address] [place] [address] Leeanna Solis, MIRNA 505 [place] [address] documented as of this encounter Visit Diagnoses Diagnosis Hypercholesterolemia Pure hypercholesterolemia documented in this encounter Additional Health Concerns Assessment Noted Time PHQ-9 Depression Total Score: 3 05/10/19 25 9:59 AM EDT documented as of this encounter Care Teams Cook Restaurant Relationship Specialty Start Date End Date Liz Barboza MD 505 [place] [address] PCP - General Internal Medicine 10/05/17 documented as of this encounter
--- OUTSIDE RECORDS SUMMARY | 2025-01-17 16:13 | XMS_ITS | Clinical Summary ---
Author Organization [employer] Address [address] [facility] 7 [place] [address] Care Team Providers Care Appliances Sample Maker Name Role Phone Liz Barboza MD Primary Care Provider [phone]- [phone] Allergies No known active allergies Medications famotidine [...] chew. 10 tablet 10/17/19 25 2025 Active metoprolol succinate XL (Toprol-XL) 100 MG 24 hr tabletIndications :Primary hypertension TAKE ONE TABLET EVERY DAY DO NOT BREAK, CRUSH, DISSOLVE OR CHEW 90 tablet 3 12/21/19 25 Active LORazepam (Ativan) 1 MG tablet Take 1 tablet (1 mg) by mouth every 12 (twelve) hours if needed for anxiety. 56 tablet 3:24 PM EST 01/15/20 25 Active metoprolol succinate XL (Toprol XL) 100 MG 24 hr tabletIndications :Primary hypertension Take 1 tablet (100 mg) by mouth Once per day. Do not crush or chew. 30 tablet 11 11/30/19 24 2024 Discontinued LORazepam (Ativan) 1 MG tablet Take 1 tablet (1 mg) by mouth every 12 (twelve) hours if needed for anxiety. Do not start before November 22, 2024. 56 tablet 11/23/19 25 2024 Discontinued(R eorder (will not trigger notification to Pharmacy)) Active Problems Problem Noted Date Diagnosed Date Long-term current use of opiate analgesic 2024 Hypercholesterolemia 01/31/2024 Anxiety disorder 01/13/2022 Hypertensive disorder 01/13/2022 Hypothyroidism 01/13/2022 Osteoporosis 01/13/2022 Essential (primary) hypertension 02/05/2019 Stage 3a chronic kidney disease ([facility]) 2018 Overview (11/30/2023): Update for Diagnosis Load Stage 3 chronic kidney disease ([facility]) 019 Chronic gastritis 10/05/2017 Encounters Date Type Department Care Team Description 01/13/2025 Refill [facility] MED & PEDS [address] [place] [address] Liz Barboza MD 12/19/2024 Refill [facility] MED & PEDS [address] [place] [address] Liz Barboza MD Primary hypertension 11/20/2024 2:45 PM EDT Clinical Support [facility] MED & PEDS [address] [place] [address] Leeanna Solis RN Long-term current use of opiate analgesic (Primary Dx) 11/20/2024 Travel 11/20/2024 Refill [facility] MED & [facility] [place] [address] Liz Barboza MD 11/17/2024 Refill [facility] MED & PEDS [address] [place] [address] Liz Barboza MD Hypercholesterolemia 11/13/2024 Travel 11/01/2024 2:45 PM EDT Office Visit [facility] [address] [facility] [place] [place] [address] Liz Barboza MD Pre-op evaluation (Primary Dx) 11/01/2024 Travel 10/31/2024 Telephone [facility] MED & PEDS [address] [place] [address] Liz Barboza MD chart prep 10/29/2024 Travel 10/29/2024 Telephone [facility] [address] [place], [place] [phone] Liz Barboza MD Pre-op Visit 10/22/2024 Results Follow-Up [facility] [address] [place], [place] [phone] Stephanie Hooper RN Basic Metabolic Panel 10/17/2024 Results Follow-Up [facility] MED & PEDS [address] [place], [place] [phone] Demetria Heredia RN Comprehensive Metabolic Panel, TSH W/Reflex to FT4, MR Brain w/o Contrast from Last 3 Months Immunizations Immunization Administration [...] Upcoming Encounters Date Type Department Care Team ([facility] st Contact Info) Description 02/10/2025 1:30 PM EST Telemedicine [facility] MED & PEDS [address] [place] [address] Leeanna Solis, RN 505 [place] [address] Health Maintenance Due Date Last Done Comments [...] PANEL Routine 10/22/2024 8:55 AM EDT Hypokalemia LIPID PANEL, STANDARD Routine 05/09/2024 9:30 AM EDT Hypercholesterolem ia LAB COLOGUARD COLON CANCER SCREEN Routine 02/17/2023 [...] PM EDT . Internal Pass Control Lot# [id number] Exp: 12-27-25 us Liz Barboza MD POINT OF CARE TEST ENTER/ED IT ORDERABLES Edited Result - Final * ECG 12 lead (11/01/2024 4:32 PM EDT) Narrative Liz Barboza MD - 11/01/2024 4:32 PM EDT Heart rate 71 bpm. Erie 20 degrees. No sign of left atrial enlargement or large atrial enlargement. No sign of hypertrophy. No ST elevation or ST depression. Normal EKG. us Liz Barboza MD ECG ORDERABLES Final Resul t * MR Brain w/o Contrast (10/30/2024 9:48 AM EDT) Anatomical Region Laterality Modality Brain Magnetic Resonan ce 10/30/2024 9:48 AM EDT Narrative 10/30/2024 12:16 PM EDT [place] [address] Magnetic Resonance Report Signed Patient: Kelsey Villareal MR#: [id number] : 1945 Acct:[id number] Age/Sex: 78 / F ADM Date: 10/30/24 Loc: HO.MRI Attending Dr: Liz Barboza MD Ordering Physician: Liz Barboza MD Date of Service: 10/30/24 Procedure(s): MR head/brain wo con Accession Number(s): [id number] cc: Liz Barboza MD Reason for Exam: [...] cerebral vessels is normal. Probable origin right FRATERNITY ADVISER. 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 MR/MR head/brain wo con IMPRESSION: No acute stroke/nonhemorrhagic ischemia. White matter disease likely related to small vessel occlusive disease. No signal abnormality in the 8th cranial nerves. Electronically signed by: Umesh Riddle MD 10/30/2024 12:13 PM EDT Dictated By: Umesh Garnica MD Signed By: <Electronically signed by Umesh Swan MD in [place]> 10/30/24 1213 DD/ 0948 TD/TT: 10/30/24 1120 Distillation Operator Helper: Procedure Note Donotuseinterpreter, Image - 10/30/2024 [place] [address] Magnetic Resonance Report Signed Patient: Kelsey Villareal#: [id number] : 1945cct:[id number] Age/Sex: 78 / FADM Date: 10/30/24 Loc: HO.MRI Attending Dr: Liz Barboza MD Ordering Physician: Liz Barboza MD Date of Service: 10/30/24 Procedure(s): MR head/brain wo con Accession Number(s): [id number] cc: Liz Barboza MD Reason for Exam: [...] cerebral vessels is normal. Probable origin right FRATERNITY ADVISER. There is increased AP diameter of the [...] 10/30/24 1213 DD/ 0948 TD/TT: 10/30/24 1120 Distillation Operator Helper: us Liz Barboza MD IMG MRI PROCEDURES Final Re sult * (ABNORMAL) Basic Metabolic Panel (10/22/2024 8:55 AM EDT) Sodium 138 135 - 145 mmol/L [facility] Potassium 3.6 3.3 - 5.1 mmol/L [facility] Comment:Slight Hemolysis.Int erpret result with caution. Chloride 103 96 - 108 mmol/L [facility] Carbon Dioxide 27 22 - 29 mmol/L [facility] Anion Gap 12 12 - 20 [facility] Urea Nitrogen (BUN) 18(H) 9 - 16 mg/dL [facility] Creatinine, Serum 1.09 0.5 - 1.4 mg/dL [facility] Estimated Glomerular Filt Rate 49 [facility] Comment:Chronic Kidney Disea se: Estimated GFR < 60 mL/min/1.16h8Hrfoep Kidney Disease: Estimated GFR < 15 mL/min/1.73m2 Glucose 97 60 - 115 mg/dL [facility] Calcium 9.6 8.4 - 10.2 mg/dL [facility] Blood Venous blood specimen / Unknown 10/22/2024 8:55 AM EDT 10/22/2024 1:58 PM EDT us Liz Barboza MD LAB BLOOD ORDERABLES Final Result [facility] [address] [place] [phone] * Lipid Panel, Standard (05/09/2024 9:30 AM EDT) Triglycerides 89 <150 mg/dL [facility] Comment:Slight Lipemia.Priscilla able Triglyceride: less than 150 mg/dLBorderline High Triglyceride 150-199 mg/dLHigh Triglyceride: 200-499 mg/dLVery High Triglyceride: greater than or equal to 5OO mg/dL Cholesterol 132 <200 mg/dL [facility] Comment:Desirable Cholestero l: less than 200 mg/dLBorderline High Cholesterol: 200-239 mg/dLHigh Cholesterol: greater than 239 mg/dL LDL Cholesterol Calculated 65 <100 mg/dL [facility] Comment:Desirable LDL: less than 100 mg/dLNear Optimal/Above Optimal LDL: 110- 129 mg/dLBorderline High LDL: 130-159 mg/dLHigh LDL: 160-189 mg/dLVery High LDL: greater than or equal to 190 mg/dL HDL Cholesterol 50 >40 mg/dL [facility] Comment:Desirable HDL: great er than 40 mg/dL Note: This HDL assay may give artificially low results in patients with liver disease. Blood Venous blood specimen / Unknown 05/09/2024 9:30 AM EDT 05/09/2024 2:13 PM EDT us Liz Barboza MD LAB BLOOD ORDERABLES Final Result [facility] [address] [place] [phone] * Cologuard?? colon cancer screening (02/17/2023 9:15 AM EST) Cologuard Result Negative Negative 03/01/19 5:34 AM EST [facility] (CLIA #:[id number]) Comment: NEGATIVE TEST RESULT. A negative Cologuard [...] Luu et al, N Engl J Med 2014;370(14):1884-1804) The normal value (reference range) for this assay is negative. COLOGUARD RE-SCREENING RECOMMENDATION: Periodic colorectal cancer screening is an important part of preventive healthcare for asymptomatic individuals at average risk for colorectal cancer. Following a negative Cologuard result, the [place] Cancer Society and U.S. Multi-Society Task Force screening guidelines recommend a Cologuard re-screening interval of 3 years. References: [place] [employer] Guideline for Colorectal Cancer Screening: https://www.cancer.org/cancer/syfmb-einngl-dthjho/jxwxnfuar-ygoqjumia-xtjjznk/ac s-rec ommendations.html.; Ralf DK, Kirsty ARRINGTON, Princess HOPE, Colorectal Cancer Screening: Recommendations for Physicians and Patients from the U.S. Multi-Society Task Force on Colorectal Cancer Screening , Am J Gastroenterology 2017; 112:1436-3817. TEST DESCRIPTION: Composite algorithmic analysis of stool [...] Andersen. et al, N Engl J Med 2014;370(14):8733-2320.) Cologuard may produce a false negative or false positive result (no colorectal cancer or precancerous polyp present at colonoscopy follow up). A negative Cologuard test result does not guarantee the absence of CRC or advanced adenoma (pre-cancer). The current Cologuard screening interval is every 3 years. ([place] Cancer Society and U.S. Multi-Society Task Force). Cologuard performance data in a 10,000 patient pivotal study using colonoscopy as the reference method can be accessed at the following location: www.[facility]/results. Additional description of the Cologuard test process, warnings and precautions can be found at www.[employer].com. Stool specimen (specimen) 02/17/2023 9:15 AM EST 02/18/2023 4:15 PM EST us Thevenin Beauzile MD LAB MOLECULAR DIAGNOSTICS O RDERABLES Final Result [facility] (CLIA #:[id number]) [address] [place] [address], * Hepatitis C Antibody Reflex (10/25/2022 9:23 AM EDT) Hepatitis C Antibody Nonreactive Nonreactive [facility] Comment:Antibodies to HCV no t detected; does not exclude early acuteHCV infection. 10/25/2022 9:23 AM EDT 10/25/2022 2:32 PM EDT us Liz Barboza MD LAB BLOOD ORDERABLES Final Result [facility] [address] [place] [address] [phone] from Last 3 Months or Most Recently Relevant to Health Maintenance Insurance MEDICARE [facility] STANDARD [facility] MEDICAID STAND ADULT [facility] C3 Care Teams Appliances Sample Maker Relationship Specialty Start Date End Date Liz Barboza MD [address] [place] [address] PCP - General Internal Medicine 10/05/17
--- OUTSIDE RECORDS SUMMARY | 2025-01-17 16:13 | XMS_ITS | Encounter Summary ---
Author Organization [email or web address] Address [address] [place] [address] Care Team Providers Care Health Information Specialist Name Role Phone Liz Barboza MD Primary Care Provider [phone] Encounter Details Date Type Department Care Team ([facility] Contact Info) Description 01/28/2022 Telephone [facility] MED & PEDS [address] [place] [address] Liz Barboza MD [address] [place] [address] Social History Tobacco Use Types Packs/Day Years [...] Info) Description 02/10/2025 1:30 PM EST Telemedicine [facility] MED & PEDS [address] [place], [place] [phone] Leeanna Solis RN [address] [place], [place] [phone] documented as of this encounter Visit Diagnoses Not on filedocumented in this encounter Care Teams Health Information Specialist Relationship Specialty Start Date End Date Liz Barboza MD [address] [place] [address] PCP - General Internal Medicine 10/05/17 documented as of this encounter
--- OUTSIDE RECORDS SUMMARY | 2025-01-17 16:13 | XMS_ITS | Encounter Summary ---
Author Organization [facility], Address [address] [place] [address] Phone Care Team Providers Care Education Manager Name Role Phone Liz Barboza MD Primary Care Provider [phone] [phone] Encounter Details Date Type Department Care Team (Late st Contact Info) Description 12/25/2024 Documentation Only [facility], [address] [place] [address] Saira Watters[place], [place] [address] [place] [address] Social History Tobacco Use Types Packs/Day Years [...] on filedocumented in this encounter Care Teams Education Manager Relationship Specialty Start Date End Date Liz Barboza MD PCP - General 01/01/19 documented as of this encounter
--- OUTSIDE RECORDS SUMMARY | 2025-01-17 16:13 | XMS_ITS | Clinical Summary ---
Author Organization [facility], Address [address] [place] [address] [place] [address] Phone Care Team Providers Care Brush And Broom Clipper Name Role Phone Liz Barboza MD Primary Care Provider [phone]- [phone] Allergies No known active allergies Medications levothyroxine [...] TABLET BY MOUTH EVERY DAY 9 Active hydroCHLOROthia zide (MICROZIDE) 12.5 MG capsule TAKE ONE CAPSULE [...] 1 (one) time each day 0 Active lidocaine-prilo julia (EMLA) cream APPLY TO THE AFFECTED AREA(S) DAILY NEEDED 0 Active SM Arthritis Pain Reliever 650 MG 8 hr tablet Take 650 mg by mouth every 8 (eight) hours if needed 0 Active [place]-3 1000 MG capsule Take 1,000 mg by mouth daily Active Elastic Bandages & Supports (Medical Compression Stockings) misc Use as directed per doctor. 1 each 0 Active dorzolamide-bushra olol (COSOPT) 22.3-6.8 MG/ML ophthalmic solution PLACE ONE DROP IN THE LEFT EYE TWICE DAILY DIRECTED 3 Active potassium chloride (KLOR-CON M20) 20 MEQ CR tablet Take 1 tablet (20 mEq total) by mouth 1 (one) time each day 90 tablet 3 5 Active potassium chloride (KLOR-CON M20) 20 MEQ CR tablet Take 1 tablet (20 mEq total) by mouth 1 (one) time each day 90 tablet 3 4 12/23/19 25 Discontin ued(Reord er (does not appear on AVS)) Active Problems Problem Noted Date Diagnosed Date Stage 3a chronic kidney disease 02/05/2019 Overview (03/02/2020): Update for Diagnosis Load Essential (primary) hypertension 02/05/2019 Hypothyroidism 02/05/2019 Encounters Date Type Department Care Team Description 12/31/2024 1:40 PM EST Office Visit [facility] [address] [place] [phone] Sajan Manedl MD Stage 3a chronic kidney disease (HCC) (Primary Dx) 12/25/2024 Documentation Only [facility] [address] [place] [phone] Saira Watters [place] 12/23/2024 Orders Only [facility] [address] [place] [phone] Saira Watters [place] Stage 3a chronic kidney disease (HCC) (Primary Dx) 12/22/2024 Refill [facility], [address] [place] [address] Sajan Mandel MD from Last 3 Months Immunizations Immunization [...] 02/05/2019 8:49 AM EST Plan of Treatment Health Maintenance Due Date Last Done Comments Influenza Vaccine (#1) 2024 4, 12/24/2020, 12/03/2019, Additional history exists Pneumococcal Vaccine: 50+ Years Completed 11/09/2021, 01/21/2014 Pneumococcal Vaccine: Peds (0 to 5 Years) and At-Risk Patients (6 to 49 Years) Discontinued 11/09/2021, 01/21/2014 Hepatitis B Vaccine Aged Out No longe r eligible based on patient's age to complete this topic Insurance Medicaid [place] Medicare Care Teams Brush And Broom Clipper Relationship Specialty Start Date End Date Liz Barboza MD PCP - General 01/01/19
--- OUTSIDE RECORDS SUMMARY | 2025-01-17 16:13 | XMS_ITS | Encounter Summary ---
Author Organization [facility], Address [address] [place] [address] Phone Care Team Providers Care Ship Self Defense System Mk1 Operator Name Role Phone Liz Barboza MD Primary Care Provider [phone] Encounter Details Date Type Department Care Team (Late st Contact Info) Description 11/08/2021 Documentation Only [facility], [address] [place] [address] Elvira Barron PA Social History Tobacco Use [...] on filedocumented in this encounter Care Teams Ship Self Defense System Mk1 Operator Relationship Specialty Start Date End Date Liz Barboza MD PCP - General 01/01/19 documented as of this encounter
--- OUTSIDE RECORDS SUMMARY | 2025-01-17 16:13 | XMS_ITS | Encounter Summary ---
Author Organization [email or web address] Address [address] [place] [address] Care Team Providers Care Corporation Officer Name Role Phone Liz Barboza MD Primary Care Provider [phone] Encounter Details Date Type Department Care Team (Late st Contact Info) Description 01/24/2022 Abstract [facility] MEDICINE [address] [place] [address] ProviderGene MD Social History Tobacco Use Types [...] Info) Description 02/10/2025 1:30 PM EST Telemedicine [facility] P[facility]S [address] [place] [address] Leeanna Solis, RN [address] [place] [address] documented as of this encounter Visit Diagnoses Not on filedocumented in this encounter Care Teams Corporation Officer Relationship Specialty Start Date End Date Liz Barboza MD [address] [place] [address] PCP - General Internal Medicine 10/05/17 documented as of this encounter
--- OUTSIDE RECORDS SUMMARY | 2025-01-17 16:13 | XMS_ITS | Encounter Summary ---
Author Organization [facility], Address [address] [place] [address] Phone Care Team Providers Care Digital Media Producer Name Role Phone Liz Barboza MD Primary Care Provider +1 [phone] Reason for Visit * Reason Comments Med Refill Encounter Details Date Type Department Care Team (Late st Contact Info) Description 07/12/2021 Refill [facility] [address] [place] [phone] Sajan Mandel MD [address] [place] [phone] Social History Tobacco Use Types Packs/Day Years [...] on filedocumented in this encounter Care Teams Digital Media Producer Relationship Specialty Start Date End Date Liz Barboza MD PCP - General 01/01/19 documented as of this encounter
--- OUTSIDE RECORDS SUMMARY | 2025-01-17 16:13 | XMS_ITS | Encounter Summary ---
Author Organization [facility], Address [address] [place] [address] Phone Care Team Providers Care Publishing Editor Name Role Phone Liz Barboza MD Primary Care Provider [phone] Reason for Visit * Reason Comments Med Refill Encounter Details Date Type Department Care Team (Late st Contact Info) Description 07/01/2021 Refill [facility] [address] [place] [phone] Saajn Mandel MD [address] [place] [phone] Social History Tobacco Use Types Packs/Day Years [...] on filedocumented in this encounter Care Teams Publishing Editor Relationship Specialty Start Date End Date Liz Barboza MD PCP - General 01/01/19 documented as of this encounter
--- OUTSIDE RECORDS SUMMARY | 2025-01-17 16:13 | XMS_ITS | Encounter Summary ---
Author Organization [employer] Address 75 [facility] 7 [place] [address] Care Team Providers Care Decal Decorator Name Role Phone Liz Barboza MD Primary Care Provider +1 [phone] Encounter Details Date Type Department Care Team ([facility] st Contact Info) Description 07/03/2024 Orders Only [facility] MED & PEDS [address] [place], [place] [phone] Liz Barboza MD [address] [place] [address] Generalized anxiety disorder (Primary Dx) Social History [...] Upcoming Encounters Date Type Department Care Team ([facility] Contact Info) Description 02/10/2025 1:30 PM EST Telemedicine [facility] MED & PEDS [address] [place] [address] Leeanna Solis, RN [address] [place] [address] documented as of this encounter Visit Diagnoses Diagnosis Generalized anxiety disorder- Primary documented in this encounter Additional Health Concerns Assessment Noted Time PHQ-9 Depression Total Score: 3 05/10/19 25 9:59 AM EDT documented as of this encounter Care Teams Decal Decorator Relationship Specialty Start Date End Date Liz Barboza MD [address] [place] [address] PCP - General Internal Medicine 10/05/17 documented as of this encounter
--- OUTSIDE RECORDS SUMMARY | 2025-01-17 16:13 | XMS_ITS | Encounter Summary ---
Author Organization [facility], Address [address] [place] [address] Phone Care Team Providers Care Senior Loss Control Specialist Name Role Phone Liz Barboza MD Primary Care Provider [phone] Reason for Visit * Reason Comments Med Refill Encounter Details Date Type Department Care Team (Late st Contact Info) Description 07/05/2021 Refill [facility] [address] [place] [phone] Sajan Mandel MD [address] [place] [phone] Social History Tobacco Use Types Packs/Day Years [...] filedocumented in this encounter Care Teams Senior Loss Control Specialist Relationship Specialty Start Date End Date Liz Barboza MD PCP - General 01/01/19 documented as of this encounter
--- OUTSIDE RECORDS SUMMARY | 2025-01-17 16:13 | XMS_ITS | Encounter Summary ---
Author Organization [employer] Address 75 [facility] 7 [place] [address] Care Team Providers Care Iron Handler Name Role Phone Liz Barboza MD Primary Care Provider [phone] [phone] Encounter Details Date Type Department Care Team ([facility] st Contact Info) Description 10/16/2024 Orders Only [facility] MED & PEDS [address] [place], [place] [phone] Liz Barboza MD [address] [place] [address] Hypokalemia (Primary Dx) Social History Tobacco Use [...] Upcoming Encounters Date Type Department Care Team ([facility] st Contact Info) Description 02/10/2025 1:30 PM EST Telemedicine [facility] MED & PEDS [address] [place] [address] Leeanna Solis, RN [address] [place] [address] documented as of this encounter Procedures Procedure Name Priority Date/Time Associated Diagnosis Comments BASIC METABOLIC PANEL Routine 10/22/2024 8:55 AM EDT Hypokalemia documented in this encounter Results * (ABNORMAL) Basic Metabolic Panel (10/22/2024 8:55 AM EDT) Sodium 138 135 - 145 mmol/L [facility] Potassium 3.6 3.3 - 5.1 mmol/L [facility] Comment:Slight Hemolysis.Int erpret result with caution. Chloride 103 96 - 108 mmol/L [facility] Carbon Dioxide 27 22 - 29 mmol/L [facility] Anion Gap 12 12 - 20 [facility] Urea Nitrogen (BUN) 18(H) 9 - 16 mg/dL [facility] Creatinine, Serum 1.09 0.5 - 1.4 mg/dL [facility] Estimated Glomerular Filt Rate 49 [facility] Comment:Chronic Kidney Disea se: Estimated GFR < 60 mL/min/1.07n0Pngfmy Kidney Disease: Estimated GFR < 15 mL/min/1.73m2 Glucose 97 60 - 115 mg/dL [facility] Calcium 9.6 8.4 - 10.2 mg/dL [facility] Blood Venous blood specimen / Unknown 10/22/2024 8:55 AM EDT 10/22/2024 1:58 PM EDT us Liz Barboza MD LAB BLOOD ORDERABLES Final Result [facility] [address] [place] [phone] [phone] documented in this encounter Visit Diagnoses Diagnosis Hypokalemia- Primary Hypopotassemia documented in this encounter Additional Health Concerns Assessment Noted Time PHQ-9 Depression Total Score: 3 05/10/19 25 9:59 AM EDT documented as of this encounter Care Teams Iron Handler Relationship Specialty Start Date End Date Liz Barboza MD [address] [place] [address] PCP - General Internal Medicine 10/05/17 documented as of this encounter
--- OUTSIDE RECORDS SUMMARY | 2025-01-17 16:13 | XMS_ITS | Encounter Summary ---
Author Organization [employer] Address 75 [facility] [place] [address] Care Team Providers Care Dado Operator Name Role Phone Liz Barboza MD Primary Care Provider [phone] Reason for Visit * Reason Comments Med Refill Encounter Details Date Type Department Care Team ([facility] st Contact Info) Description 01/12/2024 Refill [facility] MED & PEDS [address] [place], [place] [phone] Liz Barboza MD [address] [place] [address] Anxiety disorder, unspecified Social History Tobacco Use [...] Upcoming Encounters Date Type Department Care Team ([facility] st Contact Info) Description 02/10/2025 1:30 PM EST Telemedicine [facility] MED & PEDS [address] [place] [address] Leeanna Solis, MIRNA [address] [place] [address] documented as of this encounter Visit Diagnoses Diagnosis Anxiety disorder, unspecified documented in this encounter Additional Health Concerns Assessment Noted Time PHQ-9 Depression Total Score: 0 10/25/19 23 9:41 AM EDT documented as of this encounter Care Teams Dado Operator Relationship Specialty Start Date End Date Liz Barboza MD [address] [place] [address] PCP - General Internal Medicine 10/05/17 documented as of this encounter
--- OUTSIDE RECORDS SUMMARY | 2025-01-17 16:13 | XMS_ITS | Encounter Summary ---
Author Organization [employer] Address 75 [facility] [place] [address] Care Team Providers Care Centrifugal Casting Machine Operator Name Role Phone Liz Barboza MD Primary Care Provider [phone] Reason for Visit * Reason Onset Date Comments Med Refill 01/15/2023 Encounter Details Date Type Department Care Team ([facility] st Contact Info) Description 01/15/2023 Refill [facility] MED & PEDS [address] [place] [address] Liz Barboza MD [address] [place] [address] Anxiety (Primary Dx); Primary osteoarthritis of other [...] ([facility] st Contact Info) Description 02/10/2025 1:30 PM EST Telemedicine [facility] MED & PEDS [address] [place] [address] Leeanna Solis, MIRNA [address] [place] [address] documented as of this encounter Visit Diagnoses Diagnosis Anxiety- Primary Anxiety state, unspecified Primary osteoarthritis of other site 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
--- OUTSIDE RECORDS SUMMARY | 2025-01-17 16:13 | XMS_ITS | Encounter Summary ---
Author Organization [employer] Address 75 [facility] 7 [place] [address] Care Team Providers Care Chief Science Officer Name Role Phone Liz Barboza MD Primary Care Provider [phone] Encounter Details Date Type Department Care Team ([facility] st Contact Info) Description 02/04/2024 Orders Only [facility] MED & PEDS [address] [place], [place] [phone] Liz Barboza MD [address] [place] [address] Anxiety disorder, unspecified; Anxiety Social History Tobacco [...] Upcoming Encounters Date Type Department Care Team ([facility] st Contact Info) Description 02/10/2025 1:30 PM EST Telemedicine [facility] MED & PEDS [address] [place] [address] Leeanna Solis RN [address] [place] [address] documented as of this encounter Visit Diagnoses Diagnosis Anxiety disorder, unspecified Anxiety Anxiety state, unspecified documented in this encounter Additional Health Concerns Assessment Noted Time PHQ-9 Depression Total Score: 0 10/25/19 23 9:41 AM EDT documented as of this encounter Care Teams Chief Science Officer Relationship Specialty Start Date End Date Liz Barboza MD [address] [place] [address] PCP - General Internal Medicine 10/05/17 documented as of this encounter
--- OUTSIDE RECORDS SUMMARY | 2025-01-17 16:13 | XMS_ITS | Encounter Summary ---
Author Organization [facility] [place], Address [address] [place] [address] Phone Care Team Providers Care Network Management Specialist Name Role Phone Liz Barboza MD Primary Care Provider [phone] Encounter Details Date Type Department Care Team (Late st Contact Info) Description 09/29/2023 Documentation Only [facility], [address] [place] [address] [place] [address] [place] [address] Social History Tobacco Use Types [...] on filedocumented in this encounter Care Teams Network Management Specialist Relationship Specialty Start Date End Date Liz Barboza MD PCP - General 01/01/19 documented as of this encounter
--- OUTSIDE RECORDS SUMMARY | 2025-01-17 16:13 | XMS_ITS | Encounter Summary ---
Author Organization [employer] Address 75 [facility] [place] [address] Care Team Providers Care Chief Hospital Administrator Name Role Phone Liz Barboza MD Primary Care Provider [phone] Reason for Visit * Reason Onset Date Comments Med Refill 01/13/2025 Encounter Details Date Type Department Care Team ([facility] st Contact Info) Description 01/13/2025 Refill [facility] MED & PEDS [address] [place] [address] Liz Barboza MD [address] [place] [address] Social History Tobacco Use Types Packs/Day Years [...] Info) Description 02/10/2025 1:30 PM EST Telemedicine [facility] MED & PEDS [address] [place] [address] Leeanna Solis, MIRNA [address] [place] [address] documented as of this encounter Visit Diagnoses Not on filedocumented in this encounter Additional Health Concerns Assessment Noted Time PHQ-9 Depression Total Score: 3 05/10/19 25 9:59 AM EDT documented as of this encounter Care Teams Chief Hospital Administrator Relationship Specialty Start Date End Date Liz Barboza MD [address] [place] [address] PCP - General Internal Medicine 10/05/17 documented as of this encounter
--- OUTSIDE RECORDS SUMMARY | 2025-01-17 16:13 | XMS_ITS | Encounter Summary ---
Author Organization [facility] [place], Address [address] [place] [address] Phone Care Team Providers Care Lens Inserter Name Role Phone Liz Barboza MD Primary Care Provider [phone] Encounter Details Date Type Department Care Team (Late st Contact Info) Description 08/02/2021 Documentation Only [facility] [place], [address] [place] [address] Elvira Barron PA Social History Tobacco Use [...] on filedocumented in this encounter Care Teams Lens Inserter Relationship Specialty Start Date End Date Liz Barboza MD PCP - General 01/01/19 documented as of this encounter
--- OUTSIDE RECORDS SUMMARY | 2025-01-17 16:13 | XMS_ITS | Encounter Summary ---
Author Organization [employer] Address 75 [facility] [place] [address] Care Team Providers Care X Ray Technician Name Role Phone Liz Barboza MD Primary Care Provider [phone] Reason for Visit * Reason Onset Date Comments Med Refill 10/02/2024 Encounter Details Date Type Department Care Team ([facility] st Contact Info) Description 10/02/2024 Refill [facility] MED & PEDS [address] [place] [address] Liz Barboza MD [address] [place] [address] Social History Tobacco Use Types Packs/Day Years [...] Info) Description 02/10/2025 1:30 PM EST Telemedicine [facility] MED & PEDS [address] [place] [address] Leeanna Solis, MIRNA [address] [place] [address] documented as of this encounter Visit Diagnoses Not on filedocumented in this encounter Additional Health Concerns Assessment Noted Time PHQ-9 Depression Total Score: 3 05/10/19 25 9:59 AM EDT documented as of this encounter Care Teams X Ray Technician Relationship Specialty Start Date End Date Liz Barboza MD [address] [place] [address] PCP - General Internal Medicine 10/05/17 documented as of this encounter
--- OUTSIDE RECORDS SUMMARY | 2025-01-17 16:14 | XMS_ITS | Encounter Summary ---
Author Organization [employer] Address 75 [facility] [place] [address] Care Team Providers Care Geotechnicial Properties Technician Name Role Phone Liz Barboza MD Primary Care Provider [phone] Reason for Visit * Reason Comments Med Refill Encounter Details Date Type Department Care Team ([facility] st Contact Info) Description 01/11/[address] [facility] CH[facility] MED & PEDS [address] [place], [place] [phone] Liz Barboza MD [address] [place] [address] Anxiety disorder, unspecified Social History Tobacco Use [...] Encounters Date Type Department Care Team ([facility] st Contact Info) Description 02/10/2025 1:30 PM EST Telemedicine [facility] MED & PEDS [address] [place] [address] Leeanna Solis, MIRNA [address] [place] [address] documented as of this encounter Visit Diagnoses Diagnosis Anxiety disorder, unspecified documented in this encounter Additional Health Concerns Assessment Noted Time PHQ-9 Depression Total Score: 0 10/25/19 23 9:41 AM EDT documented as of this encounter Care Teams Geotechnicial Properties Technician Relationship Specialty Start Date End Date Liz Barboza MD [address] [place] [address] PCP - General Internal Medicine 10/05/17 documented as of this encounter
--- OUTSIDE RECORDS SUMMARY | 2025-01-17 16:14 | XMS_ITS | Encounter Summary ---
Author Organization [employer] Address [address] [place] [address] Care Team Providers Care Staffing Assistant Name Role Phone Liz Barboza MD Primary Care Provider [phone] Reason for Visit * Reason Comments Med Refill Encounter Details Date Type Department Care Team ([facility] Contact Info) Description 08/01/2022 Refill [facility] MED & PEDS [address] [place] [address] Liz Barboza MD [address] [place] [address] Social History Tobacco Use Types Packs/Day Years [...] Upcoming Encounters Date Type Department Care Team ([facility] Contact Info) Description 02/10/2025 1:30 PM EST Telemedicine [facility] MED & PEDS [address] [place] [address] Leeanna Solis RN [address] [place], [place] [phone] documented as of this encounter Visit Diagnoses Not on filedocumented in this encounter Care Teams Staffing Assistant Relationship Specialty Start Date End Date Liz Barboza MD [address] [place] [address] PCP - General Internal Medicine 10/05/17 documented as of this encounter
--- OUTSIDE RECORDS SUMMARY | 2025-01-17 16:14 | XMS_ITS | Encounter Summary ---
Author Organization [employer] Address 75 [facility] [place] [address] Care Team Providers Care Electromechanic Name Role Phone Liz Barboza MD Primary Care Provider [phone] Reason for Visit * Reason Comments Med Refill Encounter Details Date Type Department Care Team ([facility] st Contact Info) Description 05/19/2023 Refill [facility] MED & PEDS [address] [place], [place] [phone] Liz Barboza MD [address] [place] [address] Anxiety disorder, unspecified; Anxiety Social History Tobacco [...] Upcoming Encounters Date Type Department Care Team ([facility] st Contact Info) Description 02/10/2025 1:30 PM EST Telemedicine [facility] MED & PEDS [address] [place] [address] Leeanna Solis RN [address] [place] [address] documented as of this encounter Visit Diagnoses Diagnosis Anxiety disorder, unspecified Anxiety Anxiety state, unspecified documented in this encounter Additional Health Concerns Assessment Noted Time PHQ-9 Depression Total Score: 0 10/25/19 23 9:41 AM EDT documented as of this encounter Care Teams Electromechanic Relationship Specialty Start Date End Date Liz Barboza MD [address] [place] [address] PCP - General Internal Medicine 10/05/17 documented as of this encounter
--- OUTSIDE RECORDS SUMMARY | 2025-01-17 16:14 | XMS_ITS | Encounter Summary ---
Author Organization [employer] Address 75 [facility] 7 [place] [address] Care Team Providers Care Java Web Services Developer Name Role Phone Liz Barboza MD Primary Care Provider [phone] Encounter Details Date Type Department Care Team (Late st Contact Info) Description 05/10/2024 Orders Only [facility] MEDICINE [address] [place] [address] Liz Barboza MD [address] [place] [address] Other specified hypothyroidism (Primary Dx) Social History [...] [facility] MED & PEDS [address] [place] [address] Leeanna Solis, RN [address] [place] [address] documented as of this encounter Visit Diagnoses Diagnosis Other specified hypothyroidism- Primary documented in this encounter Additional Health Concerns Assessment Noted Time PHQ-9 Depression Total Score: 3 05/10/19 25 9:59 AM EDT documented as of this encounter Care Teams Java Web Services Developer Relationship Specialty Start Date End Date Liz Barboza MD [address] [place] [address] PCP - General Internal Medicine 10/05/17 documented as of this encounter
--- OUTSIDE RECORDS SUMMARY | 2025-01-17 16:14 | XMS_ITS | Encounter Summary ---
Author Organization [facility], Address [address] [place] [address] Phone Care Team Providers Care Buckle Gluer Name Role Phone Liz Barboza MD Primary Care Provider [phone] Reason for Visit * Reason Comments Med Refill Encounter Details Date Type Department Care Team (Late st Contact Info) Description 07/02/2021 Refill [facility] [address] [place] [phone] Sajan Mandel MD [address] [place] [phone] Social History Tobacco Use Types Packs/Day Years [...] on filedocumented in this encounter Care Teams Buckle Gluer Relationship Specialty Start Date End Date Liz Barboza MD PCP - General 01/01/19 documented as of this encounter
--- OUTSIDE RECORDS SUMMARY | 2025-01-17 16:14 | XMS_ITS | Encounter Summary ---
Author Organization [employer] Address 75 [facility] 7 [place] [address] Care Team Providers Care Medical Staff Services Coordinator Name Role Phone Liz Barboza MD Primary Care Provider [phone] Encounter Details Date Type Department Care Team ([facility] st Contact Info) Description 04/14/2023 Orders Only [facility] MED & PEDS [address] [place], [place] [phone] Liz Barboza MD [address] [place] [address] Social History Tobacco Use Types Packs/Day Years [...] 02/10/2025 1:30 PM EST Telemedicine [facility] MED & PEDS [address] [place] [address] Leeanna Solis, MIRNA [address] [place] [address] documented as of this encounter Visit Diagnoses Not on filedocumented in this encounter Additional Health Concerns Assessment Noted Time PHQ-9 Depression Total Score: 0 10/25/19 23 9:41 AM EDT documented as of this encounter Care Teams Medical Staff Services Coordinator Relationship Specialty Start Date End Date Liz Barboza MD [address] [place] [address] PCP - General Internal Medicine 10/05/17 documented as of this encounter
--- OUTSIDE RECORDS SUMMARY | 2025-01-17 16:14 | XMS_ITS | Encounter Summary ---
Author Organization [facility] [place], Address [address] [place] [address] Phone Care Team Providers Care Logistics System Engineer Name Role Phone Liz Barboza MD Primary Care Provider [phone] Reason for Visit * Reason Comments Med Refill Encounter Details Date Type Department Care Team (Late st Contact Info) Description 12/19/2019 Refill [facility] [address] [place] [phone] Kai Thomas MD Social History Tobacco Use [...] on filedocumented in this encounter Care Teams Logistics System Engineer Relationship Specialty Start Date End Date Liz Barboza MD PCP - General 01/01/19 documented as of this encounter
--- OUTSIDE RECORDS SUMMARY | 2025-01-17 16:14 | XMS_ITS | Encounter Summary ---
Author Organization Phone [employer] Address [address] [place] [address] Care Team Providers Care Cut Filer Name Role Phone Liz Barboza MD Primary Care Provider [phone] Encounter Details Date Type Department Care Team ([facility] st Contact Info) Description 02/10/2023 Orders Only [facility] [address], [place] [phone] Liz Barboza MD [address] [place] [address] Social History Tobacco Use Types Packs/Day Years [...] Info) Description 02/10/2025 1:30 PM EST Telemedicine [facility] [address] [place] [address] Leeanna Solis, MIRNA [address] [place] [address] documented as of this encounter Visit Diagnoses Not on filedocumented in this encounter Additional Health Concerns Assessment Noted Time PHQ-9 Depression Total Score: 0 10/25/19 23 9:41 AM EDT documented as of this encounter Care Teams Cut Filer Relationship Specialty Start Date End Date Liz Barboza MD [address] [place] [address] PCP - General Internal Medicine 10/05/17 documented as of this encounter
== END 2025-01-17 16:06 | disposition home or self-care (01) ==
LOC: HO.MAMMO 16:05
PROVIDERS: PCP Internal Medicine; Visit Provider Internal Medicine
DX: Z12.31 Encounter for screening mammogram for malignant neoplasm of breast (principal)
CPT/HCPCS: 77063; 77067

== ENCOUNTER → 2025-01-17 16:30 | Outpatient (BNV) | payer MEDICARE, MEDICAID, SELFPAY | PROVIDERS: PCP Internal Medicine; Visit Provider Internal Medicine | DX: Z12.31 Encounter for screening mammogram for malignant neoplasm of breast (principal) | CPT/HCPCS: 77063; 77067 ==